=== PATIENT | female | born 1970 ===

== ENCOUNTER 2021-04-18 02:05 | Inpatient (IN) | payer OTHER ==
[2021-04-18] MEDS ORDERED: SODIUM CHLORIDE 0.9% 1000 ML 1,000 ML IV ONE ×2 (02:15→04:14)
[2021-04-18] MEDS ORDERED: cefTRIAXone/NS 2 GM/100 ML 2 GM/100 ML BAG IV ONE (02:17)
[2021-04-18] MEDS ORDERED: AZITHROMYCIN/NS 500 MG/250 ML 500 MG/250 ML BAG IV ONE (02:17)
[2021-04-18] MEDS ORDERED: ACETAMINOPHEN 650 MG RECT SUPP PR ONE (02:18)
--- NOTE | 2021-04-18 02:18 | Emergency Department Report ---
ED Altered Mental Status HPI - General Chief Complaint: Altered Mental Status Stated Complaint: RESPIRATORY DISTRESS PUI?: Yes Time Seen by Provider: 04/18/21 02:05 Source: EMS Limitations: Altered Mental Status, Physical Limitation - History of Present Illness Initial Comments: Patient is a 51-year-old female who presents emergency room with altered mental status, hypoxia and respiratory failure. Patient brought in by EMS. EMS report received. EMS states the patient was minimally responsive on arrival. Patient was placed on oxygen and IV placed and given saline and the patient began to wake up. Patient is on nonrebreather and is 78%. Patient received half a liter of fluids. Patient still tachycardic. Patient was normotensive. Patient recently diagnosed with Covid pneumonia. Patient has Zithromax at home but is not taking it. Patient's family called EMS. Patient is nonverbal. MD Complaint: altered mental status, decreased responsiveness -: Sudden Treatments Prior to Arrival: IV fluid, oxygen - Related Data Home Medications Medication Instructions Recorded Confirmed Last Taken Amlodipine Besylate [Norvasc] 10 mg PO DAILY 04/19/21 04/19/21 Unknown AtorvaSTATin [Lipitor] 10 mg PO QHS 04/19/21 04/19/21 Unknown Losartan [Cozaar] 50 mg PO QDAY 04/19/21 04/19/21 Unknown hydroCHLOROthiazide 12.5 mg PO QAM 04/19/21 04/19/21 Unknown [Hydrochlorothiazide] predniSONE 10 mg PO QDAY 04/19/21 04/19/21 Unknown Allergies Allergy/AdvReac Type Severity Reaction Status Date / Time No Known Allergies Allergy Verified 04/19/21 19:16 ED Review of Systems ROS: Stated complaint: RESPIRATORY DISTRESS Other details as noted in HPI Comment: Unobtainable due to pts medical conditions ED Past Medical Hx - Past Medical History Previous Medical History?: Yes Hx Hypertension: Yes - Surgical History Past Surgical History?: No - Family History Family history: no significant - Social History Smoking Status: Never Smoker Substance Use Type: None - Medications Home Medications: Home Medications Medication Instructions Recorded Confirmed Last Taken Type Amlodipine Besylate [Norvasc] 10 mg PO DAILY 04/19/21 04/19/21 Unknown History AtorvaSTATin [Lipitor] 10 mg PO QHS 04/19/21 04/19/21 Unknown History Losartan [Cozaar] 50 mg PO QDAY 04/19/21 04/19/21 Unknown History hydroCHLOROthiazide 12.5 mg PO QAM 04/19/21 04/19/21 Unknown History [Hydrochlorothiazide] predniSONE 10 mg PO QDAY 04/19/21 04/19/21 Unknown History ED Physical Exam - General Limitations: Altered Mental Status, Physical Limitation General appearance: alert, in distress - Head Head exam: Present: atraumatic, normocephalic - Eye Eye exam: Present: normal appearance, PERRL Pupils: Present: normal accommodation - ENT ENT exam: Present: mucous membranes dry - Neck Neck exam: Present: normal inspection - Respiratory Respiratory exam: Present: respiratory distress, wheezes, decreased breath sounds - Cardiovascular Cardiovascular Exam: Present: regular rate, normal rhythm, normal heart sounds. Absent: systolic murmur, diastolic murmur, rubs, gallop - GI/Abdominal GI/Abdominal exam: Present: soft, normal bowel sounds - Extremities Exam Extremities exam: Present: normal inspection - Back Exam Back exam: Present: normal inspection - Neurological Exam Neurological exam: Present: alert, altered - Skin Skin exam: Present: warm, dry, intact, normal color. Absent: rash - Assessment Assessment Interval: Baseline - Level of Consciousness 1a. Level of Consciousness: alert/keenly responsive - LOC Questions 1b. LOC Questions: aphasic - LOC Command 1c. LOC Commands: performs no tasks correctly - Best Gaze 2. Best Gaze: normal - Visual 3. Visual: no visual loss - Facial Palsy 4. Facial Palsy: normal symmetrical movement - Motor Arm 5a. Motor Arm Left: no movement 5b. Motor Arm Right: no movement - Motor Leg 6a. Motor Leg Left: no movement 6b. Motor Leg Right: no movement - Limb Ataxia 7. Limb Ataxia: absent - Sensory 8. Sensory: coma/unresponsive - Best Language 9. Best Language: coma/unresponsive - Dysarthria 10. Dysarthria: mute/anarrthric - Extinction and Inattention 11. Extinction/Inattention: no abnormality - Scoring Total Score: 27 Stroke Severity: Severe Stroke ED Course Vital Signs 04/18/21 04/18/21 04/18/21 02:35 03:54 04:53 Temperature Pulse Rate 111 H Respiratory 28 H Rate Blood Pressure 132/97 Blood Pressure [Left] O2 Sat by Pulse 92 100 Oximetry 04/18/21 04/18/21 04/18/21 05:01 05:15 05:31 Temperature Pulse Rate 102 H 105 H 105 H Respiratory 25 H 30 H 21 Rate Blood Pressure 127/86 127/87 128/81 Blood Pressure [Left] O2 Sat by Pulse 100 99 98 Oximetry 04/18/21 04/18/21 04/18/21 05:45 06:01 06:15 Temperature Pulse Rate 95 H 83 83 Respiratory 23 22 22 Rate Blood Pressure 128/88 112/77 105/75 Blood Pressure [Left] O2 Sat by Pulse 97 97 97 Oximetry 04/18/21 04/18/21 04/18/21 06:31 06:45 07:01 Temperature Pulse Rate 83 81 81 Respiratory 22 22 22 Rate Blood Pressure 108/73 128/88 105/74 Blood Pressure [Left] O2 Sat by Pulse 98 98 99 Oximetry 04/18/21 04/18/21 04/18/21 07:15 07:31 07:45 Temperature Pulse Rate 81 80 79 Respiratory 22 22 21 Rate Blood Pressure 110/71 118/76 107/74 Blood Pressure [Left] O2 Sat by Pulse 100 100 99 Oximetry 04/18/21 04/18/21 04/18/21 08:00 08:01 08:15 Temperature Pulse Rate 80 80 Respiratory 22 22 Rate Blood Pressure 107/72 103/73 Blood Pressure [Left] O2 Sat by Pulse 99 100 100 Oximetry 04/18/21 04/18/21 04/18/21 08:22 08:31 08:45 Temperature 98.3 F Pulse Rate 79 77 76 Respiratory 22 22 Rate Blood Pressure 104/72 104/72 112/77 Blood Pressure [Left] O2 Sat by Pulse 100 100 100 Oximetry 04/18/21 04/18/21 04/18/21 09:01 09:15 09:31 Temperature Pulse Rate 76 75 76 Respiratory 22 22 22 Rate Blood Pressure 106/70 106/72 112/76 Blood Pressure [Left] O2 Sat by Pulse 100 100 100 Oximetry 04/18/21 04/18/21 04/18/21 09:45 10:01 10:15 Temperature Pulse Rate 74 68 77 Respiratory 22 22 22 Rate Blood Pressure 109/70 110/70 109/70 Blood Pressure [Left] O2 Sat by Pulse 100 99 99 Oximetry 04/18/21 04/18/21 04/18/21 10:31 10:45 11:01 Temperature Pulse Rate 77 75 73 Respiratory 22 22 22 Rate Blood Pressure 111/70 110/74 110/75 Blood Pressure [Left] O2 Sat by Pulse 99 99 99 Oximetry 04/18/21 04/18/21 04/18/21 11:15 11:31 11:45 Temperature Pulse Rate 66 66 71 Respiratory 22 21 22 Rate Blood Pressure 110/74 108/73 102/71 Blood Pressure [Left] O2 Sat by Pulse 100 100 100 Oximetry 04/18/21 04/18/21 04/18/21 12:01 12:15 12:31 Temperature Pulse Rate 66 67 65 Respiratory 22 22 22 Rate Blood Pressure 106/72 107/72 109/73 Blood Pressure [Left] O2 Sat by Pulse 100 100 100 Oximetry 04/18/21 04/18/21 04/18/21 12:45 12:55 13:01 Temperature Pulse Rate 64 68 64 Respiratory 22 22 Rate Blood Pressure 102/70 109/73 109/73 Blood Pressure [Left] O2 Sat by Pulse 100 100 100 Oximetry 04/18/21 04/18/21 04/18/21 13:15 13:31 13:45 Temperature Pulse Rate 70 61 62 Respiratory 22 22 22 Rate Blood Pressure 105/71 103/69 100/68 Blood Pressure [Left] O2 Sat by Pulse 100 100 100 Oximetry 04/18/21 04/18/21 04/18/21 14:01 14:15 14:31 Temperature Pulse Rate 62 61 62 Respiratory 30 H 30 H 30 H Rate Blood Pressure 106/70 110/71 108/71 Blood Pressure [Left] O2 Sat by Pulse 100 100 100 Oximetry 04/18/21 04/18/21 04/18/21 14:45 15:01 15:15 Temperature Pulse Rate 62 61 62 Respiratory 30 H 30 H 30 H Rate Blood Pressure 113/72 107/70 113/72 Blood Pressure [Left] O2 Sat by Pulse 100 100 100 Oximetry 04/18/21 04/18/21 04/18/21 15:31 15:45 16:01 Temperature Pulse Rate 60 60 59 L Respiratory 30 H 30 H 30 H Rate Blood Pressure 108/73 109/72 116/73 Blood Pressure [Left] O2 Sat by Pulse 100 100 100 Oximetry 04/18/21 04/18/21 04/18/21 16:10 16:15 16:31 Temperature Pulse Rate 55 L 59 L 58 L Respiratory 30 H 30 H Rate Blood Pressure 114/74 108/71 114/73 Blood Pressure [Left] O2 Sat by Pulse 100 100 100 Oximetry 04/18/21 04/18/21 04/18/21 16:45 17:01 17:15 Temperature Pulse Rate 55 L 57 L 56 L Respiratory 30 H 30 H 30 H Rate Blood Pressure 114/72 117/74 115/71 Blood Pressure [Left] O2 Sat by Pulse 100 100 100 Oximetry 04/18/21 04/18/21 04/18/21 17:31 17:45 18:01 Temperature Pulse Rate 57 L 56 L 56 L Respiratory 30 H 30 H 30 H Rate Blood Pressure 117/74 124/80 114/74 Blood Pressure [Left] O2 Sat by Pulse 100 100 100 Oximetry 04/18/21 04/18/21 04/18/21 19:01 19:15 19:31 Temperature Pulse Rate 54 L 55 L 53 L Respiratory 30 H 30 H 30 H Rate Blood Pressure 127/80 118/74 121/73 Blood Pressure [Left] O2 Sat by Pulse 100 100 100 Oximetry 04/18/21 04/18/21 04/18/21 19:45 20:00 20:01 Temperature Pulse Rate 53 L 54 L 53 L Respiratory 30 H 30 H Rate Blood Pressure 116/73 124/80 121/79 Blood Pressure [Left] O2 Sat by Pulse 100 100 100 Oximetry 04/18/21 04/18/21 04/18/21 20:16 20:30 20:35 Temperature 97.8 F Pulse Rate 53 L 76 64 Respiratory 30 H 30 H 30 H Rate Blood Pressure 116/73 120/78 Blood Pressure 125/79 [Left] O2 Sat by Pulse 100 99 98 Oximetry 04/18/21 04/18/21 04/18/21 20:45 21:01 21:15 Temperature Pulse Rate 66 59 L 56 L Respiratory 30 H 30 H 30 H Rate Blood Pressure 125/79 121/79 111/73 Blood Pressure [Left] O2 Sat by Pulse 97 99 99 Oximetry 04/18/21 04/18/21 04/18/21 21:31 21:45 22:01 Temperature Pulse Rate 54 L 55 L 54 L Respiratory 30 H 30 H 30 H Rate Blood Pressure 111/74 116/75 114/73 Blood Pressure [Left] O2 Sat by Pulse 99 100 100 Oximetry 04/18/21 04/18/21 04/18/21 22:15 22:30 22:46 Temperature Pulse Rate 53 L 54 L 53 L Respiratory 30 H 30 H 30 H Rate Blood Pressure 123/79 114/73 125/80 Blood Pressure [Left] O2 Sat by Pulse 100 100 100 Oximetry 04/18/21 04/18/21 04/18/21 23:00 23:16 23:28 Temperature Pulse Rate 52 L 52 L 51 L Respiratory 30 H 30 H 30 H Rate Blood Pressure 119/78 127/80 123/77 Blood Pressure [Left] O2 Sat by Pulse 100 100 100 Oximetry 04/18/21 04/18/21 04/19/21 23:30 23:46 00:00 Temperature Pulse Rate 50 L 52 L 51 L Respiratory 30 H 30 H 30 H Rate Blood Pressure 123/77 121/80 125/78 Blood Pressure [Left] O2 Sat by Pulse 100 100 100 Oximetry 04/19/21 04/19/21 04/19/21 00:16 00:30 00:46 Temperature Pulse Rate 52 L 52 L 51 L Respiratory 30 H 30 H 30 H Rate Blood Pressure 122/80 125/78 124/80 Blood Pressure [Left] O2 Sat by Pulse 100 100 100 Oximetry 04/19/21 04/19/21 04/19/21 01:00 01:12 01:16 Temperature Pulse Rate 51 L 50 L 57 L Respiratory 30 H 25 H Rate Blood Pressure 123/80 122/76 122/76 Blood Pressure [Left] O2 Sat by Pulse 100 100 98 Oximetry 04/19/21 04/19/21 04/19/21 01:30 01:46 02:00 Temperature Pulse Rate 50 L 53 L 50 L Respiratory 30 H 30 H 30 H Rate Blood Pressure 124/80 133/83 122/80 Blood Pressure [Left] O2 Sat by Pulse 100 100 100 Oximetry 04/19/21 04/19/21 04/19/21 02:16 02:30 02:46 Temperature Pulse Rate 52 L 51 L 53 L Respiratory 30 H 30 H 30 H Rate Blood Pressure 123/78 119/76 123/78 Blood Pressure [Left] O2 Sat by Pulse 100 100 100 Oximetry 04/19/21 04/19/21 04/19/21 03:00 03:16 03:30 Temperature Pulse Rate 52 L 53 L 55 L Respiratory 30 H 30 H 30 H Rate Blood Pressure 127/79 125/78 122/79 Blood Pressure [Left] O2 Sat by Pulse 100 100 100 Oximetry 04/19/21 04/19/21 04/19/21 03:46 04:00 04:16 Temperature Pulse Rate 52 L 49 L 52 L Respiratory 30 H 30 H 30 H Rate Blood Pressure 127/79 124/80 126/75 Blood Pressure [Left] O2 Sat by Pulse 100 100 100 Oximetry 04/19/21 04/19/21 04/19/21 04:30 04:46 05:00 Temperature Pulse Rate 51 L 53 L 50 L Respiratory 30 H 30 H 30 H Rate Blood Pressure 124/77 126/75 123/76 Blood Pressure [Left] O2 Sat by Pulse 100 100 100 Oximetry 04/19/21 04/19/21 04/19/21 05:16 05:28 05:30 Temperature Pulse Rate 52 L 50 L 51 L Respiratory 30 H 30 H Rate Blood Pressure 124/77 119/78 119/78 Blood Pressure [Left] O2 Sat by Pulse 100 100 100 Oximetry 04/19/21 04/19/21 04/19/21 05:46 06:00 06:16 Temperature Pulse Rate 60 52 L 53 L Respiratory 30 H 30 H 30 H Rate Blood Pressure 127/87 131/78 122/78 Blood Pressure [Left] O2 Sat by Pulse 100 100 100 Oximetry 04/19/21 04/19/21 04/19/21 06:30 06:46 06:50 Temperature Pulse Rate 53 L 51 L 54 L Respiratory 30 H 30 H 30 H Rate Blood Pressure 121/76 117/75 121/74 Blood Pressure [Left] O2 Sat by Pulse 100 100 100 Oximetry 04/19/21 04/19/21 04/19/21 07:00 07:10 07:20 Temperature Pulse Rate 52 L 51 L 51 L Respiratory 30 H 30 H 30 H Rate Blood Pressure 121/74 124/75 126/79 Blood Pressure [Left] O2 Sat by Pulse 100 100 100 Oximetry 04/19/21 04/19/21 04/19/21 07:30 07:40 07:50 Temperature Pulse Rate 52 L 52 L 52 L Respiratory 30 H 30 H 30 H Rate Blood Pressure 126/79 121/76 119/77 Blood Pressure [Left] O2 Sat by Pulse 100 100 100 Oximetry 04/19/21 04/19/21 04/19/21 08:00 08:10 08:20 Temperature Pulse Rate 51 L 50 L 57 L Respiratory 30 H 30 H 30 H Rate Blood Pressure 119/77 122/75 123/80 Blood Pressure [Left] O2 Sat by Pulse 100 100 100 Oximetry 04/19/21 04/19/21 04/19/21 08:30 08:40 08:50 Temperature Pulse Rate 51 L 53 L 53 L Respiratory 30 H 30 H 30 H Rate Blood Pressure 123/80 123/80 128/80 Blood Pressure [Left] O2 Sat by Pulse 100 100 100 Oximetry 04/19/21 04/19/21 04/19/21 09:00 09:10 09:22 Temperature Pulse Rate 54 L 53 L Respiratory 30 H 30 H Rate Blood Pressure 128/80 128/80 Blood Pressure [Left] O2 Sat by Pulse 100 100 100 Oximetry 04/19/21 04/19/21 09:30 09:33 Temperature Pulse Rate 65 63 Respiratory 30 H Rate Blood Pressure Blood Pressure [Left] O2 Sat by Pulse 100 100 Oximetry - Reevaluation(s) Reevaluation #1: Patient oxygen saturation 98% on nonrebreather. Patient was switched over to high flow. 04/18/21 02:15 Reevaluation #2: Patient is currently 94%. Patient is on high flow O2. Patient will be given antibiotics steroids and, steroids and Zofran. 04/18/21 02:31 Reevaluation #3: Patient became more altered and more hypoxic. Patient intubated. See procedure note. Patient tolerated procedure well. 04/18/21 03:02 Reevaluation #4: Patient resting on the ventilator. Patient appropriately sedated. Patient's oxygen proving. 04/18/21 04:01 - Consultations Consultation #1: Hospitalist consulted for admission. Hospitalist to admit patient. 04/18/21 04:01 - Intubation Time Out Performed: Yes Sedative: Etomidate Paralytic: Succinylcholine Laryngoscope: Claudia Size: 4 Assist Device Used: fiberoptic device ET Tube Size: 7.5 Tube Secured Depth (cm): 20 Tube Secured Location: teeth Tube Placement Confirmation: visualized tube passing t, equal breath sounds bilat, no breath sounds over epi, confirmation by capnometr Patient Tolerated Procedure: well, no complications Intubation Complications: none - Lab Data Result diagrams: 04/23/21 04:17 04/23/21 04:17 Lab Results 10/15/21 10/15/21 10/15/21 Range/Units 02:34 02:34 02:34 WBC 6.5 (4.5-11.0) K/mm3 RBC 4.10 (3.65-5.03) M/mm3 Hgb 13.5 (10.1-14.3) gm/dl Hct 38.5 (30.3-42.9) % MCV 94 (79-97) fl MCH 33 H (28-32) pg MCHC 35 H (30-34) % RDW 12.4 L (13.2-15.2) % Plt Count 182 (140-440) K/mm3 Lymph % (Auto) 13.8 (13.4-35.0) % [place] % (Auto) 14.0 H (0.0-7.3) % Eos % (Auto) 0.0 (0.0-4.3) % Baso % (Auto) 0.2 (0.0-1.8) % Lymph # (Auto) 0.9 L (1.2-5.4) K/mm3 [place] # (Auto) 0.9 H (0.0-0.8) K/mm3 Eos # (Auto) 0.0 (0.0-0.4) K/mm3 Baso # (Auto) 0.0 (0.0-0.1) K/mm3 Seg Neutrophils % 72.0 H (40.0-70.0) % Seg Neutrophils # 4.7 (1.8-7.7) K/mm3 PT 14.2 (12.2-14.9) Sec. INR 0.99 (0.87-1.13) APTT 34.2 (24.2-36.6) Sec. D-Dimer 978.83 H (0-234) ng/mlDDU Sodium 145 (137-145) mmol/L Potassium 3.7 (3.6-5.0) mmol/L Chloride 104.6 (98-107) mmol/L Carbon Dioxide 20 L (22-30) mmol/L Anion Gap 24 mmol/L BUN 32 H (7-17) mg/dL Creatinine 1.0 (0.6-1.2) mg/dL Estimated GFR 58 ml/min BUN/Creatinine Ratio 32 % Glucose 227 H (65-100) mg/dL Lactic Acid (0.7-2.0) mmol/L Calcium 8.2 L (8.4-10.2) mg/dL Ferritin (10.0-200.0) ng/mL Total Bilirubin 0.70 (0.1-1.2) mg/dL AST 64 H (5-40) units/L ALT 33 (7-56) units/L Alkaline Phosphatase 91 (35-129) units/L Ammonia (25-60) umol/L Lactate Dehydrogenase (91-180) units/L Total Creatine Kinase (30-135) units/L C-Reactive Protein (0.00-1.30) mg/dL Total Protein 6.9 (6.3-8.2) g/dL Albumin 3.5 L (3.9-5) g/dL Albumin/Globulin Ratio 1.0 % Procalcitonin (<0.15) ng/mL Plasma/Serum Alcohol (0-0.07) % 04/18/21 04/18/21 04/18/21 Range/Units 02:34 02:34 02:34 WBC (4.5-11.0) K/mm3 RBC (3.65-5.03) M/mm3 Hgb (10.1-14.3) gm/dl Hct (30.3-42.9) % MCV (79-97) fl MCH (28-32) pg MCHC (30-34) % RDW (13.2-15.2) % Plt Count (140-440) K/mm3 Lymph % (Auto) (13.4-35.0) % [place] % (Auto) (0.0-7.3) % Eos % (Auto) (0.0-4.3) % Baso % (Auto) (0.0-1.8) % Lymph # (Auto) (1.2-5.4) K/mm3 [place] # (Auto) (0.0-0.8) K/mm3 Eos # (Auto) (0.0-0.4) K/mm3 Baso # (Auto) (0.0-0.1) K/mm3 Seg Neutrophils % (40.0-70.0) % Seg Neutrophils # (1.8-7.7) K/mm3 PT (12.2-14.9) Sec. INR (0.87-1.13) APTT (24.2-36.6) Sec. D-Dimer (0-234) ng/mlDDU Sodium (137-145) mmol/L Potassium (3.6-5.0) mmol/L Chloride (98-107) mmol/L Carbon Dioxide (22-30) mmol/L Anion Gap mmol/L BUN (7-17) mg/dL Creatinine (0.6-1.2) mg/dL Estimated GFR ml/min BUN/Creatinine Ratio % Glucose (65-100) mg/dL Lactic Acid (0.7-2.0) mmol/L Calcium (8.4-10.2) mg/dL Ferritin (10.0-200.0) ng/mL Total Bilirubin (0.1-1.2) mg/dL AST (5-40) units/L ALT (7-56) units/L Alkaline Phosphatase (35-129) units/L Ammonia 25.0 (25-60) umol/L Lactate Dehydrogenase (91-180) units/L Total Creatine Kinase 68 (30-135) units/L C-Reactive Protein (0.00-1.30) mg/dL Total Protein (6.3-8.2) g/dL Albumin (3.9-5) g/dL Albumin/Globulin Ratio % Procalcitonin (<0.15) ng/mL Plasma/Serum Alcohol < 0.01 (0-0.07) % 04/18/21 04/18/21 04/18/21 Range/Units 02:34 02:34 02:34 WBC (4.5-11.0) K/mm3 RBC (3.65-5.03) M/mm3 Hgb (10.1-14.3) gm/dl Hct (30.3-42.9) % MCV (79-97) fl MCH (28-32) pg MCHC (30-34) % RDW (13.2-15.2) % Plt Count (140-440) K/mm3 Lymph % (Auto) (13.4-35.0) % [place] % (Auto) (0.0-7.3) % Eos % (Auto) (0.0-4.3) % Baso % (Auto) (0.0-1.8) % Lymph # (Auto) (1.2-5.4) K/mm3 [place] # (Auto) (0.0-0.8) K/mm3 Eos # (Auto) (0.0-0.4) K/mm3 Baso # (Auto) (0.0-0.1) K/mm3 Seg Neutrophils % (40.0-70.0) % Seg Neutrophils # (1.8-7.7) K/mm3 PT (12.2-14.9) Sec. INR (0.87-1.13) APTT (24.2-36.6) Sec. D-Dimer (0-234) ng/mlDDU Sodium (137-145) mmol/L Potassium (3.6-5.0) mmol/L Chloride (98-107) mmol/L Carbon Dioxide (22-30) mmol/L Anion Gap mmol/L BUN (7-17) mg/dL Creatinine (0.6-1.2) mg/dL Estimated GFR ml/min BUN/Creatinine Ratio % Glucose 228 H (65-100) mg/dL Lactic Acid 2.00 (0.7-2.0) mmol/L Calcium (8.4-10.2) mg/dL Ferritin (10.0-200.0) ng/mL Total Bilirubin (0.1-1.2) mg/dL AST (5-40) units/L ALT (7-56) units/L Alkaline Phosphatase (35-129) units/L Ammonia (25-60) umol/L Lactate Dehydrogenase 711 H (91-180) units/L Total Creatine Kinase (30-135) units/L C-Reactive Protein 12.90 H (0.00-1.30) mg/dL Total Protein (6.3-8.2) g/dL Albumin (3.9-5) g/dL Albumin/Globulin Ratio % Procalcitonin 0.45 (<0.15) ng/mL Plasma/Serum Alcohol (0-0.07) % 04/18/21 Range/Units 02:34 WBC (4.5-11.0) K/mm3 RBC (3.65-5.03) M/mm3 Hgb (10.1-14.3) gm/dl Hct (30.3-42.9) % MCV (79-97) fl MCH (28-32) pg MCHC (30-34) % RDW (13.2-15.2) % Plt Count (140-440) K/mm3 Lymph % (Auto) (13.4-35.0) % [place] % (Auto) (0.0-7.3) % Eos % (Auto) (0.0-4.3) % Baso % (Auto) (0.0-1.8) % Lymph # (Auto) (1.2-5.4) K/mm3 [place] # (Auto) (0.0-0.8) K/mm3 Eos # (Auto) (0.0-0.4) K/mm3 Baso # (Auto) (0.0-0.1) K/mm3 Seg Neutrophils % (40.0-70.0) % Seg Neutrophils # (1.8-7.7) K/mm3 PT (12.2-14.9) Sec. INR (0.87-1.13) APTT (24.2-36.6) Sec. D-Dimer (0-234) ng/mlDDU Sodium (137-145) mmol/L Potassium (3.6-5.0) mmol/L Chloride (98-107) mmol/L Carbon Dioxide (22-30) mmol/L Anion Gap mmol/L BUN (7-17) mg/dL Creatinine (0.6-1.2) mg/dL Estimated GFR ml/min BUN/Creatinine Ratio % Glucose (65-100) mg/dL Lactic Acid (0.7-2.0) mmol/L Calcium (8.4-10.2) mg/dL Ferritin > 2000.0 H (10.0-200.0) ng/mL Total Bilirubin (0.1-1.2) mg/dL AST (5-40) units/L ALT (7-56) units/L Alkaline Phosphatase (35-129) units/L Ammonia (25-60) umol/L Lactate Dehydrogenase (91-180) units/L Total Creatine Kinase (30-135) units/L C-Reactive Protein (0.00-1.30) mg/dL Total Protein (6.3-8.2) g/dL Albumin (3.9-5) g/dL Albumin/Globulin Ratio % Procalcitonin (<0.15) ng/mL Plasma/Serum Alcohol (0-0.07) % - Radiology Data Radiology results: report reviewed, image reviewed interpreted by me: First chest x-ray: Bilateral pneumonia, no pneumothorax, no foreign body, no osseous findings. Second chest x-ray: Bilateral pneumonia, no pneumothorax, , no osseous findings, ET tube in satisfactory position. NG tube in satisfactory position. CHEST 1 VIEW 04/18/2021 1:45 AM INDICATION / CLINICAL INFORMATION: Altered Mental Status. COMPARISON: Chest x-ray 04/18/2021 FINDINGS: SUPPORT DEVICES: None. HEART / MEDIASTINUM: Cardiac silhouette remains markedly enlarged LUNGS / PLEURA: Bilateral parenchymal disease likely secondary to pneumonia No pneumothorax. ADDITIONAL FINDINGS: No significant additional findings. IMPRESSION: 1. Bilateral pneumonia CHEST 1 VIEW 04/18/2021 3:20 AM INDICATION / CLINICAL INFORMATION: ETT placement. COMPARISON: 04/18/2021 2:35 AM same day FINDINGS: SUPPORT DEVICES: ET tube 7 cm above keira. NG tube in body of stomach HEART / MEDIASTINUM: Remains moderately enlarged LUNGS / PLEURA: Moderate multifocal bilateral airspace disease, unchanged. No pneumothorax. ADDITIONAL FINDINGS: No significant additional findings. IMPRESSION: 1. Bilateral pneumonia - Medical Decision Making Patient is a 51-year-old female presents emergency room with altered mental status and hypoxia and respiratory failure. Patient was found to be 40% on room air by EMS. EMS also found the patient to the severely altered and unresponsive. Patient was given IV fluids and oxygen the patient's mentation slowly improved with EMS. Patient was nonverbal upon arrival. Patient's mentation continued the same and then deteriorated while in the ER. Patient oxygen saturation improved after initial arrival with EMS. Patient's oxygen saturation then decreased. Patient eventually required intubation due to altered mental status and airway protection and hypoxia. Patient responded well to intubation. See intubation note. Patient had labs done which were essentially unremarkable save for elevated inflammatory Covid markers. Patient is already been diagnosed with Covid as an outpatient. Patient had azithromycin as an outpatient but never took it. Patient had a chest x-ray done which showe d bilateral pneumonia. Patient had a second chest x-ray done after intubation and it showed satisfactory position of ET tube and NG tube. I personally reviewed the x-rays. After his evaluation, the patient was given early IV fluids and early antibiotics. Patient's IV fluids were given slowly due to her diagnosis of Covid. Patient blood pressure stable. Patient is septic however the fluids need to be given slowly. After intubation, patient was placed on Ativan drip. Patient admitted to the hospital service for further evaluation treatment. Critical care time documented due to the multiple reassessments, prolonged time at the bedside, interpretation of diagnostics and labs. - Differential Diagnosis Sepsis, AMS, hypoxia, respiratory failure, Covid, PNA. - Core Measures AMI Core Measures Followed: Yes Critical Care Time: Yes Critical care time in (mins) excluding proc time.: 45 Critical care attestation.: If time is entered above; I have spent that time in minutes in the direct care of this critically ill patient, excluding procedure time. Critical Care Time: 45 minutes ED Disposition Clinical Impression: COVID-19, Unresponsive, Encephalopathy acute Bilateral pneumonia Qualifiers: Pneumonia type: due to unspecified organism Lung location: unspecified part of lung Qualified Code(s): J18.9 - Pneumonia, unspecified organism Respiratory failure Qualifiers: Chronicity: acute Respiratory failure complication: hypoxia Qualified Code(s): J96.01 - Acute respiratory failure with hypoxia Altered mental state Qualifiers: Altered mental status type: unspecified Qualified Code(s): R41.82 - Altered mental status, unspecified Sepsis Qualifiers: Sepsis type: sepsis due to unspecified organism Sepsis acute organ dysfunction status: with acute organ dysfunction Severe sepsis acute organ dysfunction type: acute respiratory failure Acute respiratory failure type: with hypoxia Severe sepsis shock status: without septic shock Qualified Code(s): A41.9 - Sepsis, unspecified organism; R65.20 - Severe sepsis without septic shock; J96.01 - Acute respiratory failure with hypoxia Disposition: 09 ADMITTED INPATIENT Is pt being admited?: Yes Does the pt Need Aspirin: No Condition: Critical Time of Disposition: 03:36
[2021-04-18] MEDS ORDERED: ONDANSETRON 4 MG/2 ML INJ IV ONE (02:29)
[2021-04-18] MEDS ORDERED: dexAMETHasone 4 MG/ML VIAL IV ONE (02:29)
--- NOTE | 2021-04-18 02:52 | XRay Report ---
CHEST 1 VIEW 04/18/2021 1:45 AM INDICATION / CLINICAL INFORMATION: Altered Mental Status. COMPARISON: Chest x-ray 04/18/2021 FINDINGS: SUPPORT DEVICES: None. HEART / MEDIASTINUM: Cardiac silhouette remains markedly enlarged LUNGS / PLEURA: Bilateral parenchymal disease likely secondary to pneumonia No pneumothorax. ADDITIONAL FINDINGS: No significant additional findings. IMPRESSION: 1. Bilateral pneumonia Signer Name: Marshal Clinton MD Signed: 04/18/2021 2:48 AM Workstation Name: [id number]
[2021-04-18 02:56] LABS: Basophils % (Auto) 0.2 % (0.0-1.8); Hematocrit 38.5 % (30.3-42.9); Hemoglobin 13.5 gm/dl (10.1-14.3); Lymphocytes # (Auto) 0.9 K/mm3 (1.2-5.4); Lymphocytes % (Auto) 13.8 % (13.4-35.0); Mean Corpuscular HGB Conc 35 % (30-34); Mean Corpuscular Volume 94 fl (79-97); Monocytes # (Auto) 0.9 K/mm3 (0.0-0.8); Platelet Count 182 K/mm3 (140-440); Red Cell Distribution Width 12.4 % (13.2-15.2)
[2021-04-18] MEDS ORDERED: MINERAL OIL/PETROLATUM, WHITE OPHTH OINT 3.5 GM OU PRN (03:03)
[2021-04-18] MEDS ORDERED: LIP THERAPY VASELINE TP PRN (03:03)
[2021-04-18 03:06] LABS: INR 0.99 (0.87-1.13); Partial Thromboplastin Time 34.2 Sec. (24.2-36.6)
[2021-04-18 03:31] LABS: C-Reactive Protein 12.9 mg/dL (0.00-1.30)
--- NOTE | 2021-04-18 03:45 | XRay Report ---
CHEST 1 VIEW 04/18/2021 3:20 AM INDICATION / CLINICAL INFORMATION: ETT placement. COMPARISON: 04/18/2021 2:35 AM same day FINDINGS: SUPPORT DEVICES: ET tube 7 cm above keira. NG tube in body of stomach HEART / MEDIASTINUM: Remains moderately enlarged LUNGS / PLEURA: Moderate multifocal bilateral airspace disease, unchanged. No pneumothorax. ADDITIONAL FINDINGS: No significant additional findings. IMPRESSION: 1. Bilateral pneumonia Signer Name: Marshal Clinton MD Signed: 04/18/2021 3:41 AM Workstation Name: [id number]
[2021-04-18 03:57] LABS: Albumin 3.5 g/dL (3.9-5); Calcium 8.2 mg/dL (8.4-10.2)
[2021-04-18] MEDS ORDERED: LORazepam 100 MG in SODIUM CHLORIDE 0.9% 50 ML, EMPTY BAG 0 ML IV SCH (04:00)
[2021-04-18] MEDS ORDERED: ONDANSETRON 4 MG/2 ML INJ IV PRN (04:13)
[2021-04-18] MEDS ORDERED: MORPHINE 2 MG/1 ML INJ IV PRN (04:13)
[2021-04-18] MEDS ORDERED: MORPHINE 4 MG/1 ML INJ IV PRN (04:13)
[2021-04-18] MEDS ORDERED: ACETAMINOPHEN 650 MG RECT SUPP PR PRN (04:13)
[2021-04-18] MEDS ORDERED: SODIUM CHLORIDE 0.9% 1000 ML 1,000 ML IV SCH (04:15)
--- NOTE | 2021-04-18 04:26 | History and Physical Report ---
History of Present Illness Date of examination: 04/18/21 Date of admission: 04/18/2021 Chief complaint: Altered mental status History of present illness: 51-year-old old female brought into the emergency room by EMS for altered mental status. She was minimally responsive upon arrival. She was also found to be hypoxic with O2 saturation of about 40% and was initially placed on a nonrebreather with improvement of oxygen saturation to about 78%. She was subsequently intubated in the emergency room. Most of the history was gotten from the ER staff as family members were not available and patient was already intubated.. Patient was said to have been diagnosed with COVID-19 about 4 days ago. She was placed on Zithromax at home but he has not been compliant with the medication. Patient's family was said to have provided information to the EMS. Work-up in the emergency room, chest x-ray reveals bilateral pneumonia. Past History Past Medical History: other (Unobtainable) Past Surgical History: Other (Unobtainable) Family history: other (Unobtainable) Medications and Allergies Allergies Allergy/AdvReac Type Severity Reaction Status Date / Time Unable to Assess Allergy Verified 04/18/21 02:39 Active Meds: Active Medications Acetaminophen (Acetaminophen 650 Mg Rect Supp) 650 mg DC Q6H PRN PRN Reason: Pain MILD(1-3)/Fever >100.5/ASENCIO Hydrophilic Ointment (Lip Therapy Vaseline) 1 applic TP Q2HR PRN PRN Reason: Dry Lips Lorazepam 100 mg/ Sodium Chloride/ Miscellaneous Information 100 mls @ 1 mls/hr IV TITR REJI; Protocol Last Admin: 04/18/21 04:13 Dose: 1 mg/hr, 1 mls/hr Documented by: Sodium Chloride (Nacl 0.9% 1000 Ml) 1,000 mls @ 999 mls/hr IV BOLUS ONE Stop: 04/18/21 05:14 Sodium Chloride (Nacl 0.9% 1000 Ml) 1,000 mls @ 75 mls/hr IV DIRECT REJI Ceftriaxone Sodium (Rocephin/Ns 2 Gm/100 Ml) 2 gm in 100 mls @ 200 mls/hr IV Q24H REJI; Protocol Azithromycin (Zithromax/Ns) 500 mg in 250 mls @ 250 mls/hr IV Q24H REJI; Protocol Lorazepam (Lorazepam 2 Mg/Ml Vial) 2 mg IV Q10MIN PRN PRN Reason: Agitation Morphine Sulfate (Morphine 2 Mg/1 Ml Inj) 2 mg IV Q4H PRN PRN Reason: Pain, Moderate (4-6) Morphine Sulfate (Morphine 4 Mg/1 Ml Inj) 4 mg IV Q4H PRN PRN Reason: Pain , Severe (7-10) Multi-Ingred Cream/Lotion/Oil/Oint (Mineral Oil/Petrolatum, White Ophth Oint 3.5 Gm) 1 applic OU Q4HR PRN PRN Reason: Dry Eye(s) Ondansetron HCl (Ondansetron 4 Mg/2 Ml Inj) 4 mg IV Q8H PRN PRN Reason: Nausea And Vomiting Sodium Chloride (Sodium Chloride 0.9% 10 Ml Flush Syringe) 10 ml IV BID REJI Sodium Chloride (Sodium Chloride 0.9% 10 Ml Flush Syringe) 10 ml IV PRN PRN PRN Reason: LINE FLUSH Review of Systems ROS unobtainable: due to endotracheal tube Exam - Constitutional Vitals: Temp Pulse Resp BP Pulse Ox 111 H 132/97 100 04/18/21 03:54 04/18/21 03:54 04/18/21 03:54 General appearance: Present: other (Intubated and sedated) - EENT Eyes: Present: PERRL, EOM intact. Absent: scleral icterus ENT: hearing intact, clear oral mucosa, dentition normal - Neck Neck: Present: supple, normal ROM - Respiratory Respiratory effort: other (Currently intubated) Respiratory: bilateral: rales - Cardiovascular Rhythm: regular Heart Sounds: Present: S1 & S2. Absent: gallop, systolic murmur, diastolic murmur, rub, click - Extremities Extremities: no ischemia, pulses intact, pulses symmetrical, No edema, normal temperature, normal color, Full ROM Peripheral Pulses: within normal limits - Abdominal General gastrointestinal: Present: soft, non-tender, non-distended, normal bowel sounds. Absent: mass - Integumentary Integumentary: Present: clear, warm, dry. Absent: rash - Musculoskeletal Musculoskeletal: strength equal bilaterally - Psychiatric Psychiatric: cooperative, other - Neurologic Neurologic: no focal deficits, other (Intubated and sedated) Results - Labs CBC & Chem 7: 04/18/21 02:34 04/18/21 02:34 Labs: Abnormal lab results 04/18/21 04/18/21 04/18/21 Range/Units 02:34 02:34 02:34 MCH 33 H (28-32) pg MCHC 35 H (30-34) % RDW 12.4 L (13.2-15.2) % [place] % (Auto) 14.0 H (0.0-7.3) % Lymph # (Auto) 0.9 L (1.2-5.4) K/mm3 [place] # (Auto) 0.9 H (0.0-0.8) K/mm3 Seg Neutrophils % 72.0 H (40.0-70.0) % D-Dimer 978.83 H (0-234) ng/mlDDU Carbon Dioxide 20 L (22-30) mmol/L BUN 32 H (7-17) mg/dL Glucose 227 H (65-100) mg/dL Calcium 8.2 L (8.4-10.2) mg/dL Ferritin (10.0-200.0) ng/mL AST 64 H (5-40) units/L Lactate Dehydrogenase (91-180) units/L C-Reactive Protein (0.00-1.30) mg/dL Albumin 3.5 L (3.9-5) g/dL 04/18/21 04/18/21 Range/Units 02:34 02:34 MCH (28-32) pg MCHC (30-34) % RDW (13.2-15.2) % [place] % (Auto) (0.0-7.3) % Lymph # (Auto) (1.2-5.4) K/mm3 [place] # (Auto) (0.0-0.8) K/mm3 Seg Neutrophils % (40.0-70.0) % D-Dimer (0-234) ng/mlDDU Carbon Dioxide (22-30) mmol/L BUN (7-17) mg/dL Glucose 228 H (65-100) mg/dL Calcium (8.4-10.2) mg/dL Ferritin > 2000.0 H (10.0-200.0) ng/mL AST (5-40) units/L Lactate Dehydrogenase 711 H (91-180) units/L C-Reactive Protein 12.90 H (0.00-1.30) mg/dL Albumin (3.9-5) g/dL Assessment and Plan - Patient Problems (1) Respiratory failure Current Visit: No Status: Acute Qualifiers: Chronicity: acute Respiratory failure complication: hypoxia Qualified Code(s): J96.01 - Acute respiratory failure with hypoxia Plan to address problem: Possibly secondary to the underlying pneumonia. Patient currently intubated and sedated. Consult placed to unit receptionist for evaluation. (2) COVID-19 Current Visit: No Status: Acute Plan to address problem: Patient placed on isolation precautions. She has been started on IV steroid. Consult placed to infectious disease for evaluation and recommendations. (3) Bilateral pneumonia Current Visit: No Status: Acute Qualifiers: Pneumonia type: due to unspecified organism Lung location: unspecified part of lung Qualified Code(s): J18.9 - Pneumonia, unspecified organism Plan to address problem: Secondary to COVID-19. Await further evaluation by infectious disease and street light servicer.. (4) Sepsis Current Visit: No Status: Acute Qualifiers: Sepsis type: sepsis due to unspecified organism Sepsis acute organ dysfunction status: with acute organ dysfunction Severe sepsis acute organ dysfunction type: acute respiratory failure Acute respiratory failure type: with hypoxia Severe sepsis shock status: without septic shock Qualified Code(s): A41.9 - Sepsis, unspecified organism; R65.20 - Severe sepsis without septic shock; J96.01 - Acute respiratory failure with hypoxia Plan to address problem: Secondary to the pneumonia. (5) DVT prophylaxis Current Visit: No Status: Acute Plan to address problem: Patient placed on subcutaneous heparin. (6) Full code status Current Visit: No Status: Acute
[2021-04-18 04:38] LABS: Hyaline Casts,Urine 3 /LPF; Mucus,Urine FEW /HPF
[2021-04-18 04:39] LABS: Bilirubin,Urine NEG (Negative); Blood,Urine NEG (Negative); Color,Urine Yellow (Yellow)
[2021-04-18 04:44] LABS: ABG HCO3 20.8 mmol/L (20.0-26.0); ABG Methemoglobin 0.5 % (0.0-1.5); ABG PCO2 29.4 mm Hg; ABG PH 7.468 pH Units (7.350-7.450); ABG PO2 154.9 mm Hg (80.0-90.0)
[2021-04-18] MEDS: LORazepam 2 MG/ML VIAL IV PRN ×2 (05:42→10:28)
[2021-04-18] MEDS: HEPARIN 5,000 UNIT/1 ML VIAL SUB-Q SCH ×3 (08:12→21:50)
[2021-04-18] MEDS ORDERED: SIMPLE SYRUP 15 ML FEEDTUBE PRN ×2 (08:46)
[2021-04-18] MEDS ORDERED: SODIUM BICARBONATE 325 MG TAB FEEDTUBE PRN (08:46)
[2021-04-18] MEDS ORDERED: LIPASE 10,500/PROTEASE 25,000/AMYLASE 43,750 (UNITS) DR CAP FEEDTUBE PRN (10:00)
[2021-04-18] MEDS: FAMOTIDINE 20 MG/2 ML INJ IV SCH ×2 (10:56→21:50)
[2021-04-18] MEDS: cefTRIAXone/NS 2 GM/100 ML 2 GM/100 ML BAG IV SCH (10:56)
[2021-04-18] MEDS: dexAMETHasone 4 MG/ML VIAL IV SCH (10:56)
[2021-04-18] MEDS ORDERED: REMDESIVIR 200 MG in SODIUM CHLORIDE 0.9% 250ML 250 ML IV SCH (11:00)
[2021-04-18] MEDS: AZITHROMYCIN/NS 500 MG/250 ML 500 MG/250 ML BAG IV SCH (11:38)
--- NOTE | 2021-04-18 12:26 | Consultation ---
History of Present Illness Consult date: 04/18/21 Requesting physician: MICKI VERAS Reason for consult: other (Severe COVID infection with acute hypoxemic resp failure on MVS) History of present illness: HISTORY PER MEDICAL RECORDS, UNABLE TO OBTAIN PATIENT WAS ORALLY INTUBATED ON MVS 51-year-old female admitted to hospital with altered mental status. She was found to be significantly hypoxic on admission with O2 saturations of about 40%, and she was subsequently intubated in the emergency room. She was diagnosed with COVID-19 4 days prior to admission. A critical care consult was placed. Patient seen and examined. Vitals, labs, medications, chart and imaging reviewed. Discussed with respiratory and nursing staff. Discussed with ED physician. Past History Past Medical History: other (Unobtainable) Past Surgical History: Other (Unobtainable) Family history: other (Unobtainable) Medications and Allergies Allergies Allergy/AdvReac Type Severity Reaction Status Date / Time Unable to Assess Allergy Verified 04/18/21 02:39 Active Meds: Active Medications Acetaminophen (Acetaminophen 650 Mg Rect Supp) 650 mg CO Q6H PRN PRN Reason: Pain MILD(1-3)/Fever >100.5/ASENCIO Lipase/Protease/Amylase (Lipase 10,500/Protease 25,000/Amylase 43,750 (Units) Dr Cox) 1 each FEEDTUBE PRN PRN PRN Reason: For Clogged Feeding Tube Dexamethasone (Dexamethasone 4 Mg/Ml Vial) 6 mg IV Q24HR [facility] Stop: 04/27/21 10:01 Last Admin: 04/18/21 10:56 Dose: 6 mg Documented by: Famotidine (Famotidine 20 Mg/2 Ml Inj) 20 mg IV BID [facility] Last Admin: 04/18/21 10:56 Dose: 20 mg Documented by: Heparin Sodium (Porcine) (Heparin 5,000 Unit/1 Ml Vial) 5,000 unit SUB-Q Q8HR [facility] Last Admin: 04/18/21 08:12 Dose: 5,000 unit Documented by: Hydrophilic Ointment (Lip Therapy Vaseline) 1 applic TP Q2HR PRN PRN Reason: Dry Lips Lorazepam 100 mg/ Sodium Chloride/ Miscellaneous Information 100 mls @ 1 mls/hr IV TITR REJI; Protocol Last Admin: 04/18/21 04:13 Dose: 1 mg/hr, 1 mls/hr Documented by: Sodium Chloride (Nacl 0.9% 1000 Ml) 1,000 mls @ 75 mls/hr IV DIRECT REJI Ceftriaxone Sodium (Rocephin/Ns 2 Gm/100 Ml) 2 gm in 100 mls @ 200 mls/hr IV Q24HR REJI; Protocol Last Admin: 04/18/21 10:56 Dose: 200 mls/hr Documented by: Azithromycin (Zithromax/Ns) 500 mg in 250 mls @ 250 mls/hr IV Q24HR REJI; Protocol Last Admin: 04/18/21 11:38 Dose: 250 mls/hr Documented by: REMDESIVIR 200 mg/ Sodium (Chloride) 250 mls @ 500 mls/hr IV ONCE@1100 REJI Stop: 04/18/21 15:00 REMDESIVIR 100 mg/ Sodium (Chloride) 250 mls @ 500 mls/hr IV Q24HR@2100 REJI Stop: 04/22/21 21:29 Lorazepam (Lorazepam 2 Mg/Ml Vial) 2 mg IV Q10MIN PRN PRN Reason: Agitation Last Admin: 04/18/21 10:28 Dose: 2 mg Documented by: Morphine Sulfate (Morphine 2 Mg/1 Ml Inj) 2 mg IV Q4H PRN PRN Reason: Pain, Moderate (4-6) Morphine Sulfate (Morphine 4 Mg/1 Ml Inj) 4 mg IV Q4H PRN PRN Reason: Pain , Severe (7-10) Multi-Ingred Cream/Lotion/Oil/Oint (Mineral Oil/Petrolatum, White Ophth Oint 3.5 Gm) 1 applic OU Q4HR PRN PRN Reason: Dry Eye(s) Ondansetron HCl (Ondansetron 4 Mg/2 Ml Inj) 4 mg IV Q8H PRN PRN Reason: Nausea And Vomiting Simple Syrup (Simple Syrup 15 Ml) 15 ml FEEDTUBE PRN PRN PRN Reason: Hypoglycemia Simple Syrup (Simple Syrup 15 Ml) 30 ml FEEDTUBE PRN PRN PRN Reason: Hypoglycemia Sodium Bicarbonate (Sodium Bicarbonate 325 Mg Tab) 325 mg FEEDTUBE PRN PRN PRN Reason: For Clogged Feeding Tube Sodium Chloride (Sodium Chloride 0.9% 10 Ml Flush Syringe) 10 ml IV BID [facility] Last Admin: 04/18/21 10:56 Dose: 10 ml Documented by: Sodium Chloride (Sodium Chloride 0.9% 10 Ml Flush Syringe) 10 ml IV PRN PRN PRN Reason: LINE FLUSH Sodium Chloride (Sodium Chloride 0.9% 50 Ml Ivpb) 50 ml IV Q24HR@2100 REJI Stop: 04/22/21 21:01 Review of Systems ROS unobtainable: due to endotracheal tube, due to mental status Physical Examination Vital signs: Vital Signs Pulse Ox 92 04/18/21 02:35 General appearance: no acute distress, other (sedated) Eyes: non-icteric ENT: oropharynx moist, other (ETT 7.5 at 23cm at the lip) Neck: supple, no lymphadenopathy Effort: mildly labored Ascultation: Bilateral: clear, diminished breath sounds Cardiovascular: regular rate and rhythm, other (S1,S2) Gastrointestinal: normoactive bowel sounds, soft, non-tender, non-distended Integumentary: normal Extremities: no cyanosis, no edema, pink and warm, pulses normal Musculoskeletal: no deformities non-focal exam (moves extremities), pupils equal and round other (unable to assess) Results - Laboratory Findings CBC and BMP: 04/19/21 05:36 04/19/21 05:36 ABG ABG pH 7.468 pH Units (7.350-7.450) H 04/18/21 04:20 ABG pCO2 29.4 mm Hg 04/18/21 04:20 ABG pO2 154.9 mm Hg (80.0-90.0) H 04/18/21 04:20 ABG O2 Saturation 99.0 % (95.0-99.0) 04/18/21 04:20 PT/INR, D-dimer PT 14.2 Sec. (12.2-14.9) 04/18/21 02:34 INR 0.99 (0.87-1.13) 04/18/21 02:34 D-Dimer 978.83 ng/mlDDU (0-234) H 04/18/21 02:34 Abnormal lab findings: Abnormal Labs 04/18/21 04/18/21 04/18/21 02:34 02:34 02:34 MCH 33 H MCHC 35 H RDW 12.4 L [place] % (Auto) 14.0 H Lymph # (Auto) 0.9 L [place] # (Auto) 0.9 H Seg Neutrophils % 72.0 H D-Dimer 978.83 H ABG pH ABG pO2 Carbon Dioxide 20 L BUN 32 H Glucose 227 H Lactic Acid Calcium 8.2 L Ferritin AST 64 H Lactate Dehydrogenase C-Reactive Protein Albumin 3.5 L 04/18/21 04/18/21 04/18/21 02:34 02:34 04:20 MCH MCHC RDW [place] % (Auto) Lymph # (Auto) [place] # (Auto) Seg Neutrophils % D-Dimer ABG pH 7.468 H ABG pO2 154.9 H Carbon Dioxide BUN Glucose 228 H Lactic Acid Calcium Ferritin > 2000.0 H AST Lactate Dehydrogenase 711 H C-Reactive Protein 12.90 H Albumin 04/18/21 04:54 MCH MCHC RDW [place] % (Auto) Lymph # (Auto) [place] # (Auto) Seg Neutrophils % D-Dimer ABG pH ABG pO2 Carbon Dioxide BUN Glucose Lactic Acid 2.30 H* Calcium Ferritin AST Lactate Dehydrogenase C-Reactive Protein Albumin - Diagnostic Findings Chest x-ray: image reviewed (Low lung volumes, bialteal confluent alveolar infiltrates) Assessment and Plan Acute hypoxemic respiratory failure, ARDS secondary to COVID pneumonia P/F 154 Bilateral pneumonia Sepsis -continue to titrate supplemental oxygen to keep SpO2 88-90% -VAP bundle addressed, aspiration precautions HOB>30 -Lung protective strategies, continue to monitor airway pressures - bronchodilators with pulmonary hygiene per RT - sedation target RASS -3 to -4 . Stop Lorazepam and start Fentanyl and Propofol -complete ABs per ID recommendation-Ceftriaxone 2 gm IV qday and azithromycin 500 mg PO qday, if procalcitonin <0.25 ng/mL stop antibiotics - continue glycemic control with SSI for target BG 140-180 mg while critically ill; avoid hypoglycemia - avoid nephrotoxins, renally dose all medications - prn analgesia per pain score - Maintenance of sleep-wake cycle, avoid delirium - supportive transfusions for serum Hb < 7.0g/dL - Stress ulcer prophylaxis- Famotidine - continue mobility, off loading, frequent turning per facility for pressure ulcer prevention - Monitor hemodynamics closely -Conservative fluid management, keep negative fluid balance as tolerated by hemodynamics and renal function -Enteric nutritional support, nutrition consult for tube feeding -Get follow up lactic acid levels - continue other care per attending / other consultants COVID SPECIFIC INTERVENTIONS - Remdesivir as per ID/Pulmonary developed protocols - continue systemic steroids for severe COVID-19 infection -Repeat COVID PCR test - Monitor inflammatory markers per facility protocol - ferritin, D-dimer, CRP -Given elevated CRP and ventilator requirements, if Covid PCR positive as inpatient would give Actemra 8 mg/kg - Anticoagulation per system Protocol based on d-dimer and clinical considerations -on Enoxaparin 30mg BID - Continue contact and airborne isolation -Prone positioning per facility protocol CONDITION: CRITICAL PROGNOSIS: GUARDED CODE STATUS: FULL CODE The high probability of a clinically significant, sudden or life-threatening det erioration of the [respiratory, neurologic] system(s) required my full and direct attention, intervention and personal management. The aggregate critical care time was [75] minutes without overlap. Time includes spent on; [x] Data Review and interpretation [x] Patient assessment and monitoring of vital signs [x] Documentation [x] Medication orders and management
[2021-04-18] MEDS: D5W/0.45% NACL 1,000 ML IV SCH (14:02)
[2021-04-18] MEDS: SODIUM CHLORIDE 0.9% 50 ML IVPB IV SCH (15:51)
--- NOTE | 2021-04-18 16:22 | Consultation ---
History of Present Illness - Reason for Consult Consult date: 04/18/21 - History of Present Illness 51-year-old female admitted to hospital with altered mental status. She was found to be significantly hypoxic on admission with O2 saturations of about 40%, and she was subsequently intubated in the emergency room. As such the history is obtained from the chart. She was diagnosed with COVID-19 4 days prior to admission. No temperature is available for review. White count 6.5. Elevated inflammatory markers blood cultures and sputum cultures no growth so far. Currently ceftriaxone and azithromycin with dexamethasone. Imaging personally reviewed: Chest x-ray: Bilateral pneumonia Review of systems: Deferred to reduce to the risk of transmission of COVID-19 Past History Past Medical History: other (Unobtainable) Past Surgical History: Other (Unobtainable) Family history: other (Unobtainable) Medications and Allergies Allergies Allergy/AdvReac Type Severity Reaction Status Date / Time Unable to Assess Allergy Verified 04/18/21 02:39 Active Meds: Active Medications Acetaminophen (Acetaminophen 650 Mg Rect Supp) 650 mg CO Q6H PRN PRN Reason: Pain MILD(1-3)/Fever >100.5/ASENCIO Lipase/Protease/Amylase (Lipase 10,500/Protease 25,000/Amylase 43,750 (Units) Dr Cox) 1 each FEEDTUBE PRN PRN PRN Reason: For Clogged Feeding Tube Dexamethasone (Dexamethasone 4 Mg/Ml Vial) 6 mg IV Q24HR [facility] Stop: 04/27/21 10:01 Last Admin: 04/18/21 10:56 Dose: 6 mg Documented by: Famotidine (Famotidine 20 Mg/2 Ml Inj) 20 mg IV BID [facility] Last Admin: 04/18/21 10:56 Dose: 20 mg Documented by: Heparin Sodium (Porcine) (Heparin 5,000 Unit/1 Ml Vial) 5,000 unit SUB-Q Q8HR [facility] Last Admin: 04/18/21 16:01 Dose: 5,000 unit Documented by: Hydrophilic Ointment (Lip Therapy Vaseline) 1 applic TP Q2HR PRN PRN Reason: Dry Lips Lorazepam 100 mg/ Sodium Chloride/ Miscellaneous Information 100 mls @ 1 mls/hr IV TITR REJI; Protocol Last Admin: 04/18/21 04:13 Dose: 1 mg/hr, 1 mls/hr Documented by: Sodium Chloride (Nacl 0.9% 1000 Ml) 1,000 mls @ 75 mls/hr IV DIRECT REJI Ceftriaxone Sodium (Rocephin/Ns 2 Gm/100 Ml) 2 gm in 100 mls @ 200 mls/hr IV Q24HR REJI; Protocol Last Admin: 04/18/21 10:56 Dose: 200 mls/hr Documented by: Azithromycin (Zithromax/Ns) 500 mg in 250 mls @ 250 mls/hr IV Q24HR REJI; Protocol Last Admin: 04/18/21 11:38 Dose: 250 mls/hr Documented by: REMDESIVIR 100 mg/ Sodium (Chloride) 250 mls @ 500 mls/hr IV Q24HR@2100 REJI Stop: 04/22/21 21:29 Dextrose/Sodium Chloride (D5/0.45ns) 1,000 mls @ 50 mls/hr IV DIRECT REJI Last Admin: 04/18/21 14:02 Dose: 50 mls/hr Documented by: Lorazepam (Lorazepam 2 Mg/Ml Vial) 2 mg IV Q10MIN PRN PRN Reason: Agitation Last Admin: 04/18/21 10:28 Dose: 2 mg Documented by: Morphine Sulfate (Morphine 2 Mg/1 Ml Inj) 2 mg IV Q4H PRN PRN Reason: Pain, Moderate (4-6) Morphine Sulfate (Morphine 4 Mg/1 Ml Inj) 4 mg IV Q4H PRN PRN Reason: Pain , Severe (7-10) Multi-Ingred Cream/Lotion/Oil/Oint (Mineral Oil/Petrolatum, White Ophth Oint 3.5 Gm) 1 applic OU Q4HR PRN PRN Reason: Dry Eye(s) Ondansetron HCl (Ondansetron 4 Mg/2 Ml Inj) 4 mg IV Q8H PRN PRN Reason: Nausea And Vomiting Simple Syrup (Simple Syrup 15 Ml) 15 ml FEEDTUBE PRN PRN PRN Reason: Hypoglycemia Simple Syrup (Simple Syrup 15 Ml) 30 ml FEEDTUBE PRN PRN PRN Reason: Hypoglycemia Sodium Bicarbonate (Sodium Bicarbonate 325 Mg Tab) 325 mg FEEDTUBE PRN PRN PRN Reason: For Clogged Feeding Tube Sodium Chloride (Sodium Chloride 0.9% 10 Ml Flush Syringe) 10 ml IV BID REJI Last Admin: 04/18/21 10:56 Dose: 10 ml Documented by: Sodium Chloride (Sodium Chloride 0.9% 10 Ml Flush Syringe) 10 ml IV PRN PRN PRN Reason: LINE FLUSH Sodium Chloride (Sodium Chloride 0.9% 50 Ml Ivpb) 50 ml IV Q24HR@2100 REJI Stop: 04/22/21 21:01 Last Admin: 04/18/21 15:51 Dose: 50 ml Documented by: Physical Examination - Physical Exam Narrative exam: Physical exam deferred to reduce risk of transmission of COVID-19. Please refer to primary team's note. - Constitutional Vitals: Vital Signs Temp Pulse Resp BP Pulse Ox 62 30 H 113/72 100 04/18/21 14:45 04/18/21 14:45 04/18/21 14:45 04/18/21 14:45 Results - Labs CBC & Chem 7: 04/18/21 02:34 04/18/21 02:34 Labs: Abnormal lab results 04/18/21 04/18/21 04/18/21 Range/Units 02:34 02:34 02:34 MCH 33 H (28-32) pg MCHC 35 H (30-34) % RDW 12.4 L (13.2-15.2) % [place] % (Auto) 14.0 H (0.0-7.3) % Lymph # (Auto) 0.9 L (1.2-5.4) K/mm3 [place] # (Auto) 0.9 H (0.0-0.8) K/mm3 Seg Neutrophils % 72.0 H (40.0-70.0) % D-Dimer 978.83 H (0-234) ng/mlDDU ABG pH (7.350-7.450) pH Units ABG pO2 (80.0-90.0) mm Hg Carbon Dioxide 20 L (22-30) mmol/L BUN 32 H (7-17) mg/dL Glucose 227 H (65-100) mg/dL Lactic Acid (0.7-2.0) mmol/L Calcium 8.2 L (8.4-10.2) mg/dL Ferritin (10.0-200.0) ng/mL AST 64 H (5-40) units/L Lactate Dehydrogenase (91-180) units/L C-Reactive Protein (0.00-1.30) mg/dL Albumin 3.5 L (3.9-5) g/dL 04/18/21 04/18/21 04/18/21 Range/Units 02:34 02:34 04:20 MCH (28-32) pg MCHC (30-34) % RDW (13.2-15.2) % [place] % (Auto) (0.0-7.3) % Lymph # (Auto) (1.2-5.4) K/mm3 [place] # (Auto) (0.0-0.8) K/mm3 Seg Neutrophils % (40.0-70.0) % D-Dimer (0-234) ng/mlDDU ABG pH 7.468 H (7.350-7.450) pH Units ABG pO2 154.9 H (80.0-90.0) mm Hg Carbon Dioxide (22-30) mmol/L BUN (7-17) mg/dL Glucose 228 H (65-100) mg/dL Lactic Acid (0.7-2.0) mmol/L Calcium (8.4-10.2) mg/dL Ferritin > 2000.0 H (10.0-200.0) ng/mL AST (5-40) units/L Lactate Dehydrogenase 711 H (91-180) units/L C-Reactive Protein 12.90 H (0.00-1.30) mg/dL Albumin (3.9-5) g/dL 04/18/21 Range/Units 04:54 MCH (28-32) pg MCHC (30-34) % RDW (13.2-15.2) % [place] % (Auto) (0.0-7.3) % Lymph # (Auto) (1.2-5.4) K/mm3 [place] # (Auto) (0.0-0.8) K/mm3 Seg Neutrophils % (40.0-70.0) % D-Dimer (0-234) ng/mlDDU ABG pH (7.350-7.450) pH Units ABG pO2 (80.0-90.0) mm Hg Carbon Dioxide (22-30) mmol/L BUN (7-17) mg/dL Glucose (65-100) mg/dL Lactic Acid 2.30 H* (0.7-2.0) mmol/L Calcium (8.4-10.2) mg/dL Ferritin (10.0-200.0) ng/mL AST (5-40) units/L Lactate Dehydrogenase (91-180) units/L C-Reactive Protein (0.00-1.30) mg/dL Albumin (3.9-5) g/dL Assessment and Plan Cultures: Blood culture no growth so far Sputum culture no growth so far Covid PCR: A/P: 51-year-old female admitted with COVID-19 #Severe COVID-19 pneumonia: Patient presented with a week of symptoms, chest x- ray with diffuse bilateral infiltrates, admission O2 sats 40%on room air. Inflammatory markers elevated #Acute hypoxemic respiratory failure: Likely secondary to COVID-19 infection. Currently on the vent Recommendations: -Dexamethasone 6 mg IV/PO daily for 10 days -Remdesivir 200 mg IV q day x 1 followed by 100 mg IV q day x 4 days -Obtain q48-72h inflammatory markers - ferritin, Ddimer, CRP, LDH -Continue ceftriaxone 2 gm IV qday and azithromycin 500 mg PO qday, if procalcitonin <0.25 ng/mL stop antibiotics -Given elevated CRP and ventilator requirements, if Covid PCR positive as inpatient would give Actemra 8 mg/kg -Anticoagulation per hospital protocol -Proning as able Thank you for the consult, we will continue to follow. MD Gerard [facility] O: [phone] F: [phone]
[2021-04-18 16:47] LABS: Alanine Aminotransferase 40 units/L (7-56); Albumin 2.8 g/dL (3.9-5); BUN/Creatinine Ratio 36; Blood Urea Nitrogen 32 mg/dL (7-17); Calcium 8.1 mg/dL (8.4-10.2); Hemolysis Index 12
--- NOTE | 2021-04-18 20:45 | Cat Scan Report ---
CT head/brain wo con INDICATION / CLINICAL INFORMATION: 51 years Female; Altered Mental Status. TECHNIQUE: Routine CT head without contrast. All CT scans at this location are performed using CT dos e reduction for ALARA by means of automated exposure control. COMPARISON: None. FINDINGS: The brain appears to demonstrate appropriate attenuation for age. The ventricles system is within nor mal limits in size and configuration. There is no clear CT evidence of acute intracranial hemorrhage or significant mass effect. ORBITS: No significant abnormality of visualized orbits. SINUSES / MASTOIDS: No significant abnormality in the visualized paranasal sinuses or mastoid air chiquis ls. CRANIOCERVICAL JUNCTION: No significant abnormality. ADDITIONAL FINDINGS: There is incidental exostosis along the outer table of the right occipital bone. IMPRESSION: 1. There is no CT evidence of acute intracranial process. Signer Name: Dangelo Boles MD Signed: 04/18/2021 8:41 PM Workstation Name: [id number]
--- NOTE | 2021-04-19 02:15 | XRay Report ---
CHEST 1 VIEW 04/19/2021 12:33 AM INDICATION / CLINICAL INFORMATION: follow up respiratory failure. COMPARISON: 04/18/2021 FINDINGS: SUPPORT DEVICES: Stable, satisfactory device positioning. HEART / MEDIASTINUM: No significant abnormality. LUNGS / PLEURA: Redemonstrated multifocal airspace opacities. No pneumothorax. ADDITIONAL FINDINGS: No significant additional findings. IMPRESSION: 1. No significant change. Signer Name: Mu Umana DO Signed: 04/19/2021 2:11 AM Workstation Name: [id number]
[2021-04-19 06:09] LABS: Hematocrit 35.2 % (30.3-42.9); Hemoglobin 12.3 gm/dl (10.1-14.3); Mean Corpuscular HGB Conc 35 % (30-34); Mean Corpuscular Volume 95 fl (79-97); Platelet Count 172 K/mm3 (140-440); Red Cell Distribution Width 12.9 % (13.2-15.2)
[2021-04-19] MEDS: HEPARIN 5,000 UNIT/1 ML VIAL SUB-Q SCH (06:11)
[2021-04-19 06:29] LABS: Alanine Aminotransferase 43 units/L (7-56); Albumin 2.9 g/dL (3.9-5); BUN/Creatinine Ratio 44; Blood Urea Nitrogen 35 mg/dL (7-17); Calcium 8.2 mg/dL (8.4-10.2); Hemolysis Index 4
[2021-04-19 06:30] LABS: INR 1.02 (0.87-1.13)
[2021-04-19 09:01] LABS: Basophils % (Auto) 0.2 % (0.0-1.8); Lymphocytes % (Auto) 12.5 % (13.4-35.0); Monocytes # (Auto) 0.8 K/mm3 (0.0-0.8); Monocytes % (Auto) 9.4 % (0.0-7.3)
[2021-04-19] MEDS ORDERED: fentaNYL 100 MCG/2 ML INJ IV PRN (09:59)
[2021-04-19] MEDS ORDERED: MIDAZOLAM 2 MG/2 ML INJ IV PRN (10:00)
[2021-04-19] MEDS ORDERED: MIDAZOLAM 100 MG in SODIUM CHLORIDE 0.9% 80 ML IV SCH (11:00)
[2021-04-19] MEDS ORDERED: POTASSIUM CHLORIDE 20 MEQ PACKET FEEDTUBE NR (11:00)
[2021-04-19] MEDS: AZITHROMYCIN/NS 500 MG/250 ML 500 MG/250 ML BAG IV SCH (11:59)
[2021-04-19] MEDS: dexAMETHasone 4 MG/ML VIAL IV SCH (11:59)
[2021-04-19] MEDS: FAMOTIDINE 20 MG/2 ML INJ IV SCH ×2 (11:59→21:25)
[2021-04-19] MEDS: cefTRIAXone/NS 2 GM/100 ML 2 GM/100 ML BAG IV SCH (11:59)
[2021-04-19] MEDS: fentaNYL DRIP Premix 2,000 MCG/100 ML BAG IV SCH (12:00)
[2021-04-19] MEDS: D5W/0.45% NACL 1,000 ML IV SCH (12:01)
[2021-04-19] MEDS ORDERED: SODIUM BICARBONATE 325 MG TAB FEEDTUBE PRN (12:25)
[2021-04-19] MEDS ORDERED: SIMPLE SYRUP 15 ML FEEDTUBE PRN ×2 (12:25)
[2021-04-19] MEDS ORDERED: LIPASE 10,500/PROTEASE 25,000/AMYLASE 43,750 (UNITS) DR CAP FEEDTUBE PRN (12:25)
--- NOTE | 2021-04-19 13:14 | Progress Note ---
Assessment and Plan Acute hypoxemic respiratory failure, ARDS secondary to COVID pneumonia P/F 154 Respiratory alkalosis Bilateral pneumonia Sepsis Hyperglycemia Hypernatremia Advance ETT by 2 cm Decrease tidal volume, patient has resp alkalosis Start tube feedings Add 10 units Lantus insulin for better glycemic control -continue to titrate supplemental oxygen to keep SpO2 88-90% -VAP bundle addressed, aspiration precautions HOB>30 -Lung protective strategies, continue to monitor airway pressures - bronchodilators with pulmonary hygiene per RT - sedation target RASS -3 to -4 . Continue Fentanyl and Propofol -complete ABs per ID recommendation-Ceftriaxone 2 gm IV qday and azithromycin 500 mg PO qday,procal 0.45 - continue glycemic control with SSI for target BG 140-180 mg while critically ill; avoid hypoglycemia - avoid nephrotoxins, renally dose all medications - prn analgesia per pain score - Maintenance of sleep-wake cycle, avoid delirium - supportive transfusions for serum Hb < 7.0g/dL - Stress ulcer prophylaxis- Famotidine - continue mobility, off loading, frequent turning per facility for pressure ulcer prevention - Monitor hemodynamics closely -Conservative fluid management, keep negative fluid balance as tolerated by hemodynamics and renal function - continue other care per attending / other consultants COVID SPECIFIC INTERVENTIONS - Remdesivir as per ID/Pulmonary developed protocols - continue systemic steroids for severe COVID-19 infection -Repeat COVID PCR test- will follow results - Continue to monitor inflammatory markers per facility protocol - ferritin, D- dimer, CRP -Given elevated CRP and ventilator requirements, if Covid PCR positive as inpatient would give Actemra 8 mg/kg - Anticoagulation per system Protocol based on d-dimer and clinical considerations -on Enoxaparin 30mg BID - Continue contact and airborne isolation -Prone positioning per facility protocol CONDITION: CRITICAL PROGNOSIS: GUARDED CODE STATUS: FULL CODE The high probability of a clinically significant, sudden or life-threatening deterioration of the [respiratory, neurologic] system(s) required my full and direct attention, intervention and personal management. The aggregate critical care time was [35] minutes without overlap. Time includes spent on; [x] Data Review and interpretation [x] Patient assessment and monitoring of vital signs [x] Documentation [x] Medication orders and management Subjective Date of service: 04/19/21 Interval history: Follow up for:Acute hypoxemic respiratory failure, ARDS secondary to COVID pneumonia P/F 154;Bilateral pneumonia;Sepsis;Hyperglycemia Patient seen and examined. Vitals, labs, medications, chart and imaging reviewed. Discussed with respiratory and nursing staff. Discussed in MDR Remains orally intubated on MVS, on Fentanyl and Propofol Respiratory alkalosis on ABG OGT in place Objective Vital Signs - 12hr 04/19/21 04/19/21 04/19/21 01:16 01:30 01:46 Temperature Pulse Rate 57 L 50 L 53 L Respiratory 25 H 30 H 30 H Rate Blood Pressure 122/76 124/80 133/83 O2 Sat by Pulse 98 100 100 Oximetry 04/19/21 04/19/21 04/19/21 02:00 02:16 02:30 Temperature Pulse Rate 50 L 52 L 51 L Respiratory 30 H 30 H 30 H Rate Blood Pressure 122/80 123/78 119/76 O2 Sat by Pulse 100 100 100 Oximetry 04/19/21 04/19/21 04/19/21 02:46 03:00 03:16 Temperature Pulse Rate 53 L 52 L 53 L Respiratory 30 H 30 H 30 H Rate Blood Pressure 123/78 127/79 125/78 O2 Sat by Pulse 100 100 100 Oximetry 04/19/21 04/19/21 04/19/21 03:30 03:46 04:00 Temperature Pulse Rate 55 L 52 L 49 L Respiratory 30 H 30 H 30 H Rate Blood Pressure 122/79 127/79 124/80 O2 Sat by Pulse 100 100 100 Oximetry 04/19/21 04/19/21 04/19/21 04:16 04:30 04:46 Temperature Pulse Rate 52 L 51 L 53 L Respiratory 30 H 30 H 30 H Rate Blood Pressure 126/75 124/77 126/75 O2 Sat by Pulse 100 100 100 Oximetry 04/19/21 04/19/21 04/19/21 05:00 05:16 05:28 Temperature Pulse Rate 50 L 52 L 50 L Respiratory 30 H 30 H Rate Blood Pressure 123/76 124/77 119/78 O2 Sat by Pulse 100 100 100 Oximetry 04/19/21 04/19/21 04/19/21 05:30 05:46 06:00 Temperature Pulse Rate 51 L 60 52 L Respiratory 30 H 30 H 30 H Rate Blood Pressure 119/78 127/87 131/78 O2 Sat by Pulse 100 100 100 Oximetry 04/19/21 04/19/21 04/19/21 06:16 06:30 06:46 Temperature Pulse Rate 53 L 53 L 51 L Respiratory 30 H 30 H 30 H Rate Blood Pressure 122/78 121/76 117/75 O2 Sat by Pulse 100 100 100 Oximetry 04/19/21 04/19/21 04/19/21 06:50 07:00 07:10 Temperature Pulse Rate 54 L 52 L 51 L Respiratory 30 H 30 H 30 H Rate Blood Pressure 121/74 121/74 124/75 O2 Sat by Pulse 100 100 100 Oximetry 04/19/21 04/19/21 04/19/21 07:20 07:30 07:40 Temperature Pulse Rate 51 L 52 L 52 L Respiratory 30 H 30 H 30 H Rate Blood Pressure 126/79 126/79 121/76 O2 Sat by Pulse 100 100 100 Oximetry 04/19/21 04/19/21 04/19/21 07:50 08:00 08:10 Temperature Pulse Rate 52 L 51 L 50 L Respiratory 30 H 30 H 30 H Rate Blood Pressure 119/77 119/77 122/75 O2 Sat by Pulse 100 100 100 Oximetry 04/19/21 04/19/21 04/19/21 08:20 08:30 08:40 Temperature Pulse Rate 57 L 51 L 53 L Respiratory 30 H 30 H 30 H Rate Blood Pressure 123/80 123/80 123/80 O2 Sat by Pulse 100 100 100 Oximetry 04/19/21 04/19/21 04/19/21 08:50 09:00 09:10 Temperature Pulse Rate 53 L 54 L 53 L Respiratory 30 H 30 H 30 H Rate Blood Pressure 128/80 128/80 128/80 O2 Sat by Pulse 100 100 100 Oximetry 04/19/21 04/19/21 04/19/21 09:22 09:30 09:33 Temperature Pulse Rate 65 63 Respiratory 30 H Rate Blood Pressure O2 Sat by Pulse 100 100 100 Oximetry 04/19/21 04/19/21 04/19/21 09:40 09:50 10:00 Temperature Pulse Rate 55 L 57 L 56 L Respiratory 30 H 30 H 30 H Rate Blood Pressure 120/74 O2 Sat by Pulse 99 99 100 Oximetry 04/19/21 04/19/21 04/19/21 10:10 10:20 10:30 Temperature Pulse Rate 52 L 53 L 50 L Respiratory 30 H 30 H 30 H Rate Blood Pressure 120/74 120/74 120/74 O2 Sat by Pulse 100 100 100 Oximetry 04/19/21 04/19/21 04/19/21 10:40 10:50 11:00 Temperature Pulse Rate 49 L 49 L 49 L Respiratory 30 H 30 H 30 H Rate Blood Pressure 120/74 120/74 126/72 O2 Sat by Pulse 100 100 100 Oximetry 04/19/21 04/19/21 04/19/21 11:11 11:21 11:31 Temperature Pulse Rate 50 L 52 L 60 Respiratory 30 H 30 H 30 H Rate Blood Pressure 120/74 120/74 120/74 O2 Sat by Pulse 100 100 100 Oximetry 04/19/21 04/19/21 04/19/21 11:41 11:51 12:00 Temperature Pulse Rate 52 L 61 55 L Respiratory 30 H 30 H 30 H Rate Blood Pressure 120/74 120/74 140/84 O2 Sat by Pulse 100 100 100 Oximetry 04/19/21 04/19/21 12:03 12:59 Temperature 98.3 F Pulse Rate Respiratory Rate Blood Pressure O2 Sat by Pulse 96 Oximetry Constitutional: no acute distress, other (sedated) Eyes: non-icteric ENT: oropharynx moist, other (ETT 7.5 at 23cm at the lip) Neck: supple, no lymphadenopathy Effort: mildly labored Ascultation: Bilateral: clear, diminished breath sounds Cardiovascular: regular rate and rhythm, other (S1,S2) Gastrointestinal: normoactive bowel sounds, soft, non-tender, non-distended Integumentary: normal Extremities: no cyanosis, no edema, pink and warm, pulses normal Neurologic: non-focal exam (moves extremities), pupils equal and round Psychiatric: other (unable to assess) CBC and BMP: 04/28/21 07:19 04/28/21 07:19 ABG, PT/INR, D-dimer: ABG ABG pH 7.562 (7.320-7.450) H 04/19/21 06:16 POC ABG pCO2 22.0 mmHg (32.0-48.0) L 04/19/21 06:16 ABG pCO2 29.4 mm Hg 04/18/21 04:20 POC ABG pO2 168.2 mmHg (83-108) H 04/19/21 06:16 ABG pO2 154.9 mm Hg (80.0-90.0) H 04/18/21 04:20 POC ABG HCO3 19.3 04/19/21 06:16 ABG O2 Saturation 99.3 (0-100) 04/19/21 06:16 PT/INR, D-dimer PT 14.5 Sec. (12.2-14.9) 04/19/21 05:36 INR 1.02 (0.87-1.13) 04/19/21 05:36 D-Dimer 978.83 ng/mlDDU (0-234) H 04/18/21 02:34 Abnormal lab findings: Abnormal Labs 04/18/21 04/18/21 04/18/21 02:34 02:34 02:34 MCH 33 H MCHC 35 H RDW 12.4 L Lymph % (Auto) [place] % (Auto) 14.0 H Lymph # (Auto) 0.9 L [place] # (Auto) 0.9 H Seg Neutrophils % 72.0 H D-Dimer 978.83 H ABG pH POC ABG pCO2 POC ABG pO2 ABG pO2 ABG Oxyhemoglobin ABG Potassium ABG Chloride ABG Glucose Sodium Potassium Chloride Carbon Dioxide 20 L BUN 32 H Glucose 227 H POC Glucose Lactic Acid Calcium 8.2 L Ferritin AST 64 H Lactate Dehydrogenase C-Reactive Protein Albumin 3.5 L Arterial Blood Glucose 04/18/21 04/18/21 04/18/21 02:34 02:34 04:20 MCH MCHC RDW Lymph % (Auto) [place] % (Auto) Lymph # (Auto) [place] # (Auto) Seg Neutrophils % D-Dimer ABG pH 7.468 H POC ABG pCO2 POC ABG pO2 ABG pO2 154.9 H ABG Oxyhemoglobin ABG Potassium ABG Chloride ABG Glucose Sodium Potassium Chloride Carbon Dioxide BUN Glucose 228 H POC Glucose Lactic Acid Calcium Ferritin > 2000.0 H AST Lactate Dehydrogenase 711 H C-Reactive Protein 12.90 H Albumin Arterial Blood Glucose 04/18/21 04/18/21 04/19/21 04:54 15:39 05:36 MCH 33 H MCHC 35 H RDW 12.9 L Lymph % (Auto) 12.5 L [place] % (Auto) 9.4 H Lymph # (Auto) 1.0 L [place] # (Auto) Seg Neutrophils % 77.9 H D-Dimer ABG pH POC ABG pCO2 POC ABG pO2 ABG pO2 ABG Oxyhemoglobin ABG Potassium ABG Chloride ABG Glucose Sodium Potassium 3.5 L Chloride 107.8 H Carbon Dioxide 20 L BUN 32 H Glucose 276 H POC Glucose Lactic Acid 2.30 H* Calcium 8.1 L Ferritin AST 64 H Lactate Dehydrogenase C-Reactive Protein Albumin 2.8 L Arterial Blood Glucose 04/19/21 04/19/21 04/19/21 05:36 06:16 11:32 MCH MCHC RDW Lymph % (Auto) [place] % (Auto) Lymph # (Auto) [place] # (Auto) Seg Neutrophils % D-Dimer ABG pH 7.562 H POC ABG pCO2 22.0 L POC ABG pO2 168.2 H ABG pO2 ABG Oxyhemoglobin 98.4 H ABG Potassium 3.3 L ABG Chloride 110.0 H ABG Glucose 248 H Sodium 147 H Potassium 3.3 L Chloride 110.1 H Carbon Dioxide 21 L BUN 35 H Glucose 251 H POC Glucose 216 H Lactic Acid Calcium 8.2 L Ferritin AST 66 H Lactate Dehydrogenase C-Reactive Protein Albumin 2.9 L Arterial Blood Glucose 248 H Chest x-ray: image reviewed (ETT is high, bilateral alveoalr infiltrates) Allied health notes reviewed: RT
--- NOTE | 2021-04-19 16:18 | Progress Note ---
<ROE CLAYTON - Last Filed: 04/19/21 16:37> Assessment and Plan Assessment and plan: This is a 51 years-old female with unknown past medical history who came in the ED due to altered mental status. Upon her arrival in the ED her SPO2 was in the 40%, she was first placed on a NRB then was subsequently intubated due to acute hypoxic respiratory failure. As of note, patient was diagnosed with COVID 4days prior th admission. Patient was admitted in the ICU for further management. Hospital Course to Date: 04/19/21- Patient is intubated and sedated RASS -3 to -4. SB to low SR on the monitor, hemodynamics stable and not on any pressors, will continue to monitor. Hypokalemia was repleted. TF was initiated, plan to D/C IVF once TF is at goal. Hyperglycemia noted, high scale SSI and qHS lantus added, A1c ordered. Assessment and Plan #Neuro:AMS - 04/18 CT head w/o con showed no acute intracranial process - Patient is intubated and sedated, RASS -3 to -4 - On ativan gtt - Avoid benzodiazepine to reduce the possibility of delirium- Will D/C ativan gtt - Propofol and fentanyl gtt was added - Titrate sedation for RASS goal 0 to -2 - Daily SAT and SBT per CCM - Prn analgesia for CPOT greater than 3 - Maintenance of sleep-wake cycle, avoid delirium #CV: Bradycardia probably 2/2 sedation - SB to NSR on the monitor, HR as low as 48 - Patient's is now on pressors, BP stable - Maintain adequate perfusion - Continue rehydration with cont. IVF - Continue blood pressure monitor per protocol - Maintain MAP above 65 - Continue AC- Lovenox BID and SCDs for VTE proph #Acute hypoxemic respiratory failure #COVID pneumonia #ARDS secondary to COVID pneumonia #Respiratory alkalosis - 04/18 CXR showed bilateral pneumonia - 04/19 CXR redemonstrated multifocal process - COVID swab positive, Inflammatory markers are elevated - ETT on 04/18 - Vent Setting: CMV- 80,10,30,400 - This am ABG noted - Wean FiO2 as tolerated for SPO2> 90% - Daily SAT and SBT trial per CCM - Continue dialy ABG and CXR X7days - Continue steroids [id number] - VAP bundle addressed - Aspiration precautions HOB>30 - Lung protective strategies, continue to monitor airway pressures - CCM on consult #GI: NAP - Enteral nutrition initiated - Nutrition consult for TF management - Continue IVF-D5 1/2NS for now, D/C once TF is at goal - Continue BR- senokot - Continue PPI- Pepcid #Hypokalemia #Hypernatremia - Low K repleted this am - Continue IVF - FWF for hypernatremia - Purewick in place - Continue trict intake and output - Avoid nephrotoxic medications; Renally dose medications - Conservative fluid management, keep negative fluid balance as tolerated by hemodynamics and renal function - Monitor and replace electrolytes as needed #ID: Sepsis #COVID Pneumonia #Bilateral Pneumonia - 04/18 CXR showed bilateral pneumonia - 04/19 CXR redemonstrated multifocal process - COVID swab positive - Inflammatory markers are elevated - Mild lactic acidosid- up to 2.30 - Patient is afebrile TMAx 98.3 - 04/18 B.CultX2 pending, 04/18 Tracheal aspirate pending - Continue steroids [id number] - Continue remdesevir per protocol - Obtain q48-72h inflammatory markers - ferritin, Ddimer, CRP, LDH - Continue empiric ABx- Ceftriaxone and azithromycin per ID - F/U on B.cult - Daily CBC monitor, f/u lactic acid in the am - ID on consult, appreciated recommendation #Endo: Hyperglycemia - Continue high dose SSI - Lantus added qHS - HbgA1c pending - While critically ill target blood glucose of 140-180 - Avoid hypoglycemia The high probability of a clinically significant, sudden or life threatening deterioration of the [multiple] system(s) required my full and direct attention, intervention and personal management. The aggregate critical care time was [60] minutes. This time is in addition to time spent performing reported procedures but includes the following: [x] Data Review and interpretation [x] Patient assessment and monitoring of vital signs [x] Documentation [x] Medication orders and management Disposition Plan: ICU Total Time Spent with Patient (Minutes): 60 History Interval history: Patient seen and examined at the bedside. Patient is intubated and sedated, RASS -3 to -4. No significant events reported. Hospitalist Physical - Constitutional Vitals: Temp Pulse Resp BP Pulse Ox 97.6 F 50 L 30 H 120/70 99 04/19/21 15:51 04/19/21 14:11 04/19/21 14:11 04/19/21 14:11 04/19/21 14:11 General appearance: Present: no acute distress, other (Intubated and sedated) - EENT Eyes: Present: PERRL - Respiratory Respiratory effort: normal Respiratory: bilateral: diminished - Cardiovascular Rhythm: regular Heart Sounds: Present: S1 & S2 - Extremities Extremities: no ischemia, pulses intact, pulses symmetrical Peripheral Pulses: within normal limits - Abdominal General gastrointestinal: soft, non-tender, normal bowel sounds - Integumentary Integumentary: Present: warm - Psychiatric Psychiatric: other (Sedated) - Neurologic Neurologic: other (Sedated) - Allied Health Allied health notes reviewed: nursing Results - Labs CBC & Chem 7: 04/19/21 05:36 04/19/21 05:36 Labs: Laboratory Last Values WBC 8.4 K/mm3 (4.5-11.0) 04/19/21 05:36 RBC 3.70 M/mm3 (3.65-5.03) 04/19/21 05:36 Hgb 12.3 gm/dl (10.1-14.3) 04/19/21 05:36 Hct 35.2 % (30.3-42.9) 04/19/21 05:36 MCV 95 fl (79-97) 04/19/21 05:36 MCH 33 pg (28-32) H 04/19/21 05:36 MCHC 35 % (30-34) H 04/19/21 05:36 RDW 12.9 % (13.2-15.2) L 04/19/21 05:36 Plt Count 172 K/mm3 (140-440) 04/19/21 05:36 Lymph % (Auto) 12.5 % (13.4-35.0) L 04/19/21 05:36 Leslie % (Auto) 9.4 % (0.0-7.3) H 04/19/21 05:36 Eos % (Auto) 0.0 % (0.0-4.3) 04/19/21 05:36 Baso % (Auto) 0.2 % (0.0-1.8) 04/19/21 05:36 Lymph # (Auto) 1.0 K/mm3 (1.2-5.4) L 04/19/21 05:36 Leslie # (Auto) 0.8 K/mm3 (0.0-0.8) 04/19/21 05:36 Eos # (Auto) 0.0 K/mm3 (0.0-0.4) 04/19/21 05:36 Baso # (Auto) 0.0 K/mm3 (0.0-0.1) 04/19/21 05:36 Add Manual Diff Complete 04/19/21 05:36 Seg Neutrophils % 77.9 % (40.0-70.0) H 04/19/21 05:36 Nucleated RBC % Not Reportable 04/19/21 05:36 Seg Neutrophils # 6.4 K/mm3 (1.8-7.7) 04/19/21 05:36 WBC Morphology Not Reportable 04/19/21 05:36 Hypersegmented Neuts Not Reportable 04/19/21 05:36 Hyposegmented Neuts Not Reportable 04/19/21 05:36 Hypogranular Neuts Not Reportable 04/19/21 05:36 Smudge Cells Not Reportable 04/19/21 05:36 Toxic Granulation Not Reportable 04/19/21 05:36 Toxic Vacuolation Not Reportable 04/19/21 05:36 Dohle Bodies Not Reportable 04/19/21 05:36 Pelger-Huet Anomaly Not Reportable 04/19/21 05:36 Santana Rods Not Reportable 04/19/21 05:36 Platelet Estimate Not Reportable 04/19/21 05:36 Clumped Platelets Not Reportable 04/19/21 05:36 Plt Clumps, EDTA Not Reportable 04/19/21 05:36 Large Platelets Not Reportable 04/19/21 05:36 Giant Platelets Not Reportable 04/19/21 05:36 Platelet Satelliting Not Reportable 04/19/21 05:36 Plt Morphology Comment Not Reportable 04/19/21 05:36 RBC Morphology Not Reportable 04/19/21 05:36 Dimorphic RBCs Not Reportable 04/19/21 05:36 Polychromasia Not Reportable 04/19/21 05:36 Hypochromasia Not Reportable 04/19/21 05:36 Poikilocytosis Not Reportable 04/19/21 05:36 Anisocytosis Not Reportable 04/19/21 05:36 Microcytosis Not Reportable 04/19/21 05:36 Macrocytosis Not Reportable 04/19/21 05:36 Spherocytes Not Reportable 04/19/21 05:36 Pappenheimer Bodies Not Reportable 04/19/21 05:36 Sickle Cells Not Reportable 04/19/21 05:36 Target Cells Not Reportable 04/19/21 05:36 Tear Drop Cells Not Reportable 04/19/21 05:36 Ovalocytes Not Reportable 04/19/21 05:36 Helmet Cells Not Reportable 04/19/21 05:36 [place] Bodies Not Reportable 04/19/21 05:36 [place] Rings Not Reportable 04/19/21 05:36 [place] Cells Not Reportable 04/19/21 05:36 Bite Cells Not Reportable 04/19/21 05:36 Crenated Cell Not Reportable 04/19/21 05:36 Elliptocytes Not Reportable 04/19/21 05:36 Acanthocytes (Spur) Not Reportable 04/19/21 05:36 Rouleaux Not Reportable 04/19/21 05:36 Hemoglobin C Crystals Not Reportable 04/19/21 05:36 Schistocytes Not Reportable 04/19/21 05:36 Malaria parasites Not Reportable 04/19/21 05:36 [place] Bodies Not Reportable 04/19/21 05:36 Hem Pathologist Commnt Not Reportable 04/19/21 05:36 PT 14.5 Sec. (12.2-14.9) 04/19/21 05:36 INR 1.02 (0.87-1.13) 04/19/21 05:36 APTT 34.2 Sec. (24.2-36.6) 04/18/21 02:34 D-Dimer 978.83 ng/mlDDU (0-234) H 04/18/21 02:34 ABG pH 7.562 (7.320-7.450) H 04/19/21 06:16 POC ABG pCO2 22.0 mmHg (32.0-48.0) L 04/19/21 06:16 ABG pCO2 29.4 mm Hg 04/18/21 04:20 POC ABG pO2 168.2 mmHg (83-108) H 04/19/21 06:16 ABG pO2 154.9 mm Hg (80.0-90.0) H 04/18/21 04:20 POC ABG HCO3 19.3 04/19/21 06:16 ABG HCO3 20.8 mmol/L (20.0-26.0) 04/18/21 04:20 ABG O2 Saturation 99.3 (0-100) 04/19/21 06:16 ABG O2 Content 16.7 (0.0-44) 04/18/21 04:20 POC ABG Base Excess -0.5 04/19/21 06:16 ABG Base Excess -2.0 mmol/L (-2.0-3.0) 04/18/21 04:20 ABG Hemoglobin 15.3 (12.0-17.5) 04/19/21 06:16 ABG Oxyhemoglobin 98.4 (94-98) H 04/19/21 06:16 ABG Carboxyhemoglobin 1.2 % (0.0-5.0) 04/18/21 04:20 ABG Methemoglobin 0.3 (0.0-1.5) 04/19/21 06:16 ABG Sodium 142.2 mmol/L (136.0-145.0) 04/19/21 06:16 ABG Potassium 3.3 mmol/L (3.40-4.50) L 04/19/21 06:16 ABG Chloride 110.0 mmol/L (98-107) H 04/19/21 06:16 ABG Glucose 248 mg/dL (65-95) H 04/19/21 06:16 Oxyhemoglobin 97.3 % (95.0-99.0) 04/18/21 04:20 Carboxyhemoglobin 0.6 (0.5-1.5) 04/19/21 06:16 FiO2 100 % 04/18/21 04:20 FiO2 % 80.0 04/19/21 06:16 Sodium 147 mmol/L (137-145) H 04/19/21 05:36 Potassium 3.3 mmol/L (3.6-5.0) L 04/19/21 05:36 Chloride 110.1 mmol/L (98-107) H 04/19/21 05:36 Carbon Dioxide 21 mmol/L (22-30) L 04/19/21 05:36 Anion Gap 19 mmol/L 04/19/21 05:36 BUN 35 mg/dL (7-17) H 04/19/21 05:36 Creatinine 0.8 mg/dL (0.6-1.2) 04/19/21 05:36 Estimated GFR > 60 ml/min 04/19/21 05:36 BUN/Creatinine Ratio 44 % 04/19/21 05:36 Glucose 251 mg/dL (65-100) H 04/19/21 05:36 POC Glucose 216 mg/dL (70-105) H 04/19/21 11:32 Lactic Acid 2.30 mmol/L (0.7-2.0) H* 04/18/21 04:54 Calcium 8.2 mg/dL (8.4-10.2) L 04/19/21 05:36 Ferritin > 2000.0 ng/mL (10.0-200.0) H 04/18/21 02:34 Total Bilirubin 0.50 mg/dL (0.1-1.2) 04/19/21 05:36 AST 66 units/L (5-40) H 04/19/21 05:36 ALT 43 units/L (7-56) 04/19/21 05:36 Alkaline Phosphatase 76 units/L (35-129) 04/19/21 05:36 Ammonia 25.0 umol/L (25-60) 04/18/21 02:34 Lactate Dehydrogenase 711 units/L (91-180) H 04/18/21 02:34 Total Creatine Kinase 68 units/L (30-135) 04/18/21 02:34 C-Reactive Protein 12.90 mg/dL (0.00-1.30) H 04/18/21 02:34 Total Protein 6.3 g/dL (6.3-8.2) 04/19/21 05:36 Albumin 2.9 g/dL (3.9-5) L 04/19/21 05:36 Albumin/Globulin Ratio 0.9 % 04/19/21 05:36 Procalcitonin 0.45 ng/mL (<0.15) 04/18/21 02:34 Arterial Blood Glucose 248 mg/dL (65-95) H 04/19/21 06:16 Urine Color Yellow (Yellow) 04/18/21 04:25 Urine Turbidity Clear (Clear) 04/18/21 04:25 Urine pH 5.0 (5.0-7.0) 04/18/21 04:25 Ur Specific [place] 1.018 (1.003-1.030) 04/18/21 04:25 Urine Protein 100 mg/dl mg/dL (Negative) 04/18/21 04:25 Urine Glucose (UA) Neg mg/dL (Negative) 04/18/21 04:25 Urine Ketones Tr mg/dL (Negative) 04/18/21 04:25 Urine Blood Neg (Negative) 04/18/21 04:25 Urine Nitrite Neg (Negative) 04/18/21 04:25 Ur Reducing Substances Not Reportable 04/18/21 04:25 Urine Bilirubin Neg (Negative) 04/18/21 04:25 Urine Ictotest Not Reportable 04/18/21 04:25 Urine Urobilinogen 2.0 mg/dL (<2.0) 04/18/21 04:25 Ur Leukocyte Esterase Neg (Negative) 04/18/21 04:25 Urine WBC (Auto) 2.0 /HPF (0.0-6.0) 04/18/21 04:25 Urine RBC (Auto) 3.0 /HPF (0.0-6.0) 04/18/21 04:25 Hyaline Casts 3 /LPF 04/18/21 04:25 Urine Mucus Few /HPF 04/18/21 04:25 Plasma/Serum Alcohol < 0.01 % (0-0.07) 04/18/21 02:34 Coronavirus (PCR) Positive (Negative) A 04/19/21 09:00 Microbiology: Microbiology 04/18/21 03:03 Tracheal Aspirate Sputum Culture - Preliminary 04/18/21 02:38 Peripheral/Venous Blood Culture - Preliminary NO GROWTH AFTER 24 HOURS 04/18/21 02:34 Peripheral/Venous Blood Culture - Preliminary NO GROWTH AFTER 24 HOURS Active Medications - Current Medications Current Medications: Generic Name Dose Route Start Last Admin Trade Name Freq PRN Reason Stop Dose Admin Acetaminophen 650 mg 04/18/21 04:13 Acetaminophen 650 Mg Rect Supp VT Q6H PRN Pain MILD(1-3)/Fever >100.5/ASENCIO Lipase/Protease/Amylase 1 each 04/19/21 12:25 Lipase 10,500/Protease 25,000/Amylase 43,750 (Units) Dr Cap FEEDTUBE PRN PRN For Clogged Feeding Tube Dexamethasone 6 mg 04/18/21 10:00 04/19/21 11:59 Dexamethasone 4 Mg/Ml Vial IV 04/27/21 10:01 6 mg Q24HR REJI Administration Enoxaparin Sodium 30 mg 04/19/21 22:00 Enoxaparin 30 Mg/0.3 Ml Inj SUB-Q BID REJI Protocol Famotidine 20 mg 04/18/21 10:00 04/19/21 11:59 Famotidine 20 Mg/2 Ml Inj IV 20 mg BID REJI Administration Fentanyl 50 mcg 04/19/21 09:59 Fentanyl 100 Mcg/2 Ml Inj IV Q10MIN PRN ANALGESIA Hydrophilic Ointment 1 applic 04/18/21 03:03 Lip Therapy Vaseline TP Q2HR PRN Dry Lips Sodium Chloride 1,000 mls @ 75 mls/hr 04/18/21 04:15 Nacl 0.9% 1000 Ml IV DIRECT REJI Ceftriaxone Sodium 2 gm in 100 mls @ 200 mls/hr 04/18/21 10:00 04/19/21 11:59 Rocephin/Ns 2 Gm/100 Ml IV 200 mls/hr Q24HR REJI Administration Protocol Azithromycin 500 mg in 250 mls @ 250 mls/hr 04/18/21 10:00 04/19/21 11:59 Zithromax/Ns IV 250 mls/hr Q24HR REJI Administration Protocol REMDESIVIR 100 mg/ Sodium 250 mls @ 500 mls/hr 04/19/21 21:00 Chloride IV 04/22/21 21:29 Q24HR@2100 REJI Dextrose/Sodium Chloride 1,000 mls @ 50 mls/hr 04/18/21 13:00 04/19/21 12:01 D5/0.45ns IV 50 mls/hr DIRECT REJI Administration Fentanyl Citrate 2,000 mcg in 100 mls @ 3.175 mls/hr 04/19/21 10:00 04/19/21 12:00 Fentanyl Drip Premix IV 2 mcg/kg/hr TITR REJI 6.35 mls/hr Administration Protocol 1 MCG/KG/HR Propofol 1,000 mg in 100 mls @ 1.905 mls/hr 04/19/21 13:00 Diprivan 10 Mg/Ml IV TITR REJI Protocol 5 MCG/KG/MIN Insulin Glargine 10 units 04/19/21 22:00 Insulin Glargine 100 Units/Ml SUB-Q QHS [facility] Morphine Sulfate 2 mg 04/18/21 04:13 Morphine 2 Mg/1 Ml Inj IV Q4H PRN Pain, Moderate (4-6) Morphine Sulfate 4 mg 04/18/21 04:13 Morphine 4 Mg/1 Ml Inj IV Q4H PRN Pain , Severe (7-10) Multi-Ingred Cream/Lotion/Oil/Oint 1 applic 04/18/21 03:03 Mineral Oil/Petrolatum, White Ophth Oint 3.5 Gm OU Q4HR PRN Dry Eye(s) Ondansetron HCl 4 mg 04/18/21 04:13 Ondansetron 4 Mg/2 Ml Inj IV Q8H PRN Nausea And Vomiting Simple Syrup 15 ml 04/19/21 12:25 Simple Syrup 15 Ml FEEDTUBE PRN PRN Hypoglycemia Simple Syrup 30 ml 04/19/21 12:25 Simple Syrup 15 Ml FEEDTUBE PRN PRN Hypoglycemia Sodium Bicarbonate 325 mg 04/19/21 12:25 Sodium Bicarbonate 325 Mg Tab FEEDTUBE PRN PRN For Clogged Feeding Tube Sodium Chloride 10 ml 04/18/21 10:00 04/19/21 11:58 Sodium Chloride 0.9% 10 Ml Flush Syringe IV 10 ml BID REJI Administration Sodium Chloride 10 ml 04/18/21 04:13 Sodium Chloride 0.9% 10 Ml Flush Syringe IV PRN PRN LINE FLUSH Sodium Chloride 50 ml 04/18/21 11:00 04/18/21 15:51 Sodium Chloride 0.9% 50 Ml Ivpb IV 04/22/21 21:01 50 ml Q24HR@2100 [facility] Administration Nutrition/Malnutrition Assess - Dietary Evaluation Nutrition/Malnutrition Findings: Nutrition Notes Start: 04/18/21 08:28 Freq: Status: Active Protocol: Document 04/19/21 12:16 SUSAN (Rec: 04/19/21 12:24 SUSAN [id number]) Nutrition Notes Need for Assessment generated from: MD Order Initial or Follow up Reassessment Current Diagnosis Sepsis,Respiratory Failure Other Pertinent Diagnosis COVID-19 (+), bilat pneu, AMS Current Diet NPO Labs/Tests Na 147 K 3.3 BUN 35 BG 251 Pertinent Medications Decadron, Lantus, D5 1/2NS at 50ml/hr, 40mEq KCl x 1 dose, Propofol at 1.905ml/hr ( provides 50 kcal) Height 5 ft 2 in Weight [address] Body Weight (kg) 50.00 BMI 25.6 Weight Status Appropriate Subjective/Other Information RD consulted for TF. Pt remains on vent support. Burn Absent Trauma Absent #1 Nutrition Diagnosis Swallowing difficulty Diagnosis Progress(for reassessment Continues documentation) Is patient on ventilator? Yes Is Patient Ambulatory and/or Out of Bed No REE-([facility]-confined to bed) 1442.160 Calculation Used for Recommendations [facility] Additional Notes Pro needs 1.2-2g/k-127g/ day Fluid needs 1ml/kcal Nutrition Intervention Nutrition Support: Vital AF 1.2 at 50ml/hr with 100ml water flush q4h or per MD order. Kcal 1,440 Protein (gm) 90 Carbohydrates (gm) 133 Fat (gm) 65 Fluid (mL) 973 Fiber (gm) 6 Goal #1 TF tolerance Goal #2 TF to meet at least 75% energy and pro needs Anticipated Discharge Needs: Unable to identify at this time Follow-Up By: 04/21/21 Additional Comments F/U: new TF, Na lab/water flushes, vent status, propofol <MICKI VERAS R - Last Filed: 04/20/21 15:53> Assessment and Plan Assessment and plan: I saw and evaluated the patient. I agree with the findings and the plan of care as documented in the Nurse Practitioner's~note, Hospitalist Physical - Constitutional Vitals: Temp Pulse Resp BP Pulse Ox 96.4 F L 65 30 H 152/85 99 04/20/21 08:46 04/20/21 15:41 04/20/21 15:41 04/20/21 15:41 04/20/21 15:41 Results - Labs CBC & Chem 7: 04/20/21 10:21 04/20/21 10:21 Labs: Laboratory Last Values WBC 8.5 K/mm3 (4.5-11.0) 04/20/21 10:21 RBC 3.75 M/mm3 (3.65-5.03) 04/20/21 10:21 Hgb 12.6 gm/dl (10.1-14.3) 04/20/21 10: Hct 36.3 % (30.3-42.9) 04/20/21 10:21 MCV 97 fl (79-97) 04/20/21 10:21 MCH 34 pg (28-32) H 04/20/21 10:21 MCHC 35 % (30-34) H 04/20/21 10:21 RDW 12.9 % (13.2-15.2) L 04/20/21 10:21 Plt Count 190 K/mm3 (140-440) 04/20/21 10:21 Lymph % (Auto) 12.5 % (13.4-35.0) L 04/19/21 05:36 Leslie % (Auto) 9.4 % (0.0-7.3) H 04/19/21 05:36 Eos % (Auto) 0.0 % (0.0-4.3) 04/19/21 05:36 Baso % (Auto) 0.2 % (0.0-1.8) 04/19/21 05:36 Lymph # (Auto) 1.0 K/mm3 (1.2-5.4) L 04/19/21 05:36 Leslie # (Auto) 0.8 K/mm3 (0.0-0.8) 04/19/21 05:36 Eos # (Auto) 0.0 K/mm3 (0.0-0.4) 04/19/21 05:36 Baso # (Auto) 0.0 K/mm3 (0.0-0.1) 04/19/21 05:36 Add Manual Diff Complete 04/19/21 05:36 Seg Neutrophils % 77.9 % (40.0-70.0) H 04/19/21 05:36 Nucleated RBC % Not Reportable 04/19/21 05:36 Seg Neutrophils # 6.4 K/mm3 (1.8-7.7) 04/19/21 05:36 WBC Morphology Not Reportable 04/19/21 05:36 Hypersegmented Neuts Not Reportable 04/19/21 05:36 Hyposegmented Neuts Not Reportable 04/19/21 05:36 Hypogranular Neuts Not Reportable 04/19/21 05:36 Smudge Cells Not Reportable 04/19/21 05:36 Toxic Granulation Not Reportable 04/19/21 05:36 Toxic Vacuolation Not Reportable 04/19/21 05:36 Dohle Bodies Not Reportable 04/19/21 05:36 Pelger-[place]uet Anomaly Not Reportable 04/19/21 05:36 Santana Rods Not Reportable 04/19/21 05:36 Platelet Estimate Not Reportable 04/19/21 05:36 Clumped Platelets Not Reportable 04/19/21 05:36 Plt Clumps, EDTA Not Reportable 04/19/21 05:36 Large Platelets Not Reportable 04/19/21 05:36 Giant Platelets Not Reportable 04/19/21 05:36 Platelet Satelliting Not Reportable 04/19/21 05:36 Plt Morphology Comment Not Reportable 04/19/21 05:36 RBC Morphology Not Reportable 04/19/21 05:36 Dimorphic RBCs Not Reportable 04/19/21 05:36 Polychromasia Not Reportable 04/19/21 05:36 Hypochromasia Not Reportable 04/19/21 05:36 Poikilocytosis Not Reportable 04/19/21 05:36 Anisocytosis Not Reportable 04/19/21 05:36 Microcytosis Not Reportable 04/19/21 05:36 Macrocytosis Not Reportable 04/19/21 05:36 Spherocytes Not Reportable 04/19/21 05:36 Pappenheimer Bodies Not Reportable 04/19/21 05:36 Sickle Cells Not Reportable 04/19/21 05:36 Target Cells Not Reportable 04/19/21 05:36 Tear Drop Cells Not Reportable 04/19/21 05:36 Ovalocytes Not Reportable 04/19/21 05:36 Helmet Cells Not Reportable 04/19/21 05:36 [place] Bodies Not Reportable 04/19/21 05:36 [place] Rings Not Reportable 04/19/21 05:36 [place] Cells Not Reportable 04/19/21 05:36 Bite Cells Not Reportable 04/19/21 05:36 Crenated Cell Not Reportable 04/19/21 05:36 Elliptocytes Not Reportable 04/19/21 05:36 Acanthocytes (Spur) Not Reportable 04/19/21 05:36 Rouleaux Not Reportable 04/19/21 05:36 Hemoglobin C Crystals Not Reportable 04/19/21 05:36 Schistocytes Not Reportable 04/19/21 05:36 Malaria parasites Not Reportable 04/19/21 05:36 [place] Bodies Not Reportable 04/19/21 05:36 Hem Pathologist Commnt Not Reportable 04/19/21 05:36 PT 14.5 Sec. (12.2-14.9) 04/19/21 05:36 INR 1.02 (0.87-1.13) 04/19/21 05:36 APTT 34.2 Sec. (24.2-36.6) 04/18/21 02:34 D-Dimer 978.83 ng/mlDDU (0-234) H 04/18/21 02:34 ABG pH 7.483 (7.320-7.450) H 04/20/21 03:44 POC ABG pCO2 26.2 mmHg (32.0-48.0) L 04/20/21 03:44 ABG pCO2 29.4 mm Hg 04/18/21 04:20 POC ABG pO2 91.0 mmHg (83-108) 04/20/21 03:44 ABG pO2 154.9 mm Hg (80.0-90.0) H 04/18/21 04:20 POC ABG HCO3 19.2 04/20/21 03:44 ABG HCO3 20.8 mmol/L (20.0-26.0) 04/18/21 04:20 ABG O2 Saturation 96.9 (0-100) 04/20/21 03:44 ABG O2 Content 16.7 (0.0-44) 04/18/21 04:20 POC ABG Base Excess -2.9 04/20/21 03:44 ABG Base Excess -2.0 mmol/L (-2.0-3.0) 04/18/21 04:20 ABG Hemoglobin 12.3 (12.0-17.5) 04/20/21 03:44 ABG Oxyhemoglobin 96.5 (94-98) 04/20/21 03:44 ABG Carboxyhemoglobin 1.2 % (0.0-5.0) 04/18/21 04:20 ABG Methemoglobin 0.3 (0.0-1.5) 04/20/21 03:44 ABG Sodium 142.8 mmol/L (136.0-145.0) 04/20/21 03:44 ABG Potassium 4.0 mmol/L (3.40-4.50) 04/20/21 03:44 ABG Chloride 114.0 mmol/L (98-107) H 04/20/21 03:44 ABG Glucose 296 mg/dL (65-95) H 04/20/21 03:44 Oxyhemoglobin 97.3 % (95.0-99.0) 04/18/21 04:20 Carboxyhemoglobin 0.1 (0.5-1.5) L 04/20/21 03:44 FiO2 100 % 04/18/21 04:20 FiO2 % 45.0 04/20/21 03:44 Sodium 145 mmol/L (137-145) 04/20/21 10:21 Potassium 4.2 mmol/L (3.6-5.0) D 04/20/21 10:21 Chloride 113.7 mmol/L (98-107) H 04/20/21 10:21 Carbon Dioxide 19 mmol/L (22-30) L 04/20/21 10:21 Anion Gap 17 mmol/L 04/20/21 10:21 BUN 38 mg/dL (7-17) H 04/20/21 10:21 Creatinine 0.8 mg/dL (0.6-1.2) 04/20/21 10:21 Estimated GFR > 60 ml/min 04/20/21 10:21 BUN/Creatinine Ratio 48 % 04/20/21 10:21 Glucose 266 mg/dL (65-100) H 04/20/21 10:21 POC Glucose 233 mg/dL (70-105) H 04/20/21 11:05 Hemoglobin A1c 8.0 % (4-6) H 04/20/21 10:21 Lactic Acid 3.10 mmol/L (0.7-2.0) H* 04/20/21 10:21 Calcium 8.4 mg/dL (8.4-10.2) 04/20/21 10:21 Ferritin > 2000.0 ng/mL (10.0-200.0) H 04/18/21 02:34 Total Bilirubin 0.40 mg/dL (0.1-1.2) 04/20/21 10: AST 79 units/L (5-40) H 04/20/21 10:21 ALT 58 units/L (7-56) H 04/20/21 10:21 Alkaline Phosphatase 72 units/L (35-129) 04/20/21 10:21 Ammonia 25.0 umol/L (25-60) 04/18/21 02:34 Lactate Dehydrogenase 711 units/L (91-180) H 04/18/21 02:34 Total Creatine Kinase 68 units/L (30-135) 04/18/21 02:34 C-Reactive Protein 12.90 mg/dL (0.00-1.30) H 04/18/21 02:34 Total Protein 6.6 g/dL (6.3-8.2) 04/20/21 10: Albumin 2.6 g/dL (3.9-5) L 04/20/21 10: Albumin/Globulin Ratio 0.7 % 04/20/21 10: Procalcitonin 0.45 ng/mL (<0.15) 04/18/21 02:34 Arterial Blood Glucose 296 mg/dL (65-95) H 04/20/21 03:44 Urine Color Yellow (Yellow) 04/18/21 04:25 Urine Turbidity Clear (Clear) 04/18/21 04:25 Urine pH 5.0 (5.0-7.0) 04/18/21 04:25 Ur Specific [place] 1.018 (1.003-1.030) 04/18/21 04:25 Urine Protein 100 mg/dl mg/dL (Negative) 04/18/21 04:25 Urine Glucose (UA) Neg mg/dL (Negative) 04/18/21 04:25 Urine Ketones Tr mg/dL (Negative) 04/18/21 04:25 Urine Blood Neg (Negative) 04/18/21 04:25 Urine Nitrite Neg (Negative) 04/18/21 04:25 Ur Reducing Substances Not Reportable 04/18/21 04:25 Urine Bilirubin Neg (Negative) 04/18/21 04:25 Urine Ictotest Not Reportable 04/18/21 04:25 Urine Urobilinogen 2.0 mg/dL (<2.0) 04/18/21 04:25 Ur Leukocyte Esterase Neg (Negative) 04/18/21 04:25 Urine WBC (Auto) 2.0 /HPF (0.0-6.0) 04/18/21 04:25 Urine RBC (Auto) 3.0 /HPF (0.0-6.0) 04/18/21 04:25 Hyaline Casts 3 /LPF 04/18/21 04:25 Urine Mucus Few /HPF 04/18/21 04:25 Plasma/Serum Alcohol < 0.01 % (0-0.07) 04/18/21 02:34 Coronavirus (PCR) Positive (Negative) A 04/19/21 09:00 Microbiology: Microbiology 04/18/21 04:25 Urine,[place] Urine Culture - Preliminary NO GROWTH AFTER 24 HOURS 04/18/21 03:03 Tracheal Aspirate Sputum Culture - Final 04/18/21 02:38 Peripheral/Venous Blood Culture - Preliminary NO GROWTH AFTER 48 HOURS 04/18/21 02:34 Peripheral/Venous Blood Culture - Preliminary NO GROWTH AFTER 48 HOURS Franco/IV: Voiding Method Indwelling Catheter Active Medications - Current Medications Current Medications: Generic Name Dose Route Start Last Admin Trade Name Freq PRN Reason Stop Dose Admin Acetaminophen 650 mg 04/18/21 04:13 Acetaminophen 650 Mg Rect Supp VT Q6H PRN Pain MILD(1-3)/Fever >100.5/ASENCIO Lipase/Protease/Amylase 1 each 04/19/21 12:25 Lipase 10,500/Protease 25,000/Amylase 43,750 (Units) Cap FEEDTUBE PRN PRN For Clogged Feeding Tube Dexamethasone 6 mg 04/18/21 10:00 04/20/21 10:00 Dexamethasone 4 Mg/Ml Vial IV 04/27/21 10:01 6 mg Q24HR REJI Administration Dextrose 50 ml 04/20/21 10:34 Dextrose 50% In Water (25gm) 50 Ml Syringe IV Q30MIN PRN Hypoglycemia Protocol Enoxaparin Sodium 30 mg 04/19/21 22:00 04/20/21 09:30 Enoxaparin 30 Mg/0.3 Ml Inj SUB-Q 30 mg BID REJI Administration Protocol Famotidine 20 mg 04/18/21 10:00 04/20/21 10:00 Famotidine 20 Mg/2 Ml Inj IV 20 mg BID REJI Administration Fentanyl 50 mcg 04/19/21 09:59 Fentanyl 100 Mcg/2 Ml Inj IV Q10MIN PRN ANALGESIA Hydrophilic Ointment 1 applic 04/18/21 03:03 Lip Therapy Vaseline TP Q2HR PRN Dry Lips Ceftriaxone Sodium 2 gm in 100 mls @ 200 mls/hr 04/18/21 10:00 04/20/21 10:00 Rocephin/Ns 2 Gm/100 Ml IV 200 mls/hr Q24HR [facility] Administration Protocol Azithromycin 500 mg in 250 mls @ 250 mls/hr 04/18/21 10:00 04/20/21 09:30 Zithromax/Ns IV 250 mls/hr Q24HR [facility] Administration Protocol REMDESIVIR 100 mg/ Sodium 250 mls @ 500 mls/hr 04/19/21 21:00 04/19/21 21:24 Chloride IV 04/22/21 21:29 500 mls/hr Q24HR@2100 REJI Administration Fentanyl Citrate 2,000 mcg in 100 mls @ 3.175 mls/hr 04/19/21 10:00 04/20/21 11:39 Fentanyl Drip Premix IV 1 mcg/kg/hr TITR REJI 3.175 mls/hr Administration Protocol 1 MCG/KG/HR Propofol 1,000 mg in 100 mls @ 1.905 mls/hr 04/19/21 13:00 Diprivan 10 Mg/Ml IV TITR REJI Protocol 5 MCG/KG/MIN Insulin Glargine 10 units 04/19/21 22:00 04/19/21 21:35 Insulin Glargine 100 Units/Ml SUB-Q 10 units QHS [facility] Administration Insulin Human Lispro 0 unit 04/20/21 12:00 04/20/21 11:39 Insulin Lispro 100 Unit/Ml SUB-Q 4 unit Q6HR REJI Administration Protocol Morphine Sulfate 2 mg 04/18/21 04:13 Morphine 2 Mg/1 Ml Inj IV Q4H PRN Pain, Moderate (4-6) Morphine Sulfate 4 mg 04/18/21 04:13 Morphine 4 Mg/1 Ml Inj IV Q4H PRN Pain , Severe (7-10) Multi-Ingred Cream/Lotion/Oil/Oint 1 applic 04/18/21 03:03 Mineral Oil/Petrolatum, White Ophth Oint 3.5 Gm OU Q4HR PRN Dry Eye(s) Ondansetron HCl 4 mg 04/18/21 04:13 Ondansetron 4 Mg/2 Ml Inj IV Q8H PRN Nausea And Vomiting Senna 8.8 mg 04/19/21 22:00 04/19/21 21:25 Sennosides Oral Liqd 8.8 Mg/5 Ml Oral Liqd PO 8.8 mg QHS REJI Administration Simple Syrup 15 ml 04/19/21 12:25 Simple Syrup 15 Ml FEEDTUBE PRN PRN Hypoglycemia Simple Syrup 30 ml 04/19/21 12:25 Simple Syrup 15 Ml FEEDTUBE PRN PRN Hypoglycemia Sodium Bicarbonate 325 mg 04/19/21 12:25 Sodium Bicarbonate 325 Mg Tab FEEDTUBE PRN PRN For Clogged Feeding Tube Sodium Chloride 10 ml 04/18/21 10:00 04/20/21 11:43 Sodium Chloride 0.9% 10 Ml Flush Syringe IV 10 ml BID REJI Administration Sodium Chloride 10 ml 04/18/21 04:13 Sodium Chloride 0.9% 10 Ml Flush Syringe IV PRN PRN LINE FLUSH Sodium Chloride 50 ml 04/18/21 11:00 04/19/21 21:41 Sodium Chloride 0.9% 50 Ml Ivpb IV 04/22/21 21:01 50 ml Q24HR@2100 REJI Administration Nutrition/Malnutrition Assess - Dietary Evaluation Nutrition/Malnutrition Findings: Nutrition Notes Start: 04/18/21 08:28 Freq: Status: Active Protocol: Document 04/19/21 12:16 SUSAN (Rec: 04/19/21 12:24 [facility] [id number]) Nutrition Notes Need for Assessment generated from: MD Order Initial or Follow up Reassessment Current Diagnosis Sepsis,Respiratory Failure Other Pertinent Diagnosis COVID-19 (+), bilat pneu, AMS Current Diet NPO Labs/Tests Na 147 K 3.3 BUN 35 BG 251 Pertinent Medications Decadron, Lantus, D5 1/2NS at 50ml/hr, 40mEq KCl x 1 dose, Propofol at 1.905ml/hr ( provides 50 kcal) Height 5 ft 2 in Weight [address] Body Weight (kg) 50.00 BMI 25.6 Weight Status Appropriate Subjective/Other Information RD consulted for TF. Pt remains on vent support. Burn Absent Trauma Absent #1 Nutrition Diagnosis Swallowing difficulty Diagnosis Progress(for reassessment Continues documentation) Is patient on ventilator? Yes Is Patient Ambulatory and/or Out of Bed No REE-([facility] Jeky-confined to bed) 1442.160 Calculation Used for Recommendations [facility] Additional Notes Pro needs 1.2-2g/k-127g/ day Fluid needs 1ml/kcal Nutrition Intervention Nutrition Support: Vital AF 1.2 at 50ml/hr with 100ml water flush q4h or per MD order. Kcal 1,440 Protein (gm) 90 Carbohydrates (gm) 133 Fat (gm) 65 Fluid (mL) 973 Fiber (gm) 6 Goal #1 TF tolerance Goal #2 TF to meet at least 75% energy and pro needs Anticipated Discharge Needs: Unable to identify at this time Follow-Up By: 04/21/21 Additional Comments F/U: new TF, Na lab/water flushes, vent status, propofol
[2021-04-19] MEDS ORDERED: POTASSIUM CHLORIDE ER 20 MEQ TAB PO ONE (18:12)
[2021-04-19] MEDS ORDERED: POTASSIUM CHLORIDE 20 MEQ PACKET ONE (18:14)
[2021-04-19] MEDS: ENOXAPARIN 30 MG/0.3 ML INJ SUB-Q SCH (21:24)
[2021-04-19] MEDS: REMDESIVIR 100 MG in SODIUM CHLORIDE 0.9% 250ML 250 ML IV SCH (21:24)
[2021-04-19] MEDS: SENNOSIDES ORAL LIQD 8.8 MG/5 ML ORAL LIQD PO SCH (21:25)
[2021-04-19] MEDS: INSULIN GLARGINE 100 UNITS/ML SUB-Q SCH (21:35)
[2021-04-19] MEDS: SODIUM CHLORIDE 0.9% 50 ML IVPB IV SCH (21:41)
--- NOTE | 2021-04-20 04:18 | XRay Report ---
CHEST 1 VIEW 04/20/2021 3:08 AM INDICATION / CLINICAL INFORMATION: follow up respiratory failure. COMPARISON: 04/19/2021 FINDINGS: SUPPORT DEVICES: Stable, satisfactory device positioning. HEART / MEDIASTINUM: No significant abnormality. LUNGS / PLEURA: No significant change in multifocal airspace opacities. No pneumothorax. ADDITIONAL FINDINGS: No significant additional findings. IMPRESSION: 1. No significant change. Signer Name: Mu Umana DO Signed: 04/20/2021 4:14 AM Workstation Name: [id number]
[2021-04-20] MEDS: AZITHROMYCIN/NS 500 MG/250 ML 500 MG/250 ML BAG IV SCH (09:30)
[2021-04-20] MEDS: ENOXAPARIN 30 MG/0.3 ML INJ SUB-Q SCH ×2 (09:30→21:27)
[2021-04-20] MEDS: dexAMETHasone 4 MG/ML VIAL IV SCH (10:00)
[2021-04-20] MEDS: FAMOTIDINE 20 MG/2 ML INJ IV SCH ×2 (10:00→21:27)
[2021-04-20] MEDS: cefTRIAXone/NS 2 GM/100 ML 2 GM/100 ML BAG IV SCH (10:00)
[2021-04-20] MEDS ORDERED: DEXTROSE 50% IN WATER (25GM) 50 ML SYRINGE IV PRN (10:34)
[2021-04-20 10:40] LABS: Hematocrit 36.3 % (30.3-42.9); Hemoglobin 12.6 gm/dl (10.1-14.3); Mean Corpuscular HGB Conc 35 % (30-34); Mean Corpuscular Volume 97 fl (79-97); Platelet Count 190 K/mm3 (140-440); Red Blood Count 3.75 M/mm3 (3.65-5.03); Red Cell Distribution Width 12.9 % (13.2-15.2)
[2021-04-20 10:56] LABS: Alanine Aminotransferase 58 units/L (7-56); Albumin 2.6 g/dL (3.9-5); BUN/Creatinine Ratio 48; Blood Urea Nitrogen 38 mg/dL (7-17); Calcium 8.4 mg/dL (8.4-10.2); Hemolysis Index 16
[2021-04-20] MEDS: INSULIN LISPRO 100 UNIT/ML SUB-Q SCH ×3 (11:39→23:44)
[2021-04-20] MEDS: fentaNYL DRIP Premix 2,000 MCG/100 ML BAG IV SCH (11:39)
--- NOTE | 2021-04-20 14:52 | Progress Note ---
Assessment and Plan Acute hypoxemic respiratory failure, ARDS secondary to COVID pneumonia P/F 154 Respiratory alkalosis Bilateral pneumonia Sepsis Hyperglycemia Hypernatremia Will start SATs and SBTs in the next 48 hours -continue to titrate supplemental oxygen to keep SpO2 88-90% -VAP bundle addressed, aspiration precautions HOB>30 -Lung protective strategies, continue to monitor airway pressures - bronchodilators with pulmonary hygiene per RT - sedation target RASS -1 to -2 . Continue Fentanyl , stop Propofol -complete ABs per ID recommendation-Ceftriaxone 2 gm IV qday and azithromycin 500 mg PO qday,to complete 5 day course - continue glycemic control with SSI for target BG 140-180 mg while critically ill; avoid hypoglycemia - avoid nephrotoxins, renally dose all medications - prn analgesia per pain score - Maintenance of sleep-wake cycle, avoid delirium - supportive transfusions for serum Hb < 7.0g/dL - Stress ulcer prophylaxis- Famotidine - continue mobility, off loading, frequent turning per facility for pressure ulcer prevention - Monitor hemodynamics closely -Conservative fluid management, keep negative fluid balance as tolerated by hemodynamics and renal function -Enteric nutritional support at goal rate - continue other care per attending / other consultants COVID SPECIFIC INTERVENTIONS - Remdesivir as per ID/Pulmonary developed protocols - continue systemic steroids for severe COVID-19 infection -Repeat COVID PCR test positive - Monitor inflammatory markers per facility protocol - ferritin, D-dimer, CRP - Actemra 8 mg/kg - Anticoagulation per system Protocol based on d-dimer and clinical considerations -on Enoxaparin 30mg BID - Continue contact and airborne isolation -Prone positioning per facility protocol CONDITION: CRITICAL PROGNOSIS: GUARDED CODE STATUS: FULL CODE The high probability of a clinically significant, sudden or life-threatening deterioration of the [respiratory, neurologic] system(s) required my full and direct attention, intervention and personal management. The aggregate critical care time was [35] minutes without overlap. Time includes spent on; [x] Data Review and interpretation [x] Patient assessment and monitoring of vital signs [x] Documentation [x] Medication orders and management Subjective Date of service: 04/20/21 Interval history: Follow up for:Acute hypoxemic respiratory failure, ARDS secondary to COVID pneumonia P/F 154;Bilateral pneumonia;Sepsis;Hyperglycemia Patient seen and examined. Vitals, labs, medications, chart and imaging reviewed. Discussed with respiratory and nursing staff. Remains orally intubated on MVS, no fevers, tolerating tube feedings Glycemic control remains sub-optimal Objective Vital Signs - 12hr 04/20/21 04/20/21 04/20/21 03:00 03:10 03:20 Temperature Pulse Rate 45 L 46 L 46 L Pulse Rate [ From Monitor] Respiratory 30 H 30 H 30 H Rate Blood Pressure 130/76 125/76 118/71 O2 Sat by Pulse 97 96 96 Oximetry 04/20/21 04/20/21 04/20/21 03:30 03:40 03:50 Temperature Pulse Rate 47 L 43 L 45 L Pulse Rate [ From Monitor] Respiratory 30 H 30 H 30 H Rate Blood Pressure 109/67 119/74 119/75 O2 Sat by Pulse 97 98 97 Oximetry 04/20/21 04/20/21 04/20/21 04:00 04:10 04:20 Temperature 96.8 F L Pulse Rate 45 L 46 L 48 L Pulse Rate [ 46 L From Monitor] Respiratory 30 H 30 H 30 H Rate Blood Pressure 108/68 115/71 118/72 O2 Sat by Pulse 98 98 98 Oximetry 04/20/21 04/20/21 04/20/21 04:30 04:40 04:50 Temperature Pulse Rate 44 L 46 L 46 L Pulse Rate [ From Monitor] Respiratory 30 H 30 H 30 H Rate Blood Pressure 124/75 115/70 111/66 O2 Sat by Pulse 98 97 98 Oximetry 04/20/21 04/20/21 04/20/21 05:00 05:07 05:10 Temperature Pulse Rate 43 L 45 L 44 L Pulse Rate [ From Monitor] Respiratory 30 H 30 H Rate Blood Pressure 121/70 111/66 124/72 O2 Sat by Pulse 98 98 99 Oximetry 04/20/21 04/20/21 04/20/21 05:20 05:30 05:40 Temperature Pulse Rate 43 L 45 L 44 L Pulse Rate [ From Monitor] Respiratory 30 H 30 H 30 H Rate Blood Pressure 120/70 113/67 122/75 O2 Sat by Pulse 98 99 98 Oximetry 04/20/21 04/20/21 04/20/21 05:50 06:00 06:10 Temperature Pulse Rate 43 L 43 L 43 L Pulse Rate [ From Monitor] Respiratory 30 H 30 H 30 H Rate Blood Pressure 126/74 122/75 121/75 O2 Sat by Pulse 99 99 98 Oximetry 04/20/21 04/20/2121 06:20 06:31 06:40 Temperature Pulse Rate 59 L 52 L 48 L Pulse Rate [ From Monitor] Respiratory 30 H 13 30 H Rate Blood Pressure 138/90 135/100 134/76 O2 Sat by Pulse 100 97 100 Oximetry 04/20/21 04/20/21 04/20/21 06:50 07:00 07:10 Temperature Pulse Rate 49 L 47 L 47 L Pulse Rate [ From Monitor] Respiratory 30 H 30 H 30 H Rate Blood Pressure 141/81 136/82 124/78 O2 Sat by Pulse 97 95 97 Oximetry 04/20/21 04/20/21 04/20/21 07:20 07:30 07:40 Temperature Pulse Rate 46 L 45 L 45 L Pulse Rate [ From Monitor] Respiratory 30 H 30 H 30 H Rate Blood Pressure 129/78 127/78 126/79 O2 Sat by Pulse 97 98 98 Oximetry 04/20/21 04/20/21 04/20/21 07:50 08:00 08:04 Temperature Pulse Rate 43 L 43 L 45 L Pulse Rate [ From Monitor] Respiratory 30 H 30 H Rate Blood Pressure 127/77 133/80 O2 Sat by Pulse 99 99 Oximetry 04/20/21 04/20/21 04/20/21 08:10 08:20 08:30 Temperature Pulse Rate 44 L 46 L 55 L Pulse Rate [ From Monitor] Respiratory 30 H 30 H 30 H Rate Blood Pressure 130/76 118/71 133/74 O2 Sat by Pulse 99 99 98 Oximetry 04/20/21 04/20/21 04/20/21 08:40 08:46 08:47 Temperature 96.4 F L Pulse Rate 44 L Pulse Rate [ 44 L From Monitor] Respiratory 30 H 30 H Rate Blood Pressure 131/76 O2 Sat by Pulse 100 100 Oximetry 04/20/21 04/20/21 04/20/21 08:50 09:00 09:10 Temperature Pulse Rate 45 L 46 L 46 L Pulse Rate [ From Monitor] Respiratory 30 H 30 H 30 H Rate Blood Pressure 134/83 145/84 143/82 O2 Sat by Pulse 100 100 99 Oximetry 04/20/21 04/20/21 04/20/21 09:20 09:30 09:41 Temperature Pulse Rate 46 L 45 L 48 L Pulse Rate [ From Monitor] Respiratory 30 H 30 H 30 H Rate Blood Pressure 135/81 122/74 111/63 O2 Sat by Pulse 100 99 99 Oximetry 04/20/21 04/20/21 04/20/21 09:50 10:00 10:10 Temperature Pulse Rate 50 L 61 56 L Pulse Rate [ From Monitor] Respiratory 30 H 30 H 30 H Rate Blood Pressure 108/68 121/77 134/79 O2 Sat by Pulse 99 99 99 Oximetry 04/20/21 04/20/21 04/20/21 10:20 10:30 10:40 Temperature Pulse Rate 59 L 55 L 50 L Pulse Rate [ From Monitor] Respiratory 30 H 30 H 30 H Rate Blood Pressure 136/82 134/75 126/72 O2 Sat by Pulse 98 98 97 Oximetry 04/20/21 04/20/21 04/20/21 10:50 11:00 11:10 Temperature Pulse Rate 55 L 53 L 53 L Pulse Rate [ From Monitor] Respiratory 30 H 30 H 30 H Rate Blood Pressure 129/77 128/75 133/75 O2 Sat by Pulse 98 98 98 Oximetry 04/20/21 11:20 Temperature Pulse Rate 58 L Pulse Rate [ From Monitor] Respiratory 30 H Rate Blood Pressure 128/78 O2 Sat by Pulse 97 Oximetry Constitutional: no acute distress, other (sedated) Eyes: non-icteric ENT: oropharynx moist, other (ETT 7.5 at 23cm at the lip) Neck: supple, no lymphadenopathy Effort: mildly labored Ascultation: Bilateral: clear, diminished breath sounds Cardiovascular: regular rate and rhythm, other (S1,S2) Gastrointestinal: normoactive bowel sounds, soft, non-tender, non-distended Integumentary: normal Extremities: no cyanosis, no edema, pink and warm, pulses normal Neurologic: non-focal exam (moves extremities), pupils equal and round Psychiatric: other (unable to assess) CBC and BMP: 04/28/21 07:19 04/28/21 07:19 ABG, PT/INR, D-dimer: ABG ABG pH 7.483 (7.320-7.450) H 04/20/21 03:44 POC ABG pCO2 26.2 mmHg (32.0-48.0) L 04/20/21 03:44 ABG pCO2 29.4 mm Hg 04/18/21 04:20 POC ABG pO2 91.0 mmHg (83-108) 04/20/21 03:44 ABG pO2 154.9 mm Hg (80.0-90.0) H 04/18/21 04:20 POC ABG HCO3 19.2 04/20/21 03:44 ABG O2 Saturation 96.9 (0-100) 04/20/21 03:44 PT/INR, D-dimer PT 14.5 Sec. (12.2-14.9) 04/19/21 05:36 INR 1.02 (0.87-1.13) 04/19/21 05:36 D-Dimer 978.83 ng/mlDDU (0-234) H 04/18/21 02:34 Abnormal lab findings: Abnormal Labs 04/18/21 04/18/21 04/18/21 02:34 02:34 02:34 MCH 33 H MCHC 35 H RDW 12.4 L Lymph % (Auto) [place] % (Auto) 14.0 H Lymph # (Auto) 0.9 L [place] # (Auto) 0.9 H Seg Neutrophils % 72.0 H D-Dimer 978.83 H ABG pH POC ABG pCO2 POC ABG pO2 ABG pO2 ABG Oxyhemoglobin ABG Potassium ABG Chloride ABG Glucose Carboxyhemoglobin Sodium Potassium Chloride Carbon Dioxide 20 L BUN 32 H Glucose 227 H POC Glucose Hemoglobin A1c Lactic Acid Calcium 8.2 L Ferritin AST 64 H ALT Lactate Dehydrogenase C-Reactive Protein Albumin 3.5 L Arterial Blood Glucose Coronavirus (PCR) 04/18/21 04/18/21 04/18/21 02:34 02:34 04:20 MCH MCHC RDW Lymph % (Auto) [place] % (Auto) Lymph # (Auto) [place] # (Auto) Seg Neutrophils % D-Dimer ABG pH 7.468 H POC ABG pCO2 POC ABG pO2 ABG pO2 154.9 H ABG Oxyhemoglobin ABG Potassium ABG Chloride ABG Glucose Carboxyhemoglobin Sodium Potassium Chloride Carbon Dioxide BUN Glucose 228 H POC Glucose Hemoglobin A1c Lactic Acid Calcium Ferritin > 2000.0 H AST ALT Lactate Dehydrogenase 711 H C-Reactive Protein 12.90 H Albumin Arterial Blood Glucose Coronavirus (PCR) 04/18/21 04/18/21 04/19/21 04:54 15:39 05:36 MCH 33 H MCHC 35 H RDW 12.9 L Lymph % (Auto) 12.5 L [place] % (Auto) 9.4 H Lymph # (Auto) 1.0 L [place] # (Auto) Seg Neutrophils % 77.9 H D-Dimer ABG pH POC ABG pCO2 POC ABG pO2 ABG pO2 ABG Oxyhemoglobin ABG Potassium ABG Chloride ABG Glucose Carboxyhemoglobin Sodium Potassium 3.5 L Chloride 107.8 H Carbon Dioxide 20 L BUN 32 H Glucose 276 H POC Glucose Hemoglobin A1c Lactic Acid 2.30 H* Calcium 8.1 L Ferritin AST 64 H ALT Lactate Dehydrogenase C-Reactive Protein Albumin 2.8 L Arterial Blood Glucose Coronavirus (PCR) 04/19/21 04/19/21 04/19/21 05:36 06:16 09:00 MCH MCHC RDW Lymph % (Auto) [place] % (Auto) Lymph # (Auto) [place] # (Auto) Seg Neutrophils % D-Dimer ABG pH 7.562 H POC ABG pCO2 22.0 L POC ABG pO2 168.2 H ABG pO2 ABG Oxyhemoglobin 98.4 H ABG Potassium 3.3 L ABG Chloride 110.0 H ABG Glucose 248 H Carboxyhemoglobin Sodium 147 H Potassium 3.3 L Chloride 110.1 H Carbon Dioxide 21 L BUN 35 H Glucose 251 H POC Glucose Hemoglobin A1c Lactic Acid Calcium 8.2 L Ferritin AST 66 H ALT Lactate Dehydrogenase C-Reactive Protein Albumin 2.9 L Arterial Blood Glucose 248 H Coronavirus (PCR) Positive A 04/19/21 04/19/21 04/19/21 11:32 17:15 21:34 MCH MCHC RDW Lymph % (Auto) [place] % (Auto) Lymph # (Auto) [place] # (Auto) Seg Neutrophils % D-Dimer ABG pH POC ABG pCO2 POC ABG pO2 ABG pO2 ABG Oxyhemoglobin ABG Potassium ABG Chloride ABG Glucose Carboxyhemoglobin Sodium Potassium Chloride Carbon Dioxide BUN Glucose POC Glucose 216 H 256 H 258 H Hemoglobin A1c Lactic Acid Calcium Ferritin AST ALT Lactate Dehydrogenase C-Reactive Protein Albumin Arterial Blood Glucose Coronavirus (PCR) 04/20/21 04/20/21 04/20/21 00:13 03:44 06:16 MCH MCHC RDW Lymph % (Auto) [place] % (Auto) Lymph # (Auto) [place] # (Auto) Seg Neutrophils % D-Dimer ABG pH 7.483 H POC ABG pCO2 26.2 L POC ABG pO2 ABG pO2 ABG Oxyhemoglobin ABG Potassium ABG Chloride 114.0 H ABG Glucose 296 H Carboxyhemoglobin 0.1 L Sodium Potassium Chloride Carbon Dioxide BUN Glucose POC Glucose 290 H 271 H Hemoglobin A1c Lactic Acid Calcium Ferritin AST ALT Lactate Dehydrogenase C-Reactive Protein Albumin Arterial Blood Glucose 296 H Coronavirus (PCR) 04/20/21 04/20/21 04/20/21 10:21 10:21 10:21 MCH MCHC RDW Lymph % (Auto) [place] % (Auto) Lymph # (Auto) [place] # (Auto) Seg Neutrophils % D-Dimer ABG pH POC ABG pCO2 POC ABG pO2 ABG pO2 ABG Oxyhemoglobin ABG Potassium ABG Chloride ABG Glucose Carboxyhemoglobin Sodium Potassium Chloride 113.7 H Carbon Dioxide 19 L BUN 38 H Glucose 266 H POC Glucose Hemoglobin A1c 8.0 H Lactic Acid 3.10 H* Calcium Ferritin AST 79 H ALT 58 H Lactate Dehydrogenase C-Reactive Protein Albumin 2.6 L Arterial Blood Glucose Coronavirus (PCR) 04/20/21 04/20/21 10:21 11:05 MCH 34 H MCHC 35 H RDW 12.9 L Lymph % (Auto) [place] % (Auto) Lymph # (Auto) [place] # (Auto) Seg Neutrophils % D-Dimer ABG pH POC ABG pCO2 POC ABG pO2 ABG pO2 ABG Oxyhemoglobin ABG Potassium ABG Chloride ABG Glucose Carboxyhemoglobin Sodium Potassium Chloride Carbon Dioxide BUN Glucose POC Glucose 233 H Hemoglobin A1c Lactic Acid Calcium Ferritin AST ALT Lactate Dehydrogenase C-Reactive Protein Albumin Arterial Blood Glucose Coronavirus (PCR) Chest x-ray: image reviewed Allied health notes reviewed: RT
--- NOTE | 2021-04-20 15:11 | Progress Note ---
<ROE CLAYTON - Last Filed: 04/20/21 15:32> Assessment and Plan Assessment and plan: This is a 51 years-old female with unknown past medical history who came in the ED due to altered mental status. Upon her arrival in the ED her SPO2 was in the 40%, she was first placed on a NRB then was subsequently intubated due to acute hypoxic respiratory failure. As of note, patient was diagnosed with COVID 4days prior [facility] hospital admission. Patient was admitted in the ICU for further management. Hospital Course to Date: 04/19/21- Patient is intubated and sedated RASS -3 to -4. SB to low SR on the monitor, hemodynamics stable and not on any pressors, will continue to monitor. Hypokalemia was repleted. TF was initiated, plan to D/C IVF once TF is at goal. Hyperglycemia noted, high scale SSI and qHS lantus added, A1c ordered. 04/20/21- Patient remains intubated amd off sedation, RASS 0 to -1. Remains SB on the monitor, hemodynamic stable. Increased in lactic acid this am, slight increased in LFTs, WBCs stable, kidney function is stable. Will repeat lactic in 4hours and continue to monitor. Patient is net +1537 cc in last 24hrs, will hold IVF for now to keep patient net negative fluid balance.Will continue to monitor renal function and electrolytes. Assessment and Plan #Neuro:AMS - 04/18 CT head w/o con showed no acute intracranial process - Patient is intubated off sedation, RASS 0 to -1 - Avoid benzodiazepine to reduce the possibility of delirium- Will D/C ativan gtt - Propofol and fentanyl gtt as needed for sedation - Titrate sedation for RASS goal 0 to -1 - Daily SAT and SBT per [facility] - Prn analgesia for CPOT greater than 3 - Maintenance of sleep-wake cycle, avoid delirium #CV: Bradycardia probably 2/2 sedation - SB to NSR on the monitor, HR as low as 48 - Patient's is now on pressors, BP stable - Maintain adequate perfusion - IVF D/C - Continue blood pressure monitor per protocol - Maintain MAP above 65 - Continue AC- Lovenox BID and SCDs for VTE proph #Acute hypoxemic respiratory failure #COVID pneumonia #ARDS secondary to COVID pneumonia #Respiratory alkalosis - 04/18 CXR showed bilateral pneumonia - 04/19 CXR redemonstrated multifocal process - COVID swab positive, Inflammatory markers are elevated - ETT on 04/18 - Vent Setting: CMV- 450,10,30,350 - This am ABG noted - Wean FiO2 as tolerated for SPO2> 90% - Daily SAT and SBT trial per [facility] - Continue dialy ABG and CXR X7days - Continue steroids [id number] - VAP bundle addressed - Aspiration precautions HOB>30 - Lung protective strategies, continue to monitor airway pressures - [facility] on consult #GI: NAP - Enteral nutrition initiated - Nutrition consult for TF management - Continue IVF-D5 1/2NS for now, D/C once TF is at goal - Continue BR- senokot - Continue PPI- Pepcid #Hypokalemia-improved #Hypernatremia- improved - FWF for hypernatremia - Purewick in place - Continue trict intake and output - Avoid nephrotoxic medications; Renally dose medications - Conservative fluid management, keep negative fluid balance as tolerated by hemodynamics and renal function - Monitor and replace electrolytes as needed #ID: Sepsis #COVID Pneumonia #Bilateral Pneumonia #Lactic Acid - 04/18 CXR showed bilateral pneumonia - 04/19 CXR redemonstrated multifocal process - COVID swab positive - Inflammatory markers are elevated - Lactic acidosid- up to 3.10 today - Patient is afebrile TMAx 98.3, WBcs normal - 04/18 B.CultX2 pending, 04/18 Tracheal aspirate pending - Continue steroids [id number] - Continue remdesevir per protocol - Obtain q48-72h inflammatory markers - ferritin, Ddimer, CRP, LDH - Continue empiric ABx- Ceftriaxone and azithromycin per ID - F/U on B.cult - Daily CBC monitor, f/u lactic acid in 4 to 6hrs - ID on consult, appreciated recommendation #Endo: Hyperglycemia - Continue high dose SSI - Lantus added qHS - HbgA1c pending - While critically ill target blood glucose of 140-180 - Avoid hypoglycemia The high probability of a clinically significant, sudden or life threatening deterioration of the [multiple] system(s) required my full and direct attention, intervention and personal management. The aggregate critical care time was [60] minutes. This time is in addition to time spent performing reported procedures but includes the following: [x] Data Review and interpretation [x] Patient assessment and monitoring of vital signs [x] Documentation [x] Medication orders and management Disposition Plan: ICU Total Time Spent with Patient (Minutes): 60 History Interval history: Patient seen and examined at the bedside. Patient is intubated and sedated, no longer on sedation RASS 0 to -1, following simple commands. No significant events reported from overnight. Hospitalist Physical - Constitutional Vitals: Temp Pulse Resp BP Pulse Ox 96.4 F L 58 L 30 H 128/78 97 04/20/21 08:46 04/20/21 11:20 04/20/21 11:20 04/20/21 11:20 04/20/21 11:20 General appearance: Present: no acute distress, other (Downsy) - EENT Eyes: Present: PERRL ENT: hearing intact - Respiratory Respiratory effort: normal Respiratory: bilateral: diminished - Cardiovascular Rhythm: regular Heart Sounds: Present: S1 & S2 - Extremities Extremities: no ischemia, pulses intact, pulses symmetrical, No edema Peripheral Pulses: within normal limits - Abdominal General gastrointestinal: soft, non-tender, normal bowel sounds - Integumentary Integumentary: Present: clear, warm, dry - Psychiatric Psychiatric: cooperative - Neurologic Neurologic: moves all extremities - Allied Health Allied health notes reviewed: nursing Results - Labs CBC & Chem 7: 04/20/21 10:21 04/20/21 10:21 Labs: Laboratory Last Values WBC 8.5 K/mm3 (4.5-11.0) 04/20/21 10:21 RBC 3.75 M/mm3 (3.65-5.03) 04/20/21 10:21 Hgb 12.6 gm/dl (10.1-14.3) 04/20/21 10:21 Hct 36.3 % (30.3-42.9) 04/20/21 10:21 MCV 97 fl (79-97) 04/20/21 10:21 MCH 34 pg (28-32) H 04/20/21 10:21 MCHC 35 % (30-34) H 04/20/21 10:21 RDW 12.9 % (13.2-15.2) L 04/20/21 10:21 Plt Count 190 K/mm3 (140-440) 04/20/21 10:21 Lymph % (Auto) 12.5 % (13.4-35.0) L 04/19/21 05:36 [place] % (Auto) 9.4 % (0.0-7.3) H 04/19/21 05:36 Eos % (Auto) 0.0 % (0.0-4.3) 04/19/21 05:36 Baso % (Auto) 0.2 % (0.0-1.8) 04/19/21 05:36 Lymph # (Auto) 1.0 K/mm3 (1.2-5.4) L 04/19/21 05:36 [place] # (Auto) 0.8 K/mm3 (0.0-0.8) 04/19/21 05:36 Eos # (Auto) 0.0 K/mm3 (0.0-0.4) 04/19/21 05:36 Baso # (Auto) 0.0 K/mm3 (0.0-0.1) 04/19/21 05:36 Add Manual Diff Complete 04/19/21 05:36 Seg Neutrophils % 77.9 % (40.0-70.0) H 04/19/21 05:36 Nucleated RBC % Not Reportable 04/19/21 05:36 Seg Neutrophils # 6.4 K/mm3 (1.8-7.7) 04/19/21 05:36 WBC Morphology Not Reportable 04/19/21 05:36 Hypersegmented Neuts Not Reportable 04/19/21 05:36 Hyposegmented Neuts Not Reportable 04/19/21 05:36 Hypogranular Neuts Not Reportable 04/19/21 05:36 Smudge Cells Not Reportable 04/19/21 05:36 Toxic Granulation Not Reportable 04/19/21 05:36 Toxic Vacuolation Not Reportable 04/19/21 05:36 Dohle Bodies Not Reportable 04/19/21 05:36 Pelger-Huet Anomaly Not Reportable 04/19/21 05:36 Santana Rods Not Reportable 04/19/21 05:36 Platelet Estimate Not Reportable 04/19/21 05:36 Clumped Platelets Not Reportable 04/19/21 05:36 Plt Clumps, EDTA Not Reportable 04/19/21 05:36 Large Platelets Not Reportable 04/19/21 05:36 Giant Platelets Not Reportable 04/19/21 05:36 Platelet Satelliting Not Reportable 04/19/21 05:36 Plt Morphology Comment Not Reportable 04/19/21 05:36 RBC Morphology Not Reportable 04/19/21 05:36 Dimorphic RBCs Not Reportable 04/19/21 05:36 Polychromasia Not Reportable 04/19/21 05:36 Hypochromasia Not Reportable 04/19/21 05:36 Poikilocytosis Not Reportable 04/19/21 05:36 Anisocytosis Not Reportable 04/19/21 05:36 Microcytosis Not Reportable 04/19/21 05:36 Macrocytosis Not Reportable 04/19/21 05:36 Spherocytes Not Reportable 04/19/21 05:36 Pappenheimer Bodies Not Reportable 04/19/21 05:36 Sickle Cells Not Reportable 04/19/21 05:36 Target Cells Not Reportable 04/19/21 05:36 Tear Drop Cells Not Reportable 04/19/21 05:36 Ovalocytes Not Reportable 04/19/21 05:36 Helmet Cells Not Reportable 04/19/21 05:36 [place] Bodies Not Reportable 04/19/21 05:36 [place] Rings Not Reportable 04/19/21 05:36 Nupur Cells Not Reportable 04/19/21 05:36 Bite Cells Not Reportable 04/19/21 05:36 Crenated Cell Not Reportable 04/19/21 05:36 Elliptocytes Not Reportable 04/19/21 05:36 Acanthocytes (Spur) Not Reportable 04/19/21 05:36 Rouleaux Not Reportable 04/19/21 05:36 Hemoglobin C Crystals Not Reportable 04/19/21 05:36 Schistocytes Not Reportable 04/19/21 05:36 Malaria parasites Not Reportable 04/19/21 05:36 Hubert Bodies Not Reportable 04/19/21 05:36 Hem Pathologist Commnt Not Reportable 04/19/21 05:36 PT 14.5 Sec. (12.2-14.9) 04/19/21 05:36 INR 1.02 (0.87-1.13) 04/19/21 05:36 APTT 34.2 Sec. (24.2-36.6) 04/18/21 02:34 D-Dimer 978.83 ng/mlDDU (0-234) H 04/18/21 02:34 ABG pH 7.483 (7.320-7.450) H 04/20/21 03:44 POC ABG pCO2 26.2 mmHg (32.0-48.0) L 04/20/21 03:44 ABG pCO2 29.4 mm Hg 04/18/21 04:20 POC ABG pO2 91.0 mmHg (83-108) 04/20/21 03:44 ABG pO2 154.9 mm Hg (80.0-90.0) H 04/18/21 04:20 POC ABG HCO3 19.2 04/20/21 03:44 ABG HCO3 20.8 mmol/L (20.0-26.0) 04/18/21 04:20 ABG O2 Saturation 96.9 (0-100) 04/20/21 03:44 ABG O2 Content 16.7 (0.0-44) 04/18/21 04:20 POC ABG Base Excess -2.9 04/20/21 03:44 ABG Base Excess -2.0 mmol/L (-2.0-3.0) 04/18/21 04:20 ABG Hemoglobin 12.3 (12.0-17.5) 04/20/21 03:44 ABG Oxyhemoglobin 96.5 (94-98) 04/20/21 03:44 ABG Carboxyhemoglobin 1.2 % (0.0-5.0) 04/18/21 04:20 ABG Methemoglobin 0.3 (0.0-1.5) 04/20/21 03:44 ABG Sodium 142.8 mmol/L (136.0-145.0) 04/20/21 03:44 ABG Potassium 4.0 mmol/L (3.40-4.50) 04/20/21 03:44 ABG Chloride 114.0 mmol/L (98-107) H 04/20/21 03:44 ABG Glucose 296 mg/dL (65-95) H 04/20/21 03:44 Oxyhemoglobin 97.3 % (95.0-99.0) 04/18/21 04:20 Carboxyhemoglobin 0.1 (0.5-1.5) L 04/20/21 03:44 FiO2 100 % 04/18/21 04:20 FiO2 % 45.0 04/20/21 03:44 Sodium 145 mmol/L (137-145) 04/20/21 10:21 Potassium 4.2 mmol/L (3.6-5.0) D 04/20/21 10:21 Chloride 113.7 mmol/L (98-107) H 04/20/21 10:21 Carbon Dioxide 19 mmol/L (22-30) L 04/20/21 10:21 Anion Gap 17 mmol/L 04/20/21 10:21 BUN 38 mg/dL (7-17) H 04/20/21 10:21 Creatinine 0.8 mg/dL (0.6-1.2) 04/20/21 10:21 Estimated GFR > 60 ml/min 04/20/21 10: BUN/Creatinine Ratio 48 % 04/20/21 10:21 Glucose 266 mg/dL (65-100) H 04/20/21 10:21 POC Glucose 233 mg/dL (70-105) H 04/20/21 11:05 Hemoglobin A1c 8.0 % (4-6) H 04/20/21 10:21 Lactic Acid 3.10 mmol/L (0.7-2.0) H* 04/20/21 10:21 Calcium 8.4 mg/dL (8.4-10.2) 04/20/21 10:21 Ferritin > 2000.0 ng/mL (10.0-200.0) H 04/18/21 02:34 Total Bilirubin 0.40 mg/dL (0.1-1.2) 04/20/21 10:21 AST 79 units/L (5-40) H 04/20/21 10:21 ALT 58 units/L (7-56) H 04/20/21 10:21 Alkaline Phosphatase 72 units/L (35-129) 04/20/21 10: Ammonia 25.0 umol/L (25-60) 04/18/21 02:34 Lactate Dehydrogenase 711 units/L (91-180) H 04/18/21 02:34 Total Creatine Kinase 68 units/L (30-135) 04/18/21 02:34 C-Reactive Protein 12.90 mg/dL (0.00-1.30) H 04/18/21 02:34 Total Protein 6.6 g/dL (6.3-8.2) 04/20/21 10: Albumin 2.6 g/dL (3.9-5) L 04/20/21 10: Albumin/Globulin Ratio 0.7 % 04/20/21 10: Procalcitonin 0.45 ng/mL (<0.15) 04/18/21 02:34 Arterial Blood Glucose 296 mg/dL (65-95) H 04/20/21 03:44 Urine Color Yellow (Yellow) 04/18/21 04:25 Urine Turbidity Clear (Clear) 04/18/21 04:25 Urine pH 5.0 (5.0-7.0) 04/18/21 04:25 Ur Specific [place] 1.018 (1.003-1.030) 04/18/21 04:25 Urine Protein 100 mg/dl mg/dL (Negative) 04/18/21 04:25 Urine Glucose (UA) Neg mg/dL (Negative) 04/18/21 04:25 Urine Ketones Tr mg/dL (Negative) 04/18/21 04:25 Urine Blood Neg (Negative) 04/18/21 04:25 Urine Nitrite Neg (Negative) 04/18/21 04:25 Ur Reducing Substances Not Reportable 04/18/21 04:25 Urine Bilirubin Neg (Negative) 04/18/21 04:25 Urine Ictotest Not Reportable 04/18/21 04:25 Urine Urobilinogen 2.0 mg/dL (<2.0) 04/18/21 04:25 Ur Leukocyte Esterase Neg (Negative) 04/18/21 04:25 Urine WBC (Auto) 2.0 /HPF (0.0-6.0) 04/18/21 04:25 Urine RBC (Auto) 3.0 /HPF (0.0-6.0) 04/18/21 04:25 Hyaline Casts 3 /LPF 04/18/21 04:25 Urine Mucus Few /HPF 04/18/21 04:25 Plasma/Serum Alcohol < 0.01 % (0-0.07) 04/18/21 02:34 Coronavirus (PCR) Positive (Negative) A 04/19/21 09:00 Microbiology: Microbiology 04/18/21 04:25 Urine,[place] Urine Culture - Preliminary NO GROWTH AFTER 24 HOURS 04/18/21 03:03 Tracheal Aspirate Sputum Culture - Final 04/18/21 02:38 Peripheral/Venous Blood Culture - Preliminary NO GROWTH AFTER 48 HOURS 04/18/21 02:34 Peripheral/Venous Blood Culture - Preliminary NO GROWTH AFTER 48 HOURS Franco/IV: Voiding Method Indwelling Catheter Active Medications - Current Medications Current Medications: Generic Name Dose Route Start Last Admin Trade Name Freq PRN Reason Stop Dose Admin Acetaminophen 650 mg 04/18/21 04:13 Acetaminophen 650 Mg Rect Supp W[place] Q6H PRN Pain MILD(1-3)/Fever >100.5/ASENCIO Lipase/Protease/Amylase 1 each 04/19/21 12:25 Lipase 10,500/Protease 25,000/Amylase 43,750 (Units) Dr Cox FEEDTUBE PRN PRN For Clogged Feeding Tube Dexamethasone 6 mg 04/18/21 10:00 04/20/21 10:00 Dexamethasone 4 Mg/Ml Vial IV 04/27/21 10:01 6 mg Q24HR REJI Administration Dextrose 50 ml 04/20/21 10:34 Dextrose 50% In Water (25gm) 50 Ml Syringe IV Q30MIN PRN Hypoglycemia Protocol Enoxaparin Sodium 30 mg 04/19/21 22:00 04/20/21 09:30 Enoxaparin 30 Mg/0.3 Ml Inj SUB-Q 30 mg BID REJI Administration Protocol Famotidine 20 mg 04/18/21 10:00 04/20/21 10:00 Famotidine 20 Mg/2 Ml Inj IV 20 mg BID REJI Administration Fentanyl 50 mcg 04/19/21 09:59 Fentanyl 100 Mcg/2 Ml Inj IV Q10MIN PRN ANALGESIA Hydrophilic Ointment 1 applic 04/18/21 03:03 Lip Therapy Vaseline TP Q2HR PRN Dry Lips Ceftriaxone Sodium 2 gm in 100 mls @ 200 mls/hr 04/18/21 10:00 04/20/21 10:00 Rocephin/Ns 2 Gm/100 Ml IV 200 mls/hr Q24HR REJI Administration Protocol Azithromycin 500 mg in 250 mls @ 250 mls/hr 04/18/21 10:00 04/20/21 09:30 Zithromax/Ns IV 250 mls/hr Q24HR REJI Administration Protocol REMDESIVIR 100 mg/ Sodium 250 mls @ 500 mls/hr 04/19/21 21:00 04/19/21 21:24 Chloride IV 04/22/21 21:29 500 mls/hr Q24HR@2100 REJI Administration Fentanyl Citrate 2,000 mcg in 100 mls @ 3.175 mls/hr 04/19/21 10:00 04/20/21 11:39 Fentanyl Drip Premix IV 1 mcg/kg/hr TITR REJI 3.175 mls/hr Administration Protocol 1 MCG/KG/HR Propofol 1,000 mg in 100 mls @ 1.905 mls/hr 04/19/21 13:00 Diprivan 10 Mg/Ml IV TITR REJI Protocol 5 MCG/KG/MIN Insulin Glargine 10 units 04/19/21 22:00 04/19/21 21:35 Insulin Glargine 100 Units/Ml SUB-Q 10 units QHS [facility] Administration Insulin Human Lispro 0 unit 04/20/21 12:00 04/20/21 11:39 Insulin Lispro 100 Unit/Ml SUB-Q 4 unit Q6HR [facility] Administration Protocol Morphine Sulfate 2 mg 04/18/21 04:13 Morphine 2 Mg/1 Ml Inj IV Q4H PRN Pain, Moderate (4-6) Morphine Sulfate 4 mg 04/18/21 04:13 Morphine 4 Mg/1 Ml Inj IV Q4H PRN Pain , Severe (7-10) Multi-Ingred Cream/Lotion/Oil/Oint 1 applic 04/18/21 03:03 Mineral Oil/Petrolatum, White Ophth Oint 3.5 Gm OU Q4HR PRN Dry Eye(s) Ondansetron HCl 4 mg 04/18/21 04:13 Ondansetron 4 Mg/2 Ml Inj IV Q8H PRN Nausea And Vomiting Senna 8.8 mg 04/19/21 22:00 04/19/21 21:25 Sennosides Oral Liqd 8.8 Mg/5 Ml Oral Liqd PO 8.8 mg QHS [facility] Administration Simple Syrup 15 ml 04/19/21 12:25 Simple Syrup 15 Ml FEEDTUBE PRN PRN Hypoglycemia Simple Syrup 30 ml 04/19/21 12:25 Simple Syrup 15 Ml FEEDTUBE PRN PRN Hypoglycemia Sodium Bicarbonate 325 mg 04/19/21 12:25 Sodium Bicarbonate 325 Mg Tab FEEDTUBE PRN PRN For Clogged Feeding Tube Sodium Chloride 10 ml 04/18/21 10:00 04/20/21 11:43 Sodium Chloride 0.9% 10 Ml Flush Syringe IV 10 ml BID REJI Administration Sodium Chloride 10 ml 04/18/21 04:13 Sodium Chloride 0.9% 10 Ml Flush Syringe IV PRN PRN LINE FLUSH Sodium Chloride 50 ml 04/18/21 11:00 04/19/21 21:41 Sodium Chloride 0.9% 50 Ml Ivpb IV 04/22/21 21:01 50 ml Q24HR@2100 REJI Administration Nutrition/Malnutrition Assess - Dietary Evaluation Nutrition/Malnutrition Findings: Nutrition Notes Start: 04/18/21 08:28 Freq: Status: Active Protocol: Document 04/19/21 12:16 SUSAN (Rec: 04/19/21 12:24 SDALL [id number]) Nutrition Notes Need for Assessment generated from: MD Order Initial or Follow up Reassessment Current Diagnosis Sepsis,Respiratory Failure Other Pertinent Diagnosis COVID-19 (+), bilat pneu, AMS Current Diet NPO Labs/Tests Na 147 K 3.3 BUN 35 BG 251 Pertinent Medications Decadron, Lantus, D5 1/2NS at 50ml/hr, 40mEq KCl x 1 dose, Propofol at 1.905ml/hr ( provides 50 kcal) Height 5 ft 2 in Weight 63.503 kg [place] Body Weight (kg) 50.00 BMI 25.6 Weight Status Appropriate Subjective/Other Information RD consulted for TF. Pt remains on vent support. Burn Absent Trauma Absent #1 Nutrition Diagnosis Swallowing difficulty Diagnosis Progress(for reassessment Continues documentation) Is patient on ventilator? Yes Is Patient Ambulatory and/or Out of Bed No REE-([facility]-confined to bed) 1442.160 Calculation Used for Recommendations [facility] Additional Notes Pro needs 1.2-2g/k-127g/ day Fluid needs 1ml/kcal Nutrition Intervention Nutrition Support: Vital AF 1.2 at 50ml/hr with 100ml water flush q4h or per MD order. Kcal 1,440 Protein (gm) 90 Carbohydrates (gm) 133 Fat (gm) 65 Fluid (mL) 973 Fiber (gm) 6 Goal #1 TF tolerance Goal #2 TF to meet at least 75% energy and pro needs Anticipated Discharge Needs: Unable to identify at this time Follow-Up By: 04/21/21 Additional Comments F/U: new TF, Na lab/water flushes, vent status, propofol <MICKI VERAS R - Last Filed: 04/20/21 15:54> Assessment and Plan Assessment and plan: I saw and evaluated the patient. I agree with the findings and the plan of care as documented in the Nurse Practitioner's~note, Hospitalist Physical - Constitutional Vitals: Temp Pulse Resp BP Pulse Ox 96.4 F L 65 30 H 152/85 99 04/20/21 08:46 04/20/21 15:41 04/20/21 15:41 04/20/21 15:41 04/20/21 15:41 Results - Labs CBC & Chem 7: 04/20/21 10:21 04/20/21 10:21 Labs: Laboratory Last Values WBC 8.5 K/mm3 (4.5-11.0) 04/20/21 10:21 RBC 3.75 M/mm3 (3.65-5.03) 04/20/21 10:21 Hgb 12.6 gm/dl (10.1-14.3) 04/20/21 10:21 Hct 36.3 % (30.3-42.9) 04/20/21 10:21 MCV 97 fl (79-97) 04/20/21 10:21 MCH 34 pg (28-32) H 04/20/21 10:21 MCHC 35 % (30-34) H 04/20/21 10:21 RDW 12.9 % (13.2-15.2) L 04/20/21 10:21 Plt Count 190 K/mm3 (140-440) 04/20/21 10:21 Lymph % (Auto) 12.5 % (13.4-35.0) L 04/19/21 05:36 [place] % (Auto) 9.4 % (0.0-7.3) H 04/19/21 05:36 Eos % (Auto) 0.0 % (0.0-4.3) 04/19/21 05:36 Baso % (Auto) 0.2 % (0.0-1.8) 04/19/21 05:36 Lymph # (Auto) 1.0 K/mm3 (1.2-5.4) L 04/19/21 05:36 [place] # (Auto) 0.8 K/mm3 (0.0-0.8) 04/19/21 05:36 Eos # (Auto) 0.0 K/mm3 (0.0-0.4) 04/19/21 05:36 Baso # (Auto) 0.0 K/mm3 (0.0-0.1) 04/19/21 05:36 Add Manual Diff Complete 04/19/21 05:36 Seg Neutrophils % 77.9 % (40.0-70.0) H 04/19/21 05:36 Nucleated RBC % Not Reportable 04/19/21 05:36 Seg Neutrophils # 6.4 K/mm3 (1.8-7.7) 04/19/21 05:36 WBC Morphology Not Reportable 04/19/21 05:36 Hypersegmented Neuts Not Reportable 04/19/21 05:36 Hyposegmented Neuts Not Reportable 04/19/21 05:36 Hypogranular Neuts Not Reportable 04/19/21 05:36 Smudge Cells Not Reportable 04/19/21 05:36 Toxic Granulation Not Reportable 04/19/21 05:36 Toxic Vacuolation Not Reportable 04/19/21 05:36 Dohle Bodies Not Reportable 04/19/21 05:36 Pelger-Huet Anomaly Not Reportable 04/19/21 05:36 Santana Rods Not Reportable 04/19/21 05:36 Platelet Estimate Not Reportable 04/19/21 05:36 Clumped Platelets Not Reportable 04/19/21 05:36 Plt Clumps, EDTA Not Reportable 04/19/21 05:36 Large Platelets Not Reportable 04/19/21 05:36 Giant Platelets Not Reportable 04/19/21 05:36 Platelet Satelliting Not Reportable 04/19/21 05:36 Plt Morphology Comment Not Reportable 04/19/21 05:36 RBC Morphology Not Reportable 04/19/21 05:36 Dimorphic RBCs Not Reportable 04/19/21 05:36 Polychromasia Not Reportable 04/19/21 05:36 Hypochromasia Not Reportable 04/19/21 05:36 Poikilocytosis Not Reportable 04/19/21 05:36 Anisocytosis Not Reportable 04/19/21 05:36 Microcytosis Not Reportable 04/19/21 05:36 Macrocytosis Not Reportable 04/19/21 05:36 Spherocytes Not Reportable 04/19/21 05:36 Pappenheimer Bodies Not Reportable 04/19/21 05:36 Sickle Cells Not Reportable 04/19/21 05:36 Target Cells Not Reportable 04/19/21 05:36 Tear Drop Cells Not Reportable 04/19/21 05:36 Ovalocytes Not Reportable 04/19/21 05:36 Helmet Cells Not Reportable 04/19/21 05:36 [place] Bodies Not Reportable 04/19/21 05:36 [place] Rings Not Reportable 04/19/21 05:36 Nupur Cells Not Reportable 04/19/21 05:36 Bite Cells Not Reportable 04/19/21 05:36 Crenated Cell Not Reportable 04/19/21 05:36 Elliptocytes Not Reportable 04/19/21 05:36 Acanthocytes (Spur) Not Reportable 04/19/21 05:36 Rouleaux Not Reportable 04/19/21 05:36 Hemoglobin C Crystals Not Reportable 04/19/21 05:36 Schistocytes Not Reportable 04/19/21 05:36 Malaria parasites Not Reportable 04/19/21 05:36 Hubert Bodies Not Reportable 04/19/21 05:36 Hem Pathologist Commnt Not Reportable 04/19/21 05:36 PT 14.5 Sec. (12.2-14.9) 04/19/21 05:36 INR 1.02 (0.87-1.13) 04/19/21 05:36 APTT 34.2 Sec. (24.2-36.6) 04/18/21 02:34 D-Dimer 978.83 ng/mlDDU (0-234) H 04/18/21 02:34 ABG pH 7.483 (7.320-7.450) H 04/20/21 03:44 POC ABG pCO2 26.2 mmHg (32.0-48.0) L 04/20/21 03:44 ABG pCO2 29.4 mm Hg 04/18/21 04:20 POC ABG pO2 91.0 mmHg (83-108) 04/20/21 03:44 ABG pO2 154.9 mm Hg (80.0-90.0) H 04/18/21 04:20 POC ABG HCO3 19.2 04/20/21 03:44 ABG HCO3 20.8 mmol/L (20.0-26.0) 04/18/21 04:20 ABG O2 Saturation 96.9 (0-100) 04/20/21 03:44 ABG O2 Content 16.7 (0.0-44) 04/18/21 04:20 POC ABG Base Excess -2.9 04/20/21 03:44 ABG Base Excess -2.0 mmol/L (-2.0-3.0) 04/18/21 04:20 ABG Hemoglobin 12.3 (12.0-17.5) 04/20/21 03:44 ABG Oxyhemoglobin 96.5 (94-98) 04/20/21 03:44 ABG Carboxyhemoglobin 1.2 % (0.0-5.0) 04/18/21 04:20 ABG Methemoglobin 0.3 (0.0-1.5) 04/20/21 03:44 ABG Sodium 142.8 mmol/L (136.0-145.0) 04/20/21 03:44 ABG Potassium 4.0 mmol/L (3.40-4.50) 04/20/21 03:44 ABG Chloride 114.0 mmol/L (98-107) H 04/20/21 03:44 ABG Glucose 296 mg/dL (65-95) H 04/20/21 03:44 Oxyhemoglobin 97.3 % (95.0-99.0) 04/18/21 04:20 Carboxyhemoglobin 0.1 (0.5-1.5) L 04/20/21 03:44 FiO2 100 % 04/18/21 04:20 FiO2 % 45.0 04/20/21 03:44 Sodium 145 mmol/L (137-145) 04/20/21 10:21 Potassium 4.2 mmol/L (3.6-5.0) D 04/20/21 10: Chloride 113.7 mmol/L (98-107) H 04/20/21 10:21 Carbon Dioxide 19 mmol/L (22-30) L 04/20/21 10:21 Anion Gap 17 mmol/L 04/20/21 10:21 BUN 38 mg/dL (7-17) H 04/20/21 10:21 Creatinine 0.8 mg/dL (0.6-1.2) 04/20/21 10:21 Estimated GFR > 60 ml/min 04/20/21 10: BUN/Creatinine Ratio 48 % 04/20/21 10:21 Glucose 266 mg/dL (65-100) H 04/20/21 10:21 POC Glucose 233 mg/dL (70-105) H 04/20/21 11:05 Hemoglobin A1c 8.0 % (4-6) H 04/20/21 10:21 Lactic Acid 3.10 mmol/L (0.7-2.0) H* 04/20/21 10:21 Calcium 8.4 mg/dL (8.4-10.2) 04/20/21 10: Ferritin > 2000.0 ng/mL (10.0-200.0) H 04/18/21 02:34 Total Bilirubin 0.40 mg/dL (0.1-1.2) 04/20/21 10: AST 79 units/L (5-40) H 04/20/21 10:21 ALT 58 units/L (7-56) H 04/20/21 10:21 Alkaline Phosphatase 72 units/L (35-129) 04/20/21 10:21 Ammonia 25.0 umol/L (25-60) 04/18/21 02:34 Lactate Dehydrogenase 711 units/L (91-180) H 04/18/21 02:34 Total Creatine Kinase 68 units/L (30-135) 04/18/21 02:34 C-Reactive Protein 12.90 mg/dL (0.00-1.30) H 04/18/21 02:34 Total Protein 6.6 g/dL (6.3-8.2) 04/20/21 10:21 Albumin 2.6 g/dL (3.9-5) L 04/20/21 10: Albumin/Globulin Ratio 0.7 % 04/20/21 10: Procalcitonin 0.45 ng/mL (<0.15) 04/18/21 02:34 Arterial Blood Glucose 296 mg/dL (65-95) H 04/20/21 03:44 Urine Color Yellow (Yellow) 04/18/21 04:25 Urine Turbidity Clear (Clear) 04/18/21 04:25 Urine pH 5.0 (5.0-7.0) 04/18/21 04:25 Ur Specific [place] 1.018 (1.003-1.030) 04/18/21 04:25 Urine Protein 100 mg/dl mg/dL (Negative) 04/18/21 04:25 Urine Glucose (UA) Neg mg/dL (Negative) 04/18/21 04:25 Urine Ketones Tr mg/dL (Negative) 04/18/21 04:25 Urine Blood Neg (Negative) 04/18/21 04:25 Urine Nitrite Neg (Negative) 04/18/21 04:25 Ur Reducing Substances Not Reportable 04/18/21 04:25 Urine Bilirubin Neg (Negative) 04/18/21 04:25 Urine Ictotest Not Reportable 04/18/21 04:25 Urine Urobilinogen 2.0 mg/dL (<2.0) 04/18/21 04:25 Ur Leukocyte Esterase Neg (Negative) 04/18/21 04:25 Urine WBC (Auto) 2.0 /HPF (0.0-6.0) 04/18/21 04:25 Urine RBC (Auto) 3.0 /HPF (0.0-6.0) 04/18/21 04:25 Hyaline Casts 3 /LPF 04/18/21 04:25 Urine Mucus Few /HPF 04/18/21 04:25 Plasma/Serum Alcohol < 0.01 % (0-0.07) 04/18/21 02:34 Coronavirus (PCR) Positive (Negative) A 04/19/21 09:00 Microbiology: Microbiology 04/18/21 04:25 Urine,Franco [place] Urine Culture - Preliminary NO GROWTH AFTER 24 HOURS 04/18/21 03:03 Tracheal Aspirate Sputum Culture - Final 04/18/21 02:38 Peripheral/Venous Blood Culture - Preliminary NO GROWTH AFTER 48 HOURS 04/18/21 02:34 Peripheral/Venous Blood Culture - Preliminary NO GROWTH AFTER 48 HOURS Franco/IV: Voiding Method Indwelling Catheter Active Medications - Current Medications Current Medications: Generic Name Dose Route Start Last Admin Trade Name Freq PRN Reason Stop Dose Admin Acetaminophen 650 mg 04/18/21 04:13 Acetaminophen 650 Mg Rect Supp WV Q6H PRN Pain MILD(1-3)/Fever >100.5/ASENCIO Lipase/Protease/Amylase 1 each 04/19/21 12:25 Lipase 10,500/Protease 25,000/Amylase 43,750 (Units) Dr Cap FEEDTUBE PRN PRN For Clogged Feeding Tube Dexamethasone 6 mg 04/18/21 10:00 04/20/21 10:00 Dexamethasone 4 Mg/Ml Vial IV 04/27/21 10:01 6 mg Q24HR REJI Administration Dextrose 50 ml 04/20/21 10:34 Dextrose 50% In Water (25gm) 50 Ml Syringe IV Q30MIN PRN Hypoglycemia Protocol Enoxaparin Sodium 30 mg 04/19/21 22:00 04/20/21 09:30 Enoxaparin 30 Mg/0.3 Ml Inj SUB-Q 30 mg BID REJI Administration Protocol Famotidine 20 mg 04/18/21 10:00 04/20/21 10:00 Famotidine 20 Mg/2 Ml Inj IV 20 mg BID REJI Administration Fentanyl 50 mcg 04/19/21 09:59 Fentanyl 100 Mcg/2 Ml Inj IV Q10MIN PRN ANALGESIA Hydrophilic Ointment 1 applic 04/18/21 03:03 Lip Therapy Vaseline TP Q2HR PRN Dry Lips Ceftriaxone Sodium 2 gm in 100 mls @ 200 mls/hr 04/18/21 10:00 04/20/21 10:00 Rocephin/Ns 2 Gm/100 Ml IV 200 mls/hr Q24HR REJI Administration Protocol Azithromycin 500 mg in 250 mls @ 250 mls/hr 04/18/21 10:00 04/20/21 09:30 Zithromax/Ns IV 250 mls/hr Q24HR REJI Administration Protocol REMDESIVIR 100 mg/ Sodium 250 mls @ 500 mls/hr 04/19/21 21:00 04/19/21 21:24 Chloride IV 04/22/21 21:29 500 mls/hr Q24HR@2100 REJI Administration Fentanyl Citrate 2,000 mcg in 100 mls @ 3.175 mls/hr 04/19/21 10:00 04/20/21 11:39 Fentanyl Drip Premix IV 1 mcg/kg/hr TITR REJI 3.175 mls/hr Administration Protocol 1 MCG/KG/HR Propofol 1,000 mg in 100 mls @ 1.905 mls/hr 04/19/21 13:00 Diprivan 10 Mg/Ml IV TITR [facility] Protocol 5 MCG/KG/MIN Insulin Glargine 10 units 04/19/21 22:00 04/19/21 21:35 Insulin Glargine 100 Units/Ml SUB-Q 10 units QHS REJI Administration Insulin Human Lispro 0 unit 04/20/21 12:00 04/20/21 11:39 Insulin Lispro 100 Unit/Ml SUB-Q 4 unit Q6HR REJI Administration Protocol Morphine Sulfate 2 mg 04/18/21 04:13 Morphine 2 Mg/1 Ml Inj IV Q4H PRN Pain, Moderate (4-6) Morphine Sulfate 4 mg 04/18/21 04:13 Morphine 4 Mg/1 Ml Inj IV Q4H PRN Pain , Severe (7-10) Multi-Ingred Cream/Lotion/Oil/Oint 1 applic 04/18/21 03:03 Mineral Oil/Petrolatum, White Ophth Oint 3.5 Gm OU Q4HR PRN Dry Eye(s) Ondansetron HCl 4 mg 04/18/21 04:13 Ondansetron 4 Mg/2 Ml Inj IV Q8H PRN Nausea And Vomiting Senna 8.8 mg 04/19/21 22:00 04/19/21 21:25 Sennosides Oral Liqd 8.8 Mg/5 Ml Oral Liqd PO 8.8 mg QHS [facility] Administration Simple Syrup 15 ml 04/19/21 12:25 Simple Syrup 15 Ml FEEDTUBE PRN PRN Hypoglycemia Simple Syrup 30 ml 04/19/21 12:25 Simple Syrup 15 Ml FEEDTUBE PRN PRN Hypoglycemia Sodium Bicarbonate 325 mg 04/19/21 12:25 Sodium Bicarbonate 325 Mg Tab FEEDTUBE PRN PRN For Clogged Feeding Tube Sodium Chloride 10 ml 04/18/21 10:00 04/20/21 11:43 Sodium Chloride 0.9% 10 Ml Flush Syringe IV 10 ml BID REJI Administration Sodium Chloride 10 ml 04/18/21 04:13 Sodium Chloride 0.9% 10 Ml Flush Syringe IV PRN PRN LINE FLUSH Sodium Chloride 50 ml 04/18/21 11:00 04/19/21 21:41 Sodium Chloride 0.9% 50 Ml Ivpb IV 04/22/21 21:01 50 ml Q24HR@2100 [facility] Administration Nutrition/Malnutrition Assess - Dietary Evaluation Nutrition/Malnutrition Findings: Nutrition Notes Start: 04/18/21 08: 28 Freq: Status: Active Protocol: Document 04/19/21 12:16 SUSAN (Rec: 04/19/21 12:24 SUSAN [id number]) Nutrition Notes Need for Assessment generated from: MD Order Initial or Follow up Reassessment Current Diagnosis Sepsis,Respiratory Failure Other Pertinent Diagnosis COVID-19 (+), bilat pneu, AMS Current Diet NPO Labs/Tests Na 147 K 3.3 BUN 35 BG 251 Pertinent Medications Decadron, Lantus, D5 1/2NS at 50ml/hr, 40mEq KCl x 1 dose, Propofol at 1.905ml/hr ( provides 50 kcal) Height 5 ft 2 in Weight 63.503 kg [place] Body Weight (kg) 50.00 BMI 25.6 Weight Status Appropriate Subjective/Other Information RD consulted for TF. Pt remains on vent support. Burn Absent Trauma Absent #1 Nutrition Diagnosis Swallowing difficulty Diagnosis Progress(for reassessment Continues documentation) Is patient on ventilator? Yes Is Patient Ambulatory and/or Out of Bed No REE-([place] Jeor-confined to bed) [phone] Calculation Used for Recommendations [facility] Additional Notes Pro needs 1.2-2g/k-127g/ day Fluid needs 1ml/kcal Nutrition Intervention Nutrition Support: Vital AF 1.2 at 50ml/hr with 100ml water flush q4h or per MD order. Kcal 1,440 Protein (gm) 90 Carbohydrates (gm) 133 Fat (gm) 65 Fluid (mL) 973 Fiber (gm) 6 Goal #1 TF tolerance Goal #2 TF to meet at least 75% energy and pro needs Anticipated Discharge Needs: Unable to identify at this time Follow-Up By: 04/21/21 Additional Comments F/U: new TF, Na lab/water flushes, vent status, propofol
[2021-04-20] MEDS: INSULIN GLARGINE 100 UNITS/ML SUB-Q SCH (21:27)
[2021-04-20] MEDS: SENNOSIDES ORAL LIQD 8.8 MG/5 ML ORAL LIQD PO SCH (21:27)
[2021-04-20] MEDS: SODIUM CHLORIDE 0.9% 50 ML IVPB IV SCH (21:28)
[2021-04-20] MEDS: REMDESIVIR 100 MG in SODIUM CHLORIDE 0.9% 250ML 250 ML IV SCH (21:28)
--- NOTE | 2021-04-21 03:28 | XRay Report ---
CHEST 1 VIEW 04/21/2021 1:19 AM INDICATION / CLINICAL INFORMATION: follow up respiratory failure. COMPARISON: 04/20/2021 FINDINGS: SUPPORT DEVICES: Stable, satisfactory device positioning. HEART / MEDIASTINUM: No significant abnormality. LUNGS / PLEURA: Redemonstrated multifocal airspace opacities. No pneumothorax. ADDITIONAL FINDINGS: No significant additional findings. IMPRESSION: 1. No significant change. Signer Name: Mu Umana DO Signed: 04/21/2021 3:24 AM Workstation Name: [id number]
[2021-04-21 04:56] LABS: Hematocrit 34.3 % (30.3-42.9); Hemoglobin 11.7 gm/dl (10.1-14.3); Mean Corpuscular HGB Conc 34 % (30-34); Mean Corpuscular Volume 97 fl (79-97); Platelet Count 202 K/mm3 (140-440); Red Blood Count 3.55 M/mm3 (3.65-5.03); Red Cell Distribution Width 12.8 % (13.2-15.2)
[2021-04-21 05:16] LABS: Alanine Aminotransferase 55 units/L (7-56); Albumin 2.7 g/dL (3.9-5); Blood Urea Nitrogen 36 mg/dL (7-17); Calcium 8.1 mg/dL (8.4-10.2); Hemolysis Index 4
[2021-04-21 05:27] LABS: BUN/Creatinine Ratio 51
[2021-04-21] MEDS: INSULIN LISPRO 100 UNIT/ML SUB-Q SCH ×4 (05:54→23:52)
[2021-04-21] MEDS: cefTRIAXone/NS 2 GM/100 ML 2 GM/100 ML BAG IV SCH (09:52)
[2021-04-21] MEDS: ENOXAPARIN 30 MG/0.3 ML INJ SUB-Q SCH ×2 (09:53→21:10)
[2021-04-21] MEDS: dexAMETHasone 4 MG/ML VIAL IV SCH (09:53)
[2021-04-21] MEDS: FAMOTIDINE 20 MG TAB FEEDTUBE SCH ×2 (09:54→21:11)
[2021-04-21] MEDS: AZITHROMYCIN/NS 500 MG/250 ML 500 MG/250 ML BAG IV SCH (09:54)
[2021-04-21] MEDS ORDERED: TOCILIZUMAB 600 MG in SODIUM CHLORIDE 0.9% 100 ML IV ONE (10:46)
--- NOTE | 2021-04-21 10:48 | Progress Note ---
Assessment and Plan Cultures: Blood culture no growth Sputum culture no growth COVID-19 PCR: Positive Urine culture: No growth A/P: 51-year-old female admitted with COVID-19 #Severe COVID-19 pneumonia: Patient presented with a week of symptoms, chest x- ray with diffuse bilateral infiltrates, admission O2 sats 40%on room air. Inflammatory markers elevated. #Acute hypoxemic respiratory failure: secondary to COVID-19 infection. Currently on the vent Recommendations: -Complete 10 days of steroids -complete 5 days of remdesivir -Discussed with pharmacy, patient met criteria for Actemra given elevated CRP and mechanical ventilation requirements, will be administered today -Monitor CRP, D-dimer every 2 to 3 days -Complete antibiotic course given slightly elevated procalcitonin -Anticoagulation per hospital protocol Tung Germain MD, FACP [facility] O: [phone] F: [phone] Subjective Date of service: 04/21/21 Interval history: Afebrile. Remains on the vent. Objective - Exam Narrative Exam: Physical Exam (reviewed in chart to minimize risk of transmission) Constitutional: deferred Head, Ears, Nose: deferred Eyes: deferred Neck: deferred Oral: deferred Cardiovascular: deferred Respiratory: deferred GI: deferred Musculoskeletal: deferred Skin: deferred Hem/Lymphatic: deferred Psych: deferred Neurological: deferred - Constitutional Vitals: Vital Signs Temp Pulse Resp BP Pulse Ox 97.9 F 58 L 30 H 151/94 96 04/21/21 08:00 04/21/21 08:00 04/21/21 06:30 04/21/21 08:00 04/21/21 08:00 Temperature -Last 24 Hours Temperature 97.9 F Temperature 97.8 F Temperature 98.1 F Temperature 98.8 F Temperature 97.5 F Temperature 97.7 F - Labs CBC & Chem 7: 04/21/21 04:24 04/21/21 04:24 Labs: Abnormal lab results 04/20/21 04/20/21 04/20/21 Range/Units 10: 10: 10:21 RBC (3.65-5.03) M/mm3 MCH (28-32) pg RDW (13.2-15.2) % ABG pH (7.320-7.450) POC ABG pCO2 (32.0-48.0) mmHg POC ABG pO2 (83-108) mmHg ABG Chloride (98-107) mmol/L ABG Glucose (65-95) mg/dL Carboxyhemoglobin (0.5-1.5) Chloride 113.7 H (98-107) mmol/L Carbon Dioxide 19 L (22-30) mmol/L BUN 38 H (7-17) mg/dL Glucose 266 H (65-100) mg/dL POC Glucose (70-105) mg/dL Hemoglobin A1c 8.0 H (4-6) % Lactic Acid 3.10 H* (0.7-2.0) mmol/L Calcium (8.4-10.2) mg/dL AST 79 H (5-40) units/L ALT 58 H (7-56) units/L Total Protein (6.3-8.2) g/dL Albumin 2.6 L (3.9-5) g/dL Arterial Blood Glucose (65-95) mg/dL 04/20/21 04/20/21 04/20/21 Range/Units 11:05 15:24 17:25 RBC (3.65-5.03) M/mm3 MCH (28-32) pg RDW (13.2-15.2) % ABG pH (7.320-7.450) POC ABG pCO2 (32.0-48.0) mmHg POC ABG pO2 (83-108) mmHg ABG Chloride (98-107) mmol/L ABG Glucose (65-95) mg/dL Carboxyhemoglobin (0.5-1.5) Chloride (98-107) mmol/L Carbon Dioxide (22-30) mmol/L BUN (7-17) mg/dL Glucose (65-100) mg/dL POC Glucose 233 H 262 H (70-105) mg/dL Hemoglobin A1c (4-6) % Lactic Acid 2.50 H* (0.7-2.0) mmol/L Calcium (8.4-10.2) mg/dL AST (5-40) units/L ALT (7-56) units/L Total Protein (6.3-8.2) g/dL Albumin (3.9-5) g/dL Arterial Blood Glucose (65-95) mg/dL 1004/20/21 04/21/21 Range/Units 20:56 23:11 04:11 RBC (3.65-5.03) M/mm3 MCH (28-32) pg RDW (13.2-15.2) % ABG pH 7.479 H (7.320-7.450) POC ABG pCO2 28.9 L (32.0-48.0) mmHg POC ABG pO2 75.6 L (83-108) mmHg ABG Chloride 113.0 H (98-107) mmol/L ABG Glucose 331 H (65-95) mg/dL Carboxyhemoglobin 0.1 L (0.5-1.5) Chloride (98-107) mmol/L Carbon Dioxide (22-30) mmol/L BUN (7-17) mg/dL Glucose (65-100) mg/dL POC Glucose 321 H (70-105) mg/dL Hemoglobin A1c (4-6) % Lactic Acid 2.80 H* (0.7-2.0) mmol/L Calcium (8.4-10.2) mg/dL AST (5-40) units/L ALT (7-56) units/L Total Protein (6.3-8.2) g/dL Albumin (3.9-5) g/dL Arterial Blood Glucose 331 H (65-95) mg/dL 04/21/21 04/21/21 04/21/21 Range/Units 04:24 04:24 05:22 RBC 3.55 L (3.65-5.03) M/mm3 MCH 33 H (28-32) pg RDW 12.8 L (13.2-15.2) % ABG pH (7.320-7.450) POC ABG pCO2 (32.0-48.0) mmHg POC ABG pO2 (83-108) mmHg ABG Chloride (98-107) mmol/L ABG Glucose (65-95) mg/dL Carboxyhemoglobin (0.5-1.5) Chloride 113.1 H (98-107) mmol/L Carbon Dioxide 18 L (22-30) mmol/L BUN 36 H (7-17) mg/dL Glucose 342 H (65-100) mg/dL POC Glucose 269 H (70-105) mg/dL Hemoglobin A1c (4-6) % Lactic Acid (0.7-2.0) mmol/L Calcium 8.1 L (8.4-10.2) mg/dL AST 52 H (5-40) units/L ALT (7-56) units/L Total Protein 6.1 L (6.3-8.2) g/dL Albumin 2.7 L (3.9-5) g/dL Arterial Blood Glucose (65-95) mg/dL
--- NOTE | 2021-04-21 11:13 | XRay Report ---
CHEST 1 VIEW 1032 hours INDICATION: f/u oett advancement. COMPARISON: Earlier today at 0200 hours FINDINGS: Support devices: The endotracheal tube terminates 4.2 cm superior to the keira. Nasogastric tube is last visualized in the mid stomach. Heart: Within normal limits. Lungs/Pleura: Subtle bilateral lung opacities appear stable. No pleural effusion or pneumothorax. Additional findings: None. IMPRESSION: Adequate positioning of the endotracheal tube. Stable subtle bilateral lung opacities. Signer Name: Quang Weir Jr, MD Signed: 04/21/2021 11:08 AM Workstation Name: [id number]
[2021-04-21] MEDS ORDERED: TOCILIZUMAB 648 MG in SODIUM CHLORIDE 0.9% 100 ML IV SCH (11:30)
--- NOTE | 2021-04-21 12:18 | Progress Note ---
<HARVINDERMANGO H. - Last Filed: 04/21/21 13:52> Assessment and Plan Assessment and plan: This is a 51 years-old female with unknown past medical history admitted with acute hypoxic respiratory failure, COVID-19 PNA, ARDs, Lactic acidosis Neuro: Acute metabolic encephalopathy - 04/18 CT head w/o con showed no acute intracranial process - Fentanyl gtt - Titrate sedation for RASS goal 0 to -1 - Daily SAT and SBT per CCM - Prn analgesia for CPOT greater than 3 - Maintenance of sleep-wake cycle, avoid delirium - Avoid benzodiazepine to reduce the possibility of delirium CV: Bradycardia - SB to NSR on the monitor - Blood pressure monitoring per protocol Resp: Acute hypoxemic respiratory failure, ARDS secondary to COVID pneumonia, Respiratory alkalosis - Cxr shows B infiltrates - Intubated on 04/18 with 7.5 OETT @ 20 (advanced to 24) - AM vent settings: AC R 30, TV 350, PEEP 8, FiO2 40% - Wean FiO2 as tolerated for SPO2> 90% - Daily SAT and SBT trial per [facility] - Daily ABG and CXR - VAP bundle addressed - Aspiration precautions HOB>30 - Lung protective strategies, continue to monitor airway pressures - [facility] on consult GI: NAP - Enteral nutrition initiated - Nutrition consult for TF management - BR- senokot - Pepcid - 24 hours +1425 ml : NAD - FWF 100ml q4 - s/p D5 1/2 NS - Purewick in place - Strict intake and output - Avoid nephrotoxic medications; Renally dose medications - Conservative fluid management, keep negative fluid balance as tolerated by hemodynamics and renal function - Monitor and replace electrolytes as needed ID: Sepsis, COVID Pneumonia, Bilateral Pneumonia, Lactic Acidosis - CXR showed bilateral pneumonia - COVID PCR positive - ID consulted, appreciate recommendations - follow culture data - Decadron 6 mg (04/18-04/27) - Remdesivir (04/19-04/23) - 04/21 Actemra - Trend COVId 19 inflammatory markers ferritin, Ddimer, CRP, LDH - Empiric ABx- Ceftriaxone and azithromycin per ID (04/18-04/23) - Monitor fever curve Endo: Hyperglycemia - SSI - Lantus, titrate as needed - HbgA1c 8 - While critically ill target blood glucose of 140-180 - Avoid hypoglycemia The high probability of a clinically significant, sudden or life threatening deterioration of the [multiple] system(s) required my full and direct attention, intervention and personal management. The aggregate critical care time was [60] minutes. This time is in addition to time spent performing reported procedures but includes the following: [x] Data Review and interpretation [x] Patient assessment and monitoring of vital signs [x] Documentation [x] Medication orders and management Disposition Plan: ICU Total Time Spent with Patient (Minutes): 60 Disposition Plan: icu Total Time Spent with Patient (Minutes): 60 History Interval history: This is a 51 years-old female with unknown past medical history presented to [facility] on 04/18 with altered mental status. Upon her arrival in the ED her SPO2 was in the 40%, she was first placed on a NRB then was subsequently intubated due to acute hypoxic respiratory failure. As of note, patient was diagnosed with COVID 4days prior this admission. Patient was admitted in the ICU for further management. Hospital Course to Date: 04/19/21- Patient is intubated and sedated RASS -3 to -4. SB to low SR on the monitor, hemodynamics stable and not on any pressors, will continue to monitor. Hypokalemia was repleted. TF was initiated, plan to D/C IVF once TF is at goal. Hyperglycemia noted, high scale SSI and qHS lantus added, A1c ordered. 04/20/21- Patient remains intubated amd off sedation, RASS 0 to -1. Remains SB on the monitor, hemodynamic stable. Increased in lactic acid this am, slight increased in LFTs, WBCs stable, kidney function is stable. Will repeat lactic in 4hours and continue to monitor. Patient is net +1537 cc in last 24hrs, will hold IVF for now to keep patient net negative fluid balance.Will continue to monitor renal function and electrolytes. 04/21: SB on monitor, remains on fentanyl gtt, OETT advanced. ID prescribed actlulúra Hospitalist Physical - Constitutional Vitals: Temp Pulse Resp BP Pulse Ox 97.9 F 66 30 H 133/88 96 04/21/21 08:00 04/21/21 11:49 04/21/21 11:01 04/21/21 11:49 04/21/21 11:49 General appearance: Present: no acute distress, other (Downsy) - EENT Eyes: Present: PERRL, EOM intact ENT: dentition normal - Neck Neck: Present: normal ROM - Respiratory Respiratory effort: normal Respiratory: bilateral: diminished - Cardiovascular Rhythm: regular Heart Sounds: Present: S1 & S2. Absent: systolic murmur, diastolic murmur - Extremities Extremities: no ischemia, pulses intact, pulses symmetrical, No edema, normal temperature, normal color Peripheral Pulses: within normal limits - Abdominal General gastrointestinal: soft, non-tender, non-distended, normal bowel sounds - Integumentary Integumentary: Present: warm, dry - Psychiatric Psychiatric: other (sedated) - Neurologic Neurologic: other (intact cough/gag, PERRL) - Allied Health Allied health notes reviewed: nursing, RT, social work Results - Labs CBC & Chem 7: 04/21/21 04:24 04/21/21 04:24 Labs: Laboratory Last Values WBC 8.1 K/mm3 (4.5-11.0) 04/21/21 04:24 RBC 3.55 M/mm3 (3.65-5.03) L 04/21/21 04:24 Hgb 11.7 gm/dl (10.1-14.3) 04/21/21 04:24 Hct 34.3 % (30.3-42.9) 04/21/21 04:24 MCV 97 fl (79-97) 04/21/21 04:24 MCH 33 pg (28-32) H 04/21/21 04:24 MCHC 34 % (30-34) 04/21/21 04:24 RDW 12.8 % (13.2-15.2) L 04/21/21 04:24 Plt Count 202 K/mm3 (140-440) 04/21/21 04:24 Lymph % (Auto) 12.5 % (13.4-35.0) L 04/19/21 05:36 Lea % (Auto) 9.4 % (0.0-7.3) H 04/19/21 05:36 Eos % (Auto) 0.0 % (0.0-4.3) 04/19/21 05:36 Baso % (Auto) 0.2 % (0.0-1.8) 04/19/21 05:36 Lymph # (Auto) 1.0 K/mm3 (1.2-5.4) L 04/19/21 05:36 Lea # (Auto) 0.8 K/mm3 (0.0-0.8) 04/19/21 05:36 Eos # (Auto) 0.0 K/mm3 (0.0-0.4) 04/19/21 05:36 Baso # (Auto) 0.0 K/mm3 (0.0-0.1) 04/19/21 05:36 Add Manual Diff Complete 04/19/21 05:36 Seg Neutrophils % 77.9 % (40.0-70.0) H 04/19/21 05:36 Nucleated RBC % Not Reportable 04/19/21 05:36 Seg Neutrophils # 6.4 K/mm3 (1.8-7.7) 04/19/21 05:36 WBC Morphology Not Reportable 04/19/21 05:36 Hypersegmented Neuts Not Reportable 04/19/21 05:36 Hyposegmented Neuts Not Reportable 04/19/21 05:36 Hypogranular Neuts Not Reportable 04/19/21 05:36 Smudge Cells Not Reportable 04/19/21 05:36 Toxic Granulation Not Reportable 04/19/21 05:36 Toxic Vacuolation Not Reportable 04/19/21 05:36 Dohle Bodies Not Reportable 04/19/21 05:36 Pelger-Huet Anomaly Not Reportable 04/19/21 05:36 Santana Rods Not Reportable 04/19/21 05:36 Platelet Estimate Not Reportable 04/19/21 05:36 Clumped Platelets Not Reportable 04/19/21 05:36 Plt Clumps, EDTA Not Reportable 04/19/21 05:36 Large Platelets Not Reportable 04/19/21 05:36 Giant Platelets Not Reportable 04/19/21 05:36 Platelet Satelliting Not Reportable 04/19/21 05:36 Plt Morphology Comment Not Reportable 04/19/21 05:36 RBC Morphology Not Reportable 04/19/21 05:36 Dimorphic RBCs Not Reportable 04/19/21 05:36 Polychromasia Not Reportable 04/19/21 05:36 Hypochromasia Not Reportable 04/19/21 05:36 Poikilocytosis Not Reportable 04/19/21 05:36 Anisocytosis Not Reportable 04/19/21 05:36 Microcytosis Not Reportable 04/19/21 05:36 Macrocytosis Not Reportable 04/19/21 05:36 Spherocytes Not Reportable 04/19/21 05:36 Pappenheimer Bodies Not Reportable 04/19/21 05:36 Sickle Cells Not Reportable 04/19/21 05:36 Target Cells Not Reportable 04/19/21 05:36 Tear Drop Cells Not Reportable 04/19/21 05:36 Ovalocytes Not Reportable 04/19/21 05:36 Helmet Cells Not Reportable 04/19/21 05:36 [place] Bodies Not Reportable 04/19/21 05:36 [place] Rings Not Reportable 04/19/21 05:36 Coy Cells Not Reportable 04/19/21 05:36 Bite Cells Not Reportable 04/19/21 05:36 Crenated Cell Not Reportable 04/19/21 05:36 Elliptocytes Not Reportable 04/19/21 05:36 Acanthocytes (Spur) Not Reportable 04/19/21 05:36 Rouleaux Not Reportable 04/19/21 05:36 Hemoglobin C Crystals Not Reportable 04/19/21 05:36 Schistocytes Not Reportable 04/19/21 05:36 Malaria parasites Not Reportable 04/19/21 05:36 Hubert Bodies Not Reportable 04/19/21 05:36 Hem Pathologist Commnt Not Reportable 04/19/21 05:36 PT 14.5 Sec. (12.2-14.9) 04/19/21 05:36 INR 1.02 (0.87-1.13) 04/19/21 05:36 APTT 34.2 Sec. (24.2-36.6) 04/18/21 02:34 D-Dimer 978.83 ng/mlDDU (0-234) H 04/18/21 02:34 ABG pH 7.479 (7.320-7.450) H 04/21/21 04:11 POC ABG pCO2 28.9 mmHg (32.0-48.0) L 04/21/21 04:11 ABG pCO2 29.4 mm Hg 04/18/21 04:20 POC ABG pO2 75.6 mmHg (83-108) L 04/21/21 04:11 ABG pO2 154.9 mm Hg (80.0-90.0) H 04/18/21 04:20 POC ABG HCO3 21.0 04/21/21 04:11 ABG HCO3 20.8 mmol/L (20.0-26.0) 04/18/21 04:20 ABG O2 Saturation 95.0 (0-100) 04/21/21 04:11 ABG O2 Content 16.7 (0.0-44) 04/18/21 04:20 POC ABG Base Excess -1.5 04/21/21 04:11 ABG Base Excess -2.0 mmol/L (-2.0-3.0) 04/18/21 04:20 ABG Hemoglobin 12.0 (12.0-17.5) 04/21/21 04:11 ABG Oxyhemoglobin 94.6 (94-98) 04/21/21 04:11 ABG Carboxyhemoglobin 1.2 % (0.0-5.0) 04/18/21 04:20 ABG Methemoglobin 0.3 (0.0-1.5) 04/21/21 04:11 ABG Sodium 142.5 mmol/L (136.0-145.0) 04/21/21 04:11 ABG Potassium 4.2 mmol/L (3.40-4.50) 04/21/21 04:11 ABG Chloride 113.0 mmol/L (98-107) H 04/21/21 04:11 ABG Glucose 331 mg/dL (65-95) H 04/21/21 04:11 Oxyhemoglobin 97.3 % (95.0-99.0) 04/18/21 04:20 Carboxyhemoglobin 0.1 (0.5-1.5) L 04/21/21 04:11 FiO2 100 % 04/18/21 04:20 FiO2 % 40.0 04/21/21 04:11 Sodium 144 mmol/L (137-145) 04/21/21 04:24 Potassium 4.2 mmol/L (3.6-5.0) 04/21/21 04:24 Chloride 113.1 mmol/L (98-107) H 04/21/21 04:24 Carbon Dioxide 18 mmol/L (22-30) L 04/21/21 04:24 Anion Gap 17 mmol/L 04/21/21 04:24 BUN 36 mg/dL (7-17) H 04/21/21 04:24 Creatinine 0.7 mg/dL (0.6-1.2) 04/21/21 04:24 Estimated GFR > 60 ml/min 04/21/21 04:24 BUN/Creatinine Ratio 51 % 04/21/21 04:24 Glucose 342 mg/dL (65-100) H 04/21/21 04:24 POC Glucose 258 mg/dL (70-105) H 04/21/21 11:57 Hemoglobin A1c 8.0 % (4-6) H 04/20/21 10:21 Lactic Acid 2.80 mmol/L (0.7-2.0) H* 04/20/21 20:56 Calcium 8.1 mg/dL (8.4-10.2) L 04/21/21 04:24 Ferritin > 2000.0 ng/mL (10.0-200.0) H 04/18/21 02:34 Total Bilirubin 0.30 mg/dL (0.1-1.2) 04/21/21 04:24 AST 52 units/L (5-40) H 04/21/21 04:24 ALT 55 units/L (7-56) 04/21/21 04:24 Alkaline Phosphatase 67 units/L (35-129) 04/21/21 04:24 Ammonia 25.0 umol/L (25-60) 04/18/21 02:34 Lactate Dehydrogenase 711 units/L (91-180) H 04/18/21 02:34 Total Creatine Kinase 68 units/L (30-135) 04/18/21 02:34 C-Reactive Protein 12.90 mg/dL (0.00-1.30) H 04/18/21 02:34 Total Protein 6.1 g/dL (6.3-8.2) L 04/21/21 04:24 Albumin 2.7 g/dL (3.9-5) L 04/21/21 04:24 Albumin/Globulin Ratio 0.8 % 04/21/21 04:24 Procalcitonin 0.45 ng/mL (<0.15) 04/18/21 02:34 Arterial Blood Glucose 331 mg/dL (65-95) H 04/21/21 04:11 Urine Color Yellow (Yellow) 04/18/21 04:25 Urine Turbidity Clear (Clear) 04/18/21 04:25 Urine pH 5.0 (5.0-7.0) 04/18/21 04:25 Ur Specific [place] 1.018 (1.003-1.030) 04/18/21 04:25 Urine Protein 100 mg/dl mg/dL (Negative) 04/18/21 04:25 Urine Glucose (UA) Neg mg/dL (Negative) 04/18/21 04:25 Urine Ketones Tr mg/dL (Negative) 04/18/21 04:25 Urine Blood Neg (Negative) 04/18/21 04:25 Urine Nitrite Neg (Negative) 04/18/21 04:25 Ur Reducing Substances Not Reportable 04/18/21 04:25 Urine Bilirubin Neg (Negative) 04/18/21 04:25 Urine Ictotest Not Reportable 04/18/21 04:25 Urine Urobilinogen 2.0 mg/dL (<2.0) 04/18/21 04:25 Ur Leukocyte Esterase Neg (Negative) 04/18/21 04:25 Urine WBC (Auto) 2.0 /HPF (0.0-6.0) 04/18/21 04:25 Urine RBC (Auto) 3.0 /HPF (0.0-6.0) 04/18/21 04:25 Hyaline Casts 3 /LPF 04/18/21 04:25 Urine Mucus Few /HPF 04/18/21 04:25 Plasma/Serum Alcohol < 0.01 % (0-0.07) 04/18/21 02:34 Coronavirus (PCR) Positive (Negative) A 04/19/21 09:00 Microbiology: Microbiology 04/18/21 04:25 Urine,[place] Urine Culture - Final NO GROWTH AFTER 48 HOURS 04/18/21 02:38 Peripheral/Venous Blood Culture - Preliminary NO GROWTH AFTER 72 HOURS 04/18/21 02:34 Peripheral/Venous Blood Culture - Preliminary NO GROWTH AFTER 72 HOURS 04/18/21 03:03 Tracheal Aspirate Sputum Culture - Final Franco/IV: Voiding Method Indwelling Catheter Active Medications - Current Medications Current Medications: Generic Name Dose Route Start Last Admin Trade Name Freq PRN Reason Stop Dose Admin Acetaminophen 650 mg 04/18/21 04:13 Acetaminophen 650 Mg Rect Supp ID Q6H PRN Pain MILD(1-3)/Fever >100.5/ASENCIO Lipase/Protease/Amylase 1 each 04/19/21 12:25 Lipase 10,500/Protease 25,000/Amylase 43,750 (Units) Dr Cap FEEDTUBE PRN PRN For Clogged Feeding Tube Dexamethasone 6 mg 04/18/21 10:00 04/21/21 09:53 Dexamethasone 4 Mg/Ml Vial IV 04/27/21 10:01 6 mg Q24HR REJI Administration Dextrose 50 ml 04/20/21 10:34 Dextrose 50% In Water (25gm) 50 Ml Syringe IV Q30MIN PRN Hypoglycemia Protocol Enoxaparin Sodium 30 mg 04/19/21 22:00 04/21/21 09:53 Enoxaparin 30 Mg/0.3 Ml Inj SUB-Q 30 mg BID REJI Administration Protocol Famotidine 20 mg 04/21/21 10:00 04/21/21 09:54 Famotidine 20 Mg Tab FEEDTUBE 20 mg BID REJI Administration Fentanyl 50 mcg 04/19/21 09:59 Fentanyl 100 Mcg/2 Ml Inj IV Q10MIN PRN ANALGESIA Hydrophilic Ointment 1 applic 04/18/21 03:03 Lip Therapy Vaseline TP Q2HR PRN Dry Lips Ceftriaxone Sodium 2 gm in 100 mls @ 200 mls/hr 04/18/21 10:00 04/21/21 09:52 Rocephin/Ns 2 Gm/100 Ml IV 04/22/21 10:29 200 mls/hr Q24HR REJI Administration Protocol Azithromycin 500 mg in 250 mls @ 250 mls/hr 04/18/21 10:00 04/21/21 09:54 Zithromax/Ns IV 04/22/21 10:59 250 mls/hr Q24HR REJI Administration Protocol REMDESIVIR 100 mg/ Sodium 250 mls @ 500 mls/hr 04/19/21 21:00 04/20/21 21:28 Chloride IV 04/22/21 21:29 500 mls/hr Q24HR@2100 REJI Administration Fentanyl Citrate 2,000 mcg in 100 mls @ 3.175 mls/hr 04/19/21 10:00 04/20/21 11:39 Fentanyl Drip Premix IV 1 mcg/kg/hr TITR REJI 3.175 mls/hr Administration Protocol 1 MCG/KG/HR Propofol 1,000 mg in 100 mls @ 1.905 mls/hr 04/19/21 13:00 Diprivan 10 Mg/Ml IV TITR REJI Protocol 5 MCG/KG/MIN TOCILIZUMAB 648 mg/ Sodium 103.6 mls @ 120 mls/hr 04/21/21 11:30 04/21/21 11:43 Chloride IV 04/21/21 12:30 120 mls/hr ONCE@1130 REJI Administration Insulin Glargine 15 units 04/21/21 22:00 Insulin Glargine 100 Units/Ml SUB-Q QHS REJI Insulin Human Lispro 0 unit 04/20/21 12:00 04/21/21 12:07 Insulin Lispro 100 Unit/Ml SUB-Q 6 unit Q6HR REJI Administration Protocol Morphine Sulfate 2 mg 04/18/21 04:13 Morphine 2 Mg/1 Ml Inj IV Q4H PRN Pain, Moderate (4-6) Morphine Sulfate 4 mg 04/18/21 04:13 Morphine 4 Mg/1 Ml Inj IV Q4H PRN Pain , Severe (7-10) Multi-Ingred Cream/Lotion/Oil/Oint 1 applic 04/18/21 03:03 Mineral Oil/Petrolatum, White Ophth Oint 3.5 Gm OU Q4HR PRN Dry Eye(s) Ondansetron HCl 4 mg 04/18/21 04:13 Ondansetron 4 Mg/2 Ml Inj IV Q8H PRN Nausea And Vomiting Senna 8.8 mg 04/19/21 22:00 04/20/21 21:27 Sennosides Oral Liqd 8.8 Mg/5 Ml Oral Liqd PO 8.8 mg QHS REJI Administration Simple Syrup 15 ml 04/19/21 12:25 Simple Syrup 15 Ml FEEDTUBE PRN PRN Hypoglycemia Simple Syrup 30 ml 04/19/21 12:25 Simple Syrup 15 Ml FEEDTUBE PRN PRN Hypoglycemia Sodium Bicarbonate 325 mg 04/19/21 12:25 Sodium Bicarbonate 325 Mg Tab FEEDTUBE PRN PRN For Clogged Feeding Tube Sodium Chloride 10 ml 04/18/21 10:00 04/21/21 09:54 Sodium Chloride 0.9% 10 Ml Flush Syringe IV 10 ml BID REJI Administration Sodium Chloride 10 ml 10/15/21 04:13 Sodium Chloride 0.9% 10 Ml Flush Syringe IV PRN PRN LINE FLUSH Sodium Chloride 50 ml 04/18/21 11:00 04/20/21 21:28 Sodium Chloride 0.9% 50 Ml Ivpb IV 04/22/21 21:01 50 ml Q24HR@2100 REJI Administration Nutrition/Malnutrition Assess - Dietary Evaluation Nutrition/Malnutrition Findings: Nutrition Notes Start: 04/18/21 08:28 Freq: Status: Active Protocol: Document 04/19/21 12:16 [facility] (Rec: 04/19/21 12:24 [facility] [id number]) Nutrition Notes Need for Assessment generated from: MD Order Initial or Follow up Reassessment Current Diagnosis Sepsis,Respiratory Failure Other Pertinent Diagnosis COVID-19 (+), bilat pneu, AMS Current Diet NPO Labs/Tests Na 147 K 3.3 BUN 35 BG 251 Pertinent Medications Decadron, Lantus, D5 1/2NS at 50ml/hr, 40mEq KCl x 1 dose, Propofol at 1.905ml/hr ( provides 50 kcal) Height 5 ft 2 in Weight 63.503 kg [place] Body Weight (kg) 50.00 BMI 25.6 Weight Status Appropriate Subjective/Other Information RD consulted for TF. Pt remains on vent support. Burn Absent Trauma Absent #1 Nutrition Diagnosis Swallowing difficulty Diagnosis Progress(for reassessment Continues documentation) Is patient on ventilator? Yes Is Patient Ambulatory and/or Out of Bed No REE-([facility]-confined to bed) 1442.160 Calculation Used for Recommendations [facility] Additional Notes Pro needs 1.2-2g/k-127g/ day Fluid needs 1ml/kcal Nutrition Intervention Nutrition Support: Vital AF 1.2 at 50ml/hr with 100ml water flush q4h or per MD order. Kcal 1,440 Protein (gm) 90 Carbohydrates (gm) 133 Fat (gm) 65 Fluid (mL) 973 Fiber (gm) 6 Goal #1 TF tolerance Goal #2 TF to meet at least 75% energy and pro needs Anticipated Discharge Needs: Unable to identify at this time Follow-Up By: 04/21/21 Additional Comments F/U: new TF, Na lab/water flushes, vent status, propofol <MICKI VERAS R - Last Filed: 07/09/21 17:21> Assessment and Plan Assessment and plan: I saw and evaluated the patient 04/21/21. I agree with the findings and the plan of care as documented in the Nurse Practitioner's~note, Hospitalist Physical - Constitutional Vitals: Temp Pulse Resp BP Pulse Ox 98.2 F 74 16 110/71 85 04/28/21 05:05 04/28/21 10:47 04/28/21 10:00 04/28/21 10:47 04/28/21 10:30 Results - Labs CBC & Chem 7: 04/28/21 07:19 04/28/21 07:19 Labs: Laboratory Last Values WBC 8.5 K/mm3 (4.5-11.0) 04/28/21 07:19 RBC 4.08 M/mm3 (3.65-5.03) 04/28/21 07:19 Hgb 13.0 gm/dl (10.1-14.3) 04/28/21 07:19 Hct 39.0 % (30.3-42.9) 04/28/21 07:19 MCV 96 fl (79-97) 04/28/21 07:19 MCH 32 pg (28-32) 04/28/21 07:19 MCHC 34 % (30-34) 04/28/21 07:19 RDW 13.2 % (13.2-15.2) 04/28/21 07:19 Plt Count 222 K/mm3 (140-440) 04/28/21 07:19 Lymph % (Auto) 16.2 % (13.4-35.0) 04/28/21 07:19 Lea % (Auto) 11.5 % (0.0-7.3) H 04/28/21 07:19 Eos % (Auto) 0.1 % (0.0-4.3) 04/28/21 07:19 Baso % (Auto) 0.2 % (0.0-1.8) 04/28/21 07:19 Lymph # (Auto) 1.4 K/mm3 (1.2-5.4) 04/28/21 07:19 Lea # (Auto) 1.0 K/mm3 (0.0-0.8) H 04/28/21 07:19 Eos # (Auto) 0.0 K/mm3 (0.0-0.4) 04/28/21 07:19 Baso # (Auto) 0.0 K/mm3 (0.0-0.1) 04/28/21 07:19 Add Manual Diff Complete 04/19/21 05:36 Seg Neutrophils % 72.0 % (40.0-70.0) H 04/28/21 07:19 Nucleated RBC % Not Reportable 04/19/21 05:36 Seg Neutrophils # 6.2 K/mm3 (1.8-7.7) 04/28/21 07:19 WBC Morphology Not Reportable 04/19/21 05:36 Hypersegmented Neuts Not Reportable 04/19/21 05:36 Hyposegmented Neuts Not Reportable 04/19/21 05:36 Hypogranular Neuts Not Reportable 04/19/21 05:36 Smudge Cells Not Reportable 04/19/21 05:36 Toxic Granulation Not Reportable 04/19/21 05:36 Toxic Vacuolation Not Reportable 04/19/21 05:36 Dohle Bodies Not Reportable 04/19/21 05:36 Pelger-Huet Anomaly Not Reportable 04/19/21 05:36 Santana Rods Not Reportable 04/19/21 05:36 Platelet Estimate Not Reportable 04/19/21 05:36 Clumped Platelets Not Reportable 04/19/21 05:36 Plt Clumps, EDTA Not Reportable 04/19/21 05:36 Large Platelets Not Reportable 04/19/21 05:36 Giant Platelets Not Reportable 04/19/21 05:36 Platelet Satelliting Not Reportable 04/19/21 05:36 Plt Morphology Comment Not Reportable 04/19/21 05:36 RBC Morphology Not Reportable 04/19/21 05:36 Dimorphic RBCs Not Reportable 04/19/21 05:36 Polychromasia Not Reportable 04/19/21 05:36 Hypochromasia Not Reportable 04/19/21 05:36 Poikilocytosis Not Reportable 04/19/21 05:36 Anisocytosis Not Reportable 04/19/21 05:36 Microcytosis Not Reportable 04/19/21 05:36 Macrocytosis Not Reportable 04/19/21 05:36 Spherocytes Not Reportable 04/19/21 05:36 Pappenheimer Bodies Not Reportable 04/19/21 05:36 Sickle Cells Not Reportable 04/19/21 05:36 Target Cells Not Reportable 04/19/21 05:36 Tear Drop Cells Not Reportable 04/19/21 05:36 Ovalocytes Not Reportable 04/19/21 05:36 Helmet Cells Not Reportable 04/19/21 05:36 [place] Bodies Not Reportable 04/19/21 05:36 [place] Rings Not Reportable 04/19/21 05:36 [place]upur Cells Not Reportable 04/19/21 05:36 Bite Cells Not Reportable 04/19/21 05:36 Crenated Cell Not Reportable 04/19/21 05:36 Elliptocytes Not Reportable 04/19/21 05:36 Acanthocytes (Spur) Not Reportable 04/19/21 05:36 Rouleaux Not Reportable 04/19/21 05:36 Hemoglobin C Crystals Not Reportable 04/19/21 05:36 Schistocytes Not Reportable 04/19/21 05:36 Malaria parasites Not Reportable 04/19/21 05:36 Hubert Bodies Not Reportable 04/19/21 05:36 Hem Pathologist Commnt Not Reportable 04/19/21 05:36 PT 14.5 Sec. (12.2-14.9) 04/19/21 05:36 INR 1.02 (0.87-1.13) 04/19/21 05:36 APTT 34.2 Sec. (24.2-36.6) 04/18/21 02:34 D-Dimer 805.50 ng/mlDDU (0-234) H 04/28/21 07:19 ABG pH 7.458 pH Units (7.350-7.450) H 04/23/21 18:20 POC ABG pCO2 30.5 mmHg (32.0-48.0) L 04/22/21 04:00 ABG pCO2 37.2 mm Hg 04/23/21 18:20 POC ABG pO2 67.9 mmHg (83-108) L 04/22/21 04:00 ABG pO2 168.1 mm Hg (80.0-90.0) H 04/23/21 18:20 POC ABG HCO3 22.2 04/22/21 04:00 ABG HCO3 25.8 mmol/L (20.0-26.0) 04/23/21 18:20 ABG O2 Saturation 99.1 % (95.0-99.0) H 04/23/21 18:20 ABG O2 Content 19.0 (0.0-44) 04/23/21 18:20 POC ABG Base Excess -0.3 04/22/21 04:00 ABG Base Excess 2.1 mmol/L (-2.0-3.0) 04/23/21 18:20 ABG Hemoglobin 13.7 gm/dl (12.0-16.0) 04/23/21 18:20 ABG Oxyhemoglobin 14.4 (94-98) L 04/22/21 04:00 ABG Carboxyhemoglobin 1.2 % (0.0-5.0) 04/23/21 18:20 ABG Methemoglobin 0.5 % (0.0-1.5) 04/23/21 18:20 ABG Sodium 138.2 mmol/L (136.0-145.0) 04/22/21 04:00 ABG Potassium 4.1 mmol/L (3.40-4.50) 04/22/21 04:00 ABG Chloride 108.0 mmol/L (98-107) H 04/22/21 04:00 ABG Glucose 212 mg/dL (65-95) H 04/22/21 04:00 Oxyhemoglobin 97.4 % (95.0-99.0) 04/23/21 18:20 Carboxyhemoglobin 1.1 (0.5-1.5) 04/22/21 04:00 FiO2 100 % 04/23/21 18:20 FiO2 % 35 04/22/21 04:00 Sodium 141 mmol/L (137-145) 04/28/21 07:19 Potassium 3.8 mmol/L (3.6-5.0) 04/28/21 07:19 Chloride 102.4 mmol/L (98-107) 04/28/21 07:19 Carbon Dioxide 30 mmol/L (22-30) 04/28/21 07:19 Anion Gap 12 mmol/L 04/28/21 07:19 BUN 32 mg/dL (7-17) H 04/28/21 07:19 Creatinine 0.7 mg/dL (0.6-1.2) 04/28/21 07:19 Estimated GFR > 60 ml/min 04/28/21 07:19 BUN/Creatinine Ratio 46 % 04/28/21 07:19 Glucose 88 mg/dL (65-100) 04/28/21 07:19 POC Glucose 127 mg/dL (70-105) H 04/28/21 11:27 Hemoglobin A1c 8.0 % (4-6) H 04/20/21 10: Lactic Acid 1.70 mmol/L (0.7-2.0) 04/22/21 10:58 Calcium 9.3 mg/dL (8.4-10.2) 04/28/21 07:19 Phosphorus 3.00 mg/dL (2.5-4.5) 04/22/21 04:19 Magnesium 2.30 mg/dL (1.7-2.3) 04/22/21 04:19 Ferritin 1538.0 ng/mL (10.0-200.0) H 04/28/21 07:19 Total Bilirubin 0.30 mg/dL (0.1-1.2) 04/21/21 04:24 AST 52 units/L (5-40) H 04/21/21 04:24 ALT 55 units/L (7-56) 04/21/21 04:24 Alkaline Phosphatase 67 units/L (35-129) 04/21/21 04:24 Ammonia 25.0 umol/L (25-60) 04/18/21 02:34 Lactate Dehydrogenase 307 units/L (91-180) H 04/28/21 07:19 Total Creatine Kinase 68 units/L (30-135) 04/18/21 02:34 C-Reactive Protein 0.10 mg/dL (0.00-1.30) 04/28/21 07:19 Total Protein 6.1 g/dL (6.3-8.2) L 04/21/21 04:24 Albumin 2.7 g/dL (3.9-5) L 04/21/21 04:24 Albumin/Globulin Ratio 0.8 % 04/21/21 04:24 Procalcitonin 0.08 ng/mL (<0.15) 04/24/21 04:33 Arterial Blood Glucose 212 mg/dL (65-95) H 04/22/21 04:00 Urine Color Yellow (Yellow) 04/18/21 04:25 Urine Turbidity Clear (Clear) 04/18/21 04:25 Urine pH 5.0 (5.0-7.0) 04/18/21 04:25 Ur Specific [place] 1.018 (1.003-1.030) 04/18/21 04:25 Urine Protein 100 mg/dl mg/dL (Negative) 04/18/21 04:25 Urine Glucose (UA) Neg mg/dL (Negative) 04/18/21 04:25 Urine Ketones Tr mg/dL (Negative) 04/18/21 04:25 Urine Blood Neg (Negative) 04/18/21 04:25 Urine Nitrite Neg (Negative) 04/18/21 04:25 Ur Reducing Substances Not Reportable 04/18/21 04:25 Urine Bilirubin Neg (Negative) 04/18/21 04:25 Urine Ictotest Not Reportable 04/18/21 04:25 Urine Urobilinogen 2.0 mg/dL (<2.0) 04/18/21 04:25 Ur Leukocyte Esterase Neg (Negative) 04/18/21 04:25 Urine WBC (Auto) 2.0 /HPF (0.0-6.0) 04/18/21 04:25 Urine RBC (Auto) 3.0 /HPF (0.0-6.0) 04/18/21 04:25 Hyaline Casts 3 /LPF 04/18/21 04:25 Urine Mucus Few /HPF 04/18/21 04:25 Plasma/Serum Alcohol < 0.01 % (0-0.07) 04/18/21 02:34 Coronavirus (PCR) Positive (Negative) A 04/19/21 09:00 Franco/IV: Voiding Method External Female Catheter Nutrition/Malnutrition Assess - Dietary Evaluation Nutrition/Malnutrition Findings: Nutrition Notes Start: 04/18/21 08:28 Freq: Status: Discharge Protocol: Document 04/24/21 15:16 GB (Rec: 04/24/21 15:26 GB [id number]) Nutrition Notes Initial or Follow up Reassessment Current Diagnosis Sepsis,Respiratory Failure Other Pertinent Diagnosis COVID-19 (+), bilat pneu, AMS Current Diet cardiac mechanical soft Labs/Tests 04/24: BUN 27, Glucose 130, ferritin 1392 Pertinent Medications D5 (PRN) Height 5 ft 2 in Weight 68.6 kg [place] Body Weight (kg) 50.00 BMI 27.6 Weight change and time frame 04/18: 63.503kg 04/24: 68.6kg change of +5.097kg for +8% gain. Weight Status Overweight Subjective/Other Information MD notes 04/24: Pt self extubated. Placed on BiPap, now on HFNC, passed bedside swallow Diet advanced at lunch today Percent of energy/protein needs met: Unable to assess at this time. Diet just advanced Burn Absent Trauma Absent GI Symptoms None Food Allergy No Skin Integrity/Comment no complications reported Current % PO Other Minimum of two criteria No #1 Nutrition Diagnosis Swallowing difficulty Comments: 04/21: TF Vital AF 1.2 @50ml/ hr, vented, off pressors 04/24: self extubated 04/23, now on HFNC, passed bedside swallow, diet started Etiology COVID+, respiratory Failure As Evidenced by Signs and Symptoms Intubated, NPO Diagnosis Progress(for reassessment Resolved documentation) Is patient on ventilator? No Is Patient Ambulatory and/or Out of Bed No REE-([facility]-confined to bed) 1503.264 Kcal/Kg value to use for calculation 23 Approximate Energy Requirements Using 1578 kcal/Kg Calculation Used for Recommendations [facility] Additional Notes Pro needs 1.2-2g/kg (63.5kg): 76-127g/day (initial weight, expect weight changes) Fluid needs 1ml/kcal Nutrition Intervention Change Diet Order: cardiac - continue Nutrition Support: n/a Add Supplement/Snack (indicate name/kcal ensure enlive daily /protein ) Provides kCal: 350 Provides Protein (gm) 20 Goal #1 TF tolerance 04/21: met, continues 04/24: resolved - extubated, diet advanced Goal #2 TF to meet at least 75% energy and pro needs 04/21: TF at goal, met, continues 04/24: resolved, extubated, diet advanced Goal #3 PO intake of meals to improve to 50% or greater daily for LOS Follow-Up By: 04/29/21 Additional Comments f/u: diet tolerance, %PO meal/ supplement
[2021-04-21] MEDS: FREE WATER PO SCH ×3 (14:00→21:10)
--- NOTE | 2021-04-21 16:42 | Progress Note ---
Assessment and Plan Acute hypoxemic respiratory failure, ARDS secondary to COVID pneumonia P/F 154 Respiratory alkalosis Bilateral pneumonia Sepsis Hyperglycemia Hypernatremia Will start SATs and SBTs in the morning -continue to titrate supplemental oxygen to keep SpO2 88-90% -VAP bundle addressed, aspiration precautions HOB>30 -Lung protective strategies, continue to monitor airway pressures - bronchodilators with pulmonary hygiene per RT - sedation target RASS -1 to -2 . Continue Fentanyl , -complete ABs per ID recommendation-Ceftriaxone 2 gm IV qday and azithromycin 500 mg PO qday,to complete 5 day course - continue glycemic control with SSI for target BG 140-180 mg while critically ill; avoid hypoglycemia - avoid nephrotoxins, renally dose all medications - prn analgesia per pain score - Maintenance of sleep-wake cycle, avoid delirium - supportive transfusions for serum Hb < 7.0g/dL - Stress ulcer prophylaxis- Famotidine - continue mobility, off loading, frequent turning per facility for pressure ulcer prevention - Monitor hemodynamics closely -Conservative fluid management, keep negative fluid balance as tolerated by hemodynamics and renal function -Enteric nutritional support at goal rate - continue other care per attending / other consultants COVID SPECIFIC INTERVENTIONS - Remdesivir as per ID/Pulmonary developed protocols - continue systemic steroids for severe COVID-19 infection -Repeat COVID PCR test positive - Monitor inflammatory markers per facility protocol - ferritin, D-dimer, CRP - Actemra 8 mg/kg today - Anticoagulation per system Protocol based on d-dimer and clinical considerations -on Enoxaparin 30mg BID - Continue contact and airborne isolation -Prone positioning per facility protocol CONDITION: CRITICAL PROGNOSIS: GUARDED CODE STATUS: FULL CODE The high probability of a clinically significant, sudden or life-threatening deterioration of the [respiratory, neurologic] system(s) required my full and direct attention, intervention and personal management. The aggregate critical care time was [35] minutes without overlap. Time includes spent on; [x] Data Review and interpretation [x] Patient assessment and monitoring of vital signs [x] Documentation [x] Medication orders and management Subjective Date of service: 04/21/21 Interval history: Follow up for:Acute hypoxemic respiratory failure, ARDS secondary to COVID pneumonia P/F 154;Bilateral pneumonia;Sepsis;Hyperglycemia Patient seen and examined. Vitals, labs, medications, chart and imaging reviewed. Discussed with respiratory and nursing staff. Remains orally intubated on MVS, no fevers, tolerating tube feedings Glycemic control remains sub-optimal Actrema today Objective Vital Signs - 12hr 04/21/21 04/21/21 04/21/21 04:45 05:00 05:15 Temperature Pulse Rate 70 77 57 L Pulse Rate [ From Monitor] Respiratory 16 30 H 30 H Rate Blood Pressure 135/76 128/89 135/80 O2 Sat by Pulse 94 97 96 Oximetry 04/21/21 04/21/21 04/21/21 05:30 05:45 06:00 Temperature Pulse Rate 66 51 L 52 L Pulse Rate [ From Monitor] Respiratory 30 H 30 H 30 H Rate Blood Pressure 139/85 131/71 139/79 O2 Sat by Pulse 97 97 97 Oximetry 04/21/21 04/21/21 04/21/21 06:15 06:30 06:45 Temperature Pulse Rate 50 L 52 L 48 L Pulse Rate [ From Monitor] Respiratory 30 H 30 H 30 H Rate Blood Pressure 132/72 137/79 150/81 O2 Sat by Pulse 97 97 98 Oximetry 04/21/21 04/21/21 04/21/21 07:00 07:15 07:30 Temperature Pulse Rate 49 L 45 L 44 L Pulse Rate [ From Monitor] Respiratory 30 H 30 H 30 H Rate Blood Pressure 142/78 149/74 148/74 O2 Sat by Pulse 98 99 99 Oximetry 04/21/21 04/21/21 04/21/21 07:45 08:00 08:15 Temperature 97.9 F Pulse Rate 71 71 62 Pulse Rate [ 55 L From Monitor] Respiratory 30 H 30 H 30 H Rate Blood Pressure 166/100 161/95 142/83 O2 Sat by Pulse 98 95 93 Oximetry 04/21/21 04/21/21 04/21/21 08:30 08:45 09:00 Temperature Pulse Rate 51 L 53 L 70 Pulse Rate [ From Monitor] Respiratory 30 H 30 H 30 H Rate Blood Pressure 141/82 128/73 150/90 O2 Sat by Pulse 95 94 96 Oximetry 04/21/21 04/21/21 04/21/21 09:15 09:30 09:45 Temperature Pulse Rate 67 76 76 Pulse Rate [ From Monitor] Respiratory 30 H 30 H 30 H Rate Blood Pressure 152/94 151/94 153/88 O2 Sat by Pulse 97 92 95 Oximetry 04/21/21 04/21/21 04/21/21 10:00 10:15 10:31 Temperature Pulse Rate 84 68 68 Pulse Rate [ From Monitor] Respiratory 30 H 30 H 30 H Rate Blood Pressure 149/89 137/83 137/83 O2 Sat by Pulse 97 94 96 Oximetry 04/21/21 04/21/21 04/21/21 10:45 11:01 11:49 Temperature Pulse Rate 71 70 66 Pulse Rate [ From Monitor] Respiratory 30 H 30 H Rate Blood Pressure 133/88 133/88 133/88 O2 Sat by Pulse 95 94 96 Oximetry 04/21/21 16:00 Temperature 99.3 F Pulse Rate Pulse Rate [ From Monitor] Respiratory Rate Blood Pressure O2 Sat by Pulse Oximetry Constitutional: no acute distress, other (sedated) Eyes: non-icteric ENT: oropharynx moist, other (ETT 7.5 at 23cm at the lip) Neck: supple, no lymphadenopathy Effort: mildly labored Ascultation: Bilateral: clear, diminished breath sounds Cardiovascular: regular rate and rhythm, other (S1,S2) Gastrointestinal: normoactive bowel sounds, soft, non-tender, non-distended Integumentary: normal Extremities: no cyanosis, no edema, pink and warm, pulses normal Neurologic: non-focal exam (moves extremities), pupils equal and round Psychiatric: other (unable to assess) CBC and BMP: 04/28/21 07:19 04/28/21 07:19 ABG, PT/INR, D-dimer: ABG ABG pH 7.479 (7.320-7.450) H 04/21/21 04:11 POC ABG pCO2 28.9 mmHg (32.0-48.0) L 04/21/21 04:11 ABG pCO2 29.4 mm Hg 04/18/21 04:20 POC ABG pO2 75.6 mmHg (83-108) L 04/21/21 04:11 ABG pO2 154.9 mm Hg (80.0-90.0) H 04/18/21 04:20 POC ABG HCO3 21.0 04/21/21 04:11 ABG O2 Saturation 95.0 (0-100) 04/21/21 04:11 PT/INR, D-dimer PT 14.5 Sec. (12.2-14.9) 04/19/21 05:36 INR 1.02 (0.87-1.13) 04/19/21 05:36 D-Dimer 978.83 ng/mlDDU (0-234) H 04/18/21 02:34 Abnormal lab findings: Abnormal Labs 04/18/21 04/18/21 04/18/21 02:34 02:34 02:34 RBC MCH 33 H MCHC 35 H RDW 12.4 L Lymph % (Auto) [place] % (Auto) 14.0 H Lymph # (Auto) 0.9 L [place] # (Auto) 0.9 H Seg Neutrophils % 72.0 H D-Dimer 978.83 H ABG pH POC ABG pCO2 POC ABG pO2 ABG pO2 ABG Oxyhemoglobin ABG Potassium ABG Chloride ABG Glucose Carboxyhemoglobin Sodium Potassium Chloride Carbon Dioxide 20 L BUN 32 H Glucose 227 H POC Glucose Hemoglobin A1c Lactic Acid Calcium 8.2 L Ferritin AST 64 H ALT Lactate Dehydrogenase C-Reactive Protein Total Protein Albumin 3.5 L Arterial Blood Glucose Coronavirus (PCR) 04/18/21 04/18/21 04/18/21 02:34 02:34 04:20 RBC MCH MCHC RDW Lymph % (Auto) [place] % (Auto) Lymph # (Auto) [place] # (Auto) Seg Neutrophils % D-Dimer ABG pH 7.468 H POC ABG pCO2 POC ABG pO2 ABG pO2 154.9 H ABG Oxyhemoglobin ABG Potassium ABG Chloride ABG Glucose Carboxyhemoglobin Sodium Potassium Chloride Carbon Dioxide BUN Glucose 228 H POC Glucose Hemoglobin A1c Lactic Acid Calcium Ferritin > 2000.0 H AST ALT Lactate Dehydrogenase 711 H C-Reactive Protein 12.90 H Total Protein Albumin Arterial Blood Glucose Coronavirus (PCR) 04/18/21 04/18/21 04/19/21 04:54 15:39 05:36 RBC MCH 33 H MCHC 35 H RDW 12.9 L Lymph % (Auto) 12.5 L [place] % (Auto) 9.4 H Lymph # (Auto) 1.0 L [place] # (Auto) Seg Neutrophils % 77.9 H D-Dimer ABG pH POC ABG pCO2 POC ABG pO2 ABG pO2 ABG Oxyhemoglobin ABG Potassium ABG Chloride ABG Glucose Carboxyhemoglobin Sodium Potassium 3.5 L Chloride 107.8 H Carbon Dioxide 20 L BUN 32 H Glucose 276 H POC Glucose Hemoglobin A1c Lactic Acid 2.30 H* Calcium 8.1 L Ferritin AST 64 H ALT Lactate Dehydrogenase C-Reactive Protein Total Protein Albumin 2.8 L Arterial Blood Glucose Coronavirus (PCR) 04/19/21 04/19/21 04/19/21 05:36 06:16 09:00 RBC MCH MCHC RDW Lymph % (Auto) [place] % (Auto) Lymph # (Auto) [place] # (Auto) Seg Neutrophils % D-Dimer ABG pH 7.562 H POC ABG pCO2 22.0 L POC ABG pO2 168.2 H ABG pO2 ABG Oxyhemoglobin 98.4 H ABG Potassium 3.3 L ABG Chloride 110.0 H ABG Glucose 248 H Carboxyhemoglobin Sodium 147 H Potassium 3.3 L Chloride 110.1 H Carbon Dioxide 21 L BUN 35 H Glucose 251 H POC Glucose Hemoglobin A1c Lactic Acid Calcium 8.2 L Ferritin AST 66 H ALT Lactate Dehydrogenase C-Reactive Protein Total Protein Albumin 2.9 L Arterial Blood Glucose 248 H Coronavirus (PCR) Positive A 04/19/21 04/19/21 04/19/21 11:32 17:15 21:34 RBC MCH MCHC RDW Lymph % (Auto) [place] % (Auto) Lymph # (Auto) [place] # (Auto) Seg Neutrophils % D-Dimer ABG pH POC ABG pCO2 POC ABG pO2 ABG pO2 ABG Oxyhemoglobin ABG Potassium ABG Chloride ABG Glucose Carboxyhemoglobin Sodium Potassium Chloride Carbon Dioxide BUN Glucose POC Glucose 216 H 256 H 258 H Hemoglobin A1c Lactic Acid Calcium Ferritin AST ALT Lactate Dehydrogenase C-Reactive Protein Total Protein Albumin Arterial Blood Glucose Coronavirus (PCR) 04/20/21 04/20/21 04/20/21 00:13 03:44 06:16 RBC MCH MCHC RDW Lymph % (Auto) [place] % (Auto) Lymph # (Auto) [place] # (Auto) Seg Neutrophils % D-Dimer ABG pH 7.483 H POC ABG pCO2 26.2 L POC ABG pO2 ABG pO2 ABG Oxyhemoglobin ABG Potassium ABG Chloride 114.0 H ABG Glucose 296 H Carboxyhemoglobin 0.1 L Sodium Potassium Chloride Carbon Dioxide BUN Glucose POC Glucose 290 H 271 H Hemoglobin A1c Lactic Acid Calcium Ferritin AST ALT Lactate Dehydrogenase C-Reactive Protein Total Protein Albumin Arterial Blood Glucose 296 H Coronavirus (PCR) 04/20/21 04/20/21 04/20/21 10:21 10:21 10:21 RBC MCH MCHC RDW Lymph % (Auto) [place] % (Auto) Lymph # (Auto) [place] # (Auto) Seg Neutrophils % D-Dimer ABG pH POC ABG pCO2 POC ABG pO2 ABG pO2 ABG Oxyhemoglobin ABG Potassium ABG Chloride ABG Glucose Carboxyhemoglobin Sodium Potassium Chloride 113.7 H Carbon Dioxide 19 L BUN 38 H Glucose 266 H POC Glucose Hemoglobin A1c 8.0 H Lactic Acid 3.10 H* Calcium Ferritin AST 79 H ALT 58 H Lactate Dehydrogenase C-Reactive Protein Total Protein Albumin 2.6 L Arterial Blood Glucose Coronavirus (PCR) 04/20/21 04/20/21 04/20/21 10:21 11:05 15:24 RBC MCH 34 H MCHC 35 H RDW 12.9 L Lymph % (Auto) [place] % (Auto) Lymph # (Auto) [place] # (Auto) Seg Neutrophils % D-Dimer ABG pH POC ABG pCO2 POC ABG pO2 ABG pO2 ABG Oxyhemoglobin ABG Potassium ABG Chloride ABG Glucose Carboxyhemoglobin Sodium Potassium Chloride Carbon Dioxide BUN Glucose POC Glucose 233 H Hemoglobin A1c Lactic Acid 2.50 H* Calcium Ferritin AST ALT Lactate Dehydrogenase C-Reactive Protein Total Protein Albumin Arterial Blood Glucose Coronavirus (PCR) 04/20/21 04/20/21 04/20/21 17:25 20:56 23:11 RBC MCH MCHC RDW Lymph % (Auto) [place] % (Auto) Lymph # (Auto) [place] # (Auto) Seg Neutrophils % D-Dimer ABG pH POC ABG pCO2 POC ABG pO2 ABG pO2 ABG Oxyhemoglobin ABG Potassium ABG Chloride ABG Glucose Carboxyhemoglobin Sodium Potassium Chloride Carbon Dioxide BUN Glucose POC Glucose 262 H 321 H Hemoglobin A1c Lactic Acid 2.80 H* Calcium Ferritin AST ALT Lactate Dehydrogenase C-Reactive Protein Total Protein Albumin Arterial Blood Glucose Coronavirus (PCR) 04/21/21 04/21/21 04/21/21 04:11 04:24 04:24 RBC 3.55 L MCH 33 H MCHC RDW 12.8 L Lymph % (Auto) [place] % (Auto) Lymph # (Auto) [place] # (Auto) Seg Neutrophils % D-Dimer ABG pH 7.479 H POC ABG pCO2 28.9 L POC ABG pO2 75.6 L ABG pO2 ABG Oxyhemoglobin ABG Potassium ABG Chloride 113.0 H ABG Glucose 331 H Carboxyhemoglobin 0.1 L Sodium Potassium Chloride 113.1 H Carbon Dioxide 18 L BUN 36 H Glucose 342 H POC Glucose Hemoglobin A1c Lactic Acid Calcium 8.1 L Ferritin AST 52 H ALT Lactate Dehydrogenase C-Reactive Protein Total Protein 6.1 L Albumin 2.7 L Arterial Blood Glucose 331 H Coronavirus (PCR) 04/21/21 04/21/21 05:22 11:57 RBC MCH MCHC RDW Lymph % (Auto) [place] % (Auto) Lymph # (Auto) [place] # (Auto) Seg Neutrophils % D-Dimer ABG pH POC ABG pCO2 POC ABG pO2 ABG pO2 ABG Oxyhemoglobin ABG Potassium ABG Chloride ABG Glucose Carboxyhemoglobin Sodium Potassium Chloride Carbon Dioxide BUN Glucose POC Glucose 269 H 258 H Hemoglobin A1c Lactic Acid Calcium Ferritin AST ALT Lactate Dehydrogenase C-Reactive Protein Total Protein Albumin Arterial Blood Glucose Coronavirus (PCR) Chest x-ray: image reviewed Allied health notes reviewed: RT
[2021-04-21] MEDS: fentaNYL DRIP Premix 2,000 MCG/100 ML BAG IV SCH (20:54)
[2021-04-21] MEDS: SENNOSIDES ORAL LIQD 8.8 MG/5 ML ORAL LIQD PO SCH (21:10)
[2021-04-21] MEDS: REMDESIVIR 100 MG in SODIUM CHLORIDE 0.9% 250ML 250 ML IV SCH (21:11)
[2021-04-21] MEDS: SODIUM CHLORIDE 0.9% 50 ML IVPB IV SCH (21:11)
[2021-04-21] MEDS ORDERED: INSULIN GLARGINE 100 UNITS/ML SUB-Q SCH (22:00)
[2021-04-22] MEDS: FREE WATER PO SCH ×6 (02:50→22:01)
--- NOTE | 2021-04-22 04:42 | XRay Report ---
CHEST 1 VIEW 04/22/2021 3:15 AM INDICATION / CLINICAL INFORMATION: follow up respiratory failure. COMPARISON: 04/21/2021 FINDINGS: SUPPORT DEVICES: Stable, satisfactory device positioning. HEART / MEDIASTINUM: No significant abnormality. LUNGS / PLEURA: No significant change in subtle airspace opacities. No pneumothorax. ADDITIONAL FINDINGS: No significant additional findings. IMPRESSION: 1. No significant change. Signer Name: Mu Umana DO Signed: 04/22/2021 4:38 AM Workstation Name: [id number]
[2021-04-22 05:05] LABS: Hematocrit 35.6 % (30.3-42.9); Hemoglobin 12.2 gm/dl (10.1-14.3); Mean Corpuscular HGB Conc 34 % (30-34); Mean Corpuscular Volume 97 fl (79-97); Platelet Count 215 K/mm3 (140-440); Red Blood Count 3.67 M/mm3 (3.65-5.03); Red Cell Distribution Width 12.9 % (13.2-15.2)
[2021-04-22] MEDS: INSULIN LISPRO 100 UNIT/ML SUB-Q SCH ×5 (05:19→22:11)
[2021-04-22 05:25] LABS: Blood Urea Nitrogen 31 mg/dL (7-17); Calcium 8.4 mg/dL (8.4-10.2); Hemolysis Index 1
[2021-04-22 05:26] LABS: BUN/Creatinine Ratio 44
[2021-04-22] MEDS: dexAMETHasone 4 MG/ML VIAL IV SCH (09:31)
[2021-04-22] MEDS: ENOXAPARIN 30 MG/0.3 ML INJ SUB-Q SCH ×2 (09:31→22:10)
[2021-04-22] MEDS: FAMOTIDINE 20 MG TAB FEEDTUBE SCH ×2 (09:31→22:12)
[2021-04-22] MEDS: AZITHROMYCIN/NS 500 MG/250 ML 500 MG/250 ML BAG IV SCH (09:32)
[2021-04-22] MEDS: cefTRIAXone/NS 2 GM/100 ML 2 GM/100 ML BAG IV SCH (09:33)
[2021-04-22] MEDS ORDERED: INSULIN GLARGINE 100 UNITS/ML SUB-Q SCH (10:00)
[2021-04-22] MEDS ORDERED: hydrALAZINE 20 MG/1 ML INJ IV PRN (10:08)
[2021-04-22] MEDS: fentaNYL DRIP Premix 2,000 MCG/100 ML BAG IV SCH ×2 (10:27→22:13)
[2021-04-22] MEDS: amLODIPine 10 MG TAB FEEDTUBE SCH (10:32)
[2021-04-22] MEDS: LOSARTAN 50 MG TAB FEEDTUBE SCH (10:32)
[2021-04-22] MEDS: hydroCHLOROthiazide 12.5 MG CAP FEEDTUBE SCH (10:33)
--- NOTE | 2021-04-22 12:05 | Progress Note ---
Assessment and Plan Cultures: Blood culture no growth Sputum culture no growth COVID-19 PCR: Positive Urine culture: No growth A/P: 51-year-old female admitted with COVID-19 #Severe COVID-19 pneumonia: Patient presented with a week of symptoms, chest x- ray with diffuse bilateral infiltrates, admission O2 sats 40%on room air. Inflammatory markers elevated. #Acute hypoxemic respiratory failure: secondary to COVID-19 infection. Currently on the vent Recommendations: -Complete 10 days of steroids -complete 5 days of remdesivir -Status post Actemra 04/21/2021 -Monitor CRP, D-dimer every 2 to 3 days -procalcitonin improved, abx discontinued -Anticoagulation per hospital protocol Tung Germain MD, FACP [facility] O: [phone] F: [phone] Subjective Date of service: 04/22/21 Interval history: No fever. Remains on the vent. WBC 9.4, D-dimer 1848, procalcitonin 0.12. Objective - Exam Narrative Exam: Physical Exam (reviewed in chart to minimize risk of transmission) Constitutional: deferred Head, Ears, Nose: deferred Eyes: deferred Neck: deferred Oral: deferred Cardiovascular: deferred Respiratory: deferred GI: deferred Musculoskeletal: deferred Skin: deferred Hem/Lymphatic: deferred Psych: deferred Neurological: deferred - Constitutional Vitals: Vital Signs Temp Pulse Resp BP Pulse Ox 98.6 F 105 H 30 H 133/81 95 04/22/21 08:00 04/22/21 11:30 04/22/21 11:30 04/22/21 11:30 04/22/21 11:30 Temperature -Last 24 Hours Temperature 98.6 F Temperature 98.6 F Temperature 97.2 F Temperature 98.2 F Temperature 99.3 F - Labs CBC & Chem 7: 04/22/21 04:19 04/22/21 04:19 Labs: Abnormal lab results 04/21/21 04/21/21 04/22/21 Range/Units 18:16 23:38 04:19 MCH 33 H (28-32) pg RDW 12.9 L (13.2-15.2) % D-Dimer (0-234) ng/mlDDU Chloride (98-107) mmol/L Carbon Dioxide (22-30) mmol/L BUN (7-17) mg/dL Glucose (65-100) mg/dL POC Glucose 313 H 298 H (70-105) mg/dL 04/22/21 04/22/21 04/22/21 Range/Units 04:19 05:15 10:42 MCH (28-32) pg RDW (13.2-15.2) % D-Dimer (0-234) ng/mlDDU Chloride 108.0 H (98-107) mmol/L Carbon Dioxide 21 L (22-30) mmol/L BUN 31 H (7-17) mg/dL Glucose 261 H (65-100) mg/dL POC Glucose 214 H 171 H (70-105) mg/dL 04/22/21 Range/Units 10:58 MCH (28-32) pg RDW (13.2-15.2) % D-Dimer 1848.39 H (0-234) ng/mlDDU Chloride (98-107) mmol/L Carbon Dioxide (22-30) mmol/L BUN (7-17) mg/dL Glucose (65-100) mg/dL POC Glucose (70-105) mg/dL
--- NOTE | 2021-04-22 12:06 | Progress Note ---
Assessment and Plan Bilateral pneumonia Sepsis Hyperglycemia Acute hypoxemic respiratory failure, ARDS COVID pneumonia Bilateral pneumonia Sepsis - reduced set rate to 20/min - ABG at 9pm - continue Daily SAT and SBT assessment as tolerated - continue to wean supplemental oxygen for target O2 sat's > 90% acutely - VAP bundle addressed - continue lung protective strategies - continue bronchodilators with pulmonary hygiene per RT - wean per pulmonary driven protocols otherwise - continue accuchecks with glycemic control per SSI (While critically ill target blood glucose of 140-180 mg/dL; avoid hypoglycemia) - sedation prn for target RASS 0 to -1 - avoid nephrotoxins, renally dose all medications - continue to avoid benzodiazepine's, reduce the possibility of delirium - AB's per ID rec's - prn analgesia per CPOT score - Maintenance of sleep-wake cycle, avoid delirium - continue enteral nutritional support at goal rate as tolerated - G.I. & VTE prophylaxis - PT/OT/ROM exercises - continue mobility protocols for pressure ulcer prophylaxis - Monitor hemodynamics closely - continue other care per attending / other consultants - discharge planning ongoing concurrently COVID SPECIFIC INTERVENTIONS - S/P Actemra (04/21) - Remdesivir as per ID/Pulmonary developed protocols - continue systemic steroids for severe COVID-19 infection empirically (10 days then re-evaluate) - follow repeat COVID tests results - zinc and vitamin C supplementation - Monitor inflammatory markers per facility protocol - ferritin, Ddimer, CRP - therapeutic anticoagulation per system Protocol based on d-dimer and clinical considerations - Continue contact and airborne isolation .... Re-evaluate in am & prn CONDITION: CRITICAL PROGNOSIS: GUARDED CODE STATUS: FULL CODE The high probability of a clinically significant, sudden or life-threatening deterioration of the [respiratory, cardiovascular & neurologic] system(s) required my full and direct attention, intervention and personal management. The aggregate critical care time was [35] minutes without overlap. Time includes spent on; [x] Data Review and interpretation [x] Patient assessment and monitoring of vital signs [x] Documentation [x] Medication orders and management Subjective Date of service: 04/22/21 Principal diagnosis: Pneumonia; Sepsis; Acute hypoxemic resp failure; ARDS; COVID; Sepsis Interval history: Patient is seen today for: Bilateral pneumonia; Sepsis; Acute hypoxemic respiratory failure; ARDS; COVID infxn; Sepsis Seen and examined at bedside; 24hour events reviewed; nursing and respiratory care staff consulted; no adverse overnight events reported to me; resting in bed; no significant ventilator dyssynchrony; remains on MVS; blood glucose running high and Lantus up-titrated Objective Vital Signs - 12hr 04/22/21 04/22/21 04/22/21 00:30 01:00 01:30 Temperature Pulse Rate 52 L 48 L 47 L Pulse Rate [ From Monitor] Respiratory 30 H 30 H 30 H Rate Respiratory Rate [ generalized] Blood Pressure 161/93 144/80 147/76 O2 Sat by Pulse 91 90 91 Oximetry 04/22/21 04/22/21 04/22/21 02:00 02:30 02:44 Temperature Pulse Rate 50 L 47 L 52 L Pulse Rate [ From Monitor] Respiratory 30 H 30 H Rate Respiratory Rate [ generalized] Blood Pressure 133/68 144/76 O2 Sat by Pulse 92 90 97 Oximetry 04/22/21 04/22/21 04/22/21 02:45 02:57 03:00 Temperature Pulse Rate 46 L 48 L Pulse Rate [ From Monitor] Respiratory 24 30 H Rate Respiratory 30 H Rate [ generalized] Blood Pressure 157/86 O2 Sat by Pulse 98 97 91 Oximetry 04/22/21 04/22/21 04/22/21 03:31 04:00 04:30 Temperature 98.6 F Pulse Rate 60 60 62 Pulse Rate [ From Monitor] Respiratory 30 H 30 H 30 H Rate Respiratory Rate [ generalized] Blood Pressure 181/96 172/103 168/102 O2 Sat by Pulse 93 92 93 Oximetry 04/22/21 04/22/21 04/22/21 05:00 05:08 05:30 Temperature Pulse Rate 51 L 51 L 50 L Pulse Rate [ From Monitor] Respiratory 30 H 30 H Rate Respiratory 30 H Rate [ generalized] Blood Pressure 151/86 157/84 O2 Sat by Pulse 93 98 92 Oximetry 04/22/21 04/22/21 04/22/21 06:00 06:30 07:00 Temperature Pulse Rate 48 L 47 L 52 L Pulse Rate [ From Monitor] Respiratory 30 H 30 H 30 H Rate Respiratory Rate [ generalized] Blood Pressure 138/72 146/72 165/93 O2 Sat by Pulse 93 93 95 Oximetry 04/22/21 04/22/21 04/22/21 07:31 08:00 08:30 Temperature 98.6 F Pulse Rate 47 L 63 63 Pulse Rate [ 62 From Monitor] Respiratory 30 H 30 H 30 H Rate Respiratory 30 H Rate [ generalized] Blood Pressure 150/74 170/90 170/95 O2 Sat by Pulse 93 98 92 Oximetry 04/22/21 04/22/21 04/22/21 09:00 09:30 10:00 Temperature Pulse Rate 64 76 65 Pulse Rate [ From Monitor] Respiratory 30 H 30 H 30 H Rate Respiratory Rate [ generalized] Blood Pressure 163/94 177/104 179/100 O2 Sat by Pulse 93 94 98 Oximetry 04/22/21 04/22/21 04/22/21 10:15 10:30 10:32 Temperature Pulse Rate 69 84 83 Pulse Rate [ From Monitor] Respiratory 30 H Rate Respiratory Rate [ generalized] Blood Pressure 179/100 156/91 156/91 O2 Sat by Pulse 96 95 Oximetry 04/22/21 04/22/21 11:00 11:30 Temperature Pulse Rate 111 H 105 H Pulse Rate [ From Monitor] Respiratory 30 H 30 H Rate Respiratory Rate [ generalized] Blood Pressure 147/95 133/81 O2 Sat by Pulse 97 95 Oximetry Constitutional: no acute distress, other (middle aged [place] with mildly increased respiratory effort at rest on MVS) Eyes: non-icteric ENT: oropharynx moist, other (ETT 7.5 at 23cm at the lip) Neck: supple, no lymphadenopathy Effort: mildly labored Ascultation: Bilateral: diminished breath sounds, rhonchi Percussion: Bilateral: not dull Cardiovascular: regular rate and rhythm, other (S1,S2) Gastrointestinal: normoactive bowel sounds, soft, non-tender, non-distended (protuberant) Integumentary: normal Extremities: no cyanosis, no edema, pulses normal, no ischemia or petechiae Neurologic: non-focal exam (grossly), pupils equal and round, unable to assess (sedated) Psychiatric: other (unable to assess) CBC and BMP: 04/23/21 04:17 04/23/21 04:17 ABG, PT/INR, D-dimer: ABG ABG pH 7.479 (7.320-7.450) H 04/21/21 04:11 POC ABG pCO2 28.9 mmHg (32.0-48.0) L 04/21/21 04:11 ABG pCO2 29.4 mm Hg 04/18/21 04:20 POC ABG pO2 75.6 mmHg (83-108) L 04/21/21 04:11 ABG pO2 154.9 mm Hg (80.0-90.0) H 04/18/21 04:20 POC ABG HCO3 21.0 04/21/21 04:11 ABG O2 Saturation 95.0 (0-100) 04/21/21 04:11 PT/INR, D-dimer PT 14.5 Sec. (12.2-14.9) 04/19/21 05:36 INR 1.02 (0.87-1.13) 04/19/21 05:36 D-Dimer 1848.39 ng/mlDDU (0-234) H 04/22/21 10:58 Abnormal lab findings: Abnormal Labs 04/18/21 04/18/21 04/18/21 02:34 02:34 02:34 RBC MCH 33 H MCHC 35 H RDW 12.4 L Lymph % (Auto) Humphreys % (Auto) 14.0 H Lymph # (Auto) 0.9 L Humphreys # (Auto) 0.9 H Seg Neutrophils % 72.0 H D-Dimer 978.83 H ABG pH POC ABG pCO2 POC ABG pO2 ABG pO2 ABG Oxyhemoglobin ABG Potassium ABG Chloride ABG Glucose Carboxyhemoglobin Sodium Potassium Chloride Carbon Dioxide 20 L BUN 32 H Glucose 227 H POC Glucose Hemoglobin A1c Lactic Acid Calcium 8.2 L Ferritin AST 64 H ALT Lactate Dehydrogenase C-Reactive Protein Total Protein Albumin 3.5 L Arterial Blood Glucose Coronavirus (PCR) 04/18/21 04/18/21 04/18/21 02:34 02:34 04:20 RBC MCH MCHC RDW Lymph % (Auto) Humphreys % (Auto) Lymph # (Auto) Humphreys # (Auto) Seg Neutrophils % D-Dimer ABG pH 7.468 H POC ABG pCO2 POC ABG pO2 ABG pO2 154.9 H ABG Oxyhemoglobin ABG Potassium ABG Chloride ABG Glucose Carboxyhemoglobin Sodium Potassium Chloride Carbon Dioxide BUN Glucose 228 H POC Glucose Hemoglobin A1c Lactic Acid Calcium Ferritin > 2000.0 H AST ALT Lactate Dehydrogenase 711 H C-Reactive Protein 12.90 H Total Protein Albumin Arterial Blood Glucose Coronavirus (PCR) 04/18/21 04/18/21 04/19/21 04:54 15:39 05:36 RBC MCH 33 H MCHC 35 H RDW 12.9 L Lymph % (Auto) 12.5 L Humphreys % (Auto) 9.4 H Lymph # (Auto) 1.0 L Humphreys # (Auto) Seg Neutrophils % 77.9 H D-Dimer ABG pH POC ABG pCO2 POC ABG pO2 ABG pO2 ABG Oxyhemoglobin ABG Potassium ABG Chloride ABG Glucose Carboxyhemoglobin Sodium Potassium 3.5 L Chloride 107.8 H Carbon Dioxide 20 L BUN 32 H Glucose 276 H POC Glucose Hemoglobin A1c Lactic Acid 2.30 H* Calcium 8.1 L Ferritin AST 64 H ALT Lactate Dehydrogenase C-Reactive Protein Total Protein Albumin 2.8 L Arterial Blood Glucose Coronavirus (PCR) 04/19/21 04/19/21 04/19/21 05:36 06:16 09:00 RBC MCH MCHC RDW Lymph % (Auto) Humphreys % (Auto) Lymph # (Auto) Humphreys # (Auto) Seg Neutrophils % D-Dimer ABG pH 7.562 H POC ABG pCO2 22.0 L POC ABG pO2 168.2 H ABG pO2 ABG Oxyhemoglobin 98.4 H ABG Potassium 3.3 L ABG Chloride 110.0 H ABG Glucose 248 H Carboxyhemoglobin Sodium 147 H Potassium 3.3 L Chloride 110.1 H Carbon Dioxide 21 L BUN 35 H Glucose 251 H POC Glucose Hemoglobin A1c Lactic Acid Calcium 8.2 L Ferritin AST 66 H ALT Lactate Dehydrogenase C-Reactive Protein Total Protein Albumin 2.9 L Arterial Blood Glucose 248 H Coronavirus (PCR) Positive A 04/19/21 04/19/21 04/19/21 11:32 17:15 21:34 RBC MCH MCHC RDW Lymph % (Auto) Humphreys % (Auto) Lymph # (Auto) Humphreys # (Auto) Seg Neutrophils % D-Dimer ABG pH POC ABG pCO2 POC ABG pO2 ABG pO2 ABG Oxyhemoglobin ABG Potassium ABG Chloride ABG Glucose Carboxyhemoglobin Sodium Potassium Chloride Carbon Dioxide BUN Glucose POC Glucose 216 H 256 H 258 H Hemoglobin A1c Lactic Acid Calcium Ferritin AST ALT Lactate Dehydrogenase C-Reactive Protein Total Protein Albumin Arterial Blood Glucose Coronavirus (PCR) 04/20/21 04/20/21 04/20/21 00:13 03:44 06:16 RBC MCH MCHC RDW Lymph % (Auto) Humphreys % (Auto) Lymph # (Auto) Humphreys # (Auto) Seg Neutrophils % D-Dimer ABG pH 7.483 H POC ABG pCO2 26.2 L POC ABG pO2 ABG pO2 ABG Oxyhemoglobin ABG Potassium ABG Chloride 114.0 H ABG Glucose 296 H Carboxyhemoglobin 0.1 L Sodium Potassium Chloride Carbon Dioxide BUN Glucose POC Glucose 290 H 271 H Hemoglobin A1c Lactic Acid Calcium Ferritin AST ALT Lactate Dehydrogenase C-Reactive Protein Total Protein Albumin Arterial Blood Glucose 296 H Coronavirus (PCR) 04/20/21 04/20/21 04/20/21 10:21 10:21 10:21 RBC MCH MCHC RDW Lymph % (Auto) Humphreys % (Auto) Lymph # (Auto) Humphreys # (Auto) Seg Neutrophils % D-Dimer ABG pH POC ABG pCO2 POC ABG pO2 ABG pO2 ABG Oxyhemoglobin ABG Potassium ABG Chloride ABG Glucose Carboxyhemoglobin Sodium Potassium Chloride 113.7 H Carbon Dioxide 19 L BUN 38 H Glucose 266 H POC Glucose Hemoglobin A1c 8.0 H Lactic Acid 3.10 H* Calcium Ferritin AST 79 H ALT 58 H Lactate Dehydrogenase C-Reactive Protein Total Protein Albumin 2.6 L Arterial Blood Glucose Coronavirus (PCR) 04/20/21 04/20/21 04/20/21 10:21 11:05 15:24 RBC MCH 34 H MCHC 35 H RDW 12.9 L Lymph % (Auto) Humphreys % (Auto) Lymph # (Auto) Humphreys # (Auto) Seg Neutrophils % D-Dimer ABG pH POC ABG pCO2 POC ABG pO2 ABG pO2 ABG Oxyhemoglobin ABG Potassium ABG Chloride ABG Glucose Carboxyhemoglobin Sodium Potassium Chloride Carbon Dioxide BUN Glucose POC Glucose 233 H Hemoglobin A1c Lactic Acid 2.50 H* Calcium Ferritin AST ALT Lactate Dehydrogenase C-Reactive Protein Total Protein Albumin Arterial Blood Glucose Coronavirus (PCR) 04/20/21 04/20/21 04/20/21 17:25 20:56 23:11 RBC MCH MCHC RDW Lymph % (Auto) Humphreys % (Auto) Lymph # (Auto) Humphreys # (Auto) Seg Neutrophils % D-Dimer ABG pH POC ABG pCO2 POC ABG pO2 ABG pO2 ABG Oxyhemoglobin ABG Potassium ABG Chloride ABG Glucose Carboxyhemoglobin Sodium Potassium Chloride Carbon Dioxide BUN Glucose POC Glucose 262 H 321 H Hemoglobin A1c Lactic Acid 2.80 H* Calcium Ferritin AST ALT Lactate Dehydrogenase C-Reactive Protein Total Protein Albumin Arterial Blood Glucose Coronavirus (PCR) 04/21/21 04/21/21 04/21/21 04:11 04:24 04:24 RBC 3.55 L MCH 33 H MCHC RDW 12.8 L Lymph % (Auto) Humphreys % (Auto) Lymph # (Auto) Humphreys # (Auto) Seg Neutrophils % D-Dimer ABG pH 7.479 H POC ABG pCO2 28.9 L POC ABG pO2 75.6 L ABG pO2 ABG Oxyhemoglobin ABG Potassium ABG Chloride 113.0 H ABG Glucose 331 H Carboxyhemoglobin 0.1 L Sodium Potassium Chloride 113.1 H Carbon Dioxide 18 L BUN 36 H Glucose 342 H POC Glucose Hemoglobin A1c Lactic Acid Calcium 8.1 L Ferritin AST 52 H ALT Lactate Dehydrogenase C-Reactive Protein Total Protein 6.1 L Albumin 2.7 L Arterial Blood Glucose 331 H Coronavirus (PCR) 04/21/21 04/21/21 04/21/21 05:22 11:57 18:16 RBC MCH MCHC RDW Lymph % (Auto) Humphreys % (Auto) Lymph # (Auto) Humphreys # (Auto) Seg Neutrophils % D-Dimer ABG pH POC ABG pCO2 POC ABG pO2 ABG pO2 ABG Oxyhemoglobin ABG Potassium ABG Chloride ABG Glucose Carboxyhemoglobin Sodium Potassium Chloride Carbon Dioxide BUN Glucose POC Glucose 269 H 258 H 313 H Hemoglobin A1c Lactic Acid Calcium Ferritin AST ALT Lactate Dehydrogenase C-Reactive Protein Total Protein Albumin Arterial Blood Glucose Coronavirus (PCR) 04/21/21 04/22/21 04/22/21 23:38 04:19 04:19 RBC MCH 33 H MCHC RDW 12.9 L Lymph % (Auto) Humphreys % (Auto) Lymph # (Auto) Humphreys # (Auto) Seg Neutrophils % D-Dimer ABG pH POC ABG pCO2 POC ABG pO2 ABG pO2 ABG Oxyhemoglobin ABG Potassium ABG Chloride ABG Glucose Carboxyhemoglobin Sodium Potassium Chloride 108.0 H Carbon Dioxide 21 L BUN 31 H Glucose 261 H POC Glucose 298 H Hemoglobin A1c Lactic Acid Calcium Ferritin AST ALT Lactate Dehydrogenase C-Reactive Protein Total Protein Albumin Arterial Blood Glucose Coronavirus (PCR) 04/22/21 04/22/21 04/22/21 05:15 10:42 10:58 RBC MCH MCHC RDW Lymph % (Auto) Humphreys % (Auto) Lymph # (Auto) Humphreys # (Auto) Seg Neutrophils % D-Dimer 1848.39 H ABG pH POC ABG pCO2 POC ABG pO2 ABG pO2 ABG Oxyhemoglobin ABG Potassium ABG Chloride ABG Glucose Carboxyhemoglobin Sodium Potassium Chloride Carbon Dioxide BUN Glucose POC Glucose 214 H 171 H Hemoglobin A1c Lactic Acid Calcium Ferritin AST ALT Lactate Dehydrogenase C-Reactive Protein Total Protein Albumin Arterial Blood Glucose Coronavirus (PCR) Chest x-ray: image reviewed (no acute infiltrate; ETT in good position) Allied health notes reviewed: nursing
[2021-04-22 13:19] LABS: C-Reactive Protein 1.2 mg/dL (0.00-1.30)
--- NOTE | 2021-04-22 14:58 | Vascular Lab Report ---
DUPLEX DOPPLER LOWER EXTREMITY VEINS, BILATERAL INDICATION: Swelling, shortness of breath.. TECHNIQUE: Duplex doppler imaging was performed through the veins of both lower extremities using venous sherry rosie and Doppler assessment. COMPARISON: No relevant prior imaging study available. FINDINGS: Right Common femoral vein: Negative. Right Superficial femoral vein: Negative. Right Popliteal vein: Negative. Right Calf veins: Negative. Left Common femoral vein: Negative. Left Superficial femoral vein: Negative. Left Popliteal vein: Negative. Left Calf veins: Negative. Additional findings: None.. IMPRESSION: No sonographic evidence of acute or chronic DVT within the bilateral lower extremities. Signer Name: Dangelo Rg MD Signed: 04/22/2021 2:53 PM Workstation Name: [id number]
--- NOTE | 2021-04-22 17:35 | Progress Note ---
<MANGO BLANTON - Last Filed: 04/22/21 17:30> Assessment and Plan Assessment and plan: This is a 51 years-old female with unknown past medical history admitted with acute hypoxic respiratory failure, COVID-19 PNA, ARDs, Lactic acidosis Neuro: Acute metabolic encephalopathy - 04/18 CT head w/o con showed no acute intracranial process - Fentanyl gtt - Titrate sedation for RASS goal 0 to -1 - Daily SAT and SBT per CCM - Prn analgesia for CPOT greater than 3 - Maintenance of sleep-wake cycle, avoid delirium - Avoid benzodiazepine to reduce the possibility of delirium CV: Bradycardia - SB to NSR on the monitor -Amlodipine restarted for hypertension - As needed hydralazine - Blood pressure monitoring per protocol Resp: Acute hypoxemic respiratory failure, ARDS secondary to COVID pneumonia, Respiratory alkalosis - Cxr shows B infiltrates - Intubated on 04/18 with 7.5 OETT @ 20 (advanced to 24) - AM vent settings: AC R 30, TV 350, PEEP 8, FiO2 40% - Wean FiO2 as tolerated for SPO2> 90% -See RT notes for titration -Decrease in rate, increase in PEEP per CCM - Daily SAT and SBT trial per CCM - Daily ABG and CXR - VAP bundle - Aspiration precautions HOB>30 - Lung protective strategies, continue to monitor airway pressures - CCM consulted, appreciate recommendations GI: NAP - Enteral nutrition initiated - Nutrition consult for TF management - BR- senokot - Pepcid - 24 hours -530 : NAD - FWF 100ml q4 - s/p D5 1/2 NS - Purewick in place - Strict intake and output - Avoid nephrotoxic medications; Renally dose medications - Conservative fluid management, keep negative fluid balance as tolerated by hemodynamics and renal function - Monitor and replace electrolytes as needed ID: Sepsis, COVID Pneumonia, Bilateral Pneumonia, Lactic Acidosis - CXR showed bilateral pneumonia - COVID PCR positive - ID consulted, appreciate recommendations - follow culture data - Decadron 6 mg (04/18-04/27) - Remdesivir (04/19-04/23) - 04/21 Actemra - Trend COVId 19 inflammatory markers ferritin, Ddimer, CRP, LDH - Empiric ABx- Ceftriaxone and azithromycin per ID (04/18-04/22) - Monitor fever curve Endo: Hyperglycemia - SSI - Lantus, titrate as needed - HbgA1c 8 - While critically ill target blood glucose of 140-180 - Avoid hypoglycemia Heme: Elevated D-dimer -D-dimer 1848 on 04/22 -Bilateral lower extremity Doppler ultrasound shows no acute or chronic DVT/SVT -Enoxaparin 30 mg twice daily -Bilateral lower extremities with SCDs The high probability of a clinically significant, sudden or life threatening deterioration of the [multiple] system(s) required my full and direct attention, intervention and personal management. The aggregate critical care time was [60] minutes. This time is in addition to time spent performing reported procedures but includes the following: [x] Data Review and interpretation [x] Patient assessment and monitoring of vital signs [x] Documentation [x] Medication orders and management Disposition Plan: ICU Total Time Spent with Patient (Minutes): 60 Disposition Plan: ICU Total Time Spent with Patient (Minutes): 60 History Interval history: This is a 51 years-old female with unknown past medical history presented to [facility] on 04/18 with altered mental status. Upon her arrival in the ED her SPO2 was in the 40%, she was first placed on a NRB then was subsequently intubated due to acute hypoxic respiratory failure. As of note, patient was diagnosed with COVID 4days prior this admission. Patient was admitted in the ICU for further management. 04/19/21- Patient is intubated and sedated RASS -3 to -4. SB to low SR on the monitor, hemodynamics stable and not on any pressors, will continue to monitor. Hypokalemia was repleted. TF was initiated, plan to D/C IVF once TF is at goal. Hyperglycemia noted, high scale SSI and qHS lantus added, A1c ordered. 04/20/21- Patient remains intubated amd off sedation, RASS 0 to -1. Remains SB on the monitor, hemodynamic stable. Increased in lactic acid this am, slight increased in LFTs, WBCs stable, kidney function is stable. Will repeat lactic in 4hours and continue to monitor. Patient is net +1537 cc in last 24hrs, will hold IVF for now to keep patient net negative fluid balance.Will continue to monitor renal function and electrolytes. 04/21: SB on monitor, remains on fentanyl gtt, OETT advanced. ID prescribed actemra 04/22: Repeat D-dimer elevated and bilateral lower extremity Doppler ultrasound ordered which showed no DVT. Antibiotics stopped by ID given normal CRP. Patient's rate was decreased and PEEP increased on ventilator per [facility] Hospitalist Physical - Constitutional Vitals: Temp Pulse Resp BP Pulse Ox 98.6 F 64 11 L 135/80 92 04/22/21 16:00 04/22/21 17:00 04/22/21 17:00 04/22/21 17:00 04/22/21 17:00 General appearance: Present: no acute distress, other (Downsy) - EENT Eyes: Present: PERRL, EOM intact ENT: dentition normal - Neck Neck: Present: normal ROM - Respiratory Respiratory effort: normal Respiratory: bilateral: diminished - Cardiovascular Rhythm: regular Heart Sounds: Present: S1 & S2. Absent: systolic murmur, diastolic murmur - Extremities Extremities: no ischemia, pulses intact, pulses symmetrical, No edema, normal temperature, normal color Peripheral Pulses: within normal limits - Abdominal General gastrointestinal: soft, non-tender, non-distended, normal bowel sounds - Integumentary Integumentary: Present: warm, dry - Psychiatric Psychiatric: other (Sedated) - Neurologic Neurologic: moves all extremities - Allied Health Allied health notes reviewed: nursing, RT, social work Results - Labs CBC & Chem 7: 04/22/21 04:19 04/22/21 10:58 Labs: Laboratory Last Values WBC 9.4 K/mm3 (4.5-11.0) 04/22/21 04:19 RBC 3.67 M/mm3 (3.65-5.03) 04/22/21 04:19 Hgb 12.2 gm/dl (10.1-14.3) 04/22/21 04:19 Hct 35.6 % (30.3-42.9) 04/22/21 04:19 MCV 97 fl (79-97) 04/22/21 04:19 MCH 33 pg (28-32) H 04/22/21 04:19 MCHC 34 % (30-34) 04/22/21 04:19 RDW 12.9 % (13.2-15.2) L 04/22/21 04:19 Plt Count 215 K/mm3 (140-440) 04/22/21 04:19 Lymph % (Auto) 12.5 % (13.4-35.0) L 04/19/21 05:36 [place] % (Auto) 9.4 % (0.0-7.3) H 04/19/21 05:36 Eos % (Auto) 0.0 % (0.0-4.3) 04/19/21 05:36 Baso % (Auto) 0.2 % (0.0-1.8) 04/19/21 05:36 Lymph # (Auto) 1.0 K/mm3 (1.2-5.4) L 04/19/21 05:36 [place] # (Auto) 0.8 K/mm3 (0.0-0.8) 04/19/21 05:36 Eos # (Auto) 0.0 K/mm3 (0.0-0.4) 04/19/21 05:36 Baso # (Auto) 0.0 K/mm3 (0.0-0.1) 04/19/21 05:36 Add Manual Diff Complete 04/19/21 05:36 Seg Neutrophils % 77.9 % (40.0-70.0) H 04/19/21 05:36 Nucleated RBC % Not Reportable 04/19/21 05:36 Seg Neutrophils # 6.4 K/mm3 (1.8-7.7) 04/19/21 05:36 WBC Morphology Not Reportable 04/19/21 05:36 Hypersegmented Neuts Not Reportable 04/19/21 05:36 Hyposegmented Neuts Not Reportable 04/19/21 05:36 Hypogranular Neuts Not Reportable 04/19/21 05:36 Smudge Cells Not Reportable 04/19/21 05:36 Toxic Granulation Not Reportable 04/19/21 05:36 Toxic Vacuolation Not Reportable 04/19/21 05:36 Dohle Bodies Not Reportable 04/19/21 05:36 Pelger-Huet Anomaly Not Reportable 04/19/21 05:36 Santana Rods Not Reportable 04/19/21 05:36 Platelet Estimate Not Reportable 04/19/21 05:36 Clumped Platelets Not Reportable 04/19/21 05:36 Plt Clumps, EDTA Not Reportable 04/19/21 05:36 Large Platelets Not Reportable 04/19/21 05:36 Giant Platelets Not Reportable 04/19/21 05:36 Platelet Satelliting Not Reportable 04/19/21 05:36 Plt Morphology Comment Not Reportable 04/19/21 05:36 RBC Morphology Not Reportable 04/19/21 05:36 Dimorphic RBCs Not Reportable 04/19/21 05:36 Polychromasia Not Reportable 04/19/21 05:36 Hypochromasia Not Reportable 04/19/21 05:36 Poikilocytosis Not Reportable 04/19/21 05:36 Anisocytosis Not Reportable 04/19/21 05:36 Microcytosis Not Reportable 04/19/21 05:36 Macrocytosis Not Reportable 04/19/21 05:36 Spherocytes Not Reportable 04/19/21 05:36 Pappenheimer Bodies Not Reportable 04/19/21 05:36 Sickle Cells Not Reportable 04/19/21 05:36 Target Cells Not Reportable 04/19/21 05:36 Tear Drop Cells Not Reportable 04/19/21 05:36 Ovalocytes Not Reportable 04/19/21 05:36 Helmet Cells Not Reportable 04/19/21 05:36 Calvo-Gisela Bodies Not Reportable 04/19/21 05:36 Clifford Rings Not Reportable 04/19/21 05:36 Clyde Cells Not Reportable 04/19/21 05:36 Bite Cells Not Reportable 04/19/21 05:36 Crenated Cell Not Reportable 04/19/21 05:36 Elliptocytes Not Reportable 04/19/21 05:36 Acanthocytes (Spur) Not Reportable 04/19/21 05:36 Rouleaux Not Reportable 04/19/21 05:36 Hemoglobin C Crystals Not Reportable 04/19/21 05:36 Schistocytes Not Reportable 04/19/21 05:36 Malaria parasites Not Reportable 04/19/21 05:36 Hubert Bodies Not Reportable 04/19/21 05:36 Hem Pathologist Commnt Not Reportable 04/19/21 05:36 PT 14.5 Sec. (12.2-14.9) 04/19/21 05:36 INR 1.02 (0.87-1.13) 04/19/21 05:36 APTT 34.2 Sec. (24.2-36.6) 04/18/21 02:34 D-Dimer 1848.39 ng/mlDDU (0-234) H 04/22/21 10:58 ABG pH 7.479 (7.320-7.450) H 04/22/21 04:00 POC ABG pCO2 30.5 mmHg (32.0-48.0) L 04/22/21 04:00 ABG pCO2 29.4 mm Hg 04/18/21 04:20 POC ABG pO2 67.9 mmHg (83-108) L 04/22/21 04:00 ABG pO2 154.9 mm Hg (80.0-90.0) H 04/18/21 04:20 POC ABG HCO3 22.2 04/22/21 04:00 ABG HCO3 20.8 mmol/L (20.0-26.0) 04/18/21 04:20 ABG O2 Saturation 94 (0-100) 04/22/21 04:00 ABG O2 Content 16.7 (0.0-44) 04/18/21 04:20 POC ABG Base Excess -0.3 04/22/21 04:00 ABG Base Excess -2.0 mmol/L (-2.0-3.0) 04/18/21 04:20 ABG Hemoglobin 14.4 (12.0-17.5) 04/22/21 04:00 ABG Oxyhemoglobin 14.4 (94-98) L 04/22/21 04:00 ABG Carboxyhemoglobin 1.2 % (0.0-5.0) 04/18/21 04:20 ABG Methemoglobin 0.3 (0.0-1.5) 04/22/21 04:00 ABG Sodium 138.2 mmol/L (136.0-145.0) 04/22/21 04:00 ABG Potassium 4.1 mmol/L (3.40-4.50) 04/22/21 04:00 ABG Chloride 108.0 mmol/L (98-107) H 04/22/21 04:00 ABG Glucose 212 mg/dL (65-95) H 04/22/21 04:00 Oxyhemoglobin 97.3 % (95.0-99.0) 04/18/21 04:20 Carboxyhemoglobin 1.1 (0.5-1.5) 04/22/21 04:00 FiO2 100 % 04/18/21 04:20 FiO2 % 35 04/22/21 04:00 Sodium 140 mmol/L (137-145) 04/22/21 04:19 Potassium 4.3 mmol/L (3.6-5.0) 04/22/21 04:19 Chloride 108.0 mmol/L (98-107) H 04/22/21 04:19 Carbon Dioxide 21 mmol/L (22-30) L 04/22/21 04:19 Anion Gap 15 mmol/L 04/22/21 04:19 BUN 31 mg/dL (7-17) H 04/22/21 04:19 Creatinine 0.7 mg/dL (0.6-1.2) 04/22/21 04:19 Estimated GFR > 60 ml/min 04/22/21 04:19 BUN/Creatinine Ratio 44 % 04/22/21 04:19 Glucose 201 mg/dL (65-100) H 04/22/21 10:58 POC Glucose 171 mg/dL (70-105) H 04/22/21 10:42 Hemoglobin A1c 8.0 % (4-6) H 04/20/21 10:21 Lactic Acid 1.70 mmol/L (0.7-2.0) 04/22/21 10:58 Calcium 8.4 mg/dL (8.4-10.2) 04/22/21 04:19 Phosphorus 3.00 mg/dL (2.5-4.5) 04/22/21 04:19 Magnesium 2.30 mg/dL (1.7-2.3) 04/22/21 04:19 Ferritin 1402.0 ng/mL (10.0-200.0) H 04/22/21 10:58 Total Bilirubin 0.30 mg/dL (0.1-1.2) 04/21/21 04:24 AST 52 units/L (5-40) H 04/21/21 04:24 ALT 55 units/L (7-56) 04/21/21 04:24 Alkaline Phosphatase 67 units/L (35-129) 04/21/21 04:24 Ammonia 25.0 umol/L (25-60) 04/18/21 02:34 Lactate Dehydrogenase 524 units/L (91-180) H 04/22/21 10:58 Total Creatine Kinase 68 units/L (30-135) 04/18/21 02:34 C-Reactive Protein 1.20 mg/dL (0.00-1.30) 04/22/21 10:58 Total Protein 6.1 g/dL (6.3-8.2) L 04/21/21 04:24 Albumin 2.7 g/dL (3.9-5) L 04/21/21 04:24 Albumin/Globulin Ratio 0.8 % 04/21/21 04:24 Procalcitonin 0.12 ng/mL (<0.15) 04/22/21 10:58 Arterial Blood Glucose 212 mg/dL (65-95) H 04/22/21 04:00 Urine Color Yellow (Yellow) 04/18/21 04:25 Urine Turbidity Clear (Clear) 04/18/21 04:25 Urine pH 5.0 (5.0-7.0) 04/18/21 04:25 Ur Specific [place] 1.018 (1.003-1.030) 04/18/21 04:25 Urine Protein 100 mg/dl mg/dL (Negative) 04/18/21 04:25 Urine Glucose (UA) Neg mg/dL (Negative) 04/18/21 04:25 Urine Ketones Tr mg/dL (Negative) 04/18/21 04:25 Urine Blood Neg (Negative) 04/18/21 04:25 Urine Nitrite Neg (Negative) 04/18/21 04:25 Ur Reducing Substances Not Reportable 04/18/21 04:25 Urine Bilirubin Neg (Negative) 04/18/21 04:25 Urine Ictotest Not Reportable 04/18/21 04:25 Urine Urobilinogen 2.0 mg/dL (<2.0) 04/18/21 04:25 Ur Leukocyte Esterase Neg (Negative) 04/18/21 04:25 Urine WBC (Auto) 2.0 /HPF (0.0-6.0) 04/18/21 04:25 Urine RBC (Auto) 3.0 /HPF (0.0-6.0) 04/18/21 04:25 Hyaline Casts 3 /LPF 04/18/21 04:25 Urine Mucus Few /HPF 04/18/21 04:25 Plasma/Serum Alcohol < 0.01 % (0-0.07) 04/18/21 02:34 Coronavirus (PCR) Positive (Negative) A 04/19/21 09:00 Microbiology: Microbiology 04/18/21 02:38 Peripheral/Venous Blood Culture - Preliminary NO GROWTH AFTER 4 DAYS 04/18/21 02:34 Peripheral/Venous Blood Culture - Preliminary NO GROWTH AFTER 4 DAYS Franco/IV: Voiding Method Indwelling Catheter Active Medications - Current Medications Current Medications: Generic Name Dose Route Start Last Admin Trade Name Freq PRN Reason Stop Dose Admin Acetaminophen 650 mg 04/18/21 04:13 Acetaminophen 650 Mg Rect Supp AL Q6H PRN Pain MILD(1-3)/Fever >100.5/ASENCIO Amlodipine Besylate 10 mg 04/22/21 11:00 04/22/21 10:32 Amlodipine 10 Mg Tab FEEDTUBE 10 mg DAILY REJI Administration Lipase/Protease/Amylase 1 each 04/19/21 12:25 Lipase 10,500/Protease 25,000/Amylase 43,750 (Units) Dr Cap FEEDTUBE PRN PRN For Clogged Feeding Tube Dexamethasone 6 mg 04/18/21 10:00 04/22/21 09:31 Dexamethasone 4 Mg/Ml Vial IV 04/27/21 10:01 6 mg Q24HR REJI Administration Dextrose 50 ml 04/20/21 10:34 Dextrose 50% In Water (25gm) 50 Ml Syringe IV Q30MIN PRN Hypoglycemia Protocol Enoxaparin Sodium 30 mg 04/19/21 22:00 04/22/21 09:31 Enoxaparin 30 Mg/0.3 Ml Inj SUB-Q 30 mg BID REJI Administration Protocol Famotidine 20 mg 04/21/21 10:00 04/22/21 09:31 Famotidine 20 Mg Tab FEEDTUBE 20 mg BID REJI Administration Fentanyl 50 mcg 04/19/21 09:59 Fentanyl 100 Mcg/2 Ml Inj IV Q10MIN PRN ANALGESIA Hydralazine HCl 10 mg 04/22/21 10:08 04/22/21 10:26 Hydralazine 20 Mg/1 Ml Inj IV 10 mg Q4HR PRN Administration sbp> 160 Hydrochlorothiazide 12.5 mg 04/22/21 11:00 04/22/21 10:33 Hydrochlorothiazide 12.5 Mg Cap FEEDTUBE 12.5 mg QAM REJI Administration Hydrophilic Ointment 1 applic 04/18/21 03:03 Lip Therapy Vaseline TP Q2HR PRN Dry Lips REMDESIVIR 100 mg/ Sodium 250 mls @ 500 mls/hr 04/19/21 21:00 04/21/21 21:11 Chloride IV 04/22/21 21:29 500 mls/hr Q24HR@2100 [facility] Administration Fentanyl Citrate 2,000 mcg in 100 mls @ 3.175 mls/hr 04/19/21 10:00 04/22/21 10:27 Fentanyl Drip Premix IV 2 mcg/kg/hr TITR REJI 6.35 mls/hr Administration Protocol 1 MCG/KG/HR Propofol 1,000 mg in 100 mls @ 1.905 mls/hr 04/19/21 13:00 Diprivan 10 Mg/Ml IV TITR [facility] Protocol 5 MCG/KG/MIN Insulin Glargine 20 units 04/22/21 22:00 Insulin Glargine 100 Units/Ml SUB-Q QHS [facility] Insulin Human Lispro 0 unit 04/22/21 10:00 04/22/21 15:54 Insulin Lispro 100 Unit/Ml SUB-Q Not Given Q4HR [facility] Protocol Losartan Potassium 50 mg 04/22/21 11:00 04/22/21 10:32 Losartan 50 Mg Tab FEEDTUBE 50 mg QDAY [facility] Administration Morphine Sulfate 2 mg 04/18/21 04:13 Morphine 2 Mg/1 Ml Inj IV Q4H PRN Pain, Moderate (4-6) Morphine Sulfate 4 mg 04/18/21 04:13 Morphine 4 Mg/1 Ml Inj IV Q4H PRN Pain , Severe (7-10) Multi-Ingred Cream/Lotion/Oil/Oint 1 applic 04/18/21 03:03 Mineral Oil/Petrolatum, White Ophth Oint 3.5 Gm OU Q4HR PRN Dry Eye(s) Ondansetron HCl 4 mg 04/18/21 04:13 Ondansetron 4 Mg/2 Ml Inj IV Q8H PRN Nausea And Vomiting Senna 8.8 mg 04/19/21 22:00 04/21/21 21:10 Sennosides Oral Liqd 8.8 Mg/5 Ml Oral Liqd PO 8.8 mg QHS [facility] Administration Simple Syrup 15 ml 04/19/21 12:25 Simple Syrup 15 Ml FEEDTUBE PRN PRN Hypoglycemia Simple Syrup 30 ml 04/19/21 12:25 Simple Syrup 15 Ml FEEDTUBE PRN PRN Hypoglycemia Sodium Bicarbonate 325 mg 04/19/21 12:25 Sodium Bicarbonate 325 Mg Tab FEEDTUBE PRN PRN For Clogged Feeding Tube Sodium Chloride 10 ml 04/18/21 10:00 04/22/21 09:30 Sodium Chloride 0.9% 10 Ml Flush Syringe IV 10 ml BID REJI Administration Sodium Chloride 10 ml 04/18/21 04:13 Sodium Chloride 0.9% 10 Ml Flush Syringe IV PRN PRN LINE FLUSH Sodium Chloride 50 ml 04/18/21 11:00 04/21/21 21:11 Sodium Chloride 0.9% 50 Ml Ivpb IV 04/22/21 21:01 50 ml Q24HR@2100 REJI Administration Nutrition/Malnutrition Assess - Dietary Evaluation Nutrition/Malnutrition Findings: Nutrition Notes Start: 04/18/21 08:28 Freq: Status: Active Protocol: Document 04/21/21 15:58 GB (Rec: 04/21/21 16:06 GB [id number]) Nutrition Notes Initial or Follow up Reassessment Current Diagnosis Sepsis,Respiratory Failure Other Pertinent Diagnosis COVID-19 (+), bilat pneu, AMS Current Diet NPO, TF Vital AF 1.2 @ 50 Labs/Tests 04/21: BUN 36, Glucose 342, Ca 8.1, AST 52 Pertinent Medications Azithromycin, fentanyl Citrate , remdemsivir/NaCl Height 5 ft 2 in Weight 68.6 kg [place] Body Weight (kg) 50.00 BMI 27.6 Weight change and time frame 04/18: 63.503kg 04/20: 68.6kg change of +5.097kg for +8% gain. Weight Status Overweight Subjective/Other Information MD notes 04/21: vented, off pressors, kidney function stable Percent of energy/protein needs met: TF at goal rate meets 75% or greater of EEN Burn Absent Trauma Absent GI Symptoms None Difficulty In Swallowing Food Allergy No Skin Integrity/Comment no complications reported Current % PO Other Minimum of two criteria No #1 Nutrition Diagnosis Swallowing difficulty Comments: 04/21: TF Vital AF 1.2 @50ml/ hr, vented, off pressors Etiology COVID+, respiratory Failure As Evidenced by Signs and Symptoms Intubated, NPO Diagnosis Progress(for reassessment Continues documentation) Is patient on ventilator? Yes Is Patient Ambulatory and/or Out of Bed No REE-([place]-confined to bed) 1503.264 Kcal/Kg value to use for calculation 25 Approximate Energy Requirements Using 1715 kcal/Kg Calculation Used for Recommendations [facility] Additional Notes Pro needs 1.2-2g/kg (63.5kg): 76-127g/day Fluid needs 1ml/kcal Nutrition Intervention Change Diet Order: NPO - continue Post extubation - advance clear to Regular Nutrition Support: Vital AF 1.2 at 50ml/hr with 100ml water flush q4h or per MD order. Kcal 1,440 Protein (gm) 90 Carbohydrates (gm) 133 Fat (gm) 65 Fluid (mL) 973 Fiber (gm) 6 Goal #1 TF tolerance 04/21: met, continues Goal #2 TF to meet at least 75% energy and pro needs 04/21: TF at goal, met, continues Anticipated Discharge Needs: Unable to identify at this time Follow-Up By: 04/24/21 Additional Comments F/U: TF, vent status <DINORAH EMERSON - Last Filed: 04/23/21 14:09> Assessment and Plan Assessment and plan: I saw and evaluated the patient. Discussed with the nurse practitioner and agree with their findings and plan as documented in this note. Hospitalist Physical - Constitutional Vitals: Temp Pulse Resp BP Pulse Ox 99.1 F 89 14 151/100 95 04/23/21 12:12 04/23/21 12:15 04/23/21 11:00 04/23/21 12:15 04/23/21 12:15 Results - Labs CBC & Chem 7: 04/23/21 04:17 04/23/21 04:17 Labs: Laboratory Last Values WBC 16.6 K/mm3 (4.5-11.0) H 04/23/21 04:17 RBC 4.08 M/mm3 (3.65-5.03) 04/23/21 04:17 Hgb 12.8 gm/dl (10.1-14.3) 04/23/21 04:17 Hct 38.7 % (30.3-42.9) 04/23/21 04:17 MCV 95 fl (79-97) 04/23/21 04:17 MCH 32 pg (28-32) 04/23/21 04:17 MCHC 33 % (30-34) 04/23/21 04:17 RDW 13.0 % (13.2-15.2) L 04/23/21 04:17 Plt Count 293 K/mm3 (140-440) 04/23/21 04:17 Lymph % (Auto) 12.5 % (13.4-35.0) L 04/19/21 05:36 [place] % (Auto) 9.4 % (0.0-7.3) H 04/19/21 05:36 Eos % (Auto) 0.0 % (0.0-4.3) 04/19/21 05:36 Baso % (Auto) 0.2 % (0.0-1.8) 04/19/21 05:36 Lymph # (Auto) 1.0 K/mm3 (1.2-5.4) L 04/19/21 05:36 [place] # (Auto) 0.8 K/mm3 (0.0-0.8) 04/19/21 05:36 Eos # (Auto) 0.0 K/mm3 (0.0-0.4) 04/19/21 05:36 Baso # (Auto) 0.0 K/mm3 (0.0-0.1) 04/19/21 05:36 Add Manual Diff Complete 04/19/21 05:36 Seg Neutrophils % 77.9 % (40.0-70.0) H 04/19/21 05:36 Nucleated RBC % Not Reportable 04/19/21 05:36 Seg Neutrophils # 6.4 K/mm3 (1.8-7.7) 04/19/21 05:36 WBC Morphology Not Reportable 04/19/21 05:36 Hypersegmented Neuts Not Reportable 04/19/21 05:36 Hyposegmented Neuts Not Reportable 04/19/21 05:36 Hypogranular Neuts Not Reportable 04/19/21 05:36 Smudge Cells Not Reportable 04/19/21 05:36 Toxic Granulation Not Reportable 04/19/21 05:36 Toxic Vacuolation Not Reportable 04/19/21 05:36 Dohle Bodies Not Reportable 04/19/21 05:36 Pelger-Huet Anomaly Not Reportable 04/19/21 05:36 Santana Rods Not Reportable 04/19/21 05:36 Platelet Estimate Not Reportable 04/19/21 05:36 Clumped Platelets Not Reportable 04/19/21 05:36 Plt Clumps, EDTA Not Reportable 04/19/21 05:36 Large Platelets Not Reportable 04/19/21 05:36 Giant Platelets Not Reportable 04/19/21 05:36 Platelet Satelliting Not Reportable 04/19/21 05:36 Plt Morphology Comment Not Reportable 04/19/21 05:36 RBC Morphology Not Reportable 04/19/21 05:36 Dimorphic RBCs Not Reportable 04/19/21 05:36 Polychromasia Not Reportable 04/19/21 05:36 Hypochromasia Not Reportable 04/19/21 05:36 Poikilocytosis Not Reportable 04/19/21 05:36 Anisocytosis Not Reportable 04/19/21 05:36 Microcytosis Not Reportable 04/19/21 05:36 Macrocytosis Not Reportable 04/19/21 05:36 Spherocytes Not Reportable 04/19/21 05:36 Pappenheimer Bodies Not Reportable 04/19/21 05:36 Sickle Cells Not Reportable 04/19/21 05:36 Target Cells Not Reportable 04/19/21 05:36 Tear Drop Cells Not Reportable 04/19/21 05:36 Ovalocytes Not Reportable 04/19/21 05:36 Helmet Cells Not Reportable 04/19/21 05:36 Calvo-Gisela Bodies Not Reportable 04/19/21 05:36 Clifford Rings Not Reportable 04/19/21 05:36 Clyde Cells Not Reportable 04/19/21 05:36 Bite Cells Not Reportable 04/19/21 05:36 Crenated Cell Not Reportable 04/19/21 05:36 Elliptocytes Not Reportable 04/19/21 05:36 Acanthocytes (Spur) Not Reportable 04/19/21 05:36 Rouleaux Not Reportable 04/19/21 05:36 Hemoglobin C Crystals Not Reportable 04/19/21 05:36 Schistocytes Not Reportable 04/19/21 05:36 Malaria parasites Not Reportable 04/19/21 05:36 Hubert Bodies Not Reportable 04/19/21 05:36 Hem Pathologist Commnt Not Reportable 04/19/21 05:36 PT 14.5 Sec. (12.2-14.9) 04/19/21 05:36 INR 1.02 (0.87-1.13) 04/19/21 05:36 APTT 34.2 Sec. (24.2-36.6) 04/18/21 02:34 D-Dimer 1848.39 ng/mlDDU (0-234) H 04/22/21 10:58 ABG pH 7.434 pH Units (7.350-7.450) 04/22/21 21:40 POC ABG pCO2 30.5 mmHg (32.0-48.0) L 04/22/21 04:00 ABG pCO2 41.3 mm Hg 04/22/21 21:40 POC ABG pO2 67.9 mmHg (83-108) L 04/22/21 04:00 ABG pO2 74.6 mm Hg (80.0-90.0) L 04/22/21 21:40 POC ABG HCO3 22.2 04/22/21 04:00 ABG HCO3 27.0 mmol/L (20.0-26.0) H 04/22/21 21:40 ABG O2 Saturation 95.7 % (95.0-99.0) 04/22/21 21:40 ABG O2 Content 18.2 (0.0-44) 04/22/21 21:40 POC ABG Base Excess -0.3 04/22/21 04:00 ABG Base Excess 2.5 mmol/L (-2.0-3.0) 04/22/21 21:40 ABG Hemoglobin 13.8 gm/dl (12.0-16.0) 04/22/21 21:40 ABG Oxyhemoglobin 14.4 (94-98) L 04/22/21 04:00 ABG Carboxyhemoglobin 1.4 % (0.0-5.0) 04/22/21 21:40 ABG Methemoglobin 0.4 % (0.0-1.5) 04/22/21 21:40 ABG Sodium 138.2 mmol/L (136.0-145.0) 04/22/21 04:00 ABG Potassium 4.1 mmol/L (3.40-4.50) 04/22/21 04:00 ABG Chloride 108.0 mmol/L (98-107) H 04/22/21 04:00 ABG Glucose 212 mg/dL (65-95) H 04/22/21 04:00 Oxyhemoglobin 93.9 % (95.0-99.0) L 04/22/21 21:40 Carboxyhemoglobin 1.1 (0.5-1.5) 04/22/21 04:00 FiO2 35 % 04/22/21 21:40 FiO2 % 35 04/22/21 04:00 Sodium 136 mmol/L (137-145) L 04/23/21 04:17 Potassium 4.4 mmol/L (3.6-5.0) 04/23/21 04:17 Chloride 100.5 mmol/L (98-107) 04/23/21 04:17 Carbon Dioxide 24 mmol/L (22-30) 04/23/21 04:17 Anion Gap 16 mmol/L 04/23/21 04:17 BUN 26 mg/dL (7-17) H 04/23/21 04:17 Creatinine 0.7 mg/dL (0.6-1.2) 04/23/21 04:17 Estimated GFR > 60 ml/min 04/23/21 04:17 BUN/Creatinine Ratio 37 % 04/23/21 04:17 Glucose 105 mg/dL (65-100) H 04/23/21 04:17 POC Glucose 220 mg/dL (70-105) H 04/23/21 12:01 Hemoglobin A1c 8.0 % (4-6) H 04/20/21 10:21 Lactic Acid 1.70 mmol/L (0.7-2.0) 04/22/21 10:58 Calcium 8.8 mg/dL (8.4-10.2) 04/23/21 04:17 Phosphorus 3.00 mg/dL (2.5-4.5) 04/22/21 04:19 Magnesium 2.30 mg/dL (1.7-2.3) 04/22/21 04:19 Ferritin 1402.0 ng/mL (10.0-200.0) H 04/22/21 10:58 Total Bilirubin 0.30 mg/dL (0.1-1.2) 04/21/21 04:24 AST 52 units/L (5-40) H 04/21/21 04:24 ALT 55 units/L (7-56) 04/21/21 04:24 Alkaline Phosphatase 67 units/L (35-129) 04/21/21 04:24 Ammonia 25.0 umol/L (25-60) 04/18/21 02:34 Lactate Dehydrogenase 524 units/L (91-180) H 04/22/21 10:58 Total Creatine Kinase 68 units/L (30-135) 04/18/21 02:34 C-Reactive Protein 1.20 mg/dL (0.00-1.30) 04/22/21 10:58 Total Protein 6.1 g/dL (6.3-8.2) L 04/21/21 04:24 Albumin 2.7 g/dL (3.9-5) L 04/21/21 04:24 Albumin/Globulin Ratio 0.8 % 04/21/21 04:24 Procalcitonin 0.12 ng/mL (<0.15) 04/22/21 10:58 Arterial Blood Glucose 212 mg/dL (65-95) H 04/22/21 04:00 Urine Color Yellow (Yellow) 04/18/21 04:25 Urine Turbidity Clear (Clear) 04/18/21 04:25 Urine pH 5.0 (5.0-7.0) 04/18/21 04:25 Ur Specific [place] 1.018 (1.003-1.030) 04/18/21 04:25 Urine Protein 100 mg/dl mg/dL (Negative) 04/18/21 04:25 Urine Glucose (UA) Neg mg/dL (Negative) 04/18/21 04:25 Urine Ketones Tr mg/dL (Negative) 04/18/21 04:25 Urine Blood Neg (Negative) 04/18/21 04:25 Urine Nitrite Neg (Negative) 04/18/21 04:25 Ur Reducing Substances Not Reportable 04/18/21 04:25 Urine Bilirubin Neg (Negative) 04/18/21 04:25 Urine Ictotest Not Reportable 04/18/21 04:25 Urine Urobilinogen 2.0 mg/dL (<2.0) 04/18/21 04:25 Ur Leukocyte Esterase Neg (Negative) 04/18/21 04:25 Urine WBC (Auto) 2.0 /HPF (0.0-6.0) 04/18/21 04:25 Urine RBC (Auto) 3.0 /HPF (0.0-6.0) 04/18/21 04:25 Hyaline Casts 3 /LPF 04/18/21 04:25 Urine Mucus Few /HPF 04/18/21 04:25 Plasma/Serum Alcohol < 0.01 % (0-0.07) 04/18/21 02:34 Coronavirus (PCR) Positive (Negative) A 04/19/21 09:00 Microbiology: Microbiology 04/18/21 02:38 Peripheral/Venous Blood Culture - Final NO GROWTH AFTER 5 DAYS 04/18/21 02:34 Peripheral/Venous Blood Culture - Final NO GROWTH AFTER 5 DAYS Franco/IV: Voiding Method Self-Catheterization Active Medications - Current Medications Current Medications: Generic Name Dose Route Start Last Admin Trade Name Freq PRN Reason Stop Dose Admin Acetaminophen 650 mg 04/18/21 04:13 Acetaminophen 650 Mg Rect Supp AL Q6H PRN Pain MILD(1-3)/Fever >100.5/ASENCIO Amlodipine Besylate 10 mg 04/22/21 11:00 04/23/21 09:42 Amlodipine 10 Mg Tab FEEDTUBE 10 mg DAILY REJI Administration Lipase/Protease/Amylase 1 each 04/19/21 12:25 Lipase 10,500/Protease 25,000/Amylase 43,750 (Units) Dr Cox FEEDTUBE PRN PRN For Clogged Feeding Tube Dexamethasone 6 mg 04/18/21 10:00 04/23/21 09:42 Dexamethasone 4 Mg/Ml Vial IV 04/27/21 10:01 6 mg Q24HR REJI Administration Dextrose 50 ml 04/20/21 10:34 Dextrose 50% In Water (25gm) 50 Ml Syringe IV Q30MIN PRN Hypoglycemia Protocol Enoxaparin Sodium 30 mg 04/19/21 22:00 04/23/21 09:43 Enoxaparin 30 Mg/0.3 Ml Inj SUB-Q 30 mg BID REJI Administration Protocol Famotidine 20 mg 04/21/21 10:00 04/23/21 09:42 Famotidine 20 Mg Tab FEEDTUBE 20 mg BID REJI Administration Fentanyl 50 mcg 04/19/21 09:59 Fentanyl 100 Mcg/2 Ml Inj IV Q10MIN PRN ANALGESIA Hydralazine HCl 10 mg 04/22/21 10:08 04/22/21 10:26 Hydralazine 20 Mg/1 Ml Inj IV 10 mg Q4HR PRN Administration sbp> 160 Hydrochlorothiazide 12.5 mg 04/22/21 11:00 04/23/21 09:42 Hydrochlorothiazide 12.5 Mg Cap FEEDTUBE 12.5 mg QAM REJI Administration Hydrophilic Ointment 1 applic 04/18/21 03:03 Lip Therapy Vaseline TP Q2HR PRN Dry Lips Fentanyl Citrate 2,000 mcg in 100 mls @ 3.175 mls/hr 04/19/21 10:00 04/22/21 22:13 Fentanyl Drip Premix IV 2 mcg/kg/hr TITR REJI 6.35 mls/hr Administration Protocol 1 MCG/KG/HR Propofol 1,000 mg in 100 mls @ 1.905 mls/hr 04/19/21 13:00 Diprivan 10 Mg/Ml IV TITR REJI Protocol 5 MCG/KG/MIN Insulin Glargine 20 units 04/22/21 22:00 04/22/21 22:12 Insulin Glargine 100 Units/Ml SUB-Q 20 units QHS REJI Administration Insulin Human Lispro 0 unit 04/22/21 10:00 04/23/21 12:09 Insulin Lispro 100 Unit/Ml SUB-Q 4 unit Q4HR REJI Administration Protocol Losartan Potassium 50 mg 04/22/21 11:00 04/23/21 09:42 Losartan 50 Mg Tab FEEDTUBE 50 mg QDAY REJI Administration Morphine Sulfate 2 mg 04/18/21 04:13 Morphine 2 Mg/1 Ml Inj IV Q4H PRN Pain, Moderate (4-6) Morphine Sulfate 4 mg 04/18/21 04:13 Morphine 4 Mg/1 Ml Inj IV Q4H PRN Pain , Severe (7-10) Multi-Ingred Cream/Lotion/Oil/Oint 1 applic 04/18/21 03:03 Mineral Oil/Petrolatum, White Ophth Oint 3.5 Gm OU Q4HR PRN Dry Eye(s) Ondansetron HCl 4 mg 04/18/21 04:13 Ondansetron 4 Mg/2 Ml Inj IV Q8H PRN Nausea And Vomiting Senna 8.8 mg 04/19/21 22:00 04/22/21 22:11 Sennosides Oral Liqd 8.8 Mg/5 Ml Oral Liqd PO 8.8 mg QHS REJI Administration Simple Syrup 15 ml 04/19/21 12:25 Simple Syrup 15 Ml FEEDTUBE PRN PRN Hypoglycemia Simple Syrup 30 ml 04/19/21 12:25 Simple Syrup 15 Ml FEEDTUBE PRN PRN Hypoglycemia Sodium Bicarbonate 325 mg 04/19/21 12:25 Sodium Bicarbonate 325 Mg Tab FEEDTUBE PRN PRN For Clogged Feeding Tube Sodium Chloride 10 ml 04/18/21 10:00 04/23/21 09:43 Sodium Chloride 0.9% 10 Ml Flush Syringe IV 10 ml BID REJI Administration Sodium Chloride 10 ml 04/18/21 04:13 Sodium Chloride 0.9% 10 Ml Flush Syringe IV PRN PRN LINE FLUSH Nutrition/Malnutrition Assess - Dietary Evaluation Nutrition/Malnutrition Findings: Nutrition Notes Start: 04/18/21 08:28 Freq: Status: Active Protocol: Document 04/21/21 15:58 GB (Rec: 04/21/21 16:06 GB [email or web address]) Nutrition Notes Initial or Follow up Reassessment Current Diagnosis Sepsis,Respiratory Failure Other Pertinent Diagnosis COVID-19 (+), bilat pneu, AMS Current Diet NPO, TF Vital AF 1.2 @ 50 Labs/Tests 04/21: BUN 36, Glucose 342, Ca 8.1, AST 52 Pertinent Medications Azithromycin, fentanyl Citrate , remdemsivir/NaCl Height 5 ft 2 in Weight 68.6 kg [place] Body Weight (kg) 50.00 BMI 27.6 Weight change and time frame 04/18: 63.503kg 04/20: 68.6kg change of +5.097kg for +8% gain. Weight Status Overweight Subjective/Other Information MD notes 04/21: vented, off pressors, kidney function stable Percent of energy/protein needs met: TF at goal rate meets 75% or greater of EEN Burn Absent Trauma Absent GI Symptoms None Difficulty In Swallowing Food Allergy No Skin Integrity/Comment no complications reported Current % PO Other Minimum of two criteria No #1 Nutrition Diagnosis Swallowing difficulty Comments: 04/21: TF Vital AF 1.2 @50ml/ hr, vented, off pressors Etiology COVID+, respiratory Failure As Evidenced by Signs and Symptoms Intubated, NPO Diagnosis Progress(for reassessment Continues documentation) Is patient on ventilator? Yes Is Patient Ambulatory and/or Out of Bed No REE-([place]-St. Jeor-confined to bed) 1503.264 Kcal/Kg value to use for calculation 25 Approximate Energy Requirements Using 1715 kcal/Kg Calculation Used for Recommendations [facility] Additional Notes Pro needs 1.2-2g/kg (63.5kg): 76-127g/day Fluid needs 1ml/kcal Nutrition Intervention Change Diet Order: NPO - continue Post extubation - advance clear to Regular Nutrition Support: Vital AF 1.2 at 50ml/hr with 100ml water flush q4h or per MD order. Kcal 1,440 Protein (gm) 90 Carbohydrates (gm) 133 Fat (gm) 65 Fluid (mL) 973 Fiber (gm) 6 Goal #1 TF tolerance 04/21: met, continues Goal #2 TF to meet at least 75% energy and pro needs 04/21: TF at goal, met, continues Anticipated Discharge Needs: Unable to identify at this time Follow-Up By: 04/24/21 Additional Comments F/U: TF, vent status
[2021-04-22] MEDS: SODIUM CHLORIDE 0.9% 50 ML IVPB IV SCH (21:57)
[2021-04-22] MEDS: REMDESIVIR 100 MG in SODIUM CHLORIDE 0.9% 250ML 250 ML IV SCH (21:57)
[2021-04-22 22:09] LABS: ABG Base Excess 2.5 mmol/L (-2.0-3.0); ABG Methemoglobin 0.4 % (0.0-1.5); ABG Oxygen Saturation 95.7 % (95.0-99.0); ABG PCO2 41.3 mm Hg; ABG PH 7.434 pH Units (7.350-7.450); ABG PO2 74.6 mm Hg (80.0-90.0)
[2021-04-22] MEDS: SENNOSIDES ORAL LIQD 8.8 MG/5 ML ORAL LIQD PO SCH (22:11)
[2021-04-22] MEDS: INSULIN GLARGINE 100 UNITS/ML SUB-Q SCH (22:12)
[2021-04-23] MEDS: INSULIN LISPRO 100 UNIT/ML SUB-Q SCH ×4 (02:00→22:27)
[2021-04-23] MEDS: FREE WATER PO SCH ×2 (03:00→05:27)
[2021-04-23 05:38] LABS: Hematocrit 38.7 % (30.3-42.9); Hemoglobin 12.8 gm/dl (10.1-14.3); Mean Corpuscular HGB Conc 33 % (30-34); Mean Corpuscular Volume 95 fl (79-97); Platelet Count 293 K/mm3 (140-440); Red Blood Count 4.08 M/mm3 (3.65-5.03)
[2021-04-23 05:58] LABS: Blood Urea Nitrogen 26 mg/dL (7-17); Calcium 8.8 mg/dL (8.4-10.2); Hemolysis Index 35
[2021-04-23 06:05] LABS: BUN/Creatinine Ratio 37
--- NOTE | 2021-04-23 06:36 | XRay Report ---
CHEST 1 VIEW 04/23/2021 4:31 AM INDICATION / CLINICAL INFORMATION: follow up respiratory failure. COMPARISON: 04/22/2021 FINDINGS: SUPPORT DEVICES: Stable, satisfactory device positioning. HEART / MEDIASTINUM: No significant abnormality. LUNGS / PLEURA: No significant pulmonary or pleural abnormality. No pneumothorax. ADDITIONAL FINDINGS: No significant additional findings. IMPRESSION: 1. Unchanged positioning of support devices. No significant airspace opacities. Signer Name: Mu Umana DO Signed: 04/23/2021 6:31 AM Workstation Name: [id number]
[2021-04-23] MEDS: dexAMETHasone 4 MG/ML VIAL IV SCH (09:42)
[2021-04-23] MEDS: amLODIPine 10 MG TAB FEEDTUBE SCH (09:42)
[2021-04-23] MEDS: LOSARTAN 50 MG TAB FEEDTUBE SCH (09:42)
[2021-04-23] MEDS: hydroCHLOROthiazide 12.5 MG CAP FEEDTUBE SCH (09:42)
[2021-04-23] MEDS: FAMOTIDINE 20 MG TAB FEEDTUBE SCH ×2 (09:42→21:04)
[2021-04-23] MEDS: ENOXAPARIN 30 MG/0.3 ML INJ SUB-Q SCH ×2 (09:43→21:04)
--- NOTE | 2021-04-23 11:46 | Progress Note ---
Assessment and Plan Cultures: Blood culture no growth Sputum culture no growth COVID-19 PCR: Positive Urine culture: No growth A/P: 51-year-old female admitted with COVID-19 #Severe COVID-19 pneumonia: Patient presented with a week of symptoms, chest x- ray with diffuse bilateral infiltrates, admission O2 sats 40%on room air. Inflammatory markers elevated. #Acute hypoxemic respiratory failure: secondary to COVID-19 infection. Currently on the vent. Recommendations: -Complete 10 days of steroids -Completed Remdesivir -WBC elevated, will check CRP and procalcitonin in a.m. -Status post Actemra 04/21/2021 -Anticoagulation per hospital protocol Tung Germain MD, FACP [facility] O: [phone] F: [phone] Subjective Date of service: 04/23/21 Interval history: Afebrile. Remains on the vent. WBC up to 16.6. DVT scan negative. Objective - Exam Narrative Exam: Physical Exam (reviewed in chart to minimize risk of transmission) Constitutional: deferred Head, Ears, Nose: deferred Eyes: deferred Neck: deferred Oral: deferred Cardiovascular: deferred Respiratory: deferred GI: deferred Musculoskeletal: deferred Skin: deferred Hem/Lymphatic: deferred Psych: deferred Neurological: deferred - Constitutional Vitals: Vital Signs Temp Pulse Resp BP Pulse Ox 99.5 F 89 14 151/100 95 04/23/21 07:00 04/23/21 11:00 04/23/21 11:00 04/23/21 11:00 04/23/21 11:00 Temperature -Last 24 Hours Temperature 99.5 F Temperature 99.7 F Temperature 99.0 F Temperature 98.8 F Temperature 98.6 F Temperature 97.6 F - Labs CBC & Chem 7: 04/23/21 04:17 04/23/21 04:17 Labs: Abnormal lab results 04/22/21 04/22/21 04/22/21 Range/Units 04:00 10:58 10:58 WBC (4.5-11.0) K/mm3 RDW (13.2-15.2) % ABG pH 7.479 H (7.320-7.450) POC ABG pCO2 30.5 L (32.0-48.0) mmHg POC ABG pO2 67.9 L (83-108) mmHg ABG pO2 (80.0-90.0) mm Hg ABG HCO3 (20.0-26.0) mmol/L ABG Oxyhemoglobin 14.4 L (94-98) ABG Chloride 108.0 H (98-107) mmol/L ABG Glucose 212 H (65-95) mg/dL Oxyhemoglobin (95.0-99.0) % Sodium (137-145) mmol/L BUN (7-17) mg/dL Glucose 201 H (65-100) mg/dL POC Glucose (70-105) mg/dL Ferritin 1402.0 H (10.0-200.0) ng/mL Lactate Dehydrogenase 524 H (91-180) units/L Arterial Blood Glucose 212 H (65-95) mg/dL 04/22/21 04/22/21 04/22/21 Range/Units 17:37 21:29 21:40 WBC (4.5-11.0) K/mm3 RDW (13.2-15.2) % ABG pH (7.320-7.450) POC ABG pCO2 (32.0-48.0) mmHg POC ABG pO2 (83-108) mmHg ABG pO2 74.6 L (80.0-90.0) mm Hg ABG HCO3 27.0 H (20.0-26.0) mmol/L ABG Oxyhemoglobin (94-98) ABG Chloride (98-107) mmol/L ABG Glucose (65-95) mg/dL Oxyhemoglobin 93.9 L (95.0-99.0) % Sodium (137-145) mmol/L BUN (7-17) mg/dL Glucose (65-100) mg/dL POC Glucose 273 H 180 H (70-105) mg/dL Ferritin (10.0-200.0) ng/mL Lactate Dehydrogenase (91-180) units/L Arterial Blood Glucose (65-95) mg/dL 04/23/21 04/23/21 04/23/21 Range/Units 02:42 04:17 04:17 WBC 16.6 H (4.5-11.0) K/mm3 RDW 13.0 L (13.2-15.2) % ABG pH (7.320-7.450) POC ABG pCO2 (32.0-48.0) mmHg POC ABG pO2 (83-108) mmHg ABG pO2 (80.0-90.0) mm Hg ABG HCO3 (20.0-26.0) mmol/L ABG Oxyhemoglobin (94-98) ABG Chloride (98-107) mmol/L ABG Glucose (65-95) mg/dL Oxyhemoglobin (95.0-99.0) % Sodium 136 L (137-145) mmol/L BUN 26 H (7-17) mg/dL Glucose 105 H (65-100) mg/dL POC Glucose 111 H (70-105) mg/dL Ferritin (10.0-200.0) ng/mL Lactate Dehydrogenase (91-180) units/L Arterial Blood Glucose (65-95) mg/dL 04/23/21 04/23/21 Range/Units 05:20 10:02 WBC (4.5-11.0) K/mm3 RDW (13.2-15.2) % ABG pH (7.320-7.450) POC ABG pCO2 (32.0-48.0) mmHg POC ABG pO2 (83-108) mmHg ABG pO2 (80.0-90.0) mm Hg ABG HCO3 (20.0-26.0) mmol/L ABG Oxyhemoglobin (94-98) ABG Chloride (98-107) mmol/L ABG Glucose (65-95) mg/dL Oxyhemoglobin (95.0-99.0) % Sodium (137-145) mmol/L BUN (7-17) mg/dL Glucose (65-100) mg/dL POC Glucose 121 H 144 H (70-105) mg/dL Ferritin (10.0-200.0) ng/mL Lactate Dehydrogenase (91-180) units/L Arterial Blood Glucose (65-95) mg/dL
--- NOTE | 2021-04-23 14:02 | Progress Note ---
Assessment and Plan Bilateral pneumonia Sepsis Hyperglycemia Acute hypoxemic respiratory failure, ARDS COVID pneumonia Bilateral pneumonia Sepsis - get ABG after 2 hours on SBT - tentative extubation thereafter - continue care as below otherwise; - continue daily SAT and SBT assessment as tolerated - continue to wean supplemental oxygen for target O2 sat's > 90% acutely - VAP bundle addressed - continue lung protective strategies - continue bronchodilators with pulmonary hygiene per RT - wean per pulmonary driven protocols otherwise - continue accuchecks with glycemic control per SSI (While critically ill target blood glucose of 140-180 mg/dL; avoid hypoglycemia) - sedation prn for target RASS 0 to -1 - avoid nephrotoxins, renally dose all medications - continue to avoid benzodiazepine's, reduce the possibility of delirium - AB's per ID rec's - prn analgesia per CPOT score - Maintenance of sleep-wake cycle, avoid delirium - continue enteral nutritional support at goal rate as tolerated - G.I. & VTE prophylaxis - PT/OT/ROM exercises - continue mobility protocols for pressure ulcer prophylaxis - Monitor hemodynamics closely - continue other care per attending / other consultants - discharge planning ongoing concurrently COVID SPECIFIC INTERVENTIONS - S/P Actemra (04/21) - Remdesivir as per ID/Pulmonary developed protocols - continue systemic steroids for severe COVID-19 infection empirically (10 days then re-evaluate) - follow repeat COVID tests results - zinc and vitamin C supplementation - Monitor inflammatory markers per facility protocol - ferritin, Ddimer, CRP - therapeutic anticoagulation per system Protocol based on d-dimer and clinical considerations - Continue contact and airborne isolation .... Re-evaluate in am & prn CONDITION: CRITICAL PROGNOSIS: GUARDED CODE STATUS: FULL CODE The high probability of a clinically significant, sudden or life-threatening deterioration of the [respiratory, cardiovascular & neurologic] system(s) required my full and direct attention, intervention and personal management. The aggregate critical care time was [32] minutes without overlap. Time includes spent on; [x] Data Review and interpretation [x] Patient assessment and monitoring of vital signs [x] Documentation [x] Medication orders and management Subjective Date of service: 04/23/21 Principal diagnosis: Pneumonia; Sepsis; Acute hypoxemic resp failure; ARDS; COVID; Sepsis Interval history: Patient is seen today for: Bilateral pneumonia; Sepsis; Acute hypoxemic respiratory failure; ARDS; COVID infxn; Sepsis Seen and examined at bedside; 24hour events reviewed; nursing and respiratory care staff consulted; no adverse overnight events reported to me; resting in bed; remains on MVS; set rate reduced to 12/min; on SBT with p-supp at 10 cm H2O and tolerating well; denies chest pains or acute SOB; no high grade fevers Objective Vital Signs - 12hr 04/23/21 04/23/21 04/23/21 02:30 03:00 03:30 Temperature Pulse Rate 87 95 H 94 H Pulse Rate [ From Monitor] Respiratory 20 15 19 Rate Respiratory Rate [ generalized] Blood Pressure 152/92 157/93 150/91 O2 Sat by Pulse 92 Oximetry 04/23/21 04/23/21 04/23/21 03:38 04:00 04:09 Temperature 99.7 F H Pulse Rate 90 94 H Pulse Rate [ 94 H From Monitor] Respiratory 18 Rate Respiratory Rate [ generalized] Blood Pressure 157/93 157/93 O2 Sat by Pulse 95 94 Oximetry 04/23/21 04/23/21 04/23/21 04:30 05:01 05:30 Temperature Pulse Rate 116 H 96 H 88 Pulse Rate [ From Monitor] Respiratory 19 16 17 Rate Respiratory Rate [ generalized] Blood Pressure 156/100 120/73 119/72 O2 Sat by Pulse 91 90 Oximetry 04/23/21 04/23/21 04/23/21 06:00 06:30 07:00 Temperature 99.5 F Pulse Rate 89 90 83 Pulse Rate [ From Monitor] Respiratory 20 21 18 Rate Respiratory Rate [ generalized] Blood Pressure 104/68 114/75 120/74 O2 Sat by Pulse 93 95 96 Oximetry 04/23/21 04/23/21 04/23/21 07:30 08:00 08:30 Temperature 99.5 F Pulse Rate 90 96 H 110 H Pulse Rate [ 94 H From Monitor] Respiratory 20 16 15 Rate Respiratory 12 Rate [ generalized] Blood Pressure 120/79 133/82 124/84 O2 Sat by Pulse 95 95 Oximetry 04/23/21 04/23/21 04/23/21 09:00 09:30 09:42 Temperature Pulse Rate 96 H 98 H 95 H Pulse Rate [ From Monitor] Respiratory 20 12 Rate Respiratory Rate [ generalized] Blood Pressure 122/86 122/89 122/89 O2 Sat by Pulse 94 94 Oximetry 04/23/21 04/23/21 04/23/21 10:00 10:30 11:00 Temperature Pulse Rate 91 H 91 H 89 Pulse Rate [ From Monitor] Respiratory 18 16 14 Rate Respiratory Rate [ generalized] Blood Pressure 135/85 135/85 151/100 O2 Sat by Pulse 94 96 95 Oximetry 04/23/21 04/23/21 12:12 12:15 Temperature 99.1 F Pulse Rate 89 Pulse Rate [ From Monitor] Respiratory Rate Respiratory Rate [ generalized] Blood Pressure 151/100 O2 Sat by Pulse 95 Oximetry Constitutional: no acute distress, other (middle aged [place] with mildly increased respiratory effort at rest on MVS) Eyes: non-icteric ENT: oropharynx moist, other (ETT 7.5 at 23cm at the lip) Neck: supple, no lymphadenopathy Effort: mildly labored Ascultation: Bilateral: diminished breath sounds, rhonchi (scant) Percussion: Bilateral: not dull Cardiovascular: regular rate and rhythm, other (S1,S2) Gastrointestinal: normoactive bowel sounds, soft, non-tender, non-distended (protuberant) Integumentary: normal Extremities: no cyanosis, no edema, pulses normal, no ischemia or petechiae Neurologic: non-focal exam (grossly), pupils equal and round, unable to assess (sedated) Psychiatric: other (unable to assess) CBC and BMP: 04/24/21 04:33 04/24/21 04:33 ABG, PT/INR, D-dimer: ABG ABG pH 7.434 pH Units (7.350-7.450) 04/22/21 21:40 POC ABG pCO2 30.5 mmHg (32.0-48.0) L 04/22/21 04:00 ABG pCO2 41.3 mm Hg 04/22/21 21:40 POC ABG pO2 67.9 mmHg (83-108) L 04/22/21 04:00 ABG pO2 74.6 mm Hg (80.0-90.0) L 04/22/21 21:40 POC ABG HCO3 22.2 04/22/21 04:00 ABG O2 Saturation 95.7 % (95.0-99.0) 04/22/21 21:40 PT/INR, D-dimer PT 14.5 Sec. (12.2-14.9) 04/19/21 05:36 INR 1.02 (0.87-1.13) 04/19/21 05:36 D-Dimer 1848.39 ng/mlDDU (0-234) H 04/22/21 10:58 Abnormal lab findings: Abnormal Labs 04/18/21 04/18/21 04/18/21 02:34 02:34 02:34 WBC RBC MCH 33 H MCHC 35 H RDW 12.4 L Lymph % (Auto) [place] % (Auto) 14.0 H Lymph # (Auto) 0.9 L [place] # (Auto) 0.9 H Seg Neutrophils % 72.0 H D-Dimer 978.83 H ABG pH POC ABG pCO2 POC ABG pO2 ABG pO2 ABG HCO3 ABG Oxyhemoglobin ABG Potassium ABG Chloride ABG Glucose Oxyhemoglobin Carboxyhemoglobin Sodium Potassium Chloride Carbon Dioxide 20 L BUN 32 H Glucose 227 H POC Glucose Hemoglobin A1c Lactic Acid Calcium 8.2 L Ferritin AST 64 H ALT Lactate Dehydrogenase C-Reactive Protein Total Protein Albumin 3.5 L Arterial Blood Glucose Coronavirus (PCR) 04/18/21 04/18/21 04/18/21 02:34 02:34 04:20 WBC RBC MCH MCHC RDW Lymph % (Auto) [place] % (Auto) Lymph # (Auto) [place] # (Auto) Seg Neutrophils % D-Dimer ABG pH 7.468 H POC ABG pCO2 POC ABG pO2 ABG pO2 154.9 H ABG HCO3 ABG Oxyhemoglobin ABG Potassium ABG Chloride ABG Glucose Oxyhemoglobin Carboxyhemoglobin Sodium Potassium Chloride Carbon Dioxide BUN Glucose 228 H POC Glucose Hemoglobin A1c Lactic Acid Calcium Ferritin > 2000.0 H AST ALT Lactate Dehydrogenase 711 H C-Reactive Protein 12.90 H Total Protein Albumin Arterial Blood Glucose Coronavirus (PCR) 04/18/21 04/18/21 04/19/21 04:54 15:39 05:36 WBC RBC MCH 33 H MCHC 35 H RDW 12.9 L Lymph % (Auto) 12.5 L [place] % (Auto) 9.4 H Lymph # (Auto) 1.0 L [place] # (Auto) Seg Neutrophils % 77.9 H D-Dimer ABG pH POC ABG pCO2 POC ABG pO2 ABG pO2 ABG HCO3 ABG Oxyhemoglobin ABG Potassium ABG Chloride ABG Glucose Oxyhemoglobin Carboxyhemoglobin Sodium Potassium 3.5 L Chloride 107.8 H Carbon Dioxide 20 L BUN 32 H Glucose 276 H POC Glucose Hemoglobin A1c Lactic Acid 2.30 H* Calcium 8.1 L Ferritin AST 64 H ALT Lactate Dehydrogenase C-Reactive Protein Total Protein Albumin 2.8 L Arterial Blood Glucose Coronavirus (PCR) 04/19/21 04/19/21 04/19/21 05:36 06:16 09:00 WBC RBC MCH MCHC RDW Lymph % (Auto) [place] % (Auto) Lymph # (Auto) [place] # (Auto) Seg Neutrophils % D-Dimer ABG pH 7.562 H POC ABG pCO2 22.0 L POC ABG pO2 168.2 H ABG pO2 ABG HCO3 ABG Oxyhemoglobin 98.4 H ABG Potassium 3.3 L ABG Chloride 110.0 H ABG Glucose 248 H Oxyhemoglobin Carboxyhemoglobin Sodium 147 H Potassium 3.3 L Chloride 110.1 H Carbon Dioxide 21 L BUN 35 H Glucose 251 H POC Glucose Hemoglobin A1c Lactic Acid Calcium 8.2 L Ferritin AST 66 H ALT Lactate Dehydrogenase C-Reactive Protein Total Protein Albumin 2.9 L Arterial Blood Glucose 248 H Coronavirus (PCR) Positive A 04/19/21 04/19/21 04/19/21 11:32 17:15 21:34 WBC RBC MCH MCHC RDW Lymph % (Auto) [place] % (Auto) Lymph # (Auto) [place] # (Auto) Seg Neutrophils % D-Dimer ABG pH POC ABG pCO2 POC ABG pO2 ABG pO2 ABG HCO3 ABG Oxyhemoglobin ABG Potassium ABG Chloride ABG Glucose Oxyhemoglobin Carboxyhemoglobin Sodium Potassium Chloride Carbon Dioxide BUN Glucose POC Glucose 216 H 256 H 258 H Hemoglobin A1c Lactic Acid Calcium Ferritin AST ALT Lactate Dehydrogenase C-Reactive Protein Total Protein Albumin Arterial Blood Glucose Coronavirus (PCR) 04/20/21 04/20/21 04/20/21 00:13 03:44 06:16 WBC RBC MCH MCHC RDW Lymph % (Auto) [place] % (Auto) Lymph # (Auto) [place] # (Auto) Seg Neutrophils % D-Dimer ABG pH 7.483 H POC ABG pCO2 26.2 L POC ABG pO2 ABG pO2 ABG HCO3 ABG Oxyhemoglobin ABG Potassium ABG Chloride 114.0 H ABG Glucose 296 H Oxyhemoglobin Carboxyhemoglobin 0.1 L Sodium Potassium Chloride Carbon Dioxide BUN Glucose POC Glucose 290 H 271 H Hemoglobin A1c Lactic Acid Calcium Ferritin AST ALT Lactate Dehydrogenase C-Reactive Protein Total Protein Albumin Arterial Blood Glucose 296 H Coronavirus (PCR) 04/20/21 04/20/21 04/20/21 10:21 10:21 10:21 WBC RBC MCH MCHC RDW Lymph % (Auto) [place] % (Auto) Lymph # (Auto) [place] # (Auto) Seg Neutrophils % D-Dimer ABG pH POC ABG pCO2 POC ABG pO2 ABG pO2 ABG HCO3 ABG Oxyhemoglobin ABG Potassium ABG Chloride ABG Glucose Oxyhemoglobin Carboxyhemoglobin Sodium Potassium Chloride 113.7 H Carbon Dioxide 19 L BUN 38 H Glucose 266 H POC Glucose Hemoglobin A1c 8.0 H Lactic Acid 3.10 H* Calcium Ferritin AST 79 H ALT 58 H Lactate Dehydrogenase C-Reactive Protein Total Protein Albumin 2.6 L Arterial Blood Glucose Coronavirus (PCR) 04/20/21 04/20/21 04/20/21 10:21 11:05 15:24 WBC RBC MCH 34 H MCHC 35 H RDW 12.9 L Lymph % (Auto) [place] % (Auto) Lymph # (Auto) [place] # (Auto) Seg Neutrophils % D-Dimer ABG pH POC ABG pCO2 POC ABG pO2 ABG pO2 ABG HCO3 ABG Oxyhemoglobin ABG Potassium ABG Chloride ABG Glucose Oxyhemoglobin Carboxyhemoglobin Sodium Potassium Chloride Carbon Dioxide BUN Glucose POC Glucose 233 H Hemoglobin A1c Lactic Acid 2.50 H* Calcium Ferritin AST ALT Lactate Dehydrogenase C-Reactive Protein Total Protein Albumin Arterial Blood Glucose Coronavirus (PCR) 04/20/21 04/20/21 04/20/21 17:25 20:56 23:11 WBC RBC MCH MCHC RDW Lymph % (Auto) [place] % (Auto) Lymph # (Auto) [place] # (Auto) Seg Neutrophils % D-Dimer ABG pH POC ABG pCO2 POC ABG pO2 ABG pO2 ABG HCO3 ABG Oxyhemoglobin ABG Potassium ABG Chloride ABG Glucose Oxyhemoglobin Carboxyhemoglobin Sodium Potassium Chloride Carbon Dioxide BUN Glucose POC Glucose 262 H 321 H Hemoglobin A1c Lactic Acid 2.80 H* Calcium Ferritin AST ALT Lactate Dehydrogenase C-Reactive Protein Total Protein Albumin Arterial Blood Glucose Coronavirus (PCR) 04/21/21 04/21/21 04/21/21 04:11 04:24 04:24 WBC RBC 3.55 L MCH 33 H MCHC RDW 12.8 L Lymph % (Auto) [place] % (Auto) Lymph # (Auto) [place] # (Auto) Seg Neutrophils % D-Dimer ABG pH 7.479 H POC ABG pCO2 28.9 L POC ABG pO2 75.6 L ABG pO2 ABG HCO3 ABG Oxyhemoglobin ABG Potassium ABG Chloride 113.0 H ABG Glucose 331 H Oxyhemoglobin Carboxyhemoglobin 0.1 L Sodium Potassium Chloride 113.1 H Carbon Dioxide 18 L BUN 36 H Glucose 342 H POC Glucose Hemoglobin A1c Lactic Acid Calcium 8.1 L Ferritin AST 52 H ALT Lactate Dehydrogenase C-Reactive Protein Total Protein 6.1 L Albumin 2.7 L Arterial Blood Glucose 331 H Coronavirus (PCR) 04/21/21 04/21/21 04/21/21 05:22 11:57 18:16 WBC RBC MCH MCHC RDW Lymph % (Auto) [place] % (Auto) Lymph # (Auto) [place] # (Auto) Seg Neutrophils % D-Dimer ABG pH POC ABG pCO2 POC ABG pO2 ABG pO2 ABG HCO3 ABG Oxyhemoglobin ABG Potassium ABG Chloride ABG Glucose Oxyhemoglobin Carboxyhemoglobin Sodium Potassium Chloride Carbon Dioxide BUN Glucose POC Glucose 269 H 258 H 313 H Hemoglobin A1c Lactic Acid Calcium Ferritin AST ALT Lactate Dehydrogenase C-Reactive Protein Total Protein Albumin Arterial Blood Glucose Coronavirus (PCR) 04/21/21 04/22/21 04/22/21 23:38 04:00 04:19 WBC RBC MCH 33 H MCHC RDW 12.9 L Lymph % (Auto) [place] % (Auto) Lymph # (Auto) [place] # (Auto) Seg Neutrophils % D-Dimer ABG pH 7.479 H POC ABG pCO2 30.5 L POC ABG pO2 67.9 L ABG pO2 ABG HCO3 ABG Oxyhemoglobin 14.4 L ABG Potassium ABG Chloride 108.0 H ABG Glucose 212 H Oxyhemoglobin Carboxyhemoglobin Sodium Potassium Chloride Carbon Dioxide BUN Glucose POC Glucose 298 H Hemoglobin A1c Lactic Acid Calcium Ferritin AST ALT Lactate Dehydrogenase C-Reactive Protein Total Protein Albumin Arterial Blood Glucose 212 H Coronavirus (PCR) 04/22/21 04/22/21 04/22/21 04:19 05:15 10:42 WBC RBC MCH MCHC RDW Lymph % (Auto) [place] % (Auto) Lymph # (Auto) [place] # (Auto) Seg Neutrophils % D-Dimer ABG pH POC ABG pCO2 POC ABG pO2 ABG pO2 ABG HCO3 ABG Oxyhemoglobin ABG Potassium ABG Chloride ABG Glucose Oxyhemoglobin Carboxyhemoglobin Sodium Potassium Chloride 108.0 H Carbon Dioxide 21 L BUN 31 H Glucose 261 H POC Glucose 214 H 171 H Hemoglobin A1c Lactic Acid Calcium Ferritin AST ALT Lactate Dehydrogenase C-Reactive Protein Total Protein Albumin Arterial Blood Glucose Coronavirus (PCR) 04/22/21 04/22/21 04/22/21 10:58 10:58 10:58 WBC RBC MCH MCHC RDW Lymph % (Auto) [place] % (Auto) Lymph # (Auto) [place] # (Auto) Seg Neutrophils % D-Dimer 1848.39 H ABG pH POC ABG pCO2 POC ABG pO2 ABG pO2 ABG HCO3 ABG Oxyhemoglobin ABG Potassium ABG Chloride ABG Glucose Oxyhemoglobin Carboxyhemoglobin Sodium Potassium Chloride Carbon Dioxide BUN Glucose 201 H POC Glucose Hemoglobin A1c Lactic Acid Calcium Ferritin 1402.0 H AST ALT Lactate Dehydrogenase 524 H C-Reactive Protein Total Protein Albumin Arterial Blood Glucose Coronavirus (PCR) 04/22/21 04/22/21 04/22/21 17:37 21:29 21:40 WBC RBC MCH MCHC RDW Lymph % (Auto) [place] % (Auto) Lymph # (Auto) [place] # (Auto) Seg Neutrophils % D-Dimer ABG pH POC ABG pCO2 POC ABG pO2 ABG pO2 74.6 L ABG HCO3 27.0 H ABG Oxyhemoglobin ABG Potassium ABG Chloride ABG Glucose Oxyhemoglobin 93.9 L Carboxyhemoglobin Sodium Potassium Chloride Carbon Dioxide BUN Glucose POC Glucose 273 H 180 H Hemoglobin A1c Lactic Acid Calcium Ferritin AST ALT Lactate Dehydrogenase C-Reactive Protein Total Protein Albumin Arterial Blood Glucose Coronavirus (PCR) 04/23/21 04/23/21 04/23/21 02:42 04:17 04:17 WBC 16.6 H RBC MCH MCHC RDW 13.0 L Lymph % (Auto) [place] % (Auto) Lymph # (Auto) [place] # (Auto) Seg Neutrophils % D-Dimer ABG pH POC ABG pCO2 POC ABG pO2 ABG pO2 ABG HCO3 ABG Oxyhemoglobin ABG Potassium ABG Chloride ABG Glucose Oxyhemoglobin Carboxyhemoglobin Sodium 136 L Potassium Chloride Carbon Dioxide BUN 26 H Glucose 105 H POC Glucose 111 H Hemoglobin A1c Lactic Acid Calcium Ferritin AST ALT Lactate Dehydrogenase C-Reactive Protein Total Protein Albumin Arterial Blood Glucose Coronavirus (PCR) 04/23/21 04/23/21 04/23/21 05:20 10:02 12:01 WBC RBC MCH MCHC RDW Lymph % (Auto) [place] % (Auto) Lymph # (Auto) [place] # (Auto) Seg Neutrophils % D-Dimer ABG pH POC ABG pCO2 POC ABG pO2 ABG pO2 ABG HCO3 ABG Oxyhemoglobin ABG Potassium ABG Chloride ABG Glucose Oxyhemoglobin Carboxyhemoglobin Sodium Potassium Chloride Carbon Dioxide BUN Glucose POC Glucose 121 H 144 H 220 H Hemoglobin A1c Lactic Acid Calcium Ferritin AST ALT Lactate Dehydrogenase C-Reactive Protein Total Protein Albumin Arterial Blood Glucose Coronavirus (PCR) Prior PFT's, U/S of legs: report reviewed (no DVT's on vascular US of lower extremities) Allied health notes reviewed: nursing
[2021-04-23] MEDS ORDERED: FREE WATER PO SCH (18:00)
[2021-04-23 18:36] LABS: ABG Base Excess 2.1 mmol/L (-2.0-3.0); ABG HCO3 25.8 mmol/L (20.0-26.0); ABG Methemoglobin 0.5 % (0.0-1.5); ABG Oxygen Saturation 99.1 % (95.0-99.0); ABG PCO2 37.2 mm Hg; ABG PH 7.458 pH Units (7.350-7.450); ABG PO2 168.1 mm Hg (80.0-90.0)
--- NOTE | 2021-04-23 18:41 | Progress Note ---
<HARVINDERMANGO TorLa - Last Filed: 04/23/21 18:36> Assessment and Plan Assessment and plan: This is a 51 years-old female with unknown past medical history admitted with acute hypoxic respiratory failure, COVID-19 PNA, ARDs, Lactic acidosis Neuro: Acute metabolic encephalopathy - 04/18 CT head w/o con showed no acute intracranial process - Fentanyl gtt - Titrate sedation for RASS goal 0 to -1 - Daily SAT and SBT per CCM - Prn analgesia for CPOT greater than 3 - Maintenance of sleep-wake cycle, avoid delirium - Avoid benzodiazepine to reduce the possibility of delirium CV: Bradycardia - SB to NSR on the monitor - Home amlodipine, hydrochlorothiazide resumed - As needed hydralazine - Blood pressure monitoring per protocol Resp: Acute hypoxemic respiratory failure, ARDS secondary to COVID pneumonia, Respiratory alkalosis - Cxr shows B infiltrates - Intubated on 04/18 with 7.5 OETT @ 20 (advanced to 24) - AM vent settings: AC rate 20, tidal volume 350, PEEP 6, FiO2 35% -See RT notes for titration -This afternoon patient self extubated and was placed on BiPAP -[facility] ordered BiPAP nightly - Wean FiO2 as tolerated for SPO2> 90% - Daily SAT and SBT trial per CCM -Trend ABG - VAP bundle - Aspiration precautions HOB>30 - Lung protective strategies, continue to monitor airway pressures - CCM consulted, appreciate recommendations GI: NAP - Enteral nutrition initiated - Nutrition consult for TF management - BR- senokot - Pepcid - 24 hours - 2081 -Ordered bedside swallow evaluation and if needed will order speech evaluation -Hope to order diet in the a.m. : Hyponatremia - FWF reduced to 50 mL every 4 - s/p D5 1/2 NS - Purewick in place - Strict intake and output - Avoid nephrotoxic medications; Renally dose medications - Conservative fluid management, keep negative fluid balance as tolerated by hemodynamics and renal function - Monitor and replace electrolytes as needed ID: Sepsis, COVID Pneumonia, Bilateral Pneumonia, Lactic Acidosis - CXR showed bilateral pneumonia - COVID PCR positive - ID consulted, appreciate recommendations - follow culture data - Decadron 6 mg (04/18-04/27) - Remdesivir (04/19-04/23) - 04/21 Actemra - Trend COVId 19 inflammatory markers ferritin, Ddimer, CRP, LDH - Empiric ABx- Ceftriaxone and azithromycin per ID (04/18-04/22) - Monitor fever curve Endo: Hyperglycemia - SSI - Lantus, titrate as needed - HbgA1c 8 - While critically ill target blood glucose of 140-180 - Avoid hypoglycemia Heme: Elevated D-dimer -D-dimer 1848 on 04/22 -Bilateral lower extremity Doppler ultrasound shows no acute or chronic DVT/SVT -Enoxaparin 30 mg twice daily -Bilateral lower extremities with SCDs The high probability of a clinically significant, sudden or life threatening deterioration of the [multiple] system(s) required my full and direct attention, intervention and personal management. The aggregate critical care time was [60] minutes. This time is in addition to time spent performing reported procedures but includes the following: [x] Data Review and interpretation [x] Patient assessment and monitoring of vital signs [x] Documentation [x] Medication orders and management Disposition Plan: icu Total Time Spent with Patient (Minutes): 60 History Interval history: This is a 51 years-old female with unknown past medical history presented to [facility] on 04/18 with altered mental status. Upon her arrival in the ED her SPO2 was in the 40%, she was first placed on a NRB then was subsequently intubated due to acute hypoxic respiratory failure. As of note, patient was diagnosed with COVID 4days prior this admission. Patient was admitted in the ICU for further management. 04/19/21- Patient is intubated and sedated RASS -3 to -4. SB to low SR on the monitor, hemodynamics stable and not on any pressors, will continue to monitor. Hypokalemia was repleted. TF was initiated, plan to D/C IVF once TF is at goal. Hyperglycemia noted, high scale SSI and qHS lantus added, A1c ordered. 04/20/21- Patient remains intubated amd off sedation, RASS 0 to -1. Remains SB on the monitor, hemodynamic stable. Increased in lactic acid this am, slight increased in LFTs, WBCs stable, kidney function is stable. Will repeat lactic in 4hours and continue to monitor. Patient is net +1537 cc in last 24hrs, will hold IVF for now to keep patient net negative fluid balance.Will continue to monitor renal function and electrolytes. 04/21: SB on monitor, remains on fentanyl gtt, OETT advanced. ID prescribed actemra 04/22: Repeat D-dimer elevated and bilateral lower extremity Doppler ultrasound ordered which showed no DVT. Antibiotics stopped by ID given normal CRP. Patient's rate was decreased and PEEP increased on ventilator per [facility] 04/23: CRP and procalcitonin ordered by infectious disease given leukocytosis. This afternoon patient self extubated and was placed on BiPAP. BiPAP ordered for nightly. We will obtain a bedside swallow evaluation and possible speech eval. This morning free water flush was adjusted for hyponatremia. Hospitalist Physical - Constitutional Vitals: Temp Pulse Resp BP Pulse Ox 98.8 F 101 H 23 146/102 98 04/23/21 15:51 04/23/21 18:30 04/23/21 18:30 04/23/21 18:30 04/23/21 18:30 General appearance: Present: no acute distress, other (sedated) - EENT Eyes: Present: PERRL, EOM intact ENT: hearing intact, clear oral mucosa, dentition normal - Neck Neck: Present: normal ROM - Respiratory Respiratory effort: normal Respiratory: bilateral: diminished - Cardiovascular Rhythm: regular Heart Sounds: Present: S1 & S2. Absent: systolic murmur, diastolic murmur - Extremities Extremities: no ischemia, pulses intact, pulses symmetrical, No edema, normal temperature, normal color Peripheral Pulses: within normal limits - Abdominal General gastrointestinal: soft, non-tender, non-distended, normal bowel sounds - Integumentary Integumentary: Present: warm, dry - Psychiatric Psychiatric: other (sedated) - Neurologic Neurologic: moves all extremities - Allied Health Allied health notes reviewed: nursing, RT, social work Results - Labs CBC & Chem 7: 04/23/21 04:17 04/23/21 04:17 Labs: Laboratory Last Values WBC 16.6 K/mm3 (4.5-11.0) H 04/23/21 04:17 RBC 4.08 M/mm3 (3.65-5.03) 04/23/21 04:17 Hgb 12.8 gm/dl (10.1-14.3) 04/23/21 04:17 Hct 38.7 % (30.3-42.9) 04/23/21 04:17 MCV 95 fl (79-97) 04/23/21 04:17 MCH 32 pg (28-32) 04/23/21 04:17 MCHC 33 % (30-34) 04/23/21 04:17 RDW 13.0 % (13.2-15.2) L 04/23/21 04:17 Plt Count 293 K/mm3 (140-440) 04/23/21 04:17 Lymph % (Auto) 12.5 % (13.4-35.0) L 04/19/21 05:36 [place] % (Auto) 9.4 % (0.0-7.3) H 04/19/21 05:36 Eos % (Auto) 0.0 % (0.0-4.3) 04/19/21 05:36 Baso % (Auto) 0.2 % (0.0-1.8) 04/19/21 05:36 Lymph # (Auto) 1.0 K/mm3 (1.2-5.4) L 04/19/21 05:36 [place] # (Auto) 0.8 K/mm3 (0.0-0.8) 04/19/21 05:36 Eos # (Auto) 0.0 K/mm3 (0.0-0.4) 04/19/21 05:36 Baso # (Auto) 0.0 K/mm3 (0.0-0.1) 04/19/21 05:36 Add Manual Diff Complete 04/19/21 05:36 Seg Neutrophils % 77.9 % (40.0-70.0) H 04/19/21 05:36 Nucleated RBC % Not Reportable 04/19/21 05:36 Seg Neutrophils # 6.4 K/mm3 (1.8-7.7) 04/19/21 05:36 WBC Morphology Not Reportable 04/19/21 05:36 Hypersegmented Neuts Not Reportable 04/19/21 05:36 Hyposegmented Neuts Not Reportable 04/19/21 05:36 Hypogranular Neuts Not Reportable 04/19/21 05:36 Smudge Cells Not Reportable 04/19/21 05:36 Toxic Granulation Not Reportable 04/19/21 05:36 Toxic Vacuolation Not Reportable 04/19/21 05:36 Dohle Bodies Not Reportable 04/19/21 05:36 Pelger-Huet Anomaly Not Reportable 04/19/21 05:36 [place] Rods Not Reportable 04/19/21 05:36 Platelet Estimate Not Reportable 04/19/21 05:36 Clumped Platelets Not Reportable 04/19/21 05:36 Plt Clumps, EDTA Not Reportable 04/19/21 05:36 Large Platelets Not Reportable 04/19/21 05:36 Giant Platelets Not Reportable 04/19/21 05:36 Platelet Satelliting Not Reportable 04/19/21 05:36 Plt Morphology Comment Not Reportable 04/19/21 05:36 RBC Morphology Not Reportable 04/19/21 05:36 Dimorphic RBCs Not Reportable 04/19/21 05:36 Polychromasia Not Reportable 04/19/21 05:36 Hypochromasia Not Reportable 04/19/21 05:36 Poikilocytosis Not Reportable 04/19/21 05:36 Anisocytosis Not Reportable 04/19/21 05:36 Microcytosis Not Reportable 04/19/21 05:36 Macrocytosis Not Reportable 04/19/21 05:36 Spherocytes Not Reportable 04/19/21 05:36 Pappenheimer Bodies Not Reportable 04/19/21 05:36 Sickle Cells Not Reportable 04/19/21 05:36 Target Cells Not Reportable 04/19/21 05:36 Tear Drop Cells Not Reportable 04/19/21 05:36 Ovalocytes Not Reportable 04/19/21 05:36 Helmet Cells Not Reportable 04/19/21 05:36 [place] Bodies Not Reportable 04/19/21 05:36 [place] Rings Not Reportable 04/19/21 05:36 Nupur Cells Not Reportable 04/19/21 05:36 Bite Cells Not Reportable 04/19/21 05:36 Crenated Cell Not Reportable 04/19/21 05:36 Elliptocytes Not Reportable 04/19/21 05:36 Acanthocytes (Spur) Not Reportable 04/19/21 05:36 Rouleaux Not Reportable 04/19/21 05:36 Hemoglobin C Crystals Not Reportable 04/19/21 05:36 Schistocytes Not Reportable 04/19/21 05:36 Malaria parasites Not Reportable 04/19/21 05:36 Hub[place] Bodies Not Reportable 04/19/21 05:36 Hem Pathologist Commnt Not Reportable 04/19/21 05:36 PT 14.5 Sec. (12.2-14.9) 04/19/21 05:36 INR 1.02 (0.87-1.13) 04/19/21 05:36 APTT 34.2 Sec. (24.2-36.6) 04/18/21 02:34 D-Dimer 1848.39 ng/mlDDU (0-234) H 04/22/21 10:58 ABG pH 7.458 pH Units (7.350-7.450) H 04/23/21 18:20 POC ABG pCO2 30.5 mmHg (32.0-48.0) L 04/22/21 04:00 ABG pCO2 37.2 mm Hg 04/23/21 18:20 POC ABG pO2 67.9 mmHg (83-108) L 04/22/21 04:00 ABG pO2 168.1 mm Hg (80.0-90.0) H 04/23/21 18:20 POC ABG HCO3 22.2 04/22/21 04:00 ABG HCO3 25.8 mmol/L (20.0-26.0) 04/23/21 18:20 ABG O2 Saturation 99.1 % (95.0-99.0) H 04/23/21 18:20 ABG O2 Content 19.0 (0.0-44) 04/23/21 18:20 POC ABG Base Excess -0.3 04/22/21 04:00 ABG Base Excess 2.1 mmol/L (-2.0-3.0) 04/23/21 18:20 ABG Hemoglobin 13.7 gm/dl (12.0-16.0) 04/23/21 18:20 ABG Oxyhemoglobin 14.4 (94-98) L 04/22/21 04:00 ABG Carboxyhemoglobin 1.2 % (0.0-5.0) 04/23/21 18:20 ABG Methemoglobin 0.5 % (0.0-1.5) 04/23/21 18:20 ABG Sodium 138.2 mmol/L (136.0-145.0) 04/22/21 04:00 ABG Potassium 4.1 mmol/L (3.40-4.50) 04/22/21 04:00 ABG Chloride 108.0 mmol/L (98-107) H 04/22/21 04:00 ABG Glucose 212 mg/dL (65-95) H 04/22/21 04:00 Oxyhemoglobin 97.4 % (95.0-99.0) 04/23/21 18:20 Carboxyhemoglobin 1.1 (0.5-1.5) 04/22/21 04:00 FiO2 100 % 04/23/21 18:20 FiO2 % 35 04/22/21 04:00 Sodium 136 mmol/L (137-145) L 04/23/21 04:17 Potassium 4.4 mmol/L (3.6-5.0) 04/23/21 04:17 Chloride 100.5 mmol/L (98-107) 04/23/21 04:17 Carbon Dioxide 24 mmol/L (22-30) 04/23/21 04:17 Anion Gap 16 mmol/L 04/23/21 04:17 BUN 26 mg/dL (7-17) H 04/23/21 04:17 Creatinine 0.7 mg/dL (0.6-1.2) 04/23/21 04:17 Estimated GFR > 60 ml/min 04/23/21 04:17 BUN/Creatinine Ratio 37 % 04/23/21 04:17 Glucose 105 mg/dL (65-100) H 04/23/21 04:17 POC Glucose 291 mg/dL (70-105) H 04/23/21 15:26 Hemoglobin A1c 8.0 % (4-6) H 04/20/21 10: Lactic Acid 1.70 mmol/L (0.7-2.0) 04/22/21 10:58 Calcium 8.8 mg/dL (8.4-10.2) 04/23/21 04:17 Phosphorus 3.00 mg/dL (2.5-4.5) 04/22/21 04:19 Magnesium 2.30 mg/dL (1.7-2.3) 04/22/21 04:19 Ferritin 1402.0 ng/mL (10.0-200.0) H 04/22/21 10:58 Total Bilirubin 0.30 mg/dL (0.1-1.2) 04/21/21 04:24 AST 52 units/L (5-40) H 04/21/21 04:24 ALT 55 units/L (7-56) 04/21/21 04:24 Alkaline Phosphatase 67 units/L (35-129) 04/21/21 04:24 Ammonia 25.0 umol/L (25-60) 04/18/21 02:34 Lactate Dehydrogenase 524 units/L (91-180) H 04/22/21 10:58 Total Creatine Kinase 68 units/L (30-135) 04/18/21 02:34 C-Reactive Protein 1.20 mg/dL (0.00-1.30) 04/22/21 10:58 Total Protein 6.1 g/dL (6.3-8.2) L 04/21/21 04:24 Albumin 2.7 g/dL (3.9-5) L 04/21/21 04:24 Albumin/Globulin Ratio 0.8 % 04/21/21 04:24 Procalcitonin 0.12 ng/mL (<0.15) 04/22/21 10:58 Arterial Blood Glucose 212 mg/dL (65-95) H 04/22/21 04:00 Urine Color Yellow (Yellow) 04/18/21 04:25 Urine Turbidity Clear (Clear) 04/18/21 04:25 Urine pH 5.0 (5.0-7.0) 04/18/21 04:25 Ur Specific [place] 1.018 (1.003-1.030) 04/18/21 04:25 Urine Protein 100 mg/dl mg/dL (Negative) 04/18/21 04:25 Urine Glucose (UA) Neg mg/dL (Negative) 04/18/21 04:25 Urine Ketones Tr mg/dL (Negative) 04/18/21 04:25 Urine Blood Neg (Negative) 04/18/21 04:25 Urine Nitrite Neg (Negative) 04/18/21 04:25 Ur Reducing Substances Not Reportable 04/18/21 04:25 Urine Bilirubin Neg (Negative) 04/18/21 04:25 Urine Ictotest Not Reportable 04/18/21 04:25 Urine Urobilinogen 2.0 mg/dL (<2.0) 04/18/21 04:25 Ur Leukocyte Esterase Neg (Negative) 04/18/21 04:25 Urine WBC (Auto) 2.0 /HPF (0.0-6.0) 04/18/21 04:25 Urine RBC (Auto) 3.0 /HPF (0.0-6.0) 04/18/21 04:25 Hyaline Casts 3 /LPF 04/18/21 04:25 Urine Mucus Few /HPF 04/18/21 04:25 Plasma/Serum Alcohol < 0.01 % (0-0.07) 04/18/21 02:34 Coronavirus (PCR) Positive (Negative) A 04/19/21 09:00 Microbiology: Microbiology 04/18/21 02:38 Peripheral/Venous Blood Culture - Final NO GROWTH AFTER 5 DAYS 04/18/21 02:34 Peripheral/Venous Blood Culture - Final NO GROWTH AFTER 5 DAYS Franco/IV: Voiding Method Self-Catheterization Active Medications - Current Medications Current Medications: Generic Name Dose Route Start Last Admin Trade Name Freq PRN Reason Stop Dose Admin Acetaminophen 650 mg 04/18/21 04:13 Acetaminophen 650 Mg Rect Supp [place] Q6H PRN Pain MILD(1-3)/Fever >100.5/ASENCIO Amlodipine Besylate 10 mg 04/22/21 11:00 04/23/21 09:42 Amlodipine 10 Mg Tab FEEDTUBE 10 mg DAILY REJI Administration Lipase/Protease/Amylase 1 each 04/19/21 12:25 Lipase 10,500/Protease 25,000/Amylase 43,750 (Units) Dr Cox FEEDTUBE PRN PRN For Clogged Feeding Tube Dexamethasone 6 mg 04/18/21 10:00 04/23/21 09:42 Dexamethasone 4 Mg/Ml Vial IV 04/27/21 10:01 6 mg Q24HR REJI Administration Dextrose 50 ml 04/20/21 10:34 Dextrose 50% In Water (25gm) 50 Ml Syringe IV Q30MIN PRN Hypoglycemia Protocol Enoxaparin Sodium 30 mg 04/19/21 22:00 04/23/21 09:43 Enoxaparin 30 Mg/0.3 Ml Inj SUB-Q 30 mg BID REJI Administration Protocol Famotidine 20 mg 04/21/21 10:00 04/23/21 09:42 Famotidine 20 Mg Tab FEEDTUBE 20 mg BID REJI Administration Fentanyl 50 mcg 04/19/21 09:59 Fentanyl 100 Mcg/2 Ml Inj IV Q10MIN PRN ANALGESIA Hydralazine HCl 10 mg 04/22/21 10:08 04/22/21 10:26 Hydralazine 20 Mg/1 Ml Inj IV 10 mg Q4HR PRN Administration sbp> 160 Hydrochlorothiazide 12.5 mg 04/22/21 11:00 04/23/21 09:42 Hydrochlorothiazide 12.5 Mg Cap FEEDTUBE 12.5 mg QAM REJI Administration Hydrophilic Ointment 1 applic 04/18/21 03:03 Lip Therapy Vaseline TP Q2HR PRN Dry Lips Fentanyl Citrate 2,000 mcg in 100 mls @ 3.175 mls/hr 04/19/21 10:00 04/22/21 22:13 Fentanyl Drip Premix IV 2 mcg/kg/hr TITR REJI 6.35 mls/hr Administration Protocol 1 MCG/KG/HR Propofol 1,000 mg in 100 mls @ 1.905 mls/hr 04/19/21 13:00 Diprivan 10 Mg/Ml IV TITR REJI Protocol 5 MCG/KG/MIN Insulin Glargine 20 units 04/22/21 22:00 04/22/21 22:12 Insulin Glargine 100 Units/Ml SUB-Q 20 units QHS REJI Administration Insulin Human Lispro 0 unit 04/22/21 10:00 04/23/21 12:09 Insulin Lispro 100 Unit/Ml SUB-Q 4 unit Q4HR REJI Administration Protocol Losartan Potassium 50 mg 04/22/21 11:00 04/23/21 09:42 Losartan 50 Mg Tab FEEDTUBE 50 mg QDAY REJI Administration Morphine Sulfate 2 mg 04/18/21 04:13 Morphine 2 Mg/1 Ml Inj IV Q4H PRN Pain, Moderate (4-6) Morphine Sulfate 4 mg 04/18/21 04:13 Morphine 4 Mg/1 Ml Inj IV Q4H PRN Pain , Severe (7-10) Multi-Ingred Cream/Lotion/Oil/Oint 1 applic 04/18/21 03:03 Mineral Oil/Petrolatum, White Ophth Oint 3.5 Gm OU Q4HR PRN Dry Eye(s) Ondansetron HCl 4 mg 04/18/21 04:13 Ondansetron 4 Mg/2 Ml Inj IV Q8H PRN Nausea And Vomiting Senna 8.8 mg 04/19/21 22:00 04/22/21 22:11 Sennosides Oral Liqd 8.8 Mg/5 Ml Oral Liqd PO 8.8 mg QHS REJI Administration Simple Syrup 15 ml 04/19/21 12:25 Simple Syrup 15 Ml FEEDTUBE PRN PRN Hypoglycemia Simple Syrup 30 ml 04/19/21 12:25 Simple Syrup 15 Ml FEEDTUBE PRN PRN Hypoglycemia Sodium Bicarbonate 325 mg 04/19/21 12:25 Sodium Bicarbonate 325 Mg Tab FEEDTUBE PRN PRN For Clogged Feeding Tube Sodium Chloride 10 ml 04/18/21 10:00 04/23/21 09:43 Sodium Chloride 0.9% 10 Ml Flush Syringe IV 10 ml BID REJI Administration Sodium Chloride 10 ml 04/18/21 04:13 Sodium Chloride 0.9% 10 Ml Flush Syringe IV PRN PRN LINE FLUSH Nutrition/Malnutrition Assess - Dietary Evaluation Nutrition/Malnutrition Findings: Nutrition Notes Start: 04/18/21 08:28 Freq: Status: Active Protocol: Document 04/21/21 15:58 GB (Rec: 04/21/21 16:06 GB [id number]) Nutrition Notes Initial or Follow up Reassessment Current Diagnosis Sepsis,Respiratory Failure Other Pertinent Diagnosis COVID-19 (+), bilat pneu, AMS Current Diet NPO, TF Vital AF 1.2 @ 50 Labs/Tests 04/21: BUN 36, Glucose 342, Ca 8.1, AST 52 Pertinent Medications Azithromycin, fentanyl Citrate , remdemsivir/NaCl Height 5 ft 2 in Weight 68.6 kg [place] Body Weight (kg) 50.00 BMI 27.6 Weight change and time frame 04/18: 63.503kg 04/20: 68.6kg change of +5.097kg for +8% gain. Weight Status Overweight Subjective/Other Information MD notes 04/21: vented, off pressors, kidney function stable Percent of energy/protein needs met: TF at goal rate meets 75% or greater of EEN Burn Absent Trauma Absent GI Symptoms None Difficulty In Swallowing Food Allergy No Skin Integrity/Comment no complications reported Current % PO Other Minimum of two criteria No #1 Nutrition Diagnosis Swallowing difficulty Comments: 04/21: TF Vital AF 1.2 @50ml/ hr, vented, off pressors Etiology COVID+, respiratory Failure As Evidenced by Signs and Symptoms Intubated, NPO Diagnosis Progress(for reassessment Continues documentation) Is patient on ventilator? Yes Is Patient Ambulatory and/or Out of Bed No REE-([facility] Tung-confined to bed) 1503.264 Kcal/Kg value to use for calculation 25 Approximate Energy Requirements Using 1715 kcal/Kg Calculation Used for Recommendations [facility] Additional Notes Pro needs 1.2-2g/kg (63.5kg): 76-127g/day Fluid needs 1ml/kcal Nutrition Intervention Change Diet Order: NPO - continue Post extubation - advance clear to Regular Nutrition Support: Vital AF 1.2 at 50ml/hr with 100ml water flush q4h or per MD order. Kcal 1,440 Protein (gm) 90 Carbohydrates (gm) 133 Fat (gm) 65 Fluid (mL) 973 Fiber (gm) 6 Goal #1 TF tolerance 04/21: met, continues Goal #2 TF to meet at least 75% energy and pro needs 04/21: TF at goal, met, continues Anticipated Discharge Needs: Unable to identify at this time Follow-Up By: 04/24/21 Additional Comments F/U: TF, vent status <DINORAH EMERSON - Last Filed: 04/27/21 12:50> Assessment and Plan Assessment and plan: I saw and evaluated the patient. Discussed with the nurse practitioner and agree with their findings and plan as documented in this note. Hospitalist Physical - Constitutional Vitals: Temp Pulse Resp BP Pulse Ox 98.2 F 66 18 118/76 98 04/26/21 21:08 04/26/21 21:08 04/26/21 21:08 04/26/21 21:08 04/27/21 08:33 Results - Labs CBC & Chem 7: 04/26/21 07:20 04/26/21 07:20 Labs: Laboratory Last Values WBC 8.2 K/mm3 (4.5-11.0) 04/26/21 07:20 RBC 4.18 M/mm3 (3.65-5.03) 04/26/21 07:20 Hgb 13.5 gm/dl (10.1-14.3) 04/26/21 07:20 Hct 40.0 % (30.3-42.9) 04/26/21 07:20 MCV 96 fl (79-97) 04/26/21 07:20 MCH 32 pg (28-32) 04/26/21 07:20 MCHC 34 % (30-34) 04/26/21 07:20 RDW 12.9 % (13.2-15.2) L 04/26/21 07:20 Plt Count 280 K/mm3 (140-440) 04/26/21 07:20 Lymph % (Auto) 12.5 % (13.4-35.0) L 04/19/21 05:36 [place] % (Auto) 9.4 % (0.0-7.3) H 04/19/21 05:36 Eos % (Auto) 0.0 % (0.0-4.3) 04/19/21 05:36 Baso % (Auto) 0.2 % (0.0-1.8) 04/19/21 05:36 Lymph # (Auto) 1.0 K/mm3 (1.2-5.4) L 04/19/21 05:36 [place] # (Auto) 0.8 K/mm3 (0.0-0.8) 04/19/21 05:36 Eos # (Auto) 0.0 K/mm3 (0.0-0.4) 04/19/21 05:36 Baso # (Auto) 0.0 K/mm3 (0.0-0.1) 04/19/21 05:36 Add Manual Diff Complete 04/19/21 05:36 Seg Neutrophils % 77.9 % (40.0-70.0) H 04/19/21 05:36 Nucleated RBC % Not Reportable 04/19/21 05:36 Seg Neutrophils # 6.4 K/mm3 (1.8-7.7) 04/19/21 05:36 WBC Morphology Not Reportable 04/19/21 05:36 Hypersegmented Neuts Not Reportable 04/19/21 05:36 Hyposegmented Neuts Not Reportable 04/19/21 05:36 Hypogranular Neuts Not Reportable 04/19/21 05:36 Smudge Cells Not Reportable 04/19/21 05:36 Toxic Granulation Not Reportable 04/19/21 05:36 Toxic Vacuolation Not Reportable 04/19/21 05:36 Dohle Bodies Not Reportable 04/19/21 05:36 Pel[place]-Huet Anomaly Not Reportable 04/19/21 05:36 [place] Rods Not Reportable 04/19/21 05:36 Platelet Estimate Not Reportable 04/19/21 05:36 Clumped Platelets Not Reportable 04/19/21 05:36 Plt Clumps, EDTA Not Reportable 04/19/21 05:36 Large Platelets Not Reportable 04/19/21 05:36 Giant Platelets Not Reportable 04/19/21 05:36 Platelet Satelliting Not Reportable 04/19/21 05:36 Plt Morphology Comment Not Reportable 04/19/21 05:36 RBC Morphology Not Reportable 04/19/21 05:36 Dimorphic RBCs Not Reportable 04/19/21 05:36 Polychromasia Not Reportable 04/19/21 05:36 Hypochromasia Not Reportable 04/19/21 05:36 Poikilocytosis Not Reportable 04/19/21 05:36 Anisocytosis Not Reportable 04/19/21 05:36 Microcytosis Not Reportable 04/19/21 05:36 Macrocytosis Not Reportable 04/19/21 05:36 Spherocytes Not Reportable 04/19/21 05:36 Pappenheimer Bodies Not Reportable 04/19/21 05:36 Sickle Cells Not Reportable 04/19/21 05:36 Target Cells Not Reportable 04/19/21 05:36 Tear Drop Cells Not Reportable 04/19/21 05:36 Ovalocytes Not Reportable 04/19/21 05:36 Helmet Cells Not Reportable 04/19/21 05:36 [place] Bodies Not Reportable 04/19/21 05:36 [place] Rings Not Reportable 04/19/21 05:36 Nupur Cells Not Reportable 04/19/21 05:36 Bite Cells Not Reportable 04/19/21 05:36 Crenated Cell Not Reportable 04/19/21 05:36 Elliptocytes Not Reportable 04/19/21 05:36 Acanthocytes (Spur) Not Reportable 04/19/21 05:36 Rouleaux Not Reportable 04/19/21 05:36 Hemoglobin C Crystals Not Reportable 04/19/21 05:36 Schistocytes Not Reportable 04/19/21 05:36 Malaria parasites Not Reportable 04/19/21 05:36 [place] Bodies Not Reportable 04/19/21 05:36 Hem Pathologist Commnt Not Reportable 04/19/21 05:36 PT 14.5 Sec. (12.2-14.9) 04/19/21 05:36 INR 1.02 (0.87-1.13) 04/19/21 05:36 APTT 34.2 Sec. (24.2-36.6) 04/18/21 02:34 D-Dimer 1215.98 ng/mlDDU (0-234) H 04/26/21 07:20 ABG pH 7.458 pH Units (7.350-7.450) H 04/23/21 18:20 POC ABG pCO2 30.5 mmHg (32.0-48.0) L 04/22/21 04:00 ABG pCO2 37.2 mm Hg 04/23/21 18:20 POC ABG pO2 67.9 mmHg (83-108) L 04/22/21 04:00 ABG pO2 168.1 mm Hg (80.0-90.0) H 04/23/21 18:20 POC ABG HCO3 22.2 04/22/21 04:00 ABG HCO3 25.8 mmol/L (20.0-26.0) 04/23/21 18:20 ABG O2 Saturation 99.1 % (95.0-99.0) H 04/23/21 18:20 ABG O2 Content 19.0 (0.0-44) 04/23/21 18:20 POC ABG Base Excess -0.3 04/22/21 04:00 ABG Base Excess 2.1 mmol/L (-2.0-3.0) 04/23/21 18:20 ABG Hemoglobin 13.7 gm/dl (12.0-16.0) 04/23/21 18:20 ABG Oxyhemoglobin 14.4 (94-98) L 04/22/21 04:00 ABG Carboxyhemoglobin 1.2 % (0.0-5.0) 04/23/21 18:20 ABG Methemoglobin 0.5 % (0.0-1.5) 04/23/21 18:20 ABG Sodium 138.2 mmol/L (136.0-145.0) 04/22/21 04:00 ABG Potassium 4.1 mmol/L (3.40-4.50) 04/22/21 04:00 ABG Chloride 108.0 mmol/L (98-107) H 04/22/21 04:00 ABG Glucose 212 mg/dL (65-95) H 04/22/21 04:00 Oxyhemoglobin 97.4 % (95.0-99.0) 04/23/21 18:20 Carboxyhemoglobin 1.1 (0.5-1.5) 04/22/21 04:00 FiO2 100 % 04/23/21 18:20 FiO2 % 35 04/22/21 04:00 Sodium 139 mmol/L (137-145) 04/26/21 07:20 Potassium 4.2 mmol/L (3.6-5.0) 04/26/21 07:20 Chloride 100.6 mmol/L (98-107) 04/26/21 07:20 Carbon Dioxide 28 mmol/L (22-30) 04/26/21 07:20 Anion Gap 15 mmol/L 04/26/21 07:20 BUN 38 mg/dL (7-17) H 04/26/21 07:20 Creatinine 0.8 mg/dL (0.6-1.2) 04/26/21 07:20 Estimated GFR > 60 ml/min 04/26/21 07:20 BUN/Creatinine Ratio 48 % 04/26/21 07:20 Glucose 90 mg/dL (65-100) 04/26/21 07:20 POC Glucose 136 mg/dL (70-105) H 04/27/21 11:09 Hemoglobin A1c 8.0 % (4-6) H 04/20/21 10: Lactic Acid 1.70 mmol/L (0.7-2.0) 04/22/21 10:58 Calcium 9.3 mg/dL (8.4-10.2) 04/26/21 07:20 Phosphorus 3.00 mg/dL (2.5-4.5) 04/22/21 04:19 Magnesium 2.30 mg/dL (1.7-2.3) 04/22/21 04:19 Ferritin 1558.0 ng/mL (10.0-200.0) H 04/26/21 07:20 Total Bilirubin 0.30 mg/dL (0.1-1.2) 04/21/21 04:24 AST 52 units/L (5-40) H 04/21/21 04:24 ALT 55 units/L (7-56) 04/21/21 04:24 Alkaline Phosphatase 67 units/L (35-129) 04/21/21 04:24 Ammonia 25.0 umol/L (25-60) 04/18/21 02:34 Lactate Dehydrogenase 408 units/L (91-180) H 04/26/21 07:20 Total Creatine Kinase 68 units/L (30-135) 04/18/21 02:34 C-Reactive Protein 0.20 mg/dL (0.00-1.30) 04/26/21 07:20 Total Protein 6.1 g/dL (6.3-8.2) L 04/21/21 04:24 Albumin 2.7 g/dL (3.9-5) L 04/21/21 04:24 Albumin/Globulin Ratio 0.8 % 04/21/21 04:24 Procalcitonin 0.08 ng/mL (<0.15) 04/24/21 04:33 Arterial Blood Glucose 212 mg/dL (65-95) H 04/22/21 04:00 Urine Color Yellow (Yellow) 04/18/21 04:25 Urine Turbidity Clear (Clear) 04/18/21 04:25 Urine pH 5.0 (5.0-7.0) 04/18/21 04:25 Ur Specific [place] 1.018 (1.003-1.030) 04/18/21 04:25 Urine Protein 100 mg/dl mg/dL (Negative) 04/18/21 04:25 Urine Glucose (UA) Neg mg/dL (Negative) 04/18/21 04:25 Urine Ketones Tr mg/dL (Negative) 04/18/21 04:25 Urine Blood Neg (Negative) 04/18/21 04:25 Urine Nitrite Neg (Negative) 04/18/21 04:25 Ur Reducing Substances Not Reportable 04/18/21 04:25 Urine Bilirubin Neg (Negative) 04/18/21 04:25 Urine Ictotest Not Reportable 04/18/21 04:25 Urine Urobilinogen 2.0 mg/dL (<2.0) 04/18/21 04:25 Ur Leukocyte Esterase Neg (Negative) 04/18/21 04:25 Urine WBC (Auto) 2.0 /HPF (0.0-6.0) 04/18/21 04:25 Urine RBC (Auto) 3.0 /HPF (0.0-6.0) 04/18/21 04:25 Hyaline Casts 3 /LPF 04/18/21 04:25 Urine Mucus Few /HPF 04/18/21 04:25 Plasma/Serum Alcohol < 0.01 % (0-0.07) 04/18/21 02:34 Coronavirus (PCR) Positive (Negative) A 04/19/21 09:00 Franco/IV: Voiding Method Toilet Active Medications - Current Medications Current Medications: Generic Name Dose Route Start Last Admin Trade Name Freq PRN Reason Stop Dose Admin Acetaminophen 650 mg 04/18/21 04:13 Acetaminophen 650 Mg Rect Supp [place] Q6H PRN Pain MILD(1-3)/Fever >100.5/ASENCIO Amlodipine Besylate 10 mg 04/25/21 10:00 04/27/21 09:40 Amlodipine 10 Mg Tab PO 10 mg QDAY REJI Administration Lipase/Protease/Amylase 1 each 04/19/21 12:25 Lipase 10,500/Protease 25,000/Amylase 43,750 (Units) Dr Cox FEEDTUBE PRN PRN For Clogged Feeding Tube Dextrose 50 ml 04/20/21 10:34 04/24/21 10:30 Dextrose 50% In Water (25gm) 50 Ml Syringe IV 50 ml Q30MIN PRN Administration Hypoglycemia Protocol Enoxaparin Sodium 30 mg 04/19/21 22:00 04/27/21 09:41 Enoxaparin 30 Mg/0.3 Ml Inj SUB-Q 30 mg BID REJI Administration Protocol Famotidine 20 mg 04/24/21 22:00 04/27/21 09:40 Famotidine 20 Mg Tab PO 20 mg BID REJI Administration Hydralazine HCl 10 mg 04/22/21 10:08 04/22/21 10:26 Hydralazine 20 Mg/1 Ml Inj IV 10 mg Q4HR PRN Administration sbp> 160 Hydrochlorothiazide 12.5 mg 04/25/21 10:00 04/27/21 09:40 Hydrochlorothiazide 12.5 Mg Cap PO 12.5 mg QDAY REJI Administration Hydrophilic Ointment 1 applic 04/18/21 03:03 Lip Therapy Vaseline TP Q2HR PRN Dry Lips Insulin Glargine 20 units 04/22/21 22:00 04/26/21 21:57 Insulin Glargine 100 Units/Ml SUB-Q 20 units QHS REJI Administration Insulin Human Lispro 0 unit 04/25/21 11:30 04/27/21 11:28 Insulin Lispro 100 Unit/Ml SUB-Q Not Given ACHS [facility] Protocol Losartan Potassium 50 mg 04/25/21 10:00 04/27/21 09:41 Losartan 50 Mg Tab PO 50 mg QDAY REJI Administration Multi-Ingred Cream/Lotion/Oil/Oint 1 applic 04/18/21 03:03 Mineral Oil/Petrolatum, White Ophth Oint 3.5 Gm OU Q4HR PRN Dry Eye(s) Ondansetron HCl 4 mg 04/18/21 04:13 Ondansetron 4 Mg/2 Ml Inj IV Q8H PRN Nausea And Vomiting Oxycodone HCl 5 mg 04/24/21 12:00 Oxycodone 5 Mg Tab PO Q8H PRN Pain, Moderate (4-6) Senna 17.6 mg 04/24/21 22:00 04/26/21 21:59 Sennosides Oral Liqd 8.8 Mg/5 Ml Oral Liqd FEEDTUBE Not Given QHS REJI Sodium Chloride 10 ml 04/18/21 10:00 04/27/21 09:41 Sodium Chloride 0.9% 10 Ml Flush Syringe IV 10 ml BID REJI Administration Sodium Chloride 10 ml 04/18/21 04:13 Sodium Chloride 0.9% 10 Ml Flush Syringe IV PRN PRN LINE FLUSH Nutrition/Malnutrition Assess - Dietary Evaluation Nutrition/Malnutrition Findings: Nutrition Notes Start: 04/18/21 08:28 Freq: Status: Active Protocol: Document 04/24/21 15:16 GB (Rec: 04/24/21 15:26 GB [id number]) Nutrition Notes Initial or Follow up Reassessment Current Diagnosis Sepsis,Respiratory Failure Other Pertinent Diagnosis COVID-19 (+), bilat pneu, AMS Current Diet cardiac mechanical soft Labs/Tests 04/24: BUN 27, Glucose 130, ferritin 1392 Pertinent Medications D5 (PRN) Height 5 ft 2 in Weight 68.6 kg [place] Body Weight (kg) 50.00 BMI 27.6 Weight change and time frame 04/18: 63.503kg 04/24: 68.6kg change of +5.097kg for +8% gain. Weight Status Overweight Subjective/Other Information MD notes 04/24: Pt self extubated. Placed on BiPap, now on HFNC, passed bedside swallow Diet advanced at lunch today Percent of energy/protein needs met: Unable to assess at this time. Diet just advanced Burn Absent Trauma Absent GI Symptoms None Food Allergy No Skin Integrity/Comment no complications reported Current % PO Other Minimum of two criteria No #1 Nutrition Diagnosis Swallowing difficulty Comments: 04/21: TF Vital AF 1.2 @50ml/ hr, vented, off pressors 04/24: self extubated 04/23, now on HFNC, passed bedside swallow, diet started Etiology COVID+, respiratory Failure As Evidenced by Signs and Symptoms Intubated, NPO Diagnosis Progress(for reassessment Resolved documentation) Is patient on ventilator? No Is Patient Ambulatory and/or Out of Bed No REE-([facility]-confined to bed) 1503.264 Kcal/Kg value to use for calculation 23 Approximate Energy Requirements Using 1578 kcal/Kg Calculation Used for Recommendations [facility] Additional Notes Pro needs 1.2-2g/kg (63.5kg): 76-127g/day (initial weight, expect weight changes) Fluid needs 1ml/kcal Nutrition Intervention Change Diet Order: cardiac - continue Nutrition Support: n/a Add Supplement/Snack (indicate name/kcal ensure enlive daily /protein ) Provides kCal: 350 Provides Protein (gm) 20 Goal #1 TF tolerance 04/21: met, continues 04/24: resolved - extubated, diet advanced Goal #2 TF to meet at least 75% energy and pro needs 04/21: TF at goal, met, continues 04/24: resolved, extubated, diet advanced Goal #3 PO intake of meals to improve to 50% or greater daily for LOS Follow-Up By: 04/29/21 Additional Comments f/u: diet tolerance, %PO meal/ supplement
[2021-04-23] MEDS: SENNOSIDES ORAL LIQD 8.8 MG/5 ML ORAL LIQD PO SCH (21:04)
[2021-04-23] MEDS: INSULIN GLARGINE 100 UNITS/ML SUB-Q SCH (21:36)
[2021-04-24] MEDS: INSULIN LISPRO 100 UNIT/ML SUB-Q SCH ×6 (02:33→18:27)
[2021-04-24 05:27] LABS: Hematocrit 39.6 % (30.3-42.9); Hemoglobin 12.9 gm/dl (10.1-14.3); Mean Corpuscular HGB Conc 33 % (30-34); Mean Corpuscular Volume 96 fl (79-97); Platelet Count 234 K/mm3 (140-440); Red Blood Count 4.12 M/mm3 (3.65-5.03); Red Cell Distribution Width 12.9 % (13.2-15.2)
[2021-04-24 06:51] LABS: Blood Urea Nitrogen 27 mg/dL (7-17); Calcium 8.9 mg/dL (8.4-10.2); Hemolysis Index 4
[2021-04-24 06:56] LABS: BUN/Creatinine Ratio 39
[2021-04-24] MEDS: dexAMETHasone 4 MG/ML VIAL IV SCH (10:39)
[2021-04-24] MEDS: ENOXAPARIN 30 MG/0.3 ML INJ SUB-Q SCH (10:39)
[2021-04-24] MEDS: FAMOTIDINE 20 MG TAB FEEDTUBE SCH (10:40)
[2021-04-24] MEDS: hydroCHLOROthiazide 12.5 MG CAP FEEDTUBE SCH (10:40)
[2021-04-24] MEDS: amLODIPine 10 MG TAB FEEDTUBE SCH (10:40)
[2021-04-24] MEDS: LOSARTAN 50 MG TAB FEEDTUBE SCH (10:40)
--- NOTE | 2021-04-24 11:20 | Progress Note ---
Assessment and Plan Cultures: Blood culture no growth Sputum culture no growth COVID-19 PCR: Positive Urine culture: No growth A/P: 51-year-old female admitted with COVID-19 #Severe COVID-19 pneumonia: Patient presented with a week of symptoms, chest x- ray with diffuse bilateral infiltrates, admission O2 sats 40%on room air. Inflammatory markers elevated. #Acute hypoxemic respiratory failure: secondary to COVID-19 infection. Was on the vent, extubated to BiPAP 04/24/2021. Recommendations: -Complete 10 days of steroids -Completed Remdesivir -WBC downtrending, most recent CRP 0.6, procalcitonin 0.12 -Status post Actemra 04/21/2021 -Anticoagulation per hospital protocol Tung Germain MD, FACP [facility] O: [phone] F: [phone] Subjective Date of service: 04/24/21 Principal diagnosis: Pneumonia; Sepsis; Acute hypoxemic resp failure; ARDS; COVID; Sepsis Interval history: No fever. Extubated to BiPAP. Objective - Exam Narrative Exam: Physical Exam (reviewed in chart to minimize risk of transmission) Constitutional: deferred Head, Ears, Nose: deferred Eyes: deferred Neck: deferred Oral: deferred Cardiovascular: deferred Respiratory: deferred GI: deferred Musculoskeletal: deferred Skin: deferred Hem/Lymphatic: deferred Psych: deferred Neurological: deferred - Constitutional Vitals: Vital Signs Temp Pulse Resp BP Pulse Ox 99.2 F 69 21 139/81 95 04/24/21 07:15 04/24/21 10:40 04/24/21 10:00 04/24/21 10:40 04/24/21 10:27 Temperature -Last 24 Hours Temperature 99.2 F Temperature 99.7 F Temperature 99.2 F Temperature 99.8 F Temperature 98.8 F Temperature 99.1 F - Labs CBC & Chem 7: 04/24/21 04:33 04/24/21 04:33 Labs: Abnormal lab results 04/23/21 04/23/21 04/23/21 Range/Units 12:01 15:26 18:20 WBC (4.5-11.0) K/mm3 RDW (13.2-15.2) % D-Dimer (0-234) ng/mlDDU ABG pH 7.458 H (7.350-7.450) pH Units ABG pO2 168.1 H (80.0-90.0) mm Hg ABG O2 Saturation 99.1 H (95.0-99.0) % BUN (7-17) mg/dL Glucose (65-100) mg/dL POC Glucose 220 H 291 H (70-105) mg/dL Ferritin (10.0-200.0) ng/mL Lactate Dehydrogenase (91-180) units/L 04/23/21 04/24/21 04/24/21 Range/Units 22:04 02:17 04:33 WBC (4.5-11.0) K/mm3 RDW (13.2-15.2) % D-Dimer 1775.11 H (0-234) ng/mlDDU ABG pH (7.350-7.450) pH Units ABG pO2 (80.0-90.0) mm Hg ABG O2 Saturation (95.0-99.0) % BUN (7-17) mg/dL Glucose (65-100) mg/dL POC Glucose 246 H 153 H (70-105) mg/dL Ferritin (10.0-200.0) ng/mL Lactate Dehydrogenase (91-180) units/L 04/24/21 04/24/21 04/24/21 Range/Units 04:33 04:33 04:33 WBC 12.1 H (4.5-11.0) K/mm3 RDW 12.9 L (13.2-15.2) % D-Dimer (0-234) ng/mlDDU ABG pH (7.350-7.450) pH Units ABG pO2 (80.0-90.0) mm Hg ABG O2 Saturation (95.0-99.0) % BUN 27 H (7-17) mg/dL Glucose 130 H (65-100) mg/dL POC Glucose (70-105) mg/dL Ferritin 1392.0 H (10.0-200.0) ng/mL Lactate Dehydrogenase 506 H (91-180) units/L 04/24/21 04/24/21 Range/Units 10:47 10:49 WBC (4.5-11.0) K/mm3 RDW (13.2-15.2) % D-Dimer (0-234) ng/mlDDU ABG pH (7.350-7.450) pH Units ABG pO2 (80.0-90.0) mm Hg ABG O2 Saturation (95.0-99.0) % BUN (7-17) mg/dL Glucose (65-100) mg/dL POC Glucose 254 H 258 H (70-105) mg/dL Ferritin (10.0-200.0) ng/mL Lactate Dehydrogenase (91-180) units/L
[2021-04-24] MEDS ORDERED: oxyCODONE 5 MG TAB PO PRN (12:00)
--- NOTE | 2021-04-24 13:47 | Progress Note ---
Assessment and Plan Bilateral pneumonia Sepsis Hyperglycemia Acute hypoxemic respiratory failure, ARDS COVID pneumonia Bilateral pneumonia Sepsis - doing better will transfer to medical floor - remains on 50% FiO2; continue to wean supplemental oxygen for target O2 sat's > 90% acutely - continue care as below otherwise; - prn BIPAP - aspiration precautions - advance diet as tolerated - continue lung protective strategies - continue bronchodilators with pulmonary hygiene per RT - continue accuchecks with glycemic control per SSI (While critically ill target blood glucose of 140-180 mg/dL; avoid hypoglycemia) - continue to avoid nephrotoxins, renally dose all medications - mobility protocols to prevent pressure ulcers - PT/OT as tolerated - Wound care per RN/WCT - continue accuchecks with glycemic control per SSI for target blood glucose < 180 mg/dL - tobacco abstinence strongly counseled at the bedside - home oxygen evaluation at discharge - GI & VTE prophylaxis - Flu & pneumovax per protocol - Pulmonary out patient follow up for PFTs and optimization of respiratory status - continue other care per attending / other consultants - prn analgesia per pain score - AB's per ID rec's - Maintenance of sleep-wake cycle, avoid delirium - Monitor hemodynamics closely - continue other care per attending / other consultants - discharge planning ongoing concurrently COVID SPECIFIC INTERVENTIONS - S/P Actemra (04/21) - Remdesivir as per ID/Pulmonary developed protocols - continue systemic steroids for severe COVID-19 infection empirically (10 days then re-evaluate) - follow repeat COVID tests results - zinc and vitamin C supplementation - Monitor inflammatory markers per facility protocol - ferritin, Ddimer, CRP - therapeutic anticoagulation per system Protocol based on d-dimer and clinical considerations - Continue contact and airborne isolation .... Re-evaluate in am & prn I have spent ( >35 ) minutes with the patient w/ >50% of the time spent counseling and/or coordinating care for this patient. Counseling topics and/or how time was spent coordinating patient's care is outlined in the impression and plan above. Subjective Date of service: 04/24/21 Principal diagnosis: Pneumonia; Sepsis; Acute hypoxemic resp failure; ARDS; COV ID; Sepsis Interval history: Patient is seen today for: Bilateral pneumonia; Sepsis; Acute hypoxemic respiratory failure; ARDS; COVID infxn; Sepsis Seen and examined at bedside; 24hour events reviewed; nursing and respiratory care staff consulted; no adverse overnight events reported to me; resting in bed; self extubated yesterday but has done well so far; no major electrolyte derangements; denies N/V/F/C; looks depressed but denies such emotions Objective Vital Signs - 12hr 04/24/21 04/24/21 04/24/21 02:00 02:30 02:41 Temperature Pulse Rate 58 L 61 87 Pulse Rate [ From Monitor] Pulse Rate [ Left Dorsalis Pedis] Pulse Rate [ Left Radial] Pulse Rate [ Right Dorsalis Pedis] Pulse Rate [ Right Radial] Respiratory 20 18 Rate Blood Pressure 124/77 112/72 O2 Sat by Pulse 96 96 Oximetry 04/24/21 04/24/21 04/24/21 03:00 03:30 03:45 Temperature 99.7 F H Pulse Rate 58 L 58 L Pulse Rate [ From Monitor] Pulse Rate [ Left Dorsalis Pedis] Pulse Rate [ Left Radial] Pulse Rate [ Right Dorsalis Pedis] Pulse Rate [ Right Radial] Respiratory 20 20 Rate Blood Pressure 121/75 122/75 O2 Sat by Pulse 96 95 Oximetry 04/24/21 04/24/21 04/24/21 04:00 04:30 05:00 Temperature Pulse Rate 56 L 57 L 58 L Pulse Rate [ From Monitor] Pulse Rate [ Left Dorsalis Pedis] Pulse Rate [ Left Radial] Pulse Rate [ Right Dorsalis Pedis] Pulse Rate [ Right Radial] Respiratory 18 19 21 Rate Blood Pressure 113/77 118/75 122/79 O2 Sat by Pulse 95 96 96 Oximetry 04/24/21 04/24/21 04/24/21 05:30 06:00 06:30 Temperature Pulse Rate 60 67 60 Pulse Rate [ From Monitor] Pulse Rate [ Left Dorsalis Pedis] Pulse Rate [ Left Radial] Pulse Rate [ Right Dorsalis Pedis] Pulse Rate [ Right Radial] Respiratory 18 20 17 Rate Blood Pressure 120/75 113/77 115/70 O2 Sat by Pulse 94 95 94 Oximetry 04/24/21 04/24/21 04/24/21 07:00 07:15 07:30 Temperature 99.2 F Pulse Rate 61 57 L Pulse Rate [ From Monitor] Pulse Rate [ Left Dorsalis Pedis] Pulse Rate [ Left Radial] Pulse Rate [ Right Dorsalis Pedis] Pulse Rate [ Right Radial] Respiratory 18 19 Rate Blood Pressure 123/74 116/74 O2 Sat by Pulse 95 95 Oximetry 04/24/21 04/24/21 04/24/21 07:37 08:00 08:30 Temperature Pulse Rate 58 L 61 62 Pulse Rate [ 61 From Monitor] Pulse Rate [ 60 Left Dorsalis Pedis] Pulse Rate [ 60 Left Radial] Pulse Rate [ 60 Right Dorsalis Pedis] Pulse Rate [ 60 Right Radial] Respiratory 20 19 19 Rate Blood Pressure 116/74 119/74 118/74 O2 Sat by Pulse 94 92 94 Oximetry 04/24/21 04/24/21 04/24/21 09:00 09:30 10:00 Temperature Pulse Rate 58 L 69 62 Pulse Rate [ From Monitor] Pulse Rate [ Left Dorsalis Pedis] Pulse Rate [ Left Radial] Pulse Rate [ Right Dorsalis Pedis] Pulse Rate [ Right Radial] Respiratory 17 20 21 Rate Blood Pressure 128/77 132/84 128/78 O2 Sat by Pulse 94 93 92 Oximetry 04/24/21 04/24/21 04/24/21 10:27 10:30 10:40 Temperature Pulse Rate 70 69 Pulse Rate [ From Monitor] Pulse Rate [ Left Dorsalis Pedis] Pulse Rate [ Left Radial] Pulse Rate [ Right Dorsalis Pedis] Pulse Rate [ Right Radial] Respiratory 22 Rate Blood Pressure 139/81 139/81 O2 Sat by Pulse 95 96 Oximetry 04/24/21 04/24/21 04/24/21 11:00 11:30 12:00 Temperature 99.0 F Pulse Rate 64 66 74 Pulse Rate [ 74 From Monitor] Pulse Rate [ Left Dorsalis Pedis] Pulse Rate [ Left Radial] Pulse Rate [ Right Dorsalis Pedis] Pulse Rate [ Right Radial] Respiratory 20 21 17 Rate Blood Pressure 133/82 131/85 129/88 O2 Sat by Pulse 91 88 93 Oximetry 04/24/21 12:30 Temperature Pulse Rate 74 Pulse Rate [ From Monitor] Pulse Rate [ Left Dorsalis Pedis] Pulse Rate [ Left Radial] Pulse Rate [ Right Dorsalis Pedis] Pulse Rate [ Right Radial] Respiratory 24 Rate Blood Pressure 154/101 O2 Sat by Pulse 88 Oximetry Constitutional: no acute distress Eyes: non-icteric ENT: oropharynx moist Neck: supple, no lymphadenopathy Effort: mildly labored Ascultation: Bilateral: clear, diminished breath sounds Percussion: Bilateral: not dull Cardiovascular: regular rate and rhythm, other (S1,S2) Gastrointestinal: normoactive bowel sounds, soft, non-tender, non-distended (protuberant) Integumentary: normal Extremities: no cyanosis, no edema, pulses normal, no ischemia or petechiae Neurologic: non-focal exam (grossly), pupils equal and round, CN II-XII normal, motor strength normal and Psychiatric: mood appropriate CBC and BMP: 04/24/21 04:33 04/24/21 04:33 ABG, PT/INR, D-dimer: ABG ABG pH 7.458 pH Units (7.350-7.450) H 04/23/21 18:20 POC ABG pCO2 30.5 mmHg (32.0-48.0) L 04/22/21 04:00 ABG pCO2 37.2 mm Hg 04/23/21 18:20 POC ABG pO2 67.9 mmHg (83-108) L 04/22/21 04:00 ABG pO2 168.1 mm Hg (80.0-90.0) H 04/23/21 18:20 POC ABG HCO3 22.2 04/22/21 04:00 ABG O2 Saturation 99.1 % (95.0-99.0) H 04/23/21 18:20 PT/INR, D-dimer PT 14.5 Sec. (12.2-14.9) 04/19/21 05:36 INR 1.02 (0.87-1.13) 04/19/21 05:36 D-Dimer 1775.11 ng/mlDDU (0-234) H 04/24/21 04:33 Abnormal lab findings: Abnormal Labs 04/18/21 04/18/21 04/18/21 02:34 02:34 02:34 WBC RBC MCH 33 H MCHC 35 H RDW 12.4 L Lymph % (Auto) [place] % (Auto) 14.0 H Lymph # (Auto) 0.9 L [place] # (Auto) 0.9 H Seg Neutrophils % 72.0 H D-Dimer 978.83 H ABG pH POC ABG pCO2 POC ABG pO2 ABG pO2 ABG HCO3 ABG O2 Saturation ABG Oxyhemoglobin ABG Potassium ABG Chloride ABG Glucose Oxyhemoglobin Carboxyhemoglobin Sodium Potassium Chloride Carbon Dioxide 20 L BUN 32 H Glucose 227 H POC Glucose Hemoglobin A1c Lactic Acid Calcium 8.2 L Ferritin AST 64 H ALT Lactate Dehydrogenase C-Reactive Protein Total Protein Albumin 3.5 L Arterial Blood Glucose Coronavirus (PCR) 04/18/21 04/18/21 04/18/21 02:34 02:34 04:20 WBC RBC MCH MCHC RDW Lymph % (Auto) [place] % (Auto) Lymph # (Auto) [place] # (Auto) Seg Neutrophils % D-Dimer ABG pH 7.468 H POC ABG pCO2 POC ABG pO2 ABG pO2 154.9 H ABG HCO3 ABG O2 Saturation ABG Oxyhemoglobin ABG Potassium ABG Chloride ABG Glucose Oxyhemoglobin Carboxyhemoglobin Sodium Potassium Chloride Carbon Dioxide BUN Glucose 228 H POC Glucose Hemoglobin A1c Lactic Acid Calcium Ferritin > 2000.0 H AST ALT Lactate Dehydrogenase 711 H C-Reactive Protein 12.90 H Total Protein Albumin Arterial Blood Glucose Coronavirus (PCR) 04/18/21 04/18/21 04/19/21 04:54 15:39 05:36 WBC RBC MCH 33 H MCHC 35 H RDW 12.9 L Lymph % (Auto) 12.5 L [place] % (Auto) 9.4 H Lymph # (Auto) 1.0 L [place] # (Auto) Seg Neutrophils % 77.9 H D-Dimer ABG pH POC ABG pCO2 POC ABG pO2 ABG pO2 ABG HCO3 ABG O2 Saturation ABG Oxyhemoglobin ABG Potassium ABG Chloride ABG Glucose Oxyhemoglobin Carboxyhemoglobin Sodium Potassium 3.5 L Chloride 107.8 H Carbon Dioxide 20 L BUN 32 H Glucose 276 H POC Glucose Hemoglobin A1c Lactic Acid 2.30 H* Calcium 8.1 L Ferritin AST 64 H ALT Lactate Dehydrogenase C-Reactive Protein Total Protein Albumin 2.8 L Arterial Blood Glucose Coronavirus (PCR) 04/19/21 04/19/21 04/19/21 05:36 06:16 09:00 WBC RBC MCH MCHC RDW Lymph % (Auto) [place] % (Auto) Lymph # (Auto) [place] # (Auto) Seg Neutrophils % D-Dimer ABG pH 7.562 H POC ABG pCO2 22.0 L POC ABG pO2 168.2 H ABG pO2 ABG HCO3 ABG O2 Saturation ABG Oxyhemoglobin 98.4 H ABG Potassium 3.3 L ABG Chloride 110.0 H ABG Glucose 248 H Oxyhemoglobin Carboxyhemoglobin Sodium 147 H Potassium 3.3 L Chloride 110.1 H Carbon Dioxide 21 L BUN 35 H Glucose 251 H POC Glucose Hemoglobin A1c Lactic Acid Calcium 8.2 L Ferritin AST 66 H ALT Lactate Dehydrogenase C-Reactive Protein Total Protein Albumin 2.9 L Arterial Blood Glucose 248 H Coronavirus (PCR) Positive A 04/19/21 04/19/21 04/19/21 11:32 17:15 21:34 WBC RBC MCH MCHC RDW Lymph % (Auto) [place] % (Auto) Lymph # (Auto) [place] # (Auto) Seg Neutrophils % D-Dimer ABG pH POC ABG pCO2 POC ABG pO2 ABG pO2 ABG HCO3 ABG O2 Saturation ABG Oxyhemoglobin ABG Potassium ABG Chloride ABG Glucose Oxyhemoglobin Carboxyhemoglobin Sodium Potassium Chloride Carbon Dioxide BUN Glucose POC Glucose 216 H 256 H 258 H Hemoglobin A1c Lactic Acid Calcium Ferritin AST ALT Lactate Dehydrogenase C-Reactive Protein Total Protein Albumin Arterial Blood Glucose Coronavirus (PCR) 04/20/21 04/20/21 04/20/21 00:13 03:44 06:16 WBC RBC MCH MCHC RDW Lymph % (Auto) [place] % (Auto) Lymph # (Auto) [place] # (Auto) Seg Neutrophils % D-Dimer ABG pH 7.483 H POC ABG pCO2 26.2 L POC ABG pO2 ABG pO2 ABG HCO3 ABG O2 Saturation ABG Oxyhemoglobin ABG Potassium ABG Chloride 114.0 H ABG Glucose 296 H Oxyhemoglobin Carboxyhemoglobin 0.1 L Sodium Potassium Chloride Carbon Dioxide BUN Glucose POC Glucose 290 H 271 H Hemoglobin A1c Lactic Acid Calcium Ferritin AST ALT Lactate Dehydrogenase C-Reactive Protein Total Protein Albumin Arterial Blood Glucose 296 H Coronavirus (PCR) 04/20/21 04/20/21 04/20/21 10:21 10:21 10:21 WBC RBC MCH MCHC RDW Lymph % (Auto) [place] % (Auto) Lymph # (Auto) [place] # (Auto) Seg Neutrophils % D-Dimer ABG pH POC ABG pCO2 POC ABG pO2 ABG pO2 ABG HCO3 ABG O2 Saturation ABG Oxyhemoglobin ABG Potassium ABG Chloride ABG Glucose Oxyhemoglobin Carboxyhemoglobin Sodium Potassium Chloride 113.7 H Carbon Dioxide 19 L BUN 38 H Glucose 266 H POC Glucose Hemoglobin A1c 8.0 H Lactic Acid 3.10 H* Calcium Ferritin AST 79 H ALT 58 H Lactate Dehydrogenase C-Reactive Protein Total Protein Albumin 2.6 L Arterial Blood Glucose Coronavirus (PCR) 04/20/21 04/20/21 04/20/21 10:21 11:05 15:24 WBC RBC MCH 34 H MCHC 35 H RDW 12.9 L Lymph % (Auto) [place] % (Auto) Lymph # (Auto) [place] # (Auto) Seg Neutrophils % D-Dimer ABG pH POC ABG pCO2 POC ABG pO2 ABG pO2 ABG HCO3 ABG O2 Saturation ABG Oxyhemoglobin ABG Potassium ABG Chloride ABG Glucose Oxyhemoglobin Carboxyhemoglobin Sodium Potassium Chloride Carbon Dioxide BUN Glucose POC Glucose 233 H Hemoglobin A1c Lactic Acid 2.50 H* Calcium Ferritin AST ALT Lactate Dehydrogenase C-Reactive Protein Total Protein Albumin Arterial Blood Glucose Coronavirus (PCR) 04/20/21 04/20/21 04/20/21 17:25 20:56 23:11 WBC RBC MCH MCHC RDW Lymph % (Auto) [place] % (Auto) Lymph # (Auto) [place] # (Auto) Seg Neutrophils % D-Dimer ABG pH POC ABG pCO2 POC ABG pO2 ABG pO2 ABG HCO3 ABG O2 Saturation ABG Oxyhemoglobin ABG Potassium ABG Chloride ABG Glucose Oxyhemoglobin Carboxyhemoglobin Sodium Potassium Chloride Carbon Dioxide BUN Glucose POC Glucose 262 H 321 H Hemoglobin A1c Lactic Acid 2.80 H* Calcium Ferritin AST ALT Lactate Dehydrogenase C-Reactive Protein Total Protein Albumin Arterial Blood Glucose Coronavirus (PCR) 04/21/21 04/21/21 04/21/21 04:11 04:24 04:24 WBC RBC 3.55 L MCH 33 H MCHC RDW 12.8 L Lymph % (Auto) [place] % (Auto) Lymph # (Auto) [place] # (Auto) Seg Neutrophils % D-Dimer ABG pH 7.479 H POC ABG pCO2 28.9 L POC ABG pO2 75.6 L ABG pO2 ABG HCO3 ABG O2 Saturation ABG Oxyhemoglobin ABG Potassium ABG Chloride 113.0 H ABG Glucose 331 H Oxyhemoglobin Carboxyhemoglobin 0.1 L Sodium Potassium Chloride 113.1 H Carbon Dioxide 18 L BUN 36 H Glucose 342 H POC Glucose Hemoglobin A1c Lactic Acid Calcium 8.1 L Ferritin AST 52 H ALT Lactate Dehydrogenase C-Reactive Protein Total Protein 6.1 L Albumin 2.7 L Arterial Blood Glucose 331 H Coronavirus (PCR) 04/21/21 04/21/21 04/21/21 05:22 11:57 18:16 WBC RBC MCH MCHC RDW Lymph % (Auto) [place] % (Auto) Lymph # (Auto) [place] # (Auto) Seg Neutrophils % D-Dimer ABG pH POC ABG pCO2 POC ABG pO2 ABG pO2 ABG HCO3 ABG O2 Saturation ABG Oxyhemoglobin ABG Potassium ABG Chloride ABG Glucose Oxyhemoglobin Carboxyhemoglobin Sodium Potassium Chloride Carbon Dioxide BUN Glucose POC Glucose 269 H 258 H 313 H Hemoglobin A1c Lactic Acid Calcium Ferritin AST ALT Lactate Dehydrogenase C-Reactive Protein Total Protein Albumin Arterial Blood Glucose Coronavirus (PCR) 04/21/21 04/22/21 04/22/21 23:38 04:00 04:19 WBC RBC MCH 33 H MCHC RDW 12.9 L Lymph % (Auto) [place] % (Auto) Lymph # (Auto) [place] # (Auto) Seg Neutrophils % D-Dimer ABG pH 7.479 H POC ABG pCO2 30.5 L POC ABG pO2 67.9 L ABG pO2 ABG HCO3 ABG O2 Saturation ABG Oxyhemoglobin 14.4 L ABG Potassium ABG Chloride 108.0 H ABG Glucose 212 H Oxyhemoglobin Carboxyhemoglobin Sodium Potassium Chloride Carbon Dioxide BUN Glucose POC Glucose 298 H Hemoglobin A1c Lactic Acid Calcium Ferritin AST ALT Lactate Dehydrogenase C-Reactive Protein Total Protein Albumin Arterial Blood Glucose 212 H Coronavirus (PCR) 04/22/21 04/22/21 04/22/21 04:19 05:15 10:42 WBC RBC MCH MCHC RDW Lymph % (Auto) [place] % (Auto) Lymph # (Auto) [place] # (Auto) Seg Neutrophils % D-Dimer ABG pH POC ABG pCO2 POC ABG pO2 ABG pO2 ABG HCO3 ABG O2 Saturation ABG Oxyhemoglobin ABG Potassium ABG Chloride ABG Glucose Oxyhemoglobin Carboxyhemoglobin Sodium Potassium Chloride 108.0 H Carbon Dioxide 21 L BUN 31 H Glucose 261 H POC Glucose 214 H 171 H Hemoglobin A1c Lactic Acid Calcium Ferritin AST ALT Lactate Dehydrogenase C-Reactive Protein Total Protein Albumin Arterial Blood Glucose Coronavirus (PCR) 04/22/21 04/22/21 04/22/21 10:58 10:58 10:58 WBC RBC MCH MCHC RDW Lymph % (Auto) [place] % (Auto) Lymph # (Auto) [place] # (Auto) Seg Neutrophils % D-Dimer 1848.39 H ABG pH POC ABG pCO2 POC ABG pO2 ABG pO2 ABG HCO3 ABG O2 Saturation ABG Oxyhemoglobin ABG Potassium ABG Chloride ABG Glucose Oxyhemoglobin Carboxyhemoglobin Sodium Potassium Chloride Carbon Dioxide BUN Glucose 201 H POC Glucose Hemoglobin A1c Lactic Acid Calcium Ferritin 1402.0 H AST ALT Lactate Dehydrogenase 524 H C-Reactive Protein Total Protein Albumin Arterial Blood Glucose Coronavirus (PCR) 04/22/21 04/22/21 04/22/21 17:37 21:29 21:40 WBC RBC MCH MCHC RDW Lymph % (Auto) [place] % (Auto) Lymph # (Auto) [place] # (Auto) Seg Neutrophils % D-Dimer ABG pH POC ABG pCO2 POC ABG pO2 ABG pO2 74.6 L ABG HCO3 27.0 H ABG O2 Saturation ABG Oxyhemoglobin ABG Potassium ABG Chloride ABG Glucose Oxyhemoglobin 93.9 L Carboxyhemoglobin Sodium Potassium Chloride Carbon Dioxide BUN Glucose POC Glucose 273 H 180 H Hemoglobin A1c Lactic Acid Calcium Ferritin AST ALT Lactate Dehydrogenase C-Reactive Protein Total Protein Albumin Arterial Blood Glucose Coronavirus (PCR) 04/23/21 04/23/21 04/23/21 02:42 04:17 04:17 WBC 16.6 H RBC MCH MCHC RDW 13.0 L Lymph % (Auto) [place] % (Auto) Lymph # (Auto) [place] # (Auto) Seg Neutrophils % D-Dimer ABG pH POC ABG pCO2 POC ABG pO2 ABG pO2 ABG HCO3 ABG O2 Saturation ABG Oxyhemoglobin ABG Potassium ABG Chloride ABG Glucose Oxyhemoglobin Carboxyhemoglobin Sodium 136 L Potassium Chloride Carbon Dioxide BUN 26 H Glucose 105 H POC Glucose 111 H Hemoglobin A1c Lactic Acid Calcium Ferritin AST ALT Lactate Dehydrogenase C-Reactive Protein Total Protein Albumin Arterial Blood Glucose Coronavirus (PCR) 04/23/21 04/23/21 04/23/21 05:20 10:02 12:01 WBC RBC MCH MCHC RDW Lymph % (Auto) [place] % (Auto) Lymph # (Auto) [place] # (Auto) Seg Neutrophils % D-Dimer ABG pH POC ABG pCO2 POC ABG pO2 ABG pO2 ABG HCO3 ABG O2 Saturation ABG Oxyhemoglobin ABG Potassium ABG Chloride ABG Glucose Oxyhemoglobin Carboxyhemoglobin Sodium Potassium Chloride Carbon Dioxide BUN Glucose POC Glucose 121 H 144 H 220 H Hemoglobin A1c Lactic Acid Calcium Ferritin AST ALT Lactate Dehydrogenase C-Reactive Protein Total Protein Albumin Arterial Blood Glucose Coronavirus (PCR) 04/23/21 04/23/21 04/23/21 15:26 18:20 22:04 WBC RBC MCH MCHC RDW Lymph % (Auto) [place] % (Auto) Lymph # (Auto) [place] # (Auto) Seg Neutrophils % D-Dimer ABG pH 7.458 H POC ABG pCO2 POC ABG pO2 ABG pO2 168.1 H ABG HCO3 ABG O2 Saturation 99.1 H ABG Oxyhemoglobin ABG Potassium ABG Chloride ABG Glucose Oxyhemoglobin Carboxyhemoglobin Sodium Potassium Chloride Carbon Dioxide BUN Glucose POC Glucose 291 H 246 H Hemoglobin A1c Lactic Acid Calcium Ferritin AST ALT Lactate Dehydrogenase C-Reactive Protein Total Protein Albumin Arterial Blood Glucose Coronavirus (PCR) 04/24/21 04/24/21 04/24/21 02:17 04:33 04:33 WBC RBC MCH MCHC RDW Lymph % (Auto) [place] % (Auto) Lymph # (Auto) [place] # (Auto) Seg Neutrophils % D-Dimer 1775.11 H ABG pH POC ABG pCO2 POC ABG pO2 ABG pO2 ABG HCO3 ABG O2 Saturation ABG Oxyhemoglobin ABG Potassium ABG Chloride ABG Glucose Oxyhemoglobin Carboxyhemoglobin Sodium Potassium Chloride Carbon Dioxide BUN Glucose POC Glucose 153 H Hemoglobin A1c Lactic Acid Calcium Ferritin 1392.0 H AST ALT Lactate Dehydrogenase C-Reactive Protein Total Protein Albumin Arterial Blood Glucose Coronavirus (PCR) 04/24/21 04/24/21 04/24/21 04:33 04:33 10:47 WBC 12.1 H RBC MCH MCHC RDW 12.9 L Lymph % (Auto) [place] % (Auto) Lymph # (Auto) [place] # (Auto) Seg Neutrophils % D-Dimer ABG pH POC ABG pCO2 POC ABG pO2 ABG pO2 ABG HCO3 ABG O2 Saturation ABG Oxyhemoglobin ABG Potassium ABG Chloride ABG Glucose Oxyhemoglobin Carboxyhemoglobin Sodium Potassium Chloride Carbon Dioxide BUN 27 H Glucose 130 H POC Glucose 254 H Hemoglobin A1c Lactic Acid Calcium Ferritin AST ALT Lactate Dehydrogenase 506 H C-Reactive Protein Total Protein Albumin Arterial Blood Glucose Coronavirus (PCR) 04/24/21 04/24/21 04/24/21 10:49 11:30 12:00 WBC RBC MCH MCHC RDW Lymph % (Auto) [place] % (Auto) Lymph # (Auto) [place] # (Auto) Seg Neutrophils % D-Dimer ABG pH POC ABG pCO2 POC ABG pO2 ABG pO2 ABG HCO3 ABG O2 Saturation ABG Oxyhemoglobin ABG Potassium ABG Chloride ABG Glucose Oxyhemoglobin Carboxyhemoglobin Sodium Potassium Chloride Carbon Dioxide BUN Glucose POC Glucose 258 H 194 H 166 H Hemoglobin A1c Lactic Acid Calcium Ferritin AST ALT Lactate Dehydrogenase C-Reactive Protein Total Protein Albumin Arterial Blood Glucose Coronavirus (PCR) Allied health notes reviewed: nursing
--- NOTE | 2021-04-24 14:52 | Progress Note ---
<MANGO BLANTON - Last Filed: 04/24/21 16:56> Assessment and Plan Assessment and plan: This is a 51 years-old female with unknown past medical history admitted with acute hypoxic respiratory failure, COVID-19 PNA, ARDs, Lactic acidosis Neuro: Acute metabolic encephalopathy - 04/18 CT head w/o con showed no acute intracranial process - Prn analgesia - Maintenance of sleep-wake cycle, avoid delirium - Avoid benzodiazepine to reduce the possibility of delirium CV: HTN - SB to NSR on the monitor - Home amlodipine, hydrochlorothiazide resumed - As needed hydralazine - Blood pressure monitoring per protocol Resp: Acute hypoxemic respiratory failure, ARDS secondary to COVID pneumonia, Respiratory alkalosis - Cxr shows B infiltrates - Intubated on 04/18 with 7.5 OETT @ 20 (advanced to 24) but self extubated - Bipap HS - HFNC -wean as tolerated - Aspiration precautions HOB>30 - Lung protective strategies, continue to monitor airway pressures - CCM consulted, appreciate recommendations GI: NAP - Passed bedside swallow eval - Mechanical soft diet - BR- senokot - Pepcid - 24 hours -1370 : NAD - s/p D5 1/2 NS - Purewick in place - Strict intake and output - Monitor and replace electrolytes as needed ID: Sepsis, COVID Pneumonia, Bilateral Pneumonia, Lactic Acidosis - CXR showed bilateral pneumonia - COVID PCR positive - ID consulted, appreciate recommendations - follow culture data - Decadron 6 mg (04/18-04/27) - Remdesivir (04/19-04/23) - 04/21 Actemra - Trend COVId 19 inflammatory markers ferritin, Ddimer, CRP, LDH - s/p ABx- Ceftriaxone and azithromycin per ID (04/18-04/22) - Monitor fever curve Endo: Hyperglycemia - SSI - Lantus, titrate as needed - HbgA1c 8 - While critically ill target blood glucose of 140-180 - Avoid hypoglycemia Heme: Elevated D-dimer -D-dimer 1848 on 04/22 -Bilateral lower extremity Doppler ultrasound shows no acute or chronic DVT/SVT -Enoxaparin 30 mg twice daily -Bilateral lower extremities with SCDs The high probability of a clinically significant, sudden or life threatening deterioration of the [multiple] system(s) required my full and direct attention, intervention and personal management. The aggregate critical care time was [60] minutes. This time is in addition to time spent performing reported procedures but includes the following: [x] Data Review and interpretation [x] Patient assessment and monitoring of vital signs [x] Documentation [x] Medication orders and management Disposition Plan: transfer to floor Total Time Spent with Patient (Minutes): 60 History Interval history: This is a 51 years-old female with unknown past medical history presented to [facility] on 04/18 with altered mental status. Upon her arrival in the ED her SPO2 was in the 40%, she was first placed on a NRB then was subsequently intubated due to acute hypoxic respiratory failure. As of note, patient was diagnosed with COVID 4days prior this admission. Patient was admitted in the ICU for further management. 04/19/21- Patient is intubated and sedated RASS -3 to -4. SB to low SR on the monitor, hemodynamics stable and not on any pressors, will continue to monitor. Hypokalemia was repleted. TF was initiated, plan to D/C IVF once TF is at goal. Hyperglycemia noted, high scale SSI and qHS lantus added, A1c ordered. 04/20/21- Patient remains intubated amd off sedation, RASS 0 to -1. Remains SB on the monitor, hemodynamic stable. Increased in lactic acid this am, slight increased in LFTs, WBCs stable, kidney function is stable. Will repeat lactic in 4hours and continue to monitor. Patient is net +1537 cc in last 24hrs, will hold IVF for now to keep patient net negative fluid balance.Will continue to monitor renal function and electrolytes. 04/21: SB on monitor, remains on fentanyl gtt, OETT advanced. ID prescribed actemra 04/22: Repeat D-dimer elevated and bilateral lower extremity Doppler ultrasound ordered which showed no DVT. Antibiotics stopped by ID given normal CRP. Patient's rate was decreased and PEEP increased on ventilator per CCM 04/23: CRP and procalcitonin ordered by infectious disease given leukocytosis. Late afternoon patient self extubated and was placed on BiPAP. BiPAP ordered for nightly. We will obtain a bedside swallow evaluation and possible speech eval. This morning free water flush was adjusted for hyponatremia. 04/24: Patient tolerated bipap overnight and placed on HFNC today. Patient passed bedside swallow yesterday and started on mechanical soft diet today. Hospitalist Physical - Constitutional Vitals: Temp Pulse Resp BP Pulse Ox 99.0 F 74 24 154/101 88 04/24/21 12:00 04/24/21 12:30 04/24/21 12:30 04/24/21 12:30 04/24/21 12:30 General appearance: Present: no acute distress - EENT Eyes: Present: PERRL, EOM intact ENT: hearing intact, clear oral mucosa, dentition normal - Neck Neck: Present: normal ROM - Respiratory Respiratory effort: normal Respiratory: bilateral: diminished - Cardiovascular Rhythm: regular Heart Sounds: Present: S1 & S2. Absent: systolic murmur, diastolic murmur - Extremities Extremities: no ischemia, pulses intact, pulses symmetrical, No edema, normal temperature, normal color Peripheral Pulses: within normal limits - Abdominal General gastrointestinal: soft, non-tender, non-distended, normal bowel sounds - Integumentary Integumentary: Present: warm, dry - Psychiatric Psychiatric: cooperative - Neurologic Neurologic: CNII-XII intact, moves all extremities - Allied Health Allied health notes reviewed: nursing, RT, social work Results - Labs CBC & Chem 7: 04/24/21 04:33 04/24/21 04:33 Labs: Laboratory Last Values WBC 12.1 K/mm3 (4.5-11.0) H 04/24/21 04:33 RBC 4.12 M/mm3 (3.65-5.03) 04/24/21 04:33 Hgb 12.9 gm/dl (10.1-14.3) 04/24/21 04:33 Hct 39.6 % (30.3-42.9) 04/24/21 04:33 MCV 96 fl (79-97) 04/24/21 04:33 MCH 31 pg (28-32) 04/24/21 04:33 MCHC 33 % (30-34) 04/24/21 04:33 RDW 12.9 % (13.2-15.2) L 04/24/21 04:33 Plt Count 234 K/mm3 (140-440) 04/24/21 04:33 Lymph % (Auto) 12.5 % (13.4-35.0) L 04/19/21 05:36 [place] % (Auto) 9.4 % (0.0-7.3) H 04/19/21 05:36 Eos % (Auto) 0.0 % (0.0-4.3) 04/19/21 05:36 Baso % (Auto) 0.2 % (0.0-1.8) 04/19/21 05:36 Lymph # (Auto) 1.0 K/mm3 (1.2-5.4) L 04/19/21 05:36 [place] # (Auto) 0.8 K/mm3 (0.0-0.8) 04/19/21 05:36 Eos # (Auto) 0.0 K/mm3 (0.0-0.4) 04/19/21 05:36 Baso # (Auto) 0.0 K/mm3 (0.0-0.1) 04/19/21 05:36 Add Manual Diff Complete 04/19/21 05:36 Seg Neutrophils % 77.9 % (40.0-70.0) H 04/19/21 05:36 Nucleated RBC % Not Reportable 04/19/21 05:36 Seg Neutrophils # 6.4 K/mm3 (1.8-7.7) 04/19/21 05:36 WBC Morphology Not Reportable 04/19/21 05:36 Hypersegmented Neuts Not Reportable 04/19/21 05:36 Hyposegmented Neuts Not Reportable 04/19/21 05:36 Hypogranular Neuts Not Reportable 04/19/21 05:36 Smudge Cells Not Reportable 04/19/21 05:36 Toxic Granulation Not Reportable 04/19/21 05:36 Toxic Vacuolation Not Reportable 04/19/21 05:36 Dohle Bodies Not Reportable 04/19/21 05:36 Pelger-Huet Anomaly Not Reportable 04/19/21 05:36 Santana Rods Not Reportable 04/19/21 05:36 Platelet Estimate Not Reportable 04/19/21 05:36 Clumped Platelets Not Reportable 04/19/21 05:36 Plt Clumps, EDTA Not Reportable 04/19/21 05:36 Large Platelets Not Reportable 04/19/21 05:36 Giant Platelets Not Reportable 04/19/21 05:36 Platelet Satelliting Not Reportable 04/19/21 05:36 Plt Morphology Comment Not Reportable 04/19/21 05:36 RBC Morphology Not Reportable 04/19/21 05:36 Dimorphic RBCs Not Reportable 04/19/21 05:36 Polychromasia Not Reportable 04/19/21 05:36 Hypochromasia Not Reportable 04/19/21 05:36 Poikilocytosis Not Reportable 04/19/21 05:36 Anisocytosis Not Reportable 04/19/21 05:36 Microcytosis Not Reportable 04/19/21 05:36 Macrocytosis Not Reportable 04/19/21 05:36 Spherocytes Not Reportable 04/19/21 05:36 Pappenheimer Bodies Not Reportable 04/19/21 05:36 Sickle Cells Not Reportable 04/19/21 05:36 Target Cells Not Reportable 04/19/21 05:36 Tear Drop Cells Not Reportable 04/19/21 05:36 Ovalocytes Not Reportable 04/19/21 05:36 Helmet Cells Not Reportable 04/19/21 05:36 Calvo-Phillips Bodies Not Reportable 04/19/21 05:36 Arnot Rings Not Reportable 04/19/21 05:36 [place] Cells Not Reportable 04/19/21 05:36 Bite Cells Not Reportable 04/19/21 05:36 Crenated Cell Not Reportable 04/19/21 05:36 Elliptocytes Not Reportable 04/19/21 05:36 Acanthocytes (Spur) Not Reportable 04/19/21 05:36 Rouleaux Not Reportable 04/19/21 05:36 Hemoglobin C Crystals Not Reportable 04/19/21 05:36 Schistocytes Not Reportable 04/19/21 05:36 Malaria parasites Not Reportable 04/19/21 05:36 Hubert Bodies Not Reportable 04/19/21 05:36 Hem Pathologist Commnt Not Reportable 04/19/21 05:36 PT 14.5 Sec. (12.2-14.9) 04/19/21 05:36 INR 1.02 (0.87-1.13) 04/19/21 05:36 APTT 34.2 Sec. (24.2-36.6) 04/18/21 02:34 D-Dimer 1775.11 ng/mlDDU (0-234) H 04/24/21 04:33 ABG pH 7.458 pH Units (7.350-7.450) H 04/23/21 18:20 POC ABG pCO2 30.5 mmHg (32.0-48.0) L 04/22/21 04:00 ABG pCO2 37.2 mm Hg 04/23/21 18:20 POC ABG pO2 67.9 mmHg (83-108) L 04/22/21 04:00 ABG pO2 168.1 mm Hg (80.0-90.0) H 04/23/21 18:20 POC ABG HCO3 22.2 04/22/21 04:00 ABG HCO3 25.8 mmol/L (20.0-26.0) 04/23/21 18:20 ABG O2 Saturation 99.1 % (95.0-99.0) H 04/23/21 18:20 ABG O2 Content 19.0 (0.0-44) 04/23/21 18:20 POC ABG Base Excess -0.3 04/22/21 04:00 ABG Base Excess 2.1 mmol/L (-2.0-3.0) 04/23/21 18:20 ABG Hemoglobin 13.7 gm/dl (12.0-16.0) 04/23/21 18:20 ABG Oxyhemoglobin 14.4 (94-98) L 04/22/21 04:00 ABG Carboxyhemoglobin 1.2 % (0.0-5.0) 04/23/21 18:20 ABG Methemoglobin 0.5 % (0.0-1.5) 04/23/21 18:20 ABG Sodium 138.2 mmol/L (136.0-145.0) 04/22/21 04:00 ABG Potassium 4.1 mmol/L (3.40-4.50) 04/22/21 04:00 ABG Chloride 108.0 mmol/L (98-107) H 04/22/21 04:00 ABG Glucose 212 mg/dL (65-95) H 04/22/21 04:00 Oxyhemoglobin 97.4 % (95.0-99.0) 04/23/21 18:20 Carboxyhemoglobin 1.1 (0.5-1.5) 04/22/21 04:00 FiO2 100 % 04/23/21 18:20 FiO2 % 35 04/22/21 04:00 Sodium 140 mmol/L (137-145) 04/24/21 04:33 Potassium 4.7 mmol/L (3.6-5.0) 04/24/21 04:33 Chloride 101.0 mmol/L (98-107) 04/24/21 04:33 Carbon Dioxide 23 mmol/L (22-30) 04/24/21 04:33 Anion Gap 21 mmol/L 04/24/21 04:33 BUN 27 mg/dL (7-17) H 04/24/21 04:33 Creatinine 0.7 mg/dL (0.6-1.2) 04/24/21 04:33 Estimated GFR > 60 ml/min 04/24/21 04:33 BUN/Creatinine Ratio 39 % 04/24/21 04:33 Glucose 130 mg/dL (65-100) H 04/24/21 04:33 POC Glucose 166 mg/dL (70-105) H 04/24/21 12:00 Hemoglobin A1c 8.0 % (4-6) H 04/20/21 10:21 Lactic Acid 1.70 mmol/L (0.7-2.0) 04/22/21 10:58 Calcium 8.9 mg/dL (8.4-10.2) 04/24/21 04:33 Phosphorus 3.00 mg/dL (2.5-4.5) 04/22/21 04:19 Magnesium 2.30 mg/dL (1.7-2.3) 04/22/21 04:19 Ferritin 1392.0 ng/mL (10.0-200.0) H 04/24/21 04:33 Total Bilirubin 0.30 mg/dL (0.1-1.2) 04/21/21 04:24 AST 52 units/L (5-40) H 04/21/21 04:24 ALT 55 units/L (7-56) 04/21/21 04:24 Alkaline Phosphatase 67 units/L (35-129) 04/21/21 04:24 Ammonia 25.0 umol/L (25-60) 04/18/21 02:34 Lactate Dehydrogenase 506 units/L (91-180) H 04/24/21 04:33 Total Creatine Kinase 68 units/L (30-135) 04/18/21 02:34 C-Reactive Protein 0.60 mg/dL (0.00-1.30) 04/24/21 04:33 Total Protein 6.1 g/dL (6.3-8.2) L 04/21/21 04:24 Albumin 2.7 g/dL (3.9-5) L 04/21/21 04:24 Albumin/Globulin Ratio 0.8 % 04/21/21 04:24 Procalcitonin 0.12 ng/mL (<0.15) 04/22/21 10:58 Arterial Blood Glucose 212 mg/dL (65-95) H 04/22/21 04:00 Urine Color Yellow (Yellow) 04/18/21 04:25 Urine Turbidity Clear (Clear) 04/18/21 04:25 Urine pH 5.0 (5.0-7.0) 04/18/21 04:25 Ur Specific [place] 1.018 (1.003-1.030) 04/18/21 04:25 Urine Protein 100 mg/dl mg/dL (Negative) 04/18/21 04:25 Urine Glucose (UA) Neg mg/dL (Negative) 04/18/21 04:25 Urine Ketones Tr mg/dL (Negative) 04/18/21 04:25 Urine Blood Neg (Negative) 04/18/21 04:25 Urine Nitrite Neg (Negative) 04/18/21 04:25 Ur Reducing Substances Not Reportable 04/18/21 04:25 Urine Bilirubin Neg (Negative) 04/18/21 04:25 Urine Ictotest Not Reportable 04/18/21 04:25 Urine Urobilinogen 2.0 mg/dL (<2.0) 04/18/21 04:25 Ur Leukocyte Esterase Neg (Negative) 04/18/21 04:25 Urine WBC (Auto) 2.0 /HPF (0.0-6.0) 04/18/21 04:25 Urine RBC (Auto) 3.0 /HPF (0.0-6.0) 04/18/21 04:25 Hyaline Casts 3 /LPF 04/18/21 04:25 Urine Mucus Few /HPF 04/18/21 04:25 Plasma/Serum Alcohol < 0.01 % (0-0.07) 04/18/21 02:34 Coronavirus (PCR) Positive (Negative) A 04/19/21 09:00 Franco/IV: Voiding Method External Female Catheter Active Medications - Current Medications Current Medications: Generic Name Dose Route Start Last Admin Trade Name Freq PRN Reason Stop Dose Admin Acetaminophen 650 mg 04/18/21 04:13 Acetaminophen 650 Mg Rect Supp [place] Q6H PRN Pain MILD(1-3)/Fever >100.5/ASENCIO Amlodipine Besylate 10 mg 04/25/21 10:00 Amlodipine 10 Mg Tab PO QDAY [facility] Lipase/Protease/Amylase 1 each 04/19/21 12:25 Lipase 10,500/Protease 25,000/Amylase 43,750 (Units) Dr Cox FEEDTUBE PRN PRN For Clogged Feeding Tube Dexamethasone 6 mg 04/18/21 10:00 04/24/21 10:39 Dexamethasone 4 Mg/Ml Vial IV 04/27/21 10:01 6 mg Q24HR REJI Administration Dextrose 50 ml 04/20/21 10:34 04/24/21 10:30 Dextrose 50% In Water (25gm) 50 Ml Syringe IV 50 ml Q30MIN PRN Administration Hypoglycemia Protocol Enoxaparin Sodium 30 mg 04/19/21 22:00 04/24/21 10:39 Enoxaparin 30 Mg/0.3 Ml Inj SUB-Q 30 mg BID REJI Administration Protocol Famotidine 20 mg 04/24/21 22:00 Famotidine 20 Mg Tab PO BID [facility] Hydralazine HCl 10 mg 04/22/21 10:08 04/22/21 10:26 Hydralazine 20 Mg/1 Ml Inj IV 10 mg Q4HR PRN Administration sbp> 160 Hydrochlorothiazide 12.5 mg 04/25/21 10:00 Hydrochlorothiazide 12.5 Mg Cap PO QDAY [facility] Hydrophilic Ointment 1 applic 04/18/21 03:03 Lip Therapy Vaseline TP Q2HR PRN Dry Lips Insulin Glargine 20 units 04/22/21 22:00 04/23/21 21:36 Insulin Glargine 100 Units/Ml SUB-Q 20 units QHS [facility] Administration Insulin Human Lispro 0 unit 04/22/21 10:00 04/24/21 11:03 Insulin Lispro 100 Unit/Ml SUB-Q Not Given Q4HR [facility] Protocol Losartan Potassium 50 mg 04/25/21 10:00 Losartan 50 Mg Tab PO QDAY [facility] Multi-Ingred Cream/Lotion/Oil/Oint 1 applic 04/18/21 03:03 Mineral Oil/Petrolatum, White Ophth Oint 3.5 Gm OU Q4HR PRN Dry Eye(s) Ondansetron HCl 4 mg 04/18/21 04:13 Ondansetron 4 Mg/2 Ml Inj IV Q8H PRN Nausea And Vomiting Oxycodone HCl 5 mg 04/24/21 12:00 Oxycodone 5 Mg Tab PO Q8H PRN Pain, Moderate (4-6) Senna 17.6 mg 04/24/21 22:00 Sennosides Oral Liqd 8.8 Mg/5 Ml Oral Liqd FEEDTUBE QHS REJI Sodium Chloride 10 ml 04/18/21 10:00 04/24/21 10:39 Sodium Chloride 0.9% 10 Ml Flush Syringe IV 10 ml BID REJI Administration Sodium Chloride 10 ml 04/18/21 04:13 Sodium Chloride 0.9% 10 Ml Flush Syringe IV PRN PRN LINE FLUSH Nutrition/Malnutrition Assess - Dietary Evaluation Nutrition/Malnutrition Findings: Nutrition Notes Start: 04/18/21 08:2 8 Freq: Status: Active Protocol: Document 04/21/21 15:58 GB (Rec: 04/21/21 16:06 GB [id number]) Nutrition Notes Initial or Follow up Reassessment Current Diagnosis Sepsis,Respiratory Failure Other Pertinent Diagnosis COVID-19 (+), bilat pneu, AMS Current Diet NPO, TF Vital AF 1.2 @ 50 Labs/Tests 04/21: BUN 36, Glucose 342, Ca 8.1, AST 52 Pertinent Medications Azithromycin, fentanyl Citrate , remdemsivir/NaCl Height 5 ft 2 in Weight 68.6 kg Horatio Body Weight (kg) 50.00 BMI 27.6 Weight change and time frame 04/18: 63.503kg 04/20: 68.6kg change of +5.097kg for +8% gain. Weight Status Overweight Subjective/Other Information MD notes 04/21: vented, off pressors, kidney function stable Percent of energy/protein needs met: TF at goal rate meets 75% or greater of EEN Burn Absent Trauma Absent GI Symptoms None Difficulty In Swallowing Food Allergy No Skin Integrity/Comment no complications reported Current % PO Other Minimum of two criteria No #1 Nutrition Diagnosis Swallowing difficulty Comments: 04/21: TF Vital AF 1.2 @50ml/ hr, vented, off pressors Etiology COVID+, respiratory Failure As Evidenced by Signs and Symptoms Intubated, NPO Diagnosis Progress(for reassessment Continues documentation) Is patient on ventilator? Yes Is Patient Ambulatory and/or Out of Bed No REE-([facility]-confined to bed) 1503.264 Kcal/Kg value to use for calculation 25 Approximate Energy Requirements Using 1715 kcal/Kg Calculation Used for Recommendations [facility] Additional Notes Pro needs 1.2-2g/kg (63.5kg): 76-127g/day Fluid needs 1ml/kcal Nutrition Intervention Change Diet Order: NPO - continue Post extubation - advance clear to Regular Nutrition Support: Vital AF 1.2 at 50ml/hr with 100ml water flush q4h or per MD order. Kcal 1,440 Protein (gm) 90 Carbohydrates (gm) 133 Fat (gm) 65 Fluid (mL) 973 Fiber (gm) 6 Goal #1 TF tolerance 04/21: met, continues Goal #2 TF to meet at least 75% energy and pro needs 04/21: TF at goal, met, continues Anticipated Discharge Needs: Unable to identify at this time Follow-Up By: 04/24/21 Additional Comments F/U: TF, vent status <DINORAH EMERSON - Last Filed: 04/27/21 12:45> Assessment and Plan Assessment and plan: I saw and evaluated the patient. Discussed with the nurse practitioner and agree with their findings and plan as documented in this note. Hospitalist Physical - Constitutional Vitals: Temp Pulse Resp BP Pulse Ox 98.2 F 66 18 118/76 98 04/26/21 21:08 04/26/21 21:08 04/26/21 21:08 04/26/21 21:08 04/27/21 08:33 Results - Labs CBC & Chem 7: 04/26/21 07:20 04/26/21 07:20 Labs: Laboratory Last Values WBC 8.2 K/mm3 (4.5-11.0) 04/26/21 07:20 RBC 4.18 M/mm3 (3.65-5.03) 04/26/21 07:20 Hgb 13.5 gm/dl (10.1-14.3) 04/26/21 07:20 Hct 40.0 % (30.3-42.9) 04/26/21 07:20 MCV 96 fl (79-97) 04/26/21 07:20 MCH 32 pg (28-32) 04/26/21 07:20 MCHC 34 % (30-34) 04/26/21 07:20 RDW 12.9 % (13.2-15.2) L 04/26/21 07:20 Plt Count 280 K/mm3 (140-440) 04/26/21 07:20 Lymph % (Auto) 12.5 % (13.4-35.0) L 04/19/21 05:36 [place] % (Auto) 9.4 % (0.0-7.3) H 04/19/21 05:36 Eos % (Auto) 0.0 % (0.0-4.3) 04/19/21 05:36 Baso % (Auto) 0.2 % (0.0-1.8) 04/19/21 05:36 Lymph # (Auto) 1.0 K/mm3 (1.2-5.4) L 04/19/21 05:36 [place] # (Auto) 0.8 K/mm3 (0.0-0.8) 04/19/21 05:36 Eos # (Auto) 0.0 K/mm3 (0.0-0.4) 04/19/21 05:36 Baso # (Auto) 0.0 K/mm3 (0.0-0.1) 04/19/21 05:36 Add Manual Diff Complete 04/19/21 05:36 Seg Neutrophils % 77.9 % (40.0-70.0) H 04/19/21 05:36 Nucleated RBC % Not Reportable 04/19/21 05:36 Seg Neutrophils # 6.4 K/mm3 (1.8-7.7) 04/19/21 05:36 WBC Morphology Not Reportable 04/19/21 05:36 Hypersegmented Neuts Not Reportable 04/19/21 05:36 Hyposegmented Neuts Not Reportable 04/19/21 05:36 Hypogranular Neuts Not Reportable 04/19/21 05:36 Smudge Cells Not Reportable 04/19/21 05:36 Toxic Granulation Not Reportable 04/19/21 05:36 Toxic Vacuolation Not Reportable 04/19/21 05:36 Dohle Bodies Not Reportable 04/19/21 05:36 Pelger-Huet Anomaly Not Reportable 04/19/21 05:36 Santana Rods Not Reportable 04/19/21 05:36 Platelet Estimate Not Reportable 04/19/21 05:36 Clumped Platelets Not Reportable 04/19/21 05:36 Plt Clumps, EDTA Not Reportable 04/19/21 05:36 Large Platelets Not Reportable 04/19/21 05:36 Giant Platelets Not Reportable 04/19/21 05:36 Platelet Satelliting Not Reportable 04/19/21 05:36 Plt Morphology Comment Not Reportable 04/19/21 05:36 RBC Morphology Not Reportable 04/19/21 05:36 Dimorphic RBCs Not Reportable 04/19/21 05:36 Polychromasia Not Reportable 04/19/21 05:36 Hypochromasia Not Reportable 04/19/21 05:36 Poikilocytosis Not Reportable 04/19/21 05:36 Anisocytosis Not Reportable 04/19/21 05:36 Microcytosis Not Reportable 04/19/21 05:36 Macrocytosis Not Reportable 04/19/21 05:36 Spherocytes Not Reportable 04/19/21 05:36 Pappenheimer Bodies Not Reportable 04/19/21 05:36 Sickle Cells Not Reportable 04/19/21 05:36 Target Cells Not Reportable 04/19/21 05:36 Tear Drop Cells Not Reportable 04/19/21 05:36 Ovalocytes Not Reportable 04/19/21 05:36 Helmet Cells Not Reportable 04/19/21 05:36 Calvo-Phillips Bodies Not Reportable 04/19/21 05:36 [place] Rings Not Reportable 04/19/21 05:36 [place] Cells Not Reportable 04/19/21 05:36 Bite Cells Not Reportable 04/19/21 05:36 Crenated Cell Not Reportable 04/19/21 05:36 Elliptocytes Not Reportable 04/19/21 05:36 Acanthocytes (Spur) Not Reportable 04/19/21 05:36 Rouleaux Not Reportable 04/19/21 05:36 Hemoglobin C Crystals Not Reportable 04/19/21 05:36 Schistocytes Not Reportable 04/19/21 05:36 Malaria parasites Not Reportable 04/19/21 05:36 Hubert Bodies Not Reportable 04/19/21 05:36 Hem Pathologist Commnt Not Reportable 04/19/21 05:36 PT 14.5 Sec. (12.2-14.9) 04/19/21 05:36 INR 1.02 (0.87-1.13) 04/19/21 05:36 APTT 34.2 Sec. (24.2-36.6) 04/18/21 02:34 D-Dimer 1215.98 ng/mlDDU (0-234) H 04/26/21 07:20 ABG pH 7.458 pH Units (7.350-7.450) H 04/23/21 18:20 POC ABG pCO2 30.5 mmHg (32.0-48.0) L 04/22/21 04:00 ABG pCO2 37.2 mm Hg 04/23/21 18:20 POC ABG pO2 67.9 mmHg (83-108) L 04/22/21 04:00 ABG pO2 168.1 mm Hg (80.0-90.0) H 04/23/21 18:20 POC ABG HCO3 22.2 04/22/21 04:00 ABG HCO3 25.8 mmol/L (20.0-26.0) 04/23/21 18:20 ABG O2 Saturation 99.1 % (95.0-99.0) H 04/23/21 18:20 ABG O2 Content 19.0 (0.0-44) 04/23/21 18:20 POC ABG Base Excess -0.3 04/22/21 04:00 ABG Base Excess 2.1 mmol/L (-2.0-3.0) 04/23/21 18:20 ABG Hemoglobin 13.7 gm/dl (12.0-16.0) 04/23/21 18:20 ABG Oxyhemoglobin 14.4 (94-98) L 04/22/21 04:00 ABG Carboxyhemoglobin 1.2 % (0.0-5.0) 04/23/21 18:20 ABG Methemoglobin 0.5 % (0.0-1.5) 04/23/21 18:20 ABG Sodium 138.2 mmol/L (136.0-145.0) 04/22/21 04:00 ABG Potassium 4.1 mmol/L (3.40-4.50) 04/22/21 04:00 ABG Chloride 108.0 mmol/L (98-107) H 04/22/21 04:00 ABG Glucose 212 mg/dL (65-95) H 04/22/21 04:00 Oxyhemoglobin 97.4 % (95.0-99.0) 04/23/21 18:20 Carboxyhemoglobin 1.1 (0.5-1.5) 04/22/21 04:00 FiO2 100 % 04/23/21 18:20 FiO2 % 35 04/22/21 04:00 Sodium 139 mmol/L (137-145) 04/26/21 07:20 Potassium 4.2 mmol/L (3.6-5.0) 04/26/21 07:20 Chloride 100.6 mmol/L (98-107) 04/26/21 07:20 Carbon Dioxide 28 mmol/L (22-30) 04/26/21 07:20 Anion Gap 15 mmol/L 04/26/21 07:20 BUN 38 mg/dL (7-17) H 04/26/21 07:20 Creatinine 0.8 mg/dL (0.6-1.2) 04/26/21 07:20 Estimated GFR > 60 ml/min 04/26/21 07:20 BUN/Creatinine Ratio 48 % 04/26/21 07:20 Glucose 90 mg/dL (65-100) 04/26/21 07:20 POC Glucose 136 mg/dL (70-105) H 04/27/21 11:09 Hemoglobin A1c 8.0 % (4-6) H 04/20/21 10:21 Lactic Acid 1.70 mmol/L (0.7-2.0) 04/22/21 10:58 Calcium 9.3 mg/dL (8.4-10.2) 04/26/21 07:20 Phosphorus 3.00 mg/dL (2.5-4.5) 04/22/21 04:19 Magnesium 2.30 mg/dL (1.7-2.3) 04/22/21 04:19 Ferritin 1558.0 ng/mL (10.0-200.0) H 04/26/21 07:20 Total Bilirubin 0.30 mg/dL (0.1-1.2) 04/21/21 04:24 AST 52 units/L (5-40) H 04/21/21 04:24 ALT 55 units/L (7-56) 04/21/21 04:24 Alkaline Phosphatase 67 units/L (35-129) 04/21/21 04:24 Ammonia 25.0 umol/L (25-60) 04/18/21 02:34 Lactate Dehydrogenase 408 units/L (91-180) H 04/26/21 07:20 Total Creatine Kinase 68 units/L (30-135) 04/18/21 02:34 C-Reactive Protein 0.20 mg/dL (0.00-1.30) 04/26/21 07:20 Total Protein 6.1 g/dL (6.3-8.2) L 04/21/21 04:24 Albumin 2.7 g/dL (3.9-5) L 04/21/21 04:24 Albumin/Globulin Ratio 0.8 % 04/21/21 04:24 Procalcitonin 0.08 ng/mL (<0.15) 04/24/21 04:33 Arterial Blood Glucose 212 mg/dL (65-95) H 04/22/21 04:00 Urine Color Yellow (Yellow) 04/18/21 04:25 Urine Turbidity Clear (Clear) 04/18/21 04:25 Urine pH 5.0 (5.0-7.0) 04/18/21 04:25 Ur Specific [place] 1.018 (1.003-1.030) 04/18/21 04:25 Urine Protein 100 mg/dl mg/dL (Negative) 04/18/21 04:25 Urine Glucose (UA) Neg mg/dL (Negative) 04/18/21 04:25 Urine Ketones Tr mg/dL (Negative) 04/18/21 04:25 Urine Blood Neg (Negative) 04/18/21 04:25 Urine Nitrite Neg (Negative) 04/18/21 04:25 Ur Reducing Substances Not Reportable 04/18/21 04:25 Urine Bilirubin Neg (Negative) 04/18/21 04:25 Urine Ictotest Not Reportable 04/18/21 04:25 Urine Urobilinogen 2.0 mg/dL (<2.0) 04/18/21 04:25 Ur Leukocyte Esterase Neg (Negative) 04/18/21 04:25 Urine WBC (Auto) 2.0 /HPF (0.0-6.0) 04/18/21 04:25 Urine RBC (Auto) 3.0 /HPF (0.0-6.0) 04/18/21 04:25 Hyaline Casts 3 /LPF 04/18/21 04:25 Urine Mucus Few /HPF 04/18/21 04:25 Plasma/Serum Alcohol < 0.01 % (0-0.07) 04/18/21 02:34 Coronavirus (PCR) Positive (Negative) A 04/19/21 09:00 Franco/IV: Voiding Method Toilet Active Medications - Current Medications Current Medications: Generic Name Dose Route Start Last Admin Trade Name Freq PRN Reason Stop Dose Admin Acetaminophen 650 mg 04/18/21 04:13 Acetaminophen 650 Mg Rect Supp [place] Q6H PRN Pain MILD(1-3)/Fever >100.5/ASENCIO Amlodipine Besylate 10 mg 04/25/21 10:00 04/27/21 09:40 Amlodipine 10 Mg Tab PO 10 mg QDAY REJI Administration Lipase/Protease/Amylase 1 each 04/19/21 12:25 Lipase 10,500/Protease 25,000/Amylase 43,750 (Units) Dr Cox FEEDTUBE PRN PRN For Clogged Feeding Tube Dextrose 50 ml 04/20/21 10:34 04/24/21 10:30 Dextrose 50% In Water (25gm) 50 Ml Syringe IV 50 ml Q30MIN PRN Administration Hypoglycemia Protocol Enoxaparin Sodium 30 mg 04/19/21 22:00 04/27/21 09:41 Enoxaparin 30 Mg/0.3 Ml Inj SUB-Q 30 mg BID REJI Administration Protocol Famotidine 20 mg 04/24/21 22:00 04/27/21 09:40 Famotidine 20 Mg Tab PO 20 mg BID REJI Administration Hydralazine HCl 10 mg 04/22/21 10:08 04/22/21 10:26 Hydralazine 20 Mg/1 Ml Inj IV 10 mg Q4HR PRN Administration sbp> 160 Hydrochlorothiazide 12.5 mg 04/25/21 10:00 04/27/21 09:40 Hydrochlorothiazide 12.5 Mg Cap PO 12.5 mg QDAY REJI Administration Hydrophilic Ointment 1 applic 04/18/21 03:03 Lip Therapy Vaseline TP Q2HR PRN Dry Lips Insulin Glargine 20 units 04/22/21 22:00 04/26/21 21:57 Insulin Glargine 100 Units/Ml SUB-Q 20 units QHS REJI Administration Insulin Human Lispro 0 unit 04/25/21 11:30 04/27/21 11:28 Insulin Lispro 100 Unit/Ml SUB-Q Not Given ACHS [facility] Protocol Losartan Potassium 50 mg 04/25/21 10:00 04/27/21 09:41 Losartan 50 Mg Tab PO 50 mg QDAY REJI Administration Multi-Ingred Cream/Lotion/Oil/Oint 1 applic 04/18/21 03:03 Mineral Oil/Petrolatum, White Ophth Oint 3.5 Gm OU Q4HR PRN Dry Eye(s) Ondansetron HCl 4 mg 04/18/21 04:13 Ondansetron 4 Mg/2 Ml Inj IV Q8H PRN Nausea And Vomiting Oxycodone HCl 5 mg 04/24/21 12:00 Oxycodone 5 Mg Tab PO Q8H PRN Pain, Moderate (4-6) Senna 17.6 mg 04/24/21 22:00 04/26/21 21:59 Sennosides Oral Liqd 8.8 Mg/5 Ml Oral Liqd FEEDTUBE Not Given QHS REJI Sodium Chloride 10 ml 04/18/21 10:00 04/27/21 09:41 Sodium Chloride 0.9% 10 Ml Flush Syringe IV 10 ml BID REJI Administration Sodium Chloride 10 ml 04/18/21 04:13 Sodium Chloride 0.9% 10 Ml Flush Syringe IV PRN PRN LINE FLUSH Nutrition/Malnutrition Assess - Dietary Evaluation Nutrition/Malnutrition Findings: Nutrition Notes Start: 04/18/21 08:28 Freq: Status: Active Protocol: Document 04/24/21 15:16 GB (Rec: 04/24/21 15:26 GB [id number]) Nutrition Notes Initial or Follow up Reassessment Current Diagnosis Sepsis,Respiratory Failure Other Pertinent Diagnosis COVID-19 (+), bilat pneu, AMS Current Diet cardiac mechanical soft Labs/Tests 04/24: BUN 27, Glucose 130, ferritin 1392 Pertinent Medications D5 (PRN) Height 5 ft 2 in Weight 68.6 kg [place] Body Weight (kg) 50.00 BMI 27.6 Weight change and time frame 04/18: 63.503kg 04/24: 68.6kg change of +5.097kg for +8% gain. Weight Status Overweight Subjective/Other Information MD notes 04/24: Pt self extubated. Placed on BiPap, now on HFNC, passed bedside swallow Diet advanced at lunch today Percent of energy/protein needs met: Unable to assess at this time. Diet just advanced Burn Absent Trauma Absent GI Symptoms None Food Allergy No Skin Integrity/Comment no complications reported Current % PO Other Minimum of two criteria No #1 Nutrition Diagnosis Swallowing difficulty Comments: 04/21: TF Vital AF 1.2 @50ml/ hr, vented, off pressors 04/24: self extubated 04/23, now on HFNC, passed bedside swallow, diet started Etiology COVID+, respiratory Failure As Evidenced by Signs and Symptoms Intubated, NPO Diagnosis Progress(for reassessment Resolved documentation) Is patient on ventilator? No Is Patient Ambulatory and/or Out of Bed No REE-([facility]-confined to bed) 1503.264 Kcal/Kg value to use for calculation 23 Approximate Energy Requirements Using 1578 kcal/Kg Calculation Used for Recommendations [facility] Additional Notes Pro needs 1.2-2g/kg (63.5kg): 76-127g/day (initial weight, expect weight changes) Fluid needs 1ml/kcal Nutrition Intervention Change Diet Order: cardiac - continue Nutrition Support: n/a Add Supplement/Snack (indicate name/kcal ensure enlive daily /protein ) Provides kCal: 350 Provides Protein (gm) 20 Goal #1 TF tolerance 04/21: met, continues 04/24: resolved - extubated, diet advanced Goal #2 TF to meet at least 75% energy and pro needs 04/21: TF at goal, met, continues 04/24: resolved, extubated, diet advanced Goal #3 PO intake of meals to improve to 50% or greater daily for LOS Follow-Up By: 04/29/21 Additional Comments f/u: diet tolerance, %PO meal/ supplement
[2021-04-24] MEDS ORDERED: SENNOSIDES 8.6 MG TAB PO SCH (22:00)
[2021-04-25] MEDS: ENOXAPARIN 30 MG/0.3 ML INJ SUB-Q SCH ×3 (00:14→22:40)
[2021-04-25] MEDS: FAMOTIDINE 20 MG TAB PO SCH ×3 (00:15→22:40)
[2021-04-25] MEDS: INSULIN LISPRO 100 UNIT/ML SUB-Q SCH ×5 (00:16→22:39)
[2021-04-25] MEDS: INSULIN GLARGINE 100 UNITS/ML SUB-Q SCH ×2 (00:17→22:40)
[2021-04-25] MEDS: SENNOSIDES ORAL LIQD 8.8 MG/5 ML ORAL LIQD FEEDTUBE SCH ×2 (00:44→22:40)
[2021-04-25] MEDS: hydroCHLOROthiazide 12.5 MG CAP PO SCH (09:48)
[2021-04-25] MEDS: dexAMETHasone 4 MG/ML VIAL IV SCH (09:48)
[2021-04-25] MEDS: LOSARTAN 50 MG TAB PO SCH (09:49)
[2021-04-25] MEDS: amLODIPine 10 MG TAB PO SCH (09:49)
--- NOTE | 2021-04-25 11:11 | Progress Note ---
Assessment and Plan Cultures: Blood culture no growth Sputum culture no growth COVID-19 PCR: Positive Urine culture: No growth A/P: 51-year-old female admitted with COVID-19 #Severe COVID-19 pneumonia: Patient presented with a week of symptoms, chest x- ray with diffuse bilateral infiltrates, admission O2 sats 40%on room air. Inflammatory markers elevated. #Acute hypoxemic respiratory failure: secondary to COVID-19 infection. Was on the vent, extubated to BiPAP 04/24/2021. Weaned to Salter NC at 5 lit/min. Recommendations: -Complete 10 days of steroids -Completed Remdesivir -Status post Actemra 04/21/2021 -continue to wean as tolerated Tung Germain MD, FACP [facility] ([facility] O: [phone] F: [phone] Subjective Date of service: 04/25/21 Principal diagnosis: Pneumonia; Sepsis; Acute hypoxemic resp failure; ARDS; COVID; Sepsis Interval history: No fever. Out of ICU, weaned to Salter nasal cannula at 5 L/min. Objective - Exam Narrative Exam: Physical Exam (reviewed in chart to minimize risk of transmission) Constitutional: deferred Head, Ears, Nose: deferred Eyes: deferred Neck: deferred Oral: deferred Cardiovascular: deferred Respiratory: deferred GI: deferred Musculoskeletal: deferred Skin: deferred Hem/Lymphatic: deferred Psych: deferred Neurological: deferred - Constitutional Vitals: Vital Signs Temp Pulse Resp BP Pulse Ox 98.9 F 64 20 127/77 90 04/25/21 05:31 04/25/21 05:31 04/25/21 05:31 04/25/21 05:31 04/25/21 05:31 Temperature -Last 24 Hours Temperature 98.9 F Temperature 99.3 F Temperature 99 F Temperature 98.0 F Temperature 99.0 F - Labs CBC & Chem 7: 04/24/21 04:33 04/24/21 04:33 Labs: Abnormal lab results 04/24/21 04/24/21 04/24/21 Range/Units 11:30 12:00 16:20 POC Glucose 194 H 166 H 236 H (70-105) mg/dL 04/25/21 Range/Units 00:03 POC Glucose 165 H (70-105) mg/dL
--- NOTE | 2021-04-25 11:44 | Progress Note ---
Assessment and Plan Assessment and plan: This is a 51 years-old female with unknown past medical history presented to [facility] on 04/18 with altered mental status. Upon her arrival in the ED her SPO2 was in the 40%, she was first placed on a NRB then was subsequently intubated due to acute hypoxic respiratory failure. As of note, patient was diagnosed with COVID 4days prior this admission. Patient was admitted in the ICU for further management. Hospital course to date: 04/19/21- Patient is intubated and sedated RASS -3 to -4. SB to low SR on the monitor, hemodynamics stable and not on any pressors, will continue to monitor. Hypokalemia was repleted. TF was initiated, plan to D/C IVF once TF is at goal. Hyperglycemia noted, high scale SSI and qHS lantus added, A1c ordered. 04/20/21- Patient remains intubated amd off sedation, RASS 0 to -1. Remains SB on the monitor, hemodynamic stable. Increased in lactic acid this am, slight increased in LFTs, WBCs stable, kidney function is stable. Will repeat lactic in 4hours and continue to monitor. Patient is net +1537 cc in last 24hrs, will hold IVF for now to keep patient net negative fluid balance.Will continue to monitor renal function and electrolytes. 04/21: SB on monitor, remains on fentanyl gtt, OETT advanced. ID prescribed actemra 04/22: Repeat D-dimer elevated and bilateral lower extremity Doppler ultrasound ordered which showed no DVT. Antibiotics stopped by ID given normal CRP. Patient's rate was decreased and PEEP increased on ventilator per CCM 04/23: CRP and procalcitonin ordered by infectious disease given leukocytosis. Late afternoon patient self extubated and was placed on BiPAP. BiPAP ordered for nightly. We will obtain a bedside swallow evaluation and possible speech eval. This morning free water flush was adjusted for hyponatremia. 04/24: Patient tolerated bipap overnight and placed on HFNC today. Patient passed bedside swallow yesterday and started on mechanical soft diet today. 04/25: Patient currently on salter nasal cannula 6 L/min, in no distress. Continue Decadron IV. Hopefully can de-esaclate to in the coming days given patient significant improvement. Assessment and plan: Neuro: Acute metabolic encephalopathy - 04/18 CT head w/o con showed no acute intracranial process - Prn analgesia - Maintenance of sleep-wake cycle, avoid delirium - Avoid benzodiazepine to reduce the possibility of delirium CV: HTN - SB to NSR on the monitor - Home amlodipine, hydrochlorothiazide resumed - As needed hydralazine - Blood pressure monitoring per protocol Resp: Acute hypoxemic respiratory failure, ARDS secondary to COVID pneumonia, Respiratory alkalosis - Cxr shows B infiltrates - Intubated on 04/18 with 7.5 OETT @ 20 (advanced to 24) but self extubated 1 -Currently on salter nasal cannula 6 L/min -wean as tolerated GI: NAD - Passed bedside swallow eval - Mechanical soft diet - BR- senokot - Pepcid - 24 hours -1370 : NAD - s/p D5 07/06 NS - Purewick in place - Strict intake and output - Monitor and replace electrolytes as needed ID: Sepsis, COVID Pneumonia, Bilateral Pneumonia, Lactic Acidosis - CXR showed bilateral pneumonia - COVID PCR positive - ID consulted, appreciate recommendations - follow culture data - Decadron 6 mg (04/18-04/27) - Remdesivir (04/19-04/23) - 04/21 Actemra - Trend COVId 19 inflammatory markers ferritin, Ddimer, CRP, LDH - s/p ABx- Ceftriaxone and azithromycin per ID (04/18-04/22) - Monitor fever curve Endo: Hyperglycemia - SSI - Lantus, titrate as needed - HbgA1c 8 - While critically ill target blood glucose of 140-180 - Avoid hypoglycemia Heme: Elevated D-dimer -D-dimer 1848 on 04/22 -Bilateral lower extremity Doppler ultrasound shows no acute or chronic DVT/SVT -Enoxaparin 30 mg twice daily -Bilateral lower extremities with SCDs History Interval history: No acute complaints on encounter. Patient denies any worsening of her r espiratory status. She states that her shortness of breath is significantly improved and she just denies any chest pain, nausea, vomiting, abdominal pain. Hospitalist Physical - Physical exam Narrative exam: Physical Exam: VITAL SIGNS: Reviewed. GENERAL: The patient appears normally developed, Vital signs as documented. HEAD: No signs of head trauma. EYES: Pupils are equal. Extraocular motions intact. EARS: Hearing grossly intact. MOUTH: Oropharynx is normal. NECK: No adenopathy, no JVD. CHEST: Chest with clear breath sounds bilaterally. Expiratory rhonchi bilaterally. Salter nasal cannula in place at 6 L/min CARDIAC: Regular rate and rhythm. S1 and S2, without murmurs, gallops, or rubs. VASCULAR: No Edema. Peripheral pulses normal and equal in all extremities. ABDOMEN: Soft, non tender and non distended. No rebound or guarding, and no masses palpated. Bowel Sounds normal. MUSCULOSKELETAL: Good range of motion of all major joints. Extremities without clubbing, cyanosis or edema. NEUROLOGIC EXAM: Alert and oriented x4. No focal sensory or strength deficits. PSYCHIATRIC: Mood normal. SKIN: detail exam as documented in skin assessment - Constitutional Vitals: Temp Pulse Resp BP Pulse Ox 98.9 F 64 20 127/77 90 04/25/21 05:31 04/25/21 05:31 04/25/21 05:31 04/25/21 05:31 04/25/21 05:31 General appearance: Present: no acute distress Results - Labs CBC & Chem 7: 04/24/21 04:33 04/24/21 04:33 Labs: Laboratory Last Values WBC 12.1 K/mm3 (4.5-11.0) H 04/24/21 04:33 RBC 4.12 M/mm3 (3.65-5.03) 04/24/21 04:33 Hgb 12.9 gm/dl (10.1-14.3) 04/24/21 04:33 Hct 39.6 % (30.3-42.9) 04/24/21 04:33 MCV 96 fl (79-97) 04/24/21 04:33 MCH 31 pg (28-32) 04/24/21 04:33 MCHC 33 % (30-34) 04/24/21 04:33 RDW 12.9 % (13.2-15.2) L 04/24/21 04:33 Plt Count 234 K/mm3 (140-440) 04/24/21 04:33 Lymph % (Auto) 12.5 % (13.4-35.0) L 04/19/21 05:36 [place] % (Auto) 9.4 % (0.0-7.3) H 04/19/21 05:36 Eos % (Auto) 0.0 % (0.0-4.3) 04/19/21 05:36 Baso % (Auto) 0.2 % (0.0-1.8) 04/19/21 05:36 Lymph # (Auto) 1.0 K/mm3 (1.2-5.4) L 04/19/21 05:36 Foster # (Auto) 0.8 K/mm3 (0.0-0.8) 04/19/21 05:36 Eos # (Auto) 0.0 K/mm3 (0.0-0.4) 04/19/21 05:36 Baso # (Auto) 0.0 K/mm3 (0.0-0.1) 04/19/21 05:36 Add Manual Diff Complete 04/19/21 05:36 Seg Neutrophils % 77.9 % (40.0-70.0) H 04/19/21 05:36 Nucleated RBC % Not Reportable 04/19/21 05:36 Seg Neutrophils # 6.4 K/mm3 (1.8-7.7) 04/19/21 05:36 WBC Morphology Not Reportable 04/19/21 05:36 Hypersegmented Neuts Not Reportable 04/19/21 05:36 Hyposegmented Neuts Not Reportable 04/19/21 05:36 Hypogranular Neuts Not Reportable 04/19/21 05:36 Smudge Cells Not Reportable 04/19/21 05:36 Toxic Granulation Not Reportable 04/19/21 05:36 Toxic Vacuolation Not Reportable 04/19/21 05:36 Dohle Bodies Not Reportable 04/19/21 05:36 Pelger-Huet Anomaly Not Reportable 04/19/21 05:36 Santana Rods Not Reportable 04/19/21 05:36 Platelet Estimate Not Reportable 04/19/21 05:36 Clumped Platelets Not Reportable 04/19/21 05:36 Plt Clumps, EDTA Not Reportable 04/19/21 05:36 Large Platelets Not Reportable 04/19/21 05:36 Giant Platelets Not Reportable 04/19/21 05:36 Platelet Satelliting Not Reportable 04/19/21 05:36 Plt Morphology Comment Not Reportable 04/19/21 05:36 RBC Morphology Not Reportable 04/19/21 05:36 Dimorphic RBCs Not Reportable 04/19/21 05:36 Polychromasia Not Reportable 04/19/21 05:36 Hypochromasia Not Reportable 04/19/21 05:36 Poikilocytosis Not Reportable 04/19/21 05:36 Anisocytosis Not Reportable 04/19/21 05:36 Microcytosis Not Reportable 04/19/21 05:36 Macrocytosis Not Reportable 04/19/21 05:36 Spherocytes Not Reportable 04/19/21 05:36 Pappenheimer Bodies Not Reportable 04/19/21 05:36 Sickle Cells Not Reportable 04/19/21 05:36 Target Cells Not Reportable 04/19/21 05:36 Tear Drop Cells Not Reportable 04/19/21 05:36 Ovalocytes Not Reportable 04/19/21 05:36 Helmet Cells Not Reportable 04/19/21 05:36 [place] Bodies Not Reportable 04/19/21 05:36 [place] Rings Not Reportable 04/19/21 05:36 [place] Cells Not Reportable 04/19/21 05:36 Bite Cells Not Reportable 04/19/21 05:36 Crenated Cell Not Reportable 04/19/21 05:36 Elliptocytes Not Reportable 04/19/21 05:36 Acanthocytes (Spur) Not Reportable 04/19/21 05:36 Rouleaux Not Reportable 04/19/21 05:36 Hemoglobin C Crystals Not Reportable 04/19/21 05:36 Schistocytes Not Reportable 04/19/21 05:36 Malaria parasites Not Reportable 04/19/21 05:36 Hubert Bodies Not Reportable 04/19/21 05:36 Hem Pathologist Commnt Not Reportable 04/19/21 05:36 PT 14.5 Sec. (12.2-14.9) 04/19/21 05:36 INR 1.02 (0.87-1.13) 04/19/21 05:36 APTT 34.2 Sec. (24.2-36.6) 04/18/21 02:34 D-Dimer 1775.11 ng/mlDDU (0-234) H 04/24/21 04:33 ABG pH 7.458 pH Units (7.350-7.450) H 04/23/21 18:20 POC ABG pCO2 30.5 mmHg (32.0-48.0) L 04/22/21 04:00 ABG pCO2 37.2 mm Hg 04/23/21 18:20 POC ABG pO2 67.9 mmHg (83-108) L 04/22/21 04:00 ABG pO2 168.1 mm Hg (80.0-90.0) H 04/23/21 18:20 POC ABG HCO3 22.2 04/22/21 04:00 ABG HCO3 25.8 mmol/L (20.0-26.0) 04/23/21 18:20 ABG O2 Saturation 99.1 % (95.0-99.0) H 04/23/21 18:20 ABG O2 Content 19.0 (0.0-44) 04/23/21 18:20 POC ABG Base Excess -0.3 04/22/21 04:00 ABG Base Excess 2.1 mmol/L (-2.0-3.0) 04/23/21 18:20 ABG Hemoglobin 13.7 gm/dl (12.0-16.0) 04/23/21 18:20 ABG Oxyhemoglobin 14.4 (94-98) L 04/22/21 04:00 ABG Carboxyhemoglobin 1.2 % (0.0-5.0) 04/23/21 18:20 ABG Methemoglobin 0.5 % (0.0-1.5) 04/23/21 18:20 ABG Sodium 138.2 mmol/L (136.0-145.0) 04/22/21 04:00 ABG Potassium 4.1 mmol/L (3.40-4.50) 04/22/21 04:00 ABG Chloride 108.0 mmol/L (98-107) H 04/22/21 04:00 ABG Glucose 212 mg/dL (65-95) H 04/22/21 04:00 Oxyhemoglobin 97.4 % (95.0-99.0) 04/23/21 18:20 Carboxyhemoglobin 1.1 (0.5-1.5) 04/22/21 04:00 FiO2 100 % 04/23/21 18:20 FiO2 % 35 04/22/21 04:00 Sodium 140 mmol/L (137-145) 04/24/21 04:33 Potassium 4.7 mmol/L (3.6-5.0) 04/24/21 04:33 Chloride 101.0 mmol/L (98-107) 04/24/21 04:33 Carbon Dioxide 23 mmol/L (22-30) 04/24/21 04:33 Anion Gap 21 mmol/L 04/24/21 04:33 BUN 27 mg/dL (7-17) H 04/24/21 04:33 Creatinine 0.7 mg/dL (0.6-1.2) 04/24/21 04:33 Estimated GFR > 60 ml/min 04/24/21 04:33 BUN/Creatinine Ratio 39 % 04/24/21 04:33 Glucose 130 mg/dL (65-100) H 04/24/21 04:33 POC Glucose 102 mg/dL (70-105) 04/25/21 07:54 Hemoglobin A1c 8.0 % (4-6) H 04/20/21 10: Lactic Acid 1.70 mmol/L (0.7-2.0) 04/22/21 10:58 Calcium 8.9 mg/dL (8.4-10.2) 04/24/21 04:33 Phosphorus 3.00 mg/dL (2.5-4.5) 04/22/21 04:19 Magnesium 2.30 mg/dL (1.7-2.3) 04/22/21 04:19 Ferritin 1392.0 ng/mL (10.0-200.0) H 04/24/21 04:33 Total Bilirubin 0.30 mg/dL (0.1-1.2) 04/21/21 04:24 AST 52 units/L (5-40) H 04/21/21 04:24 ALT 55 units/L (7-56) 04/21/21 04:24 Alkaline Phosphatase 67 units/L (35-129) 04/21/21 04:24 Ammonia 25.0 umol/L (25-60) 04/18/21 02:34 Lactate Dehydrogenase 506 units/L (91-180) H 04/24/21 04:33 Total Creatine Kinase 68 units/L (30-135) 04/18/21 02:34 C-Reactive Protein 0.60 mg/dL (0.00-1.30) 04/24/21 04:33 Total Protein 6.1 g/dL (6.3-8.2) L 04/21/21 04:24 Albumin 2.7 g/dL (3.9-5) L 04/21/21 04:24 Albumin/Globulin Ratio 0.8 % 04/21/21 04:24 Procalcitonin 0.12 ng/mL (<0.15) 04/22/21 10:58 Arterial Blood Glucose 212 mg/dL (65-95) H 04/22/21 04:00 Urine Color Yellow (Yellow) 04/18/21 04:25 Urine Turbidity Clear (Clear) 04/18/21 04:25 Urine pH 5.0 (5.0-7.0) 04/18/21 04:25 Ur Specific [place] 1.018 (1.003-1.030) 04/18/21 04:25 Urine Protein 100 mg/dl mg/dL (Negative) 04/18/21 04:25 Urine Glucose (UA) Neg mg/dL (Negative) 04/18/21 04:25 Urine Ketones Tr mg/dL (Negative) 04/18/21 04:25 Urine Blood Neg (Negative) 04/18/21 04:25 Urine Nitrite Neg (Negative) 04/18/21 04:25 Ur Reducing Substances Not Reportable 04/18/21 04:25 Urine Bilirubin Neg (Negative) 04/18/21 04:25 Urine Ictotest Not Reportable 04/18/21 04:25 Urine Urobilinogen 2.0 mg/dL (<2.0) 04/18/21 04:25 Ur Leukocyte Esterase Neg (Negative) 04/18/21 04:25 Urine WBC (Auto) 2.0 /HPF (0.0-6.0) 04/18/21 04:25 Urine RBC (Auto) 3.0 /HPF (0.0-6.0) 04/18/21 04:25 Hyaline Casts 3 /LPF 04/18/21 04:25 Urine Mucus Few /HPF 04/18/21 04:25 Plasma/Serum Alcohol < 0.01 % (0-0.07) 04/18/21 02:34 Coronavirus (PCR) Positive (Negative) A 04/19/21 09:00 Franco/IV: Voiding Method External Female Catheter Active Medications - Current Medications Current Medications: Generic Name Dose Route Start Last Admin Trade Name Freq PRN Reason Stop Dose Admin Acetaminophen 650 mg 04/18/21 04:13 Acetaminophen 650 Mg Rect Supp [place] Q6H PRN Pain MILD(1-3)/Fever >100.5/ASENCIO Amlodipine Besylate 10 mg 04/25/21 10:00 04/25/21 09:49 Amlodipine 10 Mg Tab PO 10 mg QDAY REJI Administration Lipase/Protease/Amylase 1 each 04/19/21 12:25 Lipase 10,500/Protease 25,000/Amylase 43,750 (Units) Dr Cox FEEDTUBE PRN PRN For Clogged Feeding Tube Dexamethasone 6 mg 04/18/21 10:00 04/25/21 09:48 Dexamethasone 4 Mg/Ml Vial IV 04/27/21 10:01 6 mg Q24HR REJI Administration Dextrose 50 ml 04/20/21 10:34 04/24/21 10:30 Dextrose 50% In Water (25gm) 50 Ml Syringe IV 50 ml Q30MIN PRN Administration Hypoglycemia Protocol Enoxaparin Sodium 30 mg 04/19/21 22:00 04/25/21 09:49 Enoxaparin 30 Mg/0.3 Ml Inj SUB-Q 30 mg BID REJI Administration Protocol Famotidine 20 mg 04/24/21 22:00 04/25/21 09:49 Famotidine 20 Mg Tab PO 20 mg BID REJI Administration Hydralazine HCl 10 mg 04/22/21 10:08 04/22/21 10:26 Hydralazine 20 Mg/1 Ml Inj IV 10 mg Q4HR PRN Administration sbp> 160 Hydrochlorothiazide 12.5 mg 04/25/21 10:00 04/25/21 09:48 Hydrochlorothiazide 12.5 Mg Cap PO 12.5 mg QDAY REJI Administration Hydrophilic Ointment 1 applic 04/18/21 03:03 Lip Therapy Vaseline TP Q2HR PRN Dry Lips Insulin Glargine 20 units 04/22/21 22:00 04/25/21 00:17 Insulin Glargine 100 Units/Ml SUB-Q 20 units QHS REJI Administration Insulin Human Lispro 0 unit 04/25/21 11:30 Insulin Lispro 100 Unit/Ml SUB-Q ACHS REJI Protocol Losartan Potassium 50 mg 04/25/21 10:00 04/25/21 09:49 Losartan 50 Mg Tab PO 50 mg QDAY REJI Administration Multi-Ingred Cream/Lotion/Oil/Oint 1 applic 04/18/21 03:03 Mineral Oil/Petrolatum, White Ophth Oint 3.5 Gm OU Q4HR PRN Dry Eye(s) Ondansetron HCl 4 mg 04/18/21 04:13 Ondansetron 4 Mg/2 Ml Inj IV Q8H PRN Nausea And Vomiting Oxycodone HCl 5 mg 04/24/21 12:00 Oxycodone 5 Mg Tab PO Q8H PRN Pain, Moderate (4-6) Senna 17.6 mg 04/24/21 22:00 04/25/21 00:44 Sennosides Oral Liqd 8.8 Mg/5 Ml Oral Liqd FEEDTUBE Not Given QHS REJI Sodium Chloride 10 ml 04/18/21 10:00 04/25/21 00:17 Sodium Chloride 0.9% 10 Ml Flush Syringe IV 10 ml BID REJI Administration Sodium Chloride 10 ml 04/18/21 04:13 Sodium Chloride 0.9% 10 Ml Flush Syringe IV PRN PRN LINE FLUSH Nutrition/Malnutrition Assess - Dietary Evaluation Nutrition/Malnutrition Findings: Nutrition Notes Start: 04/18/21 08:28 Freq: Status: Active Protocol: Document 04/24/21 15:16 GB (Rec: 04/24/21 15:26 GB [id number]) Nutrition Notes Initial or Follow up Reassessment Current Diagnosis Sepsis,Respiratory Failure Other Pertinent Diagnosis COVID-19 (+), bilat pneu, AMS Current Diet cardiac mechanical soft Labs/Tests 04/24: BUN 27, Glucose 130, ferritin 1392 Pertinent Medications D5 (PRN) Height 5 ft 2 in Weight 68.6 kg [place] Body Weight (kg) 50.00 BMI 27.6 Weight change and time frame 04/18: 63.503kg 04/24: 68.6kg change of +5.097kg for +8% gain. Weight Status Overweight Subjective/Other Information MD notes 04/24: Pt self extubated. Placed on BiPap, now on HFNC, passed bedside swallow Diet advanced at lunch today Percent of energy/protein needs met: Unable to assess at this time. Diet just advanced Burn Absent Trauma Absent GI Symptoms None Food Allergy No Skin Integrity/Comment no complications reported Current % PO Other Minimum of two criteria No #1 Nutrition Diagnosis Swallowing difficulty Comments: 04/21: TF Vital AF 1.2 @50ml/ hr, vented, off pressors 04/24: self extubated 04/23, now on HFNC, passed bedside swallow, diet started Etiology COVID+, respiratory Failure As Evidenced by Signs and Symptoms Intubated, NPO Diagnosis Progress(for reassessment Resolved documentation) Is patient on ventilator? No Is Patient Ambulatory and/or Out of Bed No REE-([facility]-confined to bed) 1503.264 Kcal/Kg value to use for calculation 23 Approximate Energy Requirements Using 1578 kcal/Kg Calculation Used for Recommendations [facility] Additional Notes Pro needs 1.2-2g/kg (63.5kg): 76-127g/day (initial weight, expect weight changes) Fluid needs 1ml/kcal Nutrition Intervention Change Diet Order: cardiac - continue Nutrition Support: n/a Add Supplement/Snack (indicate name/kcal ensure enlive daily /protein ) Provides kCal: 350 Provides Protein (gm) 20 Goal #1 TF tolerance 04/21: met, continues 04/24: resolved - extubated, diet advanced Goal #2 TF to meet at least 75% energy and pro needs 04/21: TF at goal, met, continues 04/24: resolved, extubated, diet advanced Goal #3 PO intake of meals to improve to 50% or greater daily for LOS Follow-Up By: 04/29/21 Additional Comments f/u: diet tolerance, %PO meal/ supplement
--- NOTE | 2021-04-25 11:49 | Progress Note ---
Assessment and Plan Bilateral pneumonia Sepsis Hyperglycemia Acute hypoxemic respiratory failure, ARDS COVID pneumonia Bilateral pneumonia Sepsis - continue qhs BIPAP with prn daytime use - continue care as below otherwise; - aspiration precautions - advance diet as tolerated - continue bronchodilators with pulmonary hygiene per RT - continue to avoid nephrotoxins, renally dose all medications - mobility protocols to prevent pressure ulcers - PT/OT as tolerated - Wound care per RN/WCT - continue accuchecks with glycemic control per SSI for target blood glucose < 180 mg/dL - tobacco abstinence strongly counseled at the bedside - home oxygen evaluation at discharge - GI & VTE prophylaxis - Flu & pneumovax per protocol - Pulmonary out patient follow up for PFTs and optimization of respiratory status - continue other care per attending / other consultants - prn analgesia per pain score - AB's per ID rec's - Maintenance of sleep-wake cycle, avoid delirium - Monitor hemodynamics closely - continue other care per attending / other consultants - discharge planning ongoing concurrently COVID SPECIFIC INTERVENTIONS - S/P Actemra (04/21) - Remdesivir as per ID/Pulmonary developed protocols - continue systemic steroids for severe COVID-19 infection empirically (10 days then re-evaluate) - follow repeat COVID tests results - zinc and vitamin C supplementation - Monitor inflammatory markers per facility protocol - ferritin, Ddimer, CRP - therapeutic anticoagulation per system Protocol based on d-dimer and clinical considerations - Continue contact and airborne isolation .... Re-evaluate in am & prn Subjective Date of service: 04/25/21 Principal diagnosis: Pneumonia; Sepsis; Acute hypoxemic resp failure; ARDS; COVID; Sepsis Interval history: Patient is seen today for: Bilateral pneumonia; Sepsis; Acute hypoxemic respiratory failure; ARDS; COVID infxn; Sepsis Seen and examined at bedside; 24hour events reviewed; nursing and respiratory care staff consulted; no adverse overnight events reported to me; resting in bed; remains on salter HFNC at 7L flow; denies chest pain or increased SOB; no hemoptysis; afebrile Objective Vital Signs - 12hr 04/25/21 04/25/21 04:34 05:31 Temperature 98.9 F Pulse Rate 64 Respiratory 20 20 Rate Blood Pressure 127/77 O2 Sat by Pulse 96 90 Oximetry Constitutional: no acute distress Eyes: non-icteric ENT: oropharynx moist Neck: supple, no lymphadenopathy, no JVD Effort: mildly labored Ascultation: Bilateral: diminished breath sounds, rhonchi (scant) Percussion: Bilateral: not dull Cardiovascular: regular rate and rhythm, other (S1,S2) Gastrointestinal: normoactive bowel sounds, soft, non-tender, non-distended (protuberant) Integumentary: normal Extremities: no cyanosis, no edema, pulses normal, no ischemia or petechiae Neurologic: non-focal exam (grossly), pupils equal and round, CN II-XII normal, motor strength normal and Psychiatric: mood appropriate, affect normal CBC and BMP: 04/26/21 07:20 04/26/21 07:20 ABG, PT/INR, D-dimer: ABG ABG pH 7.458 pH Units (7.350-7.450) H 04/23/21 18:20 POC ABG pCO2 30.5 mmHg (32.0-48.0) L 04/22/21 04:00 ABG pCO2 37.2 mm Hg 04/23/21 18:20 POC ABG pO2 67.9 mmHg (83-108) L 04/22/21 04:00 ABG pO2 168.1 mm Hg (80.0-90.0) H 04/23/21 18:20 POC ABG HCO3 22.2 04/22/21 04:00 ABG O2 Saturation 99.1 % (95.0-99.0) H 04/23/21 18:20 PT/INR, D-dimer PT 14.5 Sec. (12.2-14.9) 04/19/21 05:36 INR 1.02 (0.87-1.13) 04/19/21 05:36 D-Dimer 1775.11 ng/mlDDU (0-234) H 04/24/21 04:33 Abnormal lab findings: Abnormal Labs 04/18/21 04/18/21 04/18/21 02:34 02:34 02:34 WBC RBC MCH 33 H MCHC 35 H RDW 12.4 L Lymph % (Auto) [place] % (Auto) 14.0 H Lymph # (Auto) 0.9 L [place] # (Auto) 0.9 H Seg Neutrophils % 72.0 H D-Dimer 978.83 H ABG pH POC ABG pCO2 POC ABG pO2 ABG pO2 ABG HCO3 ABG O2 Saturation ABG Oxyhemoglobin ABG Potassium ABG Chloride ABG Glucose Oxyhemoglobin Carboxyhemoglobin Sodium Potassium Chloride Carbon Dioxide 20 L BUN 32 H Glucose 227 H POC Glucose Hemoglobin A1c Lactic Acid Calcium 8.2 L Ferritin AST 64 H ALT Lactate Dehydrogenase C-Reactive Protein Total Protein Albumin 3.5 L Arterial Blood Glucose Coronavirus (PCR) 04/18/21 04/18/21 04/18/21 02:34 02:34 04:20 WBC RBC MCH MCHC RDW Lymph % (Auto) [place] % (Auto) Lymph # (Auto) [place] # (Auto) Seg Neutrophils % D-Dimer ABG pH 7.468 H POC ABG pCO2 POC ABG pO2 ABG pO2 154.9 H ABG HCO3 ABG O2 Saturation ABG Oxyhemoglobin ABG Potassium ABG Chloride ABG Glucose Oxyhemoglobin Carboxyhemoglobin Sodium Potassium Chloride Carbon Dioxide BUN Glucose 228 H POC Glucose Hemoglobin A1c Lactic Acid Calcium Ferritin > 2000.0 H AST ALT Lactate Dehydrogenase 711 H C-Reactive Protein 12.90 H Total Protein Albumin Arterial Blood Glucose Coronavirus (PCR) 04/18/21 04/18/21 04/19/21 04:54 15:39 05:36 WBC RBC MCH 33 H MCHC 35 H RDW 12.9 L Lymph % (Auto) 12.5 L [place] % (Auto) 9.4 H Lymph # (Auto) 1.0 L [place] # (Auto) Seg Neutrophils % 77.9 H D-Dimer ABG pH POC ABG pCO2 POC ABG pO2 ABG pO2 ABG HCO3 ABG O2 Saturation ABG Oxyhemoglobin ABG Potassium ABG Chloride ABG Glucose Oxyhemoglobin Carboxyhemoglobin Sodium Potassium 3.5 L Chloride 107.8 H Carbon Dioxide 20 L BUN 32 H Glucose 276 H POC Glucose Hemoglobin A1c Lactic Acid 2.30 H* Calcium 8.1 L Ferritin AST 64 H ALT Lactate Dehydrogenase C-Reactive Protein Total Protein Albumin 2.8 L Arterial Blood Glucose Coronavirus (PCR) 04/19/21 04/19/21 04/19/21 05:36 06:16 09:00 WBC RBC MCH MCHC RDW Lymph % (Auto) [place] % (Auto) Lymph # (Auto) [place] # (Auto) Seg Neutrophils % D-Dimer ABG pH 7.562 H POC ABG pCO2 22.0 L POC ABG pO2 168.2 H ABG pO2 ABG HCO3 ABG O2 Saturation ABG Oxyhemoglobin 98.4 H ABG Potassium 3.3 L ABG Chloride 110.0 H ABG Glucose 248 H Oxyhemoglobin Carboxyhemoglobin Sodium 147 H Potassium 3.3 L Chloride 110.1 H Carbon Dioxide 21 L BUN 35 H Glucose 251 H POC Glucose Hemoglobin A1c Lactic Acid Calcium 8.2 L Ferritin AST 66 H ALT Lactate Dehydrogenase C-Reactive Protein Total Protein Albumin 2.9 L Arterial Blood Glucose 248 H Coronavirus (PCR) Positive A 04/19/21 04/19/21 04/19/21 11:32 17:15 21:34 WBC RBC MCH MCHC RDW Lymph % (Auto) [place] % (Auto) Lymph # (Auto) [place] # (Auto) Seg Neutrophils % D-Dimer ABG pH POC ABG pCO2 POC ABG pO2 ABG pO2 ABG HCO3 ABG O2 Saturation ABG Oxyhemoglobin ABG Potassium ABG Chloride ABG Glucose Oxyhemoglobin Carboxyhemoglobin Sodium Potassium Chloride Carbon Dioxide BUN Glucose POC Glucose 216 H 256 H 258 H Hemoglobin A1c Lactic Acid Calcium Ferritin AST ALT Lactate Dehydrogenase C-Reactive Protein Total Protein Albumin Arterial Blood Glucose Coronavirus (PCR) 04/20/21 04/20/21 04/20/21 00:13 03:44 06:16 WBC RBC MCH MCHC RDW Lymph % (Auto) [place] % (Auto) Lymph # (Auto) [place] # (Auto) Seg Neutrophils % D-Dimer ABG pH 7.483 H POC ABG pCO2 26.2 L POC ABG pO2 ABG pO2 ABG HCO3 ABG O2 Saturation ABG Oxyhemoglobin ABG Potassium ABG Chloride 114.0 H ABG Glucose 296 H Oxyhemoglobin Carboxyhemoglobin 0.1 L Sodium Potassium Chloride Carbon Dioxide BUN Glucose POC Glucose 290 H 271 H Hemoglobin A1c Lactic Acid Calcium Ferritin AST ALT Lactate Dehydrogenase C-Reactive Protein Total Protein Albumin Arterial Blood Glucose 296 H Coronavirus (PCR) 04/20/21 04/20/21 04/20/21 10:21 10:21 10:21 WBC RBC MCH MCHC RDW Lymph % (Auto) [place] % (Auto) Lymph # (Auto) [place] # (Auto) Seg Neutrophils % D-Dimer ABG pH POC ABG pCO2 POC ABG pO2 ABG pO2 ABG HCO3 ABG O2 Saturation ABG Oxyhemoglobin ABG Potassium ABG Chloride ABG Glucose Oxyhemoglobin Carboxyhemoglobin Sodium Potassium Chloride 113.7 H Carbon Dioxide 19 L BUN 38 H Glucose 266 H POC Glucose Hemoglobin A1c 8.0 H Lactic Acid 3.10 H* Calcium Ferritin AST 79 H ALT 58 H Lactate Dehydrogenase C-Reactive Protein Total Protein Albumin 2.6 L Arterial Blood Glucose Coronavirus (PCR) 04/20/21 04/20/21 04/20/21 10:21 11:05 15:24 WBC RBC MCH 34 H MCHC 35 H RDW 12.9 L Lymph % (Auto) [place] % (Auto) Lymph # (Auto) [place] # (Auto) Seg Neutrophils % D-Dimer ABG pH POC ABG pCO2 POC ABG pO2 ABG pO2 ABG HCO3 ABG O2 Saturation ABG Oxyhemoglobin ABG Potassium ABG Chloride ABG Glucose Oxyhemoglobin Carboxyhemoglobin Sodium Potassium Chloride Carbon Dioxide BUN Glucose POC Glucose 233 H Hemoglobin A1c Lactic Acid 2.50 H* Calcium Ferritin AST ALT Lactate Dehydrogenase C-Reactive Protein Total Protein Albumin Arterial Blood Glucose Coronavirus (PCR) 04/20/21 04/20/21 04/20/21 17:25 20:56 23:11 WBC RBC MCH MCHC RDW Lymph % (Auto) [place] % (Auto) Lymph # (Auto) [place] # (Auto) Seg Neutrophils % D-Dimer ABG pH POC ABG pCO2 POC ABG pO2 ABG pO2 ABG HCO3 ABG O2 Saturation ABG Oxyhemoglobin ABG Potassium ABG Chloride ABG Glucose Oxyhemoglobin Carboxyhemoglobin Sodium Potassium Chloride Carbon Dioxide BUN Glucose POC Glucose 262 H 321 H Hemoglobin A1c Lactic Acid 2.80 H* Calcium Ferritin AST ALT Lactate Dehydrogenase C-Reactive Protein Total Protein Albumin Arterial Blood Glucose Coronavirus (PCR) 04/21/21 04/21/21 04/21/21 04:11 04:24 04:24 WBC RBC 3.55 L MCH 33 H MCHC RDW 12.8 L Lymph % (Auto) [place] % (Auto) Lymph # (Auto) [place] # (Auto) Seg Neutrophils % D-Dimer ABG pH 7.479 H POC ABG pCO2 28.9 L POC ABG pO2 75.6 L ABG pO2 ABG HCO3 ABG O2 Saturation ABG Oxyhemoglobin ABG Potassium ABG Chloride 113.0 H ABG Glucose 331 H Oxyhemoglobin Carboxyhemoglobin 0.1 L Sodium Potassium Chloride 113.1 H Carbon Dioxide 18 L BUN 36 H Glucose 342 H POC Glucose Hemoglobin A1c Lactic Acid Calcium 8.1 L Ferritin AST 52 H ALT Lactate Dehydrogenase C-Reactive Protein Total Protein 6.1 L Albumin 2.7 L Arterial Blood Glucose 331 H Coronavirus (PCR) 04/21/21 04/21/21 04/21/21 05:22 11:57 18:16 WBC RBC MCH MCHC RDW Lymph % (Auto) [place] % (Auto) Lymph # (Auto) [place] # (Auto) Seg Neutrophils % D-Dimer ABG pH POC ABG pCO2 POC ABG pO2 ABG pO2 ABG HCO3 ABG O2 Saturation ABG Oxyhemoglobin ABG Potassium ABG Chloride ABG Glucose Oxyhemoglobin Carboxyhemoglobin Sodium Potassium Chloride Carbon Dioxide BUN Glucose POC Glucose 269 H 258 H 313 H Hemoglobin A1c Lactic Acid Calcium Ferritin AST ALT Lactate Dehydrogenase C-Reactive Protein Total Protein Albumin Arterial Blood Glucose Coronavirus (PCR) 04/21/21 04/22/21 04/22/21 23:38 04:00 04:19 WBC RBC MCH 33 H MCHC RDW 12.9 L Lymph % (Auto) [place] % (Auto) Lymph # (Auto) [place] # (Auto) Seg Neutrophils % D-Dimer ABG pH 7.479 H POC ABG pCO2 30.5 L POC ABG pO2 67.9 L ABG pO2 ABG HCO3 ABG O2 Saturation ABG Oxyhemoglobin 14.4 L ABG Potassium ABG Chloride 108.0 H ABG Glucose 212 H Oxyhemoglobin Carboxyhemoglobin Sodium Potassium Chloride Carbon Dioxide BUN Glucose POC Glucose 298 H Hemoglobin A1c Lactic Acid Calcium Ferritin AST ALT Lactate Dehydrogenase C-Reactive Protein Total Protein Albumin Arterial Blood Glucose 212 H Coronavirus (PCR) 04/22/21 04/22/21 04/22/21 04:19 05:15 10:42 WBC RBC MCH MCHC RDW Lymph % (Auto) [place] % (Auto) Lymph # (Auto) [place] # (Auto) Seg Neutrophils % D-Dimer ABG pH POC ABG pCO2 POC ABG pO2 ABG pO2 ABG HCO3 ABG O2 Saturation ABG Oxyhemoglobin ABG Potassium ABG Chloride ABG Glucose Oxyhemoglobin Carboxyhemoglobin Sodium Potassium Chloride 108.0 H Carbon Dioxide 21 L BUN 31 H Glucose 261 H POC Glucose 214 H 171 H Hemoglobin A1c Lactic Acid Calcium Ferritin AST ALT Lactate Dehydrogenase C-Reactive Protein Total Protein Albumin Arterial Blood Glucose Coronavirus (PCR) 04/22/21 04/22/21 04/22/21 10:58 10:58 10:58 WBC RBC MCH MCHC RDW Lymph % (Auto) [place] % (Auto) Lymph # (Auto) [place] # (Auto) Seg Neutrophils % D-Dimer 1848.39 H ABG pH POC ABG pCO2 POC ABG pO2 ABG pO2 ABG HCO3 ABG O2 Saturation ABG Oxyhemoglobin ABG Potassium ABG Chloride ABG Glucose Oxyhemoglobin Carboxyhemoglobin Sodium Potassium Chloride Carbon Dioxide BUN Glucose 201 H POC Glucose Hemoglobin A1c Lactic Acid Calcium Ferritin 1402.0 H AST ALT Lactate Dehydrogenase 524 H C-Reactive Protein Total Protein Albumin Arterial Blood Glucose Coronavirus (PCR) 04/22/21 04/22/21 04/22/21 17:37 21:29 21:40 WBC RBC MCH MCHC RDW Lymph % (Auto) [place] % (Auto) Lymph # (Auto) [place] # (Auto) Seg Neutrophils % D-Dimer ABG pH POC ABG pCO2 POC ABG pO2 ABG pO2 74.6 L ABG HCO3 27.0 H ABG O2 Saturation ABG Oxyhemoglobin ABG Potassium ABG Chloride ABG Glucose Oxyhemoglobin 93.9 L Carboxyhemoglobin Sodium Potassium Chloride Carbon Dioxide BUN Glucose POC Glucose 273 H 180 H Hemoglobin A1c Lactic Acid Calcium Ferritin AST ALT Lactate Dehydrogenase C-Reactive Protein Total Protein Albumin Arterial Blood Glucose Coronavirus (PCR) 04/23/21 04/23/21 04/23/21 02:42 04:17 04:17 WBC 16.6 H RBC MCH MCHC RDW 13.0 L Lymph % (Auto) [place] % (Auto) Lymph # (Auto) [place] # (Auto) Seg Neutrophils % D-Dimer ABG pH POC ABG pCO2 POC ABG pO2 ABG pO2 ABG HCO3 ABG O2 Saturation ABG Oxyhemoglobin ABG Potassium ABG Chloride ABG Glucose Oxyhemoglobin Carboxyhemoglobin Sodium 136 L Potassium Chloride Carbon Dioxide BUN 26 H Glucose 105 H POC Glucose 111 H Hemoglobin A1c Lactic Acid Calcium Ferritin AST ALT Lactate Dehydrogenase C-Reactive Protein Total Protein Albumin Arterial Blood Glucose Coronavirus (PCR) 04/23/21 04/23/21 04/23/21 05:20 10:02 12:01 WBC RBC MCH MCHC RDW Lymph % (Auto) [place] % (Auto) Lymph # (Auto) [place] # (Auto) Seg Neutrophils % D-Dimer ABG pH POC ABG pCO2 POC ABG pO2 ABG pO2 ABG HCO3 ABG O2 Saturation ABG Oxyhemoglobin ABG Potassium ABG Chloride ABG Glucose Oxyhemoglobin Carboxyhemoglobin Sodium Potassium Chloride Carbon Dioxide BUN Glucose POC Glucose 121 H 144 H 220 H Hemoglobin A1c Lactic Acid Calcium Ferritin AST ALT Lactate Dehydrogenase C-Reactive Protein Total Protein Albumin Arterial Blood Glucose Coronavirus (PCR) 04/23/21 04/23/21 04/23/21 15:26 18:20 22:04 WBC RBC MCH MCHC RDW Lymph % (Auto) [place] % (Auto) Lymph # (Auto) [place] # (Auto) Seg Neutrophils % D-Dimer ABG pH 7.458 H POC ABG pCO2 POC ABG pO2 ABG pO2 168.1 H ABG HCO3 ABG O2 Saturation 99.1 H ABG Oxyhemoglobin ABG Potassium ABG Chloride ABG Glucose Oxyhemoglobin Carboxyhemoglobin Sodium Potassium Chloride Carbon Dioxide BUN Glucose POC Glucose 291 H 246 H Hemoglobin A1c Lactic Acid Calcium Ferritin AST ALT Lactate Dehydrogenase C-Reactive Protein Total Protein Albumin Arterial Blood Glucose Coronavirus (PCR) 04/24/21 04/24/21 04/24/21 02:17 04:33 04:33 WBC RBC MCH MCHC RDW Lymph % (Auto) [place] % (Auto) Lymph # (Auto) [place] # (Auto) Seg Neutrophils % D-Dimer 1775.11 H ABG pH POC ABG pCO2 POC ABG pO2 ABG pO2 ABG HCO3 ABG O2 Saturation ABG Oxyhemoglobin ABG Potassium ABG Chloride ABG Glucose Oxyhemoglobin Carboxyhemoglobin Sodium Potassium Chloride Carbon Dioxide BUN Glucose POC Glucose 153 H Hemoglobin A1c Lactic Acid Calcium Ferritin 1392.0 H AST ALT Lactate Dehydrogenase C-Reactive Protein Total Protein Albumin Arterial Blood Glucose Coronavirus (PCR) 04/24/21 04/24/21 04/24/21 04:33 04:33 10:47 WBC 12.1 H RBC MCH MCHC RDW 12.9 L Lymph % (Auto) [place] % (Auto) Lymph # (Auto) [place] # (Auto) Seg Neutrophils % D-Dimer ABG pH POC ABG pCO2 POC ABG pO2 ABG pO2 ABG HCO3 ABG O2 Saturation ABG Oxyhemoglobin ABG Potassium ABG Chloride ABG Glucose Oxyhemoglobin Carboxyhemoglobin Sodium Potassium Chloride Carbon Dioxide BUN 27 H Glucose 130 H POC Glucose 254 H Hemoglobin A1c Lactic Acid Calcium Ferritin AST ALT Lactate Dehydrogenase 506 H C-Reactive Protein Total Protein Albumin Arterial Blood Glucose Coronavirus (PCR) 04/24/21 04/24/21 04/24/21 10:49 11:30 12:00 WBC RBC MCH MCHC RDW Lymph % (Auto) [place] % (Auto) Lymph # (Auto) [place] # (Auto) Seg Neutrophils % D-Dimer ABG pH POC ABG pCO2 POC ABG pO2 ABG pO2 ABG HCO3 ABG O2 Saturation ABG Oxyhemoglobin ABG Potassium ABG Chloride ABG Glucose Oxyhemoglobin Carboxyhemoglobin Sodium Potassium Chloride Carbon Dioxide BUN Glucose POC Glucose 258 H 194 H 166 H Hemoglobin A1c Lactic Acid Calcium Ferritin AST ALT Lactate Dehydrogenase C-Reactive Protein Total Protein Albumin Arterial Blood Glucose Coronavirus (PCR) 04/24/21 04/25/21 16:20 00:03 WBC RBC MCH MCHC RDW Lymph % (Auto) [place] % (Auto) Lymph # (Auto) [place] # (Auto) Seg Neutrophils % D-Dimer ABG pH POC ABG pCO2 POC ABG pO2 ABG pO2 ABG HCO3 ABG O2 Saturation ABG Oxyhemoglobin ABG Potassium ABG Chloride ABG Glucose Oxyhemoglobin Carboxyhemoglobin Sodium Potassium Chloride Carbon Dioxide BUN Glucose POC Glucose 236 H 165 H Hemoglobin A1c Lactic Acid Calcium Ferritin AST ALT Lactate Dehydrogenase C-Reactive Protein Total Protein Albumin Arterial Blood Glucose Coronavirus (PCR) Allied health notes reviewed: nursing
[2021-04-26 07:41] LABS: Hemoglobin 13.5 gm/dl (10.1-14.3); Mean Corpuscular HGB Conc 34 % (30-34); Mean Corpuscular Volume 96 fl (79-97); Platelet Count 280 K/mm3 (140-440); Red Blood Count 4.18 M/mm3 (3.65-5.03); Red Cell Distribution Width 12.9 % (13.2-15.2)
[2021-04-26 08:02] LABS: BUN/Creatinine Ratio 48; Blood Urea Nitrogen 38 mg/dL (7-17); Calcium 9.3 mg/dL (8.4-10.2); Hemolysis Index 22
--- NOTE | 2021-04-26 08:20 | Progress Note ---
Assessment and Plan Assessment and plan: This is a 51 years-old female with unknown past medical history presented to [facility] on 04/18 with altered mental status. Upon her arrival in the ED her SPO2 was in the 40%, she was first placed on a NRB then was subsequently intubated due to acute hypoxic respiratory failure. As of note, patient was diagnosed with COVID 4days prior this admission. Patient was admitted in the ICU for further management. Hospital course to date: 04/19/21- Patient is intubated and sedated RASS -3 to -4. SB to low SR on the monitor, hemodynamics stable and not on any pressors, will continue to monitor. Hypokalemia was repleted. TF was initiated, plan to D/C IVF once TF is at goal. Hyperglycemia noted, high scale SSI and qHS lantus added, A1c ordered. 04/20/21- Patient remains intubated amd off sedation, RASS 0 to -1. Remains SB on the monitor, hemodynamic stable. Increased in lactic acid this am, slight increased in LFTs, WBCs stable, kidney function is stable. Will repeat lactic in 4hours and continue to monitor. Patient is net +1537 cc in last 24hrs, will hold IVF for now to keep patient net negative fluid balance.Will continue to monitor renal function and electrolytes. 04/21: SB on monitor, remains on fentanyl gtt, OETT advanced. ID prescribed actemra 04/22: Repeat D-dimer elevated and bilateral lower extremity Doppler ultrasound ordered which showed no DVT. Antibiotics stopped by ID given normal CRP. Patient's rate was decreased and PEEP increased on ventilator per CCM 04/23: CRP and procalcitonin ordered by infectious disease given leukocytosis. Late afternoon patient self extubated and was placed on BiPAP. BiPAP ordered for nightly. We will obtain a bedside swallow evaluation and possible speech eval. This morning free water flush was adjusted for hyponatremia. 04/24: Patient tolerated bipap overnight and placed on HFNC today. Patient passed bedside swallow yesterday and started on mechanical soft diet today. 04/25: Patient currently on salter nasal cannula 6 L/min, in no distress. Continue Decadron IV. Hopefully can de-esaclate to in the coming days given patient significant improvement. 04/26: Patient currently on salter nasal cannula 10 L/min, in no distress. Continue steroids. Encourage patient to self prone incoordination with care staff. Assessment and plan: Neuro: Acute metabolic encephalopathy - 04/18 CT head w/o con showed no acute intracranial process - Prn analgesia - Maintenance of sleep-wake cycle, avoid delirium - Avoid benzodiazepine to reduce the possibility of delirium CV: HTN - SB to NSR on the monitor - Home amlodipine, hydrochlorothiazide resumed - As needed hydralazine - Blood pressure monitoring per protocol Resp: Acute hypoxemic respiratory failure, ARDS secondary to COVID pneumonia, Respiratory alkalosis - Cxr shows B infiltrates - Intubated on 04/18 with 7.5 OETT @ 20 (advanced to 24) but self extubated 04/23 -Currently on salter nasal cannula 6 L/min -wean as tolerated GI: NAD - Passed bedside swallow eval - Mechanical soft diet - BR- senokot - Pepcid - 24 hours -1370 : NAD - s/p D5 1/ NS - Purewick in place - Strict intake and output - Monitor and replace electrolytes as needed ID: Sepsis, COVID Pneumonia, Bilateral Pneumonia, Lactic Acidosis - CXR showed bilateral pneumonia - COVID PCR positive - ID consulted, appreciate recommendations - follow culture data - Decadron 6 mg (04/18-04/27) - Remdesivir (04/19-04/23) - 04/21 Actemra - Trend COVId 19 inflammatory markers ferritin, Ddimer, CRP, LDH - s/p ABx- Ceftriaxone and azithromycin per ID (04/18-04/22) - Monitor fever curve Endo: Hyperglycemia - SSI - Lantus, titrate as needed - HbgA1c 8 - While critically ill target blood glucose of 140-180 - Avoid hypoglycemia Heme: Elevated D-dimer -D-dimer 1848 on 04/22 -Bilateral lower extremity Doppler ultrasound shows no acute or chronic DVT/SVT -Enoxaparin 30 mg twice daily -Bilateral lower extremities with SCDs History Interval history: No acute symptomology this morning reported by patient. Discussed with patient the importance of self proning. Will encourage her to coordinate with care staff to help her lying prone position safely to ensure that nasal cannula is not dislodged. Hospitalist Physical - Physical exam Narrative exam: Physical Exam: VITAL SIGNS: Reviewed. GENERAL: The patient appears normally developed, Vital signs as documented. Salter nasal cannula in place currently at 10 L/min HEAD: No signs of head trauma. EYES: Pupils are equal. Extraocular motions intact. EARS: Hearing grossly intact. MOUTH: Oropharynx is normal. NECK: No adenopathy, no JVD. CHEST: Chest with clear breath sounds bilaterally. Expiratory rhonchi bilaterally. CARDIAC: Regular rate and rhythm. S1 and S2, without murmurs, gallops, or rubs. VASCULAR: No Edema. Peripheral pulses normal and equal in all extremities. ABDOMEN: Soft, non tender and non distended. No rebound or guarding, and no masses palpated. Bowel Sounds normal. MUSCULOSKELETAL: Good range of motion of all major joints. Extremities without clubbing, cyanosis or edema. NEUROLOGIC EXAM: Alert and oriented x4. No focal sensory or strength deficits. PSYCHIATRIC: Mood normal. SKIN: detail exam as documented in skin assessment - Constitutional Vitals: Temp Pulse Resp BP Pulse Ox 97.9 F 66 18 120/82 95 04/26/21 04:24 04/26/21 04:24 04/26/21 04:24 04/26/21 04:24 04/26/21 04:24 General appearance: Present: no acute distress Results - Labs CBC & Chem 7: 04/26/21 07:20 04/26/21 07:20 Labs: Laboratory Last Values WBC 8.2 K/mm3 (4.5-11.0) 04/26/21 07:20 RBC 4.18 M/mm3 (3.65-5.03) 04/26/21 07:20 Hgb 13.5 gm/dl (10.1-14.3) 04/26/21 07:20 Hct 40.0 % (30.3-42.9) 04/26/21 07:20 MCV 96 fl (79-97) 04/26/21 07:20 MCH 32 pg (28-32) 04/26/21 07:20 MCHC 34 % (30-34) 04/26/21 07:20 RDW 12.9 % (13.2-15.2) L 04/26/21 07:20 Plt Count 280 K/mm3 (140-440) 04/26/21 07:20 Lymph % (Auto) 12.5 % (13.4-35.0) L 04/19/21 05:36 [place] % (Auto) 9.4 % (0.0-7.3) H 04/19/21 05:36 Eos % (Auto) 0.0 % (0.0-4.3) 04/19/21 05:36 Baso % (Auto) 0.2 % (0.0-1.8) 04/19/21 05:36 Lymph # (Auto) 1.0 K/mm3 (1.2-5.4) L 04/19/21 05:36 [place] # (Auto) 0.8 K/mm3 (0.0-0.8) 04/19/21 05:36 Eos # (Auto) 0.0 K/mm3 (0.0-0.4) 04/19/21 05:36 Baso # (Auto) 0.0 K/mm3 (0.0-0.1) 04/19/21 05:36 Add Manual Diff Complete 04/19/21 05:36 Seg Neutrophils % 77.9 % (40.0-70.0) H 04/19/21 05:36 Nucleated RBC % Not Reportable 04/19/21 05:36 Seg Neutrophils # 6.4 K/mm3 (1.8-7.7) 04/19/21 05:36 WBC Morphology Not Reportable 04/19/21 05:36 Hypersegmented Neuts Not Reportable 04/19/21 05:36 Hyposegmented Neuts Not Reportable 04/19/21 05:36 Hypogranular Neuts Not Reportable 04/19/21 05:36 Smudge Cells Not Reportable 04/19/21 05:36 Toxic Granulation Not Reportable 04/19/21 05:36 Toxic Vacuolation Not Reportable 04/19/21 05:36 Dohle Bodies Not Reportable 04/19/21 05:36 Pelger-Huet Anomaly Not Reportable 04/19/21 05:36 Santana Rods Not Reportable 04/19/21 05:36 Platelet Estimate Not Reportable 04/19/21 05:36 Clumped Platelets Not Reportable 04/19/21 05:36 Plt Clumps, EDTA Not Reportable 04/19/21 05:36 Large Platelets Not Reportable 04/19/21 05:36 Giant Platelets Not Reportable 04/19/21 05:36 Platelet Satelliting Not Reportable 04/19/21 05:36 Plt Morphology Comment Not Reportable 04/19/21 05:36 RBC Morphology Not Reportable 04/19/21 05:36 Dimorphic RBCs Not Reportable 04/19/21 05:36 Polychromasia Not Reportable 04/19/21 05:36 Hypochromasia Not Reportable 04/19/21 05:36 Poikilocytosis Not Reportable 04/19/21 05:36 Anisocytosis Not Reportable 04/19/21 05:36 Microcytosis Not Reportable 04/19/21 05:36 Macrocytosis Not Reportable 04/19/21 05:36 Spherocytes Not Reportable 04/19/21 05:36 Pappenheimer Bodies Not Reportable 04/19/21 05:36 Sickle Cells Not Reportable 04/19/21 05:36 Target Cells Not Reportable 04/19/21 05:36 Tear Drop Cells Not Reportable 04/19/21 05:36 Ovalocytes Not Reportable 04/19/21 05:36 Helmet Cells Not Reportable 04/19/21 05:36 Calvo-Rudd Bodies Not Reportable 04/19/21 05:36 Hartwick Rings Not Reportable 04/19/21 05:36 Nupur Cells Not Reportable 04/19/21 05:36 Bite Cells Not Reportable 04/19/21 05:36 Crenated Cell Not Reportable 04/19/21 05:36 Elliptocytes Not Reportable 04/19/21 05:36 Acanthocytes (Spur) Not Reportable 04/19/21 05:36 Rouleaux Not Reportable 04/19/21 05:36 Hemoglobin C Crystals Not Reportable 04/19/21 05:36 Schistocytes Not Reportable 04/19/21 05:36 Malaria parasites Not Reportable 04/19/21 05:36 Hubert Bodies Not Reportable 04/19/21 05:36 Hem Pathologist Commnt Not Reportable 04/19/21 05:36 PT 14.5 Sec. (12.2-14.9) 04/19/21 05:36 INR 1.02 (0.87-1.13) 04/19/21 05:36 APTT 34.2 Sec. (24.2-36.6) 04/18/21 02:34 D-Dimer 1215.98 ng/mlDDU (0-234) H 04/26/21 07:20 ABG pH 7.458 pH Units (7.350-7.450) H 04/23/21 18:20 POC ABG pCO2 30.5 mmHg (32.0-48.0) L 04/22/21 04:00 ABG pCO2 37.2 mm Hg 04/23/21 18:20 POC ABG pO2 67.9 mmHg (83-108) L 04/22/21 04:00 ABG pO2 168.1 mm Hg (80.0-90.0) H 04/23/21 18:20 POC ABG HCO3 22.2 04/22/21 04:00 ABG HCO3 25.8 mmol/L (20.0-26.0) 04/23/21 18:20 ABG O2 Saturation 99.1 % (95.0-99.0) H 04/23/21 18:20 ABG O2 Content 19.0 (0.0-44) 04/23/21 18:20 POC ABG Base Excess -0.3 04/22/21 04:00 ABG Base Excess 2.1 mmol/L (-2.0-3.0) 04/23/21 18:20 ABG Hemoglobin 13.7 gm/dl (12.0-16.0) 04/23/21 18:20 ABG Oxyhemoglobin 14.4 (94-98) L 04/22/21 04:00 ABG Carboxyhemoglobin 1.2 % (0.0-5.0) 04/23/21 18:20 ABG Methemoglobin 0.5 % (0.0-1.5) 04/23/21 18:20 ABG Sodium 138.2 mmol/L (136.0-145.0) 04/22/21 04:00 ABG Potassium 4.1 mmol/L (3.40-4.50) 04/22/21 04:00 ABG Chloride 108.0 mmol/L (98-107) H 04/22/21 04:00 ABG Glucose 212 mg/dL (65-95) H 04/22/21 04:00 Oxyhemoglobin 97.4 % (95.0-99.0) 04/23/21 18:20 Carboxyhemoglobin 1.1 (0.5-1.5) 04/22/21 04:00 FiO2 100 % 04/23/21 18:20 FiO2 % 35 04/22/21 04:00 Sodium 139 mmol/L (137-145) 04/26/21 07:20 Potassium 4.2 mmol/L (3.6-5.0) 04/26/21 07:20 Chloride 100.6 mmol/L (98-107) 04/26/21 07:20 Carbon Dioxide 28 mmol/L (22-30) 04/26/21 07:20 Anion Gap 15 mmol/L 04/26/21 07:20 BUN 38 mg/dL (7-17) H 04/26/21 07:20 Creatinine 0.8 mg/dL (0.6-1.2) 04/26/21 07:20 Estimated GFR > 60 ml/min 04/26/21 07:20 BUN/Creatinine Ratio 48 % 04/26/21 07:20 Glucose 90 mg/dL (65-100) 04/26/21 07:20 POC Glucose 88 mg/dL (70-105) 04/26/21 07:42 Hemoglobin A1c 8.0 % (4-6) H 04/20/21 10:21 Lactic Acid 1.70 mmol/L (0.7-2.0) 04/22/21 10:58 Calcium 9.3 mg/dL (8.4-10.2) 04/26/21 07:20 Phosphorus 3.00 mg/dL (2.5-4.5) 04/22/21 04:19 Magnesium 2.30 mg/dL (1.7-2.3) 04/22/21 04:19 Ferritin 1558.0 ng/mL (10.0-200.0) H 04/26/21 07:20 Total Bilirubin 0.30 mg/dL (0.1-1.2) 04/21/21 04:24 AST 52 units/L (5-40) H 04/21/21 04:24 ALT 55 units/L (7-56) 04/21/21 04:24 Alkaline Phosphatase 67 units/L (35-129) 04/21/21 04:24 Ammonia 25.0 umol/L (25-60) 04/18/21 02:34 Lactate Dehydrogenase 408 units/L (91-180) H 04/26/21 07:20 Total Creatine Kinase 68 units/L (30-135) 04/18/21 02:34 C-Reactive Protein 0.20 mg/dL (0.00-1.30) 04/26/21 07:20 Total Protein 6.1 g/dL (6.3-8.2) L 04/21/21 04:24 Albumin 2.7 g/dL (3.9-5) L 04/21/21 04:24 Albumin/Globulin Ratio 0.8 % 04/21/21 04:24 Procalcitonin 0.12 ng/mL (<0.15) 04/22/21 10:58 Arterial Blood Glucose 212 mg/dL (65-95) H 04/22/21 04:00 Urine Color Yellow (Yellow) 04/18/21 04:25 Urine Turbidity Clear (Clear) 04/18/21 04:25 Urine pH 5.0 (5.0-7.0) 04/18/21 04:25 Ur Specific [place] 1.018 (1.003-1.030) 04/18/21 04:25 Urine Protein 100 mg/dl mg/dL (Negative) 04/18/21 04:25 Urine Glucose (UA) Neg mg/dL (Negative) 04/18/21 04:25 Urine Ketones Tr mg/dL (Negative) 04/18/21 04:25 Urine Blood Neg (Negative) 04/18/21 04:25 Urine Nitrite Neg (Negative) 04/18/21 04:25 Ur Reducing Substances Not Reportable 04/18/21 04:25 Urine Bilirubin Neg (Negative) 04/18/21 04:25 Urine Ictotest Not Reportable 04/18/21 04:25 Urine Urobilinogen 2.0 mg/dL (<2.0) 04/18/21 04:25 Ur Leukocyte Esterase Neg (Negative) 04/18/21 04:25 Urine WBC (Auto) 2.0 /HPF (0.0-6.0) 04/18/21 04:25 Urine RBC (Auto) 3.0 /HPF (0.0-6.0) 04/18/21 04:25 Hyaline Casts 3 /LPF 04/18/21 04:25 Urine Mucus Few /HPF 04/18/21 04:25 Plasma/Serum Alcohol < 0.01 % (0-0.07) 04/18/21 02:34 Coronavirus (PCR) Positive (Negative) A 04/19/21 09:00 Franco/IV: Voiding Method External Female Catheter Active Medications - Current Medications Current Medications: Generic Name Dose Route Start Last Admin Trade Name Freq PRN Reason Stop Dose Admin Acetaminophen 650 mg 04/18/21 04:13 Acetaminophen 650 Mg Rect Supp NM Q6H PRN Pain MILD(1-3)/Fever >100.5/ASENCIO Amlodipine Besylate 10 mg 04/25/21 10:00 04/25/21 09:49 Amlodipine 10 Mg Tab PO 10 mg QDAY REJI Administration Lipase/Protease/Amylase 1 each 04/19/21 12:25 Lipase 10,500/Protease 25,000/Amylase 43,750 (Units) Dr Cox FEEDTUBE PRN PRN For Clogged Feeding Tube Dexamethasone 6 mg 04/18/21 10:00 04/25/21 09:48 Dexamethasone 4 Mg/Ml Vial IV 04/27/21 10:01 6 mg Q24HR REJI Administration Dextrose 50 ml 04/20/21 10:34 04/24/21 10:30 Dextrose 50% In Water (25gm) 50 Ml Syringe IV 50 ml Q30MIN PRN Administration Hypoglycemia Protocol Enoxaparin Sodium 30 mg 04/19/21 22:00 04/25/21 22:40 Enoxaparin 30 Mg/0.3 Ml Inj SUB-Q 30 mg BID REJI Administration Protocol Famotidine 20 mg 04/24/21 22:00 04/25/21 22:40 Famotidine 20 Mg Tab PO 20 mg BID REJI Administration Hydralazine HCl 10 mg 04/22/21 10:08 04/22/21 10:26 Hydralazine 20 Mg/1 Ml Inj IV 10 mg Q4HR PRN Administration sbp> 160 Hydrochlorothiazide 12.5 mg 04/25/21 10:00 04/25/21 09:48 Hydrochlorothiazide 12.5 Mg Cap PO 12.5 mg QDAY REJI Administration Hydrophilic Ointment 1 applic 04/18/21 03:03 Lip Therapy Vaseline TP Q2HR PRN Dry Lips Insulin Glargine 20 units 04/22/21 22:00 04/25/21 22:40 Insulin Glargine 100 Units/Ml SUB-Q 20 units QHS REJI Administration Insulin Human Lispro 0 unit 04/25/21 11:30 04/25/21 22:39 Insulin Lispro 100 Unit/Ml SUB-Q 3 unit ACHS REJI Administration Protocol Losartan Potassium 50 mg 04/25/21 10:00 04/25/21 09:49 Losartan 50 Mg Tab PO 50 mg QDAY REJI Administration Multi-Ingred Cream/Lotion/Oil/Oint 1 applic 04/18/21 03:03 Mineral Oil/Petrolatum, White Ophth Oint 3.5 Gm OU Q4HR PRN Dry Eye(s) Ondansetron HCl 4 mg 04/18/21 04:13 Ondansetron 4 Mg/2 Ml Inj IV Q8H PRN Nausea And Vomiting Oxycodone HCl 5 mg 04/24/21 12:00 Oxycodone 5 Mg Tab PO Q8H PRN Pain, Moderate (4-6) Senna 17.6 mg 04/24/21 22:00 04/25/21 22:40 Sennosides Oral Liqd 8.8 Mg/5 Ml Oral Liqd FEEDTUBE Not Given QHS REJI Sodium Chloride 10 ml 04/18/21 10:00 04/25/21 23:02 Sodium Chloride 0.9% 10 Ml Flush Syringe IV 10 ml BID REJI Administration Sodium Chloride 10 ml 04/18/21 04:13 Sodium Chloride 0.9% 10 Ml Flush Syringe IV PRN PRN LINE FLUSH Nutrition/Malnutrition Assess - Dietary Evaluation Nutrition/Malnutrition Findings: Nutrition Notes Start: 04/18/21 08:28 Freq: Status: Active Protocol: Document 04/24/21 15:16 GB (Rec: 04/24/21 15:26 GB [email or web address]) Nutrition Notes Initial or Follow up Reassessment Current Diagnosis Sepsis,Respiratory Failure Other Pertinent Diagnosis COVID-19 (+), bilat pneu, AMS Current Diet cardiac mechanical soft Labs/Tests 04/24: BUN 27, Glucose 130, ferritin 1392 Pertinent Medications D5 (PRN) Height 5 ft 2 in Weight 68.6 kg [place] Body Weight (kg) 50.00 BMI 27.6 Weight change and time frame 04/18: 63.503kg 04/24: 68.6kg change of +5.097kg for +8% gain. Weight Status Overweight Subjective/Other Information MD notes 04/24: Pt self extubated. Placed on BiPap, now on HFNC, passed bedside swallow Diet advanced at lunch today Percent of energy/protein needs met: Unable to assess at this time. Diet just advanced Burn Absent Trauma Absent GI Symptoms None Food Allergy No Skin Integrity/Comment no complications reported Current % PO Other Minimum of two criteria No #1 Nutrition Diagnosis Swallowing difficulty Comments: 04/21: TF Vital AF 1.2 @50ml/ hr, vented, off pressors 04/24: self extubated 04/23, now on HFNC, passed bedside swallow, diet started Etiology COVID+, respiratory Failure As Evidenced by Signs and Symptoms Intubated, NPO Diagnosis Progress(for reassessment Resolved documentation) Is patient on ventilator? No Is Patient Ambulatory and/or Out of Bed No REE-([facility]-confined to bed) 1503.264 Kcal/Kg value to use for calculation 23 Approximate Energy Requirements Using 1578 kcal/Kg Calculation Used for Recommendations [facility] Additional Notes Pro needs 1.2-2g/kg (63.5kg): 76-127g/day (initial weight, expect weight changes) Fluid needs 1ml/kcal Nutrition Intervention Change Diet Order: cardiac - continue Nutrition Support: n/a Add Supplement/Snack (indicate name/kcal ensure enlive daily /protein ) Provides kCal: 350 Provides Protein (gm) 20 Goal #1 TF tolerance 04/21: met, continues 04/24: resolved - extubated, diet advanced Goal #2 TF to meet at least 75% energy and pro needs 04/21: TF at goal, met, continues 04/24: resolved, extubated, diet advanced Goal #3 PO intake of meals to improve to 50% or greater daily for LOS Follow-Up By: 04/29/21 Additional Comments f/u: diet tolerance, %PO meal/ supplement
[2021-04-26] MEDS: LOSARTAN 50 MG TAB PO SCH (10:53)
[2021-04-26] MEDS: dexAMETHasone 4 MG/ML VIAL IV SCH (10:53)
[2021-04-26] MEDS: ENOXAPARIN 30 MG/0.3 ML INJ SUB-Q SCH ×2 (10:53→21:58)
[2021-04-26] MEDS: FAMOTIDINE 20 MG TAB PO SCH ×2 (10:54→21:58)
[2021-04-26] MEDS: INSULIN LISPRO 100 UNIT/ML SUB-Q SCH ×4 (10:54→21:58)
[2021-04-26] MEDS: amLODIPine 10 MG TAB PO SCH (10:54)
[2021-04-26] MEDS: hydroCHLOROthiazide 12.5 MG CAP PO SCH (10:54)
--- NOTE | 2021-04-26 13:28 | Progress Note ---
Assessment and Plan Bilateral pneumonia Sepsis Hyperglycemia Acute hypoxemic respiratory failure, ARDS COVID pneumonia Bilateral pneumonia Sepsis - no new issues today - continue qhs BIPAP with prn daytime use - continue care as below otherwise; - aspiration precautions - advance diet per EXECUTIVE VP as tolerated - continue bronchodilators with pulmonary hygiene per RT - continue to avoid nephrotoxins, renally dose all medications - mobility protocols to prevent pressure ulcers - PT/OT as tolerated - Wound care per RN/WCT - continue accuchecks with glycemic control per SSI for target blood glucose < 180 mg/dL - tobacco abstinence strongly counseled at the bedside - home oxygen evaluation at discharge - GI & VTE prophylaxis - Flu & pneumovax per protocol - Pulmonary out patient follow up for PFTs and optimization of respiratory status - continue other care per attending / other consultants - prn analgesia per pain score - AB's per ID rec's - Maintenance of sleep-wake cycle, avoid delirium - Monitor hemodynamics closely - continue other care per attending / other consultants - discharge planning ongoing concurrently COVID SPECIFIC INTERVENTIONS - S/P Actemra (04/21) - Remdesivir as per ID/Pulmonary developed protocols - continue systemic steroids for severe COVID-19 infection empirically (10 days then re-evaluate) - follow repeat COVID tests results - zinc and vitamin C supplementation - Monitor inflammatory markers per facility protocol - ferritin, Ddimer, CRP - therapeutic anticoagulation per system Protocol based on d-dimer and clinical considerations - Continue contact and airborne isolation .... Re-evaluate in am & prn Subjective Date of service: 04/26/21 Principal diagnosis: Pneumonia; Sepsis; Acute hypoxemic resp failure; ARDS; COVID; Sepsis Interval history: Patient is seen today for: Bilateral pneumonia; Sepsis; Acute hypoxemic respiratory failure; ARDS; COVID infxn; Sepsis Seen and examined at bedside; 24hour events reviewed; nursing and respiratory care staff consulted; no adverse overnight events reported to me; resting in bed; remains on HFNC at 6L flow (salter); denies acute chest pain or SOB; appetite better Objective Vital Signs - 12hr 04/26/21 04/26/21 04:24 11:20 Temperature 97.9 F 97.7 F Pulse Rate 66 65 Respiratory 18 18 Rate Blood Pressure 120/82 121/70 O2 Sat by Pulse 95 95 Oximetry Constitutional: no acute distress Eyes: non-icteric ENT: oropharynx moist Neck: supple, no lymphadenopathy Effort: mildly labored Ascultation: Bilateral: diminished breath sounds, rhonchi (scant) Percussion: Bilateral: not dull Cardiovascular: regular rate and rhythm, other (S1,S2) Gastrointestinal: normoactive bowel sounds, soft, non-tender, non-distended (protuberant) Integumentary: normal Extremities: no cyanosis, no edema, pulses normal, no ischemia or petechiae Neurologic: non-focal exam (grossly), pupils equal and round, CN II-XII normal, motor strength normal and Psychiatric: mood appropriate, affect normal CBC and BMP: 04/26/21 07:20 04/26/21 07:20 ABG, PT/INR, D-dimer: ABG ABG pH 7.458 pH Units (7.350-7.450) H 04/23/21 18:20 POC ABG pCO2 30.5 mmHg (32.0-48.0) L 04/22/21 04:00 ABG pCO2 37.2 mm Hg 04/23/21 18:20 POC ABG pO2 67.9 mmHg (83-108) L 04/22/21 04:00 ABG pO2 168.1 mm Hg (80.0-90.0) H 04/23/21 18:20 POC ABG HCO3 22.2 04/22/21 04:00 ABG O2 Saturation 99.1 % (95.0-99.0) H 04/23/21 18:20 PT/INR, D-dimer PT 14.5 Sec. (12.2-14.9) 04/19/21 05:36 INR 1.02 (0.87-1.13) 04/19/21 05:36 D-Dimer 1215.98 ng/mlDDU (0-234) H 04/26/21 07:20 Abnormal lab findings: Abnormal Labs 04/18/21 04/18/21 04/18/21 02:34 02:34 02:34 WBC RBC MCH 33 H MCHC 35 H RDW 12.4 L Lymph % (Auto) Campbell % (Auto) 14.0 H Lymph # (Auto) 0.9 L Campbell # (Auto) 0.9 H Seg Neutrophils % 72.0 H D-Dimer 978.83 H ABG pH POC ABG pCO2 POC ABG pO2 ABG pO2 ABG HCO3 ABG O2 Saturation ABG Oxyhemoglobin ABG Potassium ABG Chloride ABG Glucose Oxyhemoglobin Carboxyhemoglobin Sodium Potassium Chloride Carbon Dioxide 20 L BUN 32 H Glucose 227 H POC Glucose Hemoglobin A1c Lactic Acid Calcium 8.2 L Ferritin AST 64 H ALT Lactate Dehydrogenase C-Reactive Protein Total Protein Albumin 3.5 L Arterial Blood Glucose Coronavirus (PCR) 04/18/21 04/18/21 04/18/21 02:34 02:34 04:20 WBC RBC MCH MCHC RDW Lymph % (Auto) Campbell % (Auto) Lymph # (Auto) Campbell # (Auto) Seg Neutrophils % D-Dimer ABG pH 7.468 H POC ABG pCO2 POC ABG pO2 ABG pO2 154.9 H ABG HCO3 ABG O2 Saturation ABG Oxyhemoglobin ABG Potassium ABG Chloride ABG Glucose Oxyhemoglobin Carboxyhemoglobin Sodium Potassium Chloride Carbon Dioxide BUN Glucose 228 H POC Glucose Hemoglobin A1c Lactic Acid Calcium Ferritin > 2000.0 H AST ALT Lactate Dehydrogenase 711 H C-Reactive Protein 12.90 H Total Protein Albumin Arterial Blood Glucose Coronavirus (PCR) 04/18/21 04/18/21 04/19/21 04:54 15:39 05:36 WBC RBC MCH 33 H MCHC 35 H RDW 12.9 L Lymph % (Auto) 12.5 L Campbell % (Auto) 9.4 H Lymph # (Auto) 1.0 L Campbell # (Auto) Seg Neutrophils % 77.9 H D-Dimer ABG pH POC ABG pCO2 POC ABG pO2 ABG pO2 ABG HCO3 ABG O2 Saturation ABG Oxyhemoglobin ABG Potassium ABG Chloride ABG Glucose Oxyhemoglobin Carboxyhemoglobin Sodium Potassium 3.5 L Chloride 107.8 H Carbon Dioxide 20 L BUN 32 H Glucose 276 H POC Glucose Hemoglobin A1c Lactic Acid 2.30 H* Calcium 8.1 L Ferritin AST 64 H ALT Lactate Dehydrogenase C-Reactive Protein Total Protein Albumin 2.8 L Arterial Blood Glucose Coronavirus (PCR) 04/19/21 04/19/21 04/19/21 05:36 06:16 09:00 WBC RBC MCH MCHC RDW Lymph % (Auto) Campbell % (Auto) Lymph # (Auto) Campbell # (Auto) Seg Neutrophils % D-Dimer ABG pH 7.562 H POC ABG pCO2 22.0 L POC ABG pO2 168.2 H ABG pO2 ABG HCO3 ABG O2 Saturation ABG Oxyhemoglobin 98.4 H ABG Potassium 3.3 L ABG Chloride 110.0 H ABG Glucose 248 H Oxyhemoglobin Carboxyhemoglobin Sodium 147 H Potassium 3.3 L Chloride 110.1 H Carbon Dioxide 21 L BUN 35 H Glucose 251 H POC Glucose Hemoglobin A1c Lactic Acid Calcium 8.2 L Ferritin AST 66 H ALT Lactate Dehydrogenase C-Reactive Protein Total Protein Albumin 2.9 L Arterial Blood Glucose 248 H Coronavirus (PCR) Positive A 04/19/21 04/19/21 04/19/21 11:32 17:15 21:34 WBC RBC MCH MCHC RDW Lymph % (Auto) Campbell % (Auto) Lymph # (Auto) Campbell # (Auto) Seg Neutrophils % D-Dimer ABG pH POC ABG pCO2 POC ABG pO2 ABG pO2 ABG HCO3 ABG O2 Saturation ABG Oxyhemoglobin ABG Potassium ABG Chloride ABG Glucose Oxyhemoglobin Carboxyhemoglobin Sodium Potassium Chloride Carbon Dioxide BUN Glucose POC Glucose 216 H 256 H 258 H Hemoglobin A1c Lactic Acid Calcium Ferritin AST ALT Lactate Dehydrogenase C-Reactive Protein Total Protein Albumin Arterial Blood Glucose Coronavirus (PCR) 04/20/21 04/20/21 04/20/21 00:13 03:44 06:16 WBC RBC MCH MCHC RDW Lymph % (Auto) Campbell % (Auto) Lymph # (Auto) Campbell # (Auto) Seg Neutrophils % D-Dimer ABG pH 7.483 H POC ABG pCO2 26.2 L POC ABG pO2 ABG pO2 ABG HCO3 ABG O2 Saturation ABG Oxyhemoglobin ABG Potassium ABG Chloride 114.0 H ABG Glucose 296 H Oxyhemoglobin Carboxyhemoglobin 0.1 L Sodium Potassium Chloride Carbon Dioxide BUN Glucose POC Glucose 290 H 271 H Hemoglobin A1c Lactic Acid Calcium Ferritin AST ALT Lactate Dehydrogenase C-Reactive Protein Total Protein Albumin Arterial Blood Glucose 296 H Coronavirus (PCR) 04/20/21 04/20/21 04/20/21 10:21 10:21 10:21 WBC RBC MCH MCHC RDW Lymph % (Auto) Campbell % (Auto) Lymph # (Auto) Campbell # (Auto) Seg Neutrophils % D-Dimer ABG pH POC ABG pCO2 POC ABG pO2 ABG pO2 ABG HCO3 ABG O2 Saturation ABG Oxyhemoglobin ABG Potassium ABG Chloride ABG Glucose Oxyhemoglobin Carboxyhemoglobin Sodium Potassium Chloride 113.7 H Carbon Dioxide 19 L BUN 38 H Glucose 266 H POC Glucose Hemoglobin A1c 8.0 H Lactic Acid 3.10 H* Calcium Ferritin AST 79 H ALT 58 H Lactate Dehydrogenase C-Reactive Protein Total Protein Albumin 2.6 L Arterial Blood Glucose Coronavirus (PCR) 04/20/21 04/20/21 04/20/21 10:21 11:05 15:24 WBC RBC MCH 34 H MCHC 35 H RDW 12.9 L Lymph % (Auto) Campbell % (Auto) Lymph # (Auto) Campbell # (Auto) Seg Neutrophils % D-Dimer ABG pH POC ABG pCO2 POC ABG pO2 ABG pO2 ABG HCO3 ABG O2 Saturation ABG Oxyhemoglobin ABG Potassium ABG Chloride ABG Glucose Oxyhemoglobin Carboxyhemoglobin Sodium Potassium Chloride Carbon Dioxide BUN Glucose POC Glucose 233 H Hemoglobin A1c Lactic Acid 2.50 H* Calcium Ferritin AST ALT Lactate Dehydrogenase C-Reactive Protein Total Protein Albumin Arterial Blood Glucose Coronavirus (PCR) 04/20/21 04/20/21 04/20/21 17:25 20:56 23:11 WBC RBC MCH MCHC RDW Lymph % (Auto) Campbell % (Auto) Lymph # (Auto) Campbell # (Auto) Seg Neutrophils % D-Dimer ABG pH POC ABG pCO2 POC ABG pO2 ABG pO2 ABG HCO3 ABG O2 Saturation ABG Oxyhemoglobin ABG Potassium ABG Chloride ABG Glucose Oxyhemoglobin Carboxyhemoglobin Sodium Potassium Chloride Carbon Dioxide BUN Glucose POC Glucose 262 H 321 H Hemoglobin A1c Lactic Acid 2.80 H* Calcium Ferritin AST ALT Lactate Dehydrogenase C-Reactive Protein Total Protein Albumin Arterial Blood Glucose Coronavirus (PCR) 04/21/21 04/21/21 04/21/21 04:11 04:24 04:24 WBC RBC 3.55 L MCH 33 H MCHC RDW 12.8 L Lymph % (Auto) Campbell % (Auto) Lymph # (Auto) Campbell # (Auto) Seg Neutrophils % D-Dimer ABG pH 7.479 H POC ABG pCO2 28.9 L POC ABG pO2 75.6 L ABG pO2 ABG HCO3 ABG O2 Saturation ABG Oxyhemoglobin ABG Potassium ABG Chloride 113.0 H ABG Glucose 331 H Oxyhemoglobin Carboxyhemoglobin 0.1 L Sodium Potassium Chloride 113.1 H Carbon Dioxide 18 L BUN 36 H Glucose 342 H POC Glucose Hemoglobin A1c Lactic Acid Calcium 8.1 L Ferritin AST 52 H ALT Lactate Dehydrogenase C-Reactive Protein Total Protein 6.1 L Albumin 2.7 L Arterial Blood Glucose 331 H Coronavirus (PCR) 04/21/21 04/21/21 04/21/21 05:22 11:57 18:16 WBC RBC MCH MCHC RDW Lymph % (Auto) Campbell % (Auto) Lymph # (Auto) Campbell # (Auto) Seg Neutrophils % D-Dimer ABG pH POC ABG pCO2 POC ABG pO2 ABG pO2 ABG HCO3 ABG O2 Saturation ABG Oxyhemoglobin ABG Potassium ABG Chloride ABG Glucose Oxyhemoglobin Carboxyhemoglobin Sodium Potassium Chloride Carbon Dioxide BUN Glucose POC Glucose 269 H 258 H 313 H Hemoglobin A1c Lactic Acid Calcium Ferritin AST ALT Lactate Dehydrogenase C-Reactive Protein Total Protein Albumin Arterial Blood Glucose Coronavirus (PCR) 04/21/21 04/22/21 04/22/21 23:38 04:00 04:19 WBC RBC MCH 33 H MCHC RDW 12.9 L Lymph % (Auto) Campbell % (Auto) Lymph # (Auto) Campbell # (Auto) Seg Neutrophils % D-Dimer ABG pH 7.479 H POC ABG pCO2 30.5 L POC ABG pO2 67.9 L ABG pO2 ABG HCO3 ABG O2 Saturation ABG Oxyhemoglobin 14.4 L ABG Potassium ABG Chloride 108.0 H ABG Glucose 212 H Oxyhemoglobin Carboxyhemoglobin Sodium Potassium Chloride Carbon Dioxide BUN Glucose POC Glucose 298 H Hemoglobin A1c Lactic Acid Calcium Ferritin AST ALT Lactate Dehydrogenase C-Reactive Protein Total Protein Albumin Arterial Blood Glucose 212 H Coronavirus (PCR) 04/22/21 04/22/21 04/22/21 04:19 05:15 10:42 WBC RBC MCH MCHC RDW Lymph % (Auto) Campbell % (Auto) Lymph # (Auto) Campbell # (Auto) Seg Neutrophils % D-Dimer ABG pH POC ABG pCO2 POC ABG pO2 ABG pO2 ABG HCO3 ABG O2 Saturation ABG Oxyhemoglobin ABG Potassium ABG Chloride ABG Glucose Oxyhemoglobin Carboxyhemoglobin Sodium Potassium Chloride 108.0 H Carbon Dioxide 21 L BUN 31 H Glucose 261 H POC Glucose 214 H 171 H Hemoglobin A1c Lactic Acid Calcium Ferritin AST ALT Lactate Dehydrogenase C-Reactive Protein Total Protein Albumin Arterial Blood Glucose Coronavirus (PCR) 04/22/21 04/22/21 04/22/21 10:58 10:58 10:58 WBC RBC MCH MCHC RDW Lymph % (Auto) Campbell % (Auto) Lymph # (Auto) Campbell # (Auto) Seg Neutrophils % D-Dimer 1848.39 H ABG pH POC ABG pCO2 POC ABG pO2 ABG pO2 ABG HCO3 ABG O2 Saturation ABG Oxyhemoglobin ABG Potassium ABG Chloride ABG Glucose Oxyhemoglobin Carboxyhemoglobin Sodium Potassium Chloride Carbon Dioxide BUN Glucose 201 H POC Glucose Hemoglobin A1c Lactic Acid Calcium Ferritin 1402.0 H AST ALT Lactate Dehydrogenase 524 H C-Reactive Protein Total Protein Albumin Arterial Blood Glucose Coronavirus (PCR) 04/22/21 04/22/21 04/22/21 17:37 21:29 21:40 WBC RBC MCH MCHC RDW Lymph % (Auto) Campbell % (Auto) Lymph # (Auto) Campbell # (Auto) Seg Neutrophils % D-Dimer ABG pH POC ABG pCO2 POC ABG pO2 ABG pO2 74.6 L ABG HCO3 27.0 H ABG O2 Saturation ABG Oxyhemoglobin ABG Potassium ABG Chloride ABG Glucose Oxyhemoglobin 93.9 L Carboxyhemoglobin Sodium Potassium Chloride Carbon Dioxide BUN Glucose POC Glucose 273 H 180 H Hemoglobin A1c Lactic Acid Calcium Ferritin AST ALT Lactate Dehydrogenase C-Reactive Protein Total Protein Albumin Arterial Blood Glucose Coronavirus (PCR) 04/23/21 04/23/21 04/23/21 02:42 04:17 04:17 WBC 16.6 H RBC MCH MCHC RDW 13.0 L Lymph % (Auto) Campbell % (Auto) Lymph # (Auto) Campbell # (Auto) Seg Neutrophils % D-Dimer ABG pH POC ABG pCO2 POC ABG pO2 ABG pO2 ABG HCO3 ABG O2 Saturation ABG Oxyhemoglobin ABG Potassium ABG Chloride ABG Glucose Oxyhemoglobin Carboxyhemoglobin Sodium 136 L Potassium Chloride Carbon Dioxide BUN 26 H Glucose 105 H POC Glucose 111 H Hemoglobin A1c Lactic Acid Calcium Ferritin AST ALT Lactate Dehydrogenase C-Reactive Protein Total Protein Albumin Arterial Blood Glucose Coronavirus (PCR) 04/23/21 04/23/21 04/23/21 05:20 10:02 12:01 WBC RBC MCH MCHC RDW Lymph % (Auto) Campbell % (Auto) Lymph # (Auto) [place] # (Auto) Seg Neutrophils % D-Dimer ABG pH POC ABG pCO2 POC ABG pO2 ABG pO2 ABG HCO3 ABG O2 Saturation ABG Oxyhemoglobin ABG Potassium ABG Chloride ABG Glucose Oxyhemoglobin Carboxyhemoglobin Sodium Potassium Chloride Carbon Dioxide BUN Glucose POC Glucose 121 H 144 H 220 H Hemoglobin A1c Lactic Acid Calcium Ferritin AST ALT Lactate Dehydrogenase C-Reactive Protein Total Protein Albumin Arterial Blood Glucose Coronavirus (PCR) 04/23/21 04/23/21 04/23/21 15:26 18:20 22:04 WBC RBC MCH MCHC RDW Lymph % (Auto) Campbell % (Auto) Lymph # (Auto) [place] # (Auto) Seg Neutrophils % D-Dimer ABG pH 7.458 H POC ABG pCO2 POC ABG pO2 ABG pO2 168.1 H ABG HCO3 ABG O2 Saturation 99.1 H ABG Oxyhemoglobin ABG Potassium ABG Chloride ABG Glucose Oxyhemoglobin Carboxyhemoglobin Sodium Potassium Chloride Carbon Dioxide BUN Glucose POC Glucose 291 H 246 H Hemoglobin A1c Lactic Acid Calcium Ferritin AST ALT Lactate Dehydrogenase C-Reactive Protein Total Protein Albumin Arterial Blood Glucose Coronavirus (PCR) 04/24/21 04/24/21 04/24/21 02:17 04:33 04:33 WBC RBC MCH MCHC RDW Lymph % (Auto) Campbell % (Auto) Lymph # (Auto) [place] # (Auto) Seg Neutrophils % D-Dimer 1775.11 H ABG pH POC ABG pCO2 POC ABG pO2 ABG pO2 ABG HCO3 ABG O2 Saturation ABG Oxyhemoglobin ABG Potassium ABG Chloride ABG Glucose Oxyhemoglobin Carboxyhemoglobin Sodium Potassium Chloride Carbon Dioxide BUN Glucose POC Glucose 153 H Hemoglobin A1c Lactic Acid Calcium Ferritin 1392.0 H AST ALT Lactate Dehydrogenase C-Reactive Protein Total Protein Albumin Arterial Blood Glucose Coronavirus (PCR) 04/24/21 04/24/21 04/24/21 04:33 04:33 10:47 WBC 12.1 H RBC MCH MCHC RDW 12.9 L Lymph % (Auto) Campbell % (Auto) Lymph # (Auto) [place] # (Auto) Seg Neutrophils % D-Dimer ABG pH POC ABG pCO2 POC ABG pO2 ABG pO2 ABG HCO3 ABG O2 Saturation ABG Oxyhemoglobin ABG Potassium ABG Chloride ABG Glucose Oxyhemoglobin Carboxyhemoglobin Sodium Potassium Chloride Carbon Dioxide BUN 27 H Glucose 130 H POC Glucose 254 H Hemoglobin A1c Lactic Acid Calcium Ferritin AST ALT Lactate Dehydrogenase 506 H C-Reactive Protein Total Protein Albumin Arterial Blood Glucose Coronavirus (PCR) 04/24/21 04/24/21 04/24/21 10:49 11:30 12:00 WBC RBC MCH MCHC RDW Lymph % (Auto) Campbell % (Auto) Lymph # (Auto) [place] # (Auto) Seg Neutrophils % D-Dimer ABG pH POC ABG pCO2 POC ABG pO2 ABG pO2 ABG HCO3 ABG O2 Saturation ABG Oxyhemoglobin ABG Potassium ABG Chloride ABG Glucose Oxyhemoglobin Carboxyhemoglobin Sodium Potassium Chloride Carbon Dioxide BUN Glucose POC Glucose 258 H 194 H 166 H Hemoglobin A1c Lactic Acid Calcium Ferritin AST ALT Lactate Dehydrogenase C-Reactive Protein Total Protein Albumin Arterial Blood Glucose Coronavirus (PCR) 04/24/21 04/25/21 04/25/21 16:20 00:03 11:54 WBC RBC MCH MCHC RDW Lymph % (Auto) Campbell % (Auto) Lymph # (Auto) [place] # (Auto) Seg Neutrophils % D-Dimer ABG pH POC ABG pCO2 POC ABG pO2 ABG pO2 ABG HCO3 ABG O2 Saturation ABG Oxyhemoglobin ABG Potassium ABG Chloride ABG Glucose Oxyhemoglobin Carboxyhemoglobin Sodium Potassium Chloride Carbon Dioxide BUN Glucose POC Glucose 236 H 165 H 140 H Hemoglobin A1c Lactic Acid Calcium Ferritin AST ALT Lactate Dehydrogenase C-Reactive Protein Total Protein Albumin Arterial Blood Glucose Coronavirus (PCR) 04/25/21 04/25/21 04/26/21 17:40 22:35 07:20 WBC RBC MCH MCHC RDW Lymph % (Auto) Campbell % (Auto) Lymph # (Auto) [place] # (Auto) Seg Neutrophils % D-Dimer 1215.98 H ABG pH POC ABG pCO2 POC ABG pO2 ABG pO2 ABG HCO3 ABG O2 Saturation ABG Oxyhemoglobin ABG Potassium ABG Chloride ABG Glucose Oxyhemoglobin Carboxyhemoglobin Sodium Potassium Chloride Carbon Dioxide BUN Glucose POC Glucose 212 H 154 H Hemoglobin A1c Lactic Acid Calcium Ferritin AST ALT Lactate Dehydrogenase C-Reactive Protein Total Protein Albumin Arterial Blood Glucose Coronavirus (PCR) 04/26/21 04/26/21 04/26/21 07:20 07:20 07:20 WBC RBC MCH MCHC RDW 12.9 L Lymph % (Auto) Campbell % (Auto) Lymph # (Auto) [place] # (Auto) Seg Neutrophils % D-Dimer ABG pH POC ABG pCO2 POC ABG pO2 ABG pO2 ABG HCO3 ABG O2 Saturation ABG Oxyhemoglobin ABG Potassium ABG Chloride ABG Glucose Oxyhemoglobin Carboxyhemoglobin Sodium Potassium Chloride Carbon Dioxide BUN 38 H Glucose POC Glucose Hemoglobin A1c Lactic Acid Calcium Ferritin 1558.0 H AST ALT Lactate Dehydrogenase 408 H C-Reactive Protein Total Protein Albumin Arterial Blood Glucose Coronavirus (PCR) 04/26/21 11:17 WBC RBC MCH MCHC RDW Lymph % (Auto) Campbell % (Auto) Lymph # (Auto) [place] # (Auto) Seg Neutrophils % D-Dimer ABG pH POC ABG pCO2 POC ABG pO2 ABG pO2 ABG HCO3 ABG O2 Saturation ABG Oxyhemoglobin ABG Potassium ABG Chloride ABG Glucose Oxyhemoglobin Carboxyhemoglobin Sodium Potassium Chloride Carbon Dioxide BUN Glucose POC Glucose 130 H Hemoglobin A1c Lactic Acid Calcium Ferritin AST ALT Lactate Dehydrogenase C-Reactive Protein Total Protein Albumin Arterial Blood Glucose Coronavirus (PCR) Allied health notes reviewed: nursing
[2021-04-26] MEDS: INSULIN GLARGINE 100 UNITS/ML SUB-Q SCH (21:57)
[2021-04-26] MEDS: SENNOSIDES ORAL LIQD 8.8 MG/5 ML ORAL LIQD FEEDTUBE SCH (21:59)
--- NOTE | 2021-04-27 07:43 | Progress Note ---
Assessment and Plan Assessment and plan: This is a 51 years-old female with unknown past medical history presented to [facility] on 04/18 with altered mental status. Upon her arrival in the ED her SPO2 was in the 40%, she was first placed on a NRB then was subsequently intubated due to acute hypoxic respiratory failure. As of note, patient was diagnosed with COVID 4days prior this admission. Patient was admitted in the ICU for further management. Hospital course to date: 04/19/21- Patient is intubated and sedated RASS -3 to -4. SB to low SR on the monitor, hemodynamics stable and not on any pressors, will continue to monitor. Hypokalemia was repleted. TF was initiated, plan to D/C IVF once TF is at goal. Hyperglycemia noted, high scale SSI and qHS lantus added, A1c ordered. 04/20/21- Patient remains intubated amd off sedation, RASS 0 to -1. Remains SB on the monitor, hemodynamic stable. Increased in lactic acid this am, slight increased in LFTs, WBCs stable, kidney function is stable. Will repeat lactic in 4hours and continue to monitor. Patient is net +1537 cc in last 24hrs, will hold IVF for now to keep patient net negative fluid balance.Will continue to monitor renal function and electrolytes. 04/21: SB on monitor, remains on fentanyl gtt, OETT advanced. ID prescribed actemra 04/22: Repeat D-dimer elevated and bilateral lower extremity Doppler ultrasound ordered which showed no DVT. Antibiotics stopped by ID given normal CRP. Patient's rate was decreased and PEEP increased on ventilator per CCM 04/23: CRP and procalcitonin ordered by infectious disease given leukocytosis. Late afternoon patient self extubated and was placed on BiPAP. BiPAP ordered for nightly. We will obtain a bedside swallow evaluation and possible speech eval. This morning free water flush was adjusted for hyponatremia. 04/24: Patient tolerated bipap overnight and placed on HFNC today. Patient passed bedside swallow yesterday and started on mechanical soft diet today. 04/25: Patient currently on salter nasal cannula 6 L/min, in no distress. Continue Decadron IV. Hopefully can de-esaclate to in the coming days given patient significant improvement. 04/26: Patient currently on salter nasal cannula 10 L/min, in no distress. Continue steroids. Encourage patient to self prone incoordination with care staff. 04/27: Patient currently on salter nasal cannula 5 L/min, in no distress. Will discuss with care team and attempt to challenge patient and place her on nasal cannula to see how she tolerates. Last dose of Decadron to be administered today. If patient does not demonstrate improvement may consider extending. Continue supportive management. Assessment and plan: Neuro: Acute metabolic encephalopathy - 04/18 CT head w/o con showed no acute intracranial process - Prn analgesia - Maintenance of sleep-wake cycle, avoid delirium - Avoid benzodiazepine to reduce the possibility of delirium CV: HTN - SB to NSR on the monitor - Home amlodipine, hydrochlorothiazide resumed - As needed hydralazine - Blood pressure monitoring per protocol Resp: Acute hypoxemic respiratory failure, ARDS secondary to COVID pneumonia, Respiratory alkalosis - Cxr shows B infiltrates - Intubated on 04/18 with 7.5 OETT @ 20 (advanced to 24) but self extubated 04/23 -Currently on salter nasal cannula 6 L/min -wean as tolerated GI: NAD - Passed bedside swallow eval - Mechanical soft diet - BR- senokot - Pepcid - 24 hours -1370 : NAD - s/p D5 1/2 NS - Purewick in place - Strict intake and output - Monitor and replace electrolytes as needed ID: Sepsis, COVID Pneumonia, Bilateral Pneumonia, Lactic Acidosis - CXR showed bilateral pneumonia - COVID PCR positive - ID consulted, appreciate recommendations - follow culture data - Decadron 6 mg (04/18-04/27) - Remdesivir (04/19-04/23) - 04/21 Actemra - Trend COVId 19 inflammatory markers ferritin, Ddimer, CRP, LDH - s/p ABx- Ceftriaxone and azithromycin per ID (04/18-04/22) - Monitor fever curve Endo: Hyperglycemia - SSI - Lantus, titrate as needed - HbgA1c 8 - While critically ill target blood glucose of 140-180 - Avoid hypoglycemia Heme: Elevated D-dimer -D-dimer 1848 on 04/22 -Bilateral lower extremity Doppler ultrasound shows no acute or chronic DVT/SVT -Enoxaparin 30 mg twice daily -Bilateral lower extremities with SCDs History Interval history: No acute symptomology this morning reported by patient. Hospitalist Physical - Physical exam Narrative exam: Physical Exam: VITAL SIGNS: Reviewed. GENERAL: The patient appears normally developed, Vital signs as documented. Salter nasal cannula in place currently at 5 L/min HEAD: No signs of head trauma. EYES: Pupils are equal. Extraocular motions intact. EARS: Hearing grossly intact. MOUTH: Oropharynx is normal. NECK: No adenopathy, no JVD. CHEST: Chest with clear breath sounds bilaterally. Expiratory rhonchi bilaterally. CARDIAC: Regular rate and rhythm. S1 and S2, without murmurs, gallops, or rubs. VASCULAR: No Edema. Peripheral pulses normal and equal in all extremities. ABDOMEN: Soft, non tender and non distended. No rebound or guarding, and no masses palpated. Bowel Sounds normal. MUSCULOSKELETAL: Good range of motion of all major joints. Extremities without clubbing, cyanosis or edema. NEUROLOGIC EXAM: Alert and oriented x4. No focal sensory or strength deficits. PSYCHIATRIC: Mood normal. SKIN: detail exam as documented in skin assessment - Constitutional Vitals: Temp Pulse Resp BP Pulse Ox 98.2 F 66 18 118/76 97 04/26/21 21:08 04/26/21 21:08 04/26/21 21:08 04/26/21 21:08 04/27/21 04:11 General appearance: Present: no acute distress Results - Labs CBC & Chem 7: 04/26/21 07:20 04/26/21 07:20 Labs: Laboratory Last Values WBC 8.2 K/mm3 (4.5-11.0) 04/26/21 07:20 RBC 4.18 M/mm3 (3.65-5.03) 04/26/21 07:20 Hgb 13.5 gm/dl (10.1-14.3) 04/26/21 07:20 Hct 40.0 % (30.3-42.9) 04/26/21 07:20 MCV 96 fl (79-97) 04/26/21 07:20 MCH 32 pg (28-32) 04/26/21 07:20 MCHC 34 % (30-34) 04/26/21 07:20 RDW 12.9 % (13.2-15.2) L 04/26/21 07:20 Plt Count 280 K/mm3 (140-440) 04/26/21 07:20 Lymph % (Auto) 12.5 % (13.4-35.0) L 04/19/21 05:36 [place] % (Auto) 9.4 % (0.0-7.3) H 04/19/21 05:36 Eos % (Auto) 0.0 % (0.0-4.3) 04/19/21 05:36 Baso % (Auto) 0.2 % (0.0-1.8) 04/19/21 05:36 Lymph # (Auto) 1.0 K/mm3 (1.2-5.4) L 04/19/21 05:36 [place] # (Auto) 0.8 K/mm3 (0.0-0.8) 04/19/21 05:36 Eos # (Auto) 0.0 K/mm3 (0.0-0.4) 04/19/21 05:36 Baso # (Auto) 0.0 K/mm3 (0.0-0.1) 04/19/21 05:36 Add Manual Diff Complete 04/19/21 05:36 Seg Neutrophils % 77.9 % (40.0-70.0) H 04/19/21 05:36 Nucleated RBC % Not Reportable 04/19/21 05:36 Seg Neutrophils # 6.4 K/mm3 (1.8-7.7) 04/19/21 05:36 WBC Morphology Not Reportable 04/19/21 05:36 Hypersegmented Neuts Not Reportable 04/19/21 05:36 Hyposegmented Neuts Not Reportable 04/19/21 05:36 Hypogranular Neuts Not Reportable 04/19/21 05:36 Smudge Cells Not Reportable 04/19/21 05:36 Toxic Granulation Not Reportable 04/19/21 05:36 Toxic Vacuolation Not Reportable 04/19/21 05:36 Dohle Bodies Not Reportable 04/19/21 05:36 Pelger-Huet Anomaly Not Reportable 04/19/21 05:36 Santana Rods Not Reportable 04/19/21 05:36 Platelet Estimate Not Reportable 04/19/21 05:36 Clumped Platelets Not Reportable 04/19/21 05:36 Plt Clumps, EDTA Not Reportable 04/19/21 05:36 Large Platelets Not Reportable 04/19/21 05:36 Giant Platelets Not Reportable 04/19/21 05:36 Platelet Satelliting Not Reportable 04/19/21 05:36 Plt Morphology Comment Not Reportable 04/19/21 05:36 RBC Morphology Not Reportable 04/19/21 05:36 Dimorphic RBCs Not Reportable 04/19/21 05:36 Polychromasia Not Reportable 04/19/21 05:36 Hypochromasia Not Reportable 04/19/21 05:36 Poikilocytosis Not Reportable 04/19/21 05:36 Anisocytosis Not Reportable 04/19/21 05:36 Microcytosis Not Reportable 04/19/21 05:36 Macrocytosis Not Reportable 04/19/21 05:36 Spherocytes Not Reportable 04/19/21 05:36 Pappenheimer Bodies Not Reportable 04/19/21 05:36 Sickle Cells Not Reportable 04/19/21 05:36 Target Cells Not Reportable 04/19/21 05:36 Tear Drop Cells Not Reportable 04/19/21 05:36 Ovalocytes Not Reportable 04/19/21 05:36 Helmet Cells Not Reportable 04/19/21 05:36 Calvo-Turner Bodies Not Reportable 04/19/21 05:36 Raccoon Rings Not Reportable 04/19/21 05:36 Nupur Cells Not Reportable 04/19/21 05:36 Bite Cells Not Reportable 04/19/21 05:36 Crenated Cell Not Reportable 04/19/21 05:36 Elliptocytes Not Reportable 04/19/21 05:36 Acanthocytes (Spur) Not Reportable 04/19/21 05:36 Rouleaux Not Reportable 04/19/21 05:36 Hemoglobin C Crystals Not Reportable 04/19/21 05:36 Schistocytes Not Reportable 04/19/21 05:36 Malaria parasites Not Reportable 04/19/21 05:36 Hubert Bodies Not Reportable 04/19/21 05:36 Hem Pathologist Commnt Not Reportable 04/19/21 05:36 PT 14.5 Sec. (12.2-14.9) 04/19/21 05:36 INR 1.02 (0.87-1.13) 04/19/21 05:36 APTT 34.2 Sec. (24.2-36.6) 04/18/21 02:34 D-Dimer 1215.98 ng/mlDDU (0-234) H 04/26/21 07:20 ABG pH 7.458 pH Units (7.350-7.450) H 04/23/21 18:20 POC ABG pCO2 30.5 mmHg (32.0-48.0) L 04/22/21 04:00 ABG pCO2 37.2 mm Hg 04/23/21 18:20 POC ABG pO2 67.9 mmHg (83-108) L 04/22/21 04:00 ABG pO2 168.1 mm Hg (80.0-90.0) H 04/23/21 18:20 POC ABG HCO3 22.2 04/22/21 04:00 ABG HCO3 25.8 mmol/L (20.0-26.0) 04/23/21 18:20 ABG O2 Saturation 99.1 % (95.0-99.0) H 04/23/21 18:20 ABG O2 Content 19.0 (0.0-44) 04/23/21 18:20 POC ABG Base Excess -0.3 04/22/21 04:00 ABG Base Excess 2.1 mmol/L (-2.0-3.0) 04/23/21 18:20 ABG Hemoglobin 13.7 gm/dl (12.0-16.0) 04/23/21 18:20 ABG Oxyhemoglobin 14.4 (94-98) L 04/22/21 04:00 ABG Carboxyhemoglobin 1.2 % (0.0-5.0) 04/23/21 18:20 ABG Methemoglobin 0.5 % (0.0-1.5) 04/23/21 18:20 ABG Sodium 138.2 mmol/L (136.0-145.0) 04/22/21 04:00 ABG Potassium 4.1 mmol/L (3.40-4.50) 04/22/21 04:00 ABG Chloride 108.0 mmol/L (98-107) H 04/22/21 04:00 ABG Glucose 212 mg/dL (65-95) H 04/22/21 04:00 Oxyhemoglobin 97.4 % (95.0-99.0) 04/23/21 18:20 Carboxyhemoglobin 1.1 (0.5-1.5) 04/22/21 04:00 FiO2 100 % 04/23/21 18:20 FiO2 % 35 04/22/21 04:00 Sodium 139 mmol/L (137-145) 04/26/21 07:20 Potassium 4.2 mmol/L (3.6-5.0) 04/26/21 07:20 Chloride 100.6 mmol/L (98-107) 04/26/21 07:20 Carbon Dioxide 28 mmol/L (22-30) 04/26/21 07:20 Anion Gap 15 mmol/L 04/26/21 07:20 BUN 38 mg/dL (7-17) H 04/26/21 07:20 Creatinine 0.8 mg/dL (0.6-1.2) 04/26/21 07:20 Estimated GFR > 60 ml/min 04/26/21 07:20 BUN/Creatinine Ratio 48 % 04/26/21 07:20 Glucose 90 mg/dL (65-100) 04/26/21 07:20 POC Glucose 106 mg/dL (70-105) H 04/27/21 07:35 Hemoglobin A1c 8.0 % (4-6) H 04/20/21 10:21 Lactic Acid 1.70 mmol/L (0.7-2.0) 04/22/21 10:58 Calcium 9.3 mg/dL (8.4-10.2) 04/26/21 07:20 Phosphorus 3.00 mg/dL (2.5-4.5) 04/22/21 04:19 Magnesium 2.30 mg/dL (1.7-2.3) 04/22/21 04:19 Ferritin 1558.0 ng/mL (10.0-200.0) H 04/26/21 07:20 Total Bilirubin 0.30 mg/dL (0.1-1.2) 04/21/21 04:24 AST 52 units/L (5-40) H 04/21/21 04:24 ALT 55 units/L (7-56) 04/21/21 04:24 Alkaline Phosphatase 67 units/L (35-129) 04/21/21 04:24 Ammonia 25.0 umol/L (25-60) 04/18/21 02:34 Lactate Dehydrogenase 408 units/L (91-180) H 04/26/21 07:20 Total Creatine Kinase 68 units/L (30-135) 04/18/21 02:34 C-Reactive Protein 0.20 mg/dL (0.00-1.30) 04/26/21 07:20 Total Protein 6.1 g/dL (6.3-8.2) L 04/21/21 04:24 Albumin 2.7 g/dL (3.9-5) L 04/21/21 04:24 Albumin/Globulin Ratio 0.8 % 04/21/21 04:24 Procalcitonin 0.08 ng/mL (<0.15) 04/24/21 04:33 Arterial Blood Glucose 212 mg/dL (65-95) H 04/22/21 04:00 Urine Color Yellow (Yellow) 04/18/21 04:25 Urine Turbidity Clear (Clear) 04/18/21 04:25 Urine pH 5.0 (5.0-7.0) 04/18/21 04:25 Ur Specific [place] 1.018 (1.003-1.030) 04/18/21 04:25 Urine Protein 100 mg/dl mg/dL (Negative) 04/18/21 04:25 Urine Glucose (UA) Neg mg/dL (Negative) 04/18/21 04:25 Urine Ketones Tr mg/dL (Negative) 04/18/21 04:25 Urine Blood Neg (Negative) 04/18/21 04:25 Urine Nitrite Neg (Negative) 04/18/21 04:25 Ur Reducing Substances Not Reportable 04/18/21 04:25 Urine Bilirubin Neg (Negative) 04/18/21 04:25 Urine Ictotest Not Reportable 04/18/21 04:25 Urine Urobilinogen 2.0 mg/dL (<2.0) 04/18/21 04:25 Ur Leukocyte Esterase Neg (Negative) 04/18/21 04:25 Urine WBC (Auto) 2.0 /HPF (0.0-6.0) 04/18/21 04:25 Urine RBC (Auto) 3.0 /HPF (0.0-6.0) 04/18/21 04:25 Hyaline Casts 3 /LPF 04/18/21 04:25 Urine Mucus Few /HPF 04/18/21 04:25 Plasma/Serum Alcohol < 0.01 % (0-0.07) 04/18/21 02:34 Coronavirus (PCR) Positive (Negative) A 04/19/21 09:00 Franco/IV: Voiding Method Toilet Active Medications - Current Medications Current Medications: Generic Name Dose Route Start Last Admin Trade Name Freq PRN Reason Stop Dose Admin Acetaminophen 650 mg 04/18/21 04:13 Acetaminophen 650 Mg Rect Supp VA Q6H PRN Pain MILD(1-3)/Fever >100.5/ASENCIO Amlodipine Besylate 10 mg 04/25/21 10:00 04/26/21 10:54 Amlodipine 10 Mg Tab PO 10 mg QDAY REJI Administration Lipase/Protease/Amylase 1 each 04/19/21 12:25 Lipase 10,500/Protease 25,000/Amylase 43,750 (Units) Dr Cox FEEDTUBE PRN PRN For Clogged Feeding Tube Dexamethasone 6 mg 04/18/21 10:00 04/26/21 10:53 Dexamethasone 4 Mg/Ml Vial IV 04/27/21 10:01 6 mg Q24HR REJI Administration Dextrose 50 ml 04/20/21 10:34 04/24/21 10:30 Dextrose 50% In Water (25gm) 50 Ml Syringe IV 50 ml Q30MIN PRN Administration Hypoglycemia Protocol Enoxaparin Sodium 30 mg 04/19/21 22:00 04/26/21 21:58 Enoxaparin 30 Mg/0.3 Ml Inj SUB-Q 30 mg BID REJI Administration Protocol Famotidine 20 mg 04/24/21 22:00 04/26/21 21:58 Famotidine 20 Mg Tab PO 20 mg BID REJI Administration Hydralazine HCl 10 mg 04/22/21 10:08 04/22/21 10:26 Hydralazine 20 Mg/1 Ml Inj IV 10 mg Q4HR PRN Administration sbp> 160 Hydrochlorothiazide 12.5 mg 04/25/21 10:00 04/26/21 10:54 Hydrochlorothiazide 12.5 Mg Cap PO 12.5 mg QDAY REJI Administration Hydrophilic Ointment 1 applic 04/18/21 03:03 Lip Therapy Vaseline TP Q2HR PRN Dry Lips Insulin Glargine 20 units 04/22/21 22:00 04/26/21 21:57 Insulin Glargine 100 Units/Ml SUB-Q 20 units QHS REJI Administration Insulin Human Lispro 0 unit 04/25/21 11:30 04/26/21 21:58 Insulin Lispro 100 Unit/Ml SUB-Q 8 unit ACHS REJI Administration Protocol Losartan Potassium 50 mg 04/25/21 10:00 04/26/21 10:53 Losartan 50 Mg Tab PO 50 mg QDAY REJI Administration Multi-Ingred Cream/Lotion/Oil/Oint 1 applic 04/18/21 03:03 Mineral Oil/Petrolatum, White Ophth Oint 3.5 Gm OU Q4HR PRN Dry Eye(s) Ondansetron HCl 4 mg 04/18/21 04:13 Ondansetron 4 Mg/2 Ml Inj IV Q8H PRN Nausea And Vomiting Oxycodone HCl 5 mg 04/24/21 12:00 Oxycodone 5 Mg Tab PO Q8H PRN Pain, Moderate (4-6) Senna 17.6 mg 04/24/21 22:00 04/26/21 21:59 Sennosides Oral Liqd 8.8 Mg/5 Ml Oral Liqd FEEDTUBE Not Given QHS REJI Sodium Chloride 10 ml 04/18/21 10:00 04/26/21 22:00 Sodium Chloride 0.9% 10 Ml Flush Syringe IV 10 ml BID REJI Administration Sodium Chloride 10 ml 04/18/21 04:13 Sodium Chloride 0.9% 10 Ml Flush Syringe IV PRN PRN LINE FLUSH Nutrition/Malnutrition Assess - Dietary Evaluation Nutrition/Malnutrition Findings: Nutrition Notes Start: 04/18/21 08:28 Freq: Status: Active Protocol: Document 04/24/21 15:16 GB (Rec: 04/24/21 15:26 GB [id number]) Nutrition Notes Initial or Follow up Reassessment Current Diagnosis Sepsis,Respiratory Failure Other Pertinent Diagnosis COVID-19 (+), bilat pneu, AMS Current Diet cardiac mechanical soft Labs/Tests 04/24: BUN 27, Glucose 130, ferritin 1392 Pertinent Medications D5 (PRN) Height 5 ft 2 in Weight 68.6 kg [place] Body Weight (kg) 50.00 BMI 27.6 Weight change and time frame 04/18: 63.503kg 04/24: 68.6kg change of +5.097kg for +8% gain. Weight Status Overweight Subjective/Other Information MD notes 04/24: Pt self extubated. Placed on BiPap, now on HFNC, passed bedside swallow Diet advanced at lunch today Percent of energy/protein needs met: Unable to assess at this time. Diet just advanced Burn Absent Trauma Absent GI Symptoms None Food Allergy No Skin Integrity/Comment no complications reported Current % PO Other Minimum of two criteria No #1 Nutrition Diagnosis Swallowing difficulty Comments: 04/21: TF Vital AF 1.2 @50ml/ hr, vented, off pressors 04/24: self extubated 04/23, now on HFNC, passed bedside swallow, diet started Etiology COVID+, respiratory Failure As Evidenced by Signs and Symptoms Intubated, NPO Diagnosis Progress(for reassessment Resolved documentation) Is patient on ventilator? No Is Patient Ambulatory and/or Out of Bed No REE-([facility]-confined to bed) 1503.264 Kcal/Kg value to use for calculation 23 Approximate Energy Requirements Using 1578 kcal/Kg Calculation Used for Recommendations [facility] Additional Notes Pro needs 1.2-2g/kg (63.5kg): 76-127g/day (initial weight, expect weight changes) Fluid needs 1ml/kcal Nutrition Intervention Change Diet Order: cardiac - continue Nutrition Support: n/a Add Supplement/Snack (indicate name/kcal ensure enlive daily /protein ) Provides kCal: 350 Provides Protein (gm) 20 Goal #1 TF tolerance 04/21: met, continues 04/24: resolved - extubated, diet advanced Goal #2 TF to meet at least 75% energy and pro needs 04/21: TF at goal, met, continues 04/24: resolved, extubated, diet advanced Goal #3 PO intake of meals to improve to 50% or greater daily for LOS Follow-Up By: 04/29/21 Additional Comments f/u: diet tolerance, %PO meal/ supplement
[2021-04-27] MEDS: INSULIN LISPRO 100 UNIT/ML SUB-Q SCH ×4 (07:46→22:56)
[2021-04-27] MEDS: amLODIPine 10 MG TAB PO SCH (09:40)
[2021-04-27] MEDS: FAMOTIDINE 20 MG TAB PO SCH ×2 (09:40→22:56)
[2021-04-27] MEDS: hydroCHLOROthiazide 12.5 MG CAP PO SCH (09:40)
[2021-04-27] MEDS: dexAMETHasone 4 MG/ML VIAL IV SCH (09:40)
[2021-04-27] MEDS: LOSARTAN 50 MG TAB PO SCH (09:41)
[2021-04-27] MEDS: ENOXAPARIN 30 MG/0.3 ML INJ SUB-Q SCH ×2 (09:41→22:56)
--- NOTE | 2021-04-27 10:35 | Progress Note ---
Assessment and Plan Bilateral pneumonia Sepsis Hyperglycemia Acute hypoxemic respiratory failure, ARDS COVID pneumonia Bilateral pneumonia Sepsis - increase ambulation - advance diet per SECRETARY ADMINISTRATIVE ASSISTANT - continue qhs BIPAP with prn daytime use - continue care as below otherwise; - aspiration precautions - advance diet as tolerated - continue bronchodilators with pulmonary hygiene per RT - continue to avoid nephrotoxins, renally dose all medications - mobility protocols to prevent pressure ulcers - PT/OT as tolerated - Wound care per RN/WCT - continue accuchecks with glycemic control per SSI for target blood glucose < 180 mg/dL - tobacco abstinence strongly counseled at the bedside - home oxygen evaluation at discharge - GI & VTE prophylaxis - Flu & pneumovax per protocol - Pulmonary out patient follow up for PFTs and optimization of respiratory status - continue other care per attending / other consultants - prn analgesia per pain score - AB's per ID rec's - Maintenance of sleep-wake cycle, avoid delirium - Monitor hemodynamics closely - continue other care per attending / other consultants - discharge planning ongoing concurrently COVID SPECIFIC INTERVENTIONS - S/P Actemra (04/21) - Remdesivir as per ID/Pulmonary developed protocols - continue systemic steroids for severe COVID-19 infection empirically (10 days then re-evaluate) - follow repeat COVID tests results - zinc and vitamin C supplementation - Monitor inflammatory markers per facility protocol - ferritin, Ddimer, CRP - therapeutic anticoagulation per system Protocol based on d-dimer and clinical considerations - Continue contact and airborne isolation .... Re-evaluate in am & prn Subjective Date of service: 04/27/21 Principal diagnosis: Pneumonia; Sepsis; Acute hypoxemic resp failure; ARDS; COVID; Sepsis Interval history: Patient is seen today for: Bilateral pneumonia; Sepsis; Acute hypoxemic respiratory failure; ARDS; COVID infxn; Sepsis Seen and examined at bedside; 24hour events reviewed; nursing and respiratory care staff consulted; no adverse overnight events reported to me; resting in bed; continues to improve; no N/V/F/C Objective Vital Signs - 12hr 04/27/21 04/27/21 04/27/21 00:24 04:11 08:16 O2 Sat by Pulse 96 97 95 Oximetry 04/27/21 08:33 O2 Sat by Pulse 98 Oximetry Constitutional: no acute distress Eyes: non-icteric ENT: oropharynx moist Neck: supple, no lymphadenopathy Effort: normal Ascultation: Bilateral: diminished breath sounds, rhonchi (scant) Percussion: Bilateral: not dull Cardiovascular: regular rate and rhythm, other (S1,S2) Gastrointestinal: normoactive bowel sounds, soft, non-tender, non-distended (protuberant) Integumentary: normal Extremities: no cyanosis, no edema, pulses normal, no ischemia or petechiae Neurologic: non-focal exam (grossly), pupils equal and round, CN II-XII normal, motor strength normal and Psychiatric: mood appropriate, affect normal CBC and BMP: 04/26/21 07:20 04/26/21 07:20 ABG, PT/INR, D-dimer: ABG ABG pH 7.458 pH Units (7.350-7.450) H 04/23/21 18:20 POC ABG pCO2 30.5 mmHg (32.0-48.0) L 04/22/21 04:00 ABG pCO2 37.2 mm Hg 04/23/21 18:20 POC ABG pO2 67.9 mmHg (83-108) L 04/22/21 04:00 ABG pO2 168.1 mm Hg (80.0-90.0) H 04/23/21 18:20 POC ABG HCO3 22.2 04/22/21 04:00 ABG O2 Saturation 99.1 % (95.0-99.0) H 04/23/21 18:20 PT/INR, D-dimer PT 14.5 Sec. (12.2-14.9) 04/19/21 05:36 INR 1.02 (0.87-1.13) 04/19/21 05:36 D-Dimer 1215.98 ng/mlDDU (0-234) H 04/26/21 07:20 Abnormal lab findings: Abnormal Labs 04/18/21 04/18/21 04/18/21 02:34 02:34 02:34 WBC RBC MCH 33 H MCHC 35 H RDW 12.4 L Lymph % (Auto) [place] % (Auto) 14.0 H Lymph # (Auto) 0.9 L [place] # (Auto) 0.9 H Seg Neutrophils % 72.0 H D-Dimer 978.83 H ABG pH POC ABG pCO2 POC ABG pO2 ABG pO2 ABG HCO3 ABG O2 Saturation ABG Oxyhemoglobin ABG Potassium ABG Chloride ABG Glucose Oxyhemoglobin Carboxyhemoglobin Sodium Potassium Chloride Carbon Dioxide 20 L BUN 32 H Glucose 227 H POC Glucose Hemoglobin A1c Lactic Acid Calcium 8.2 L Ferritin AST 64 H ALT Lactate Dehydrogenase C-Reactive Protein Total Protein Albumin 3.5 L Arterial Blood Glucose Coronavirus (PCR) 04/18/21 04/18/21 04/18/21 02:34 02:34 04:20 WBC RBC MCH MCHC RDW Lymph % (Auto) [place] % (Auto) Lymph # (Auto) [place] # (Auto) Seg Neutrophils % D-Dimer ABG pH 7.468 H POC ABG pCO2 POC ABG pO2 ABG pO2 154.9 H ABG HCO3 ABG O2 Saturation ABG Oxyhemoglobin ABG Potassium ABG Chloride ABG Glucose Oxyhemoglobin Carboxyhemoglobin Sodium Potassium Chloride Carbon Dioxide BUN Glucose 228 H POC Glucose Hemoglobin A1c Lactic Acid Calcium Ferritin > 2000.0 H AST ALT Lactate Dehydrogenase 711 H C-Reactive Protein 12.90 H Total Protein Albumin Arterial Blood Glucose Coronavirus (PCR) 04/18/21 04/18/21 04/19/21 04:54 15:39 05:36 WBC RBC MCH 33 H MCHC 35 H RDW 12.9 L Lymph % (Auto) 12.5 L [place] % (Auto) 9.4 H Lymph # (Auto) 1.0 L [place] # (Auto) Seg Neutrophils % 77.9 H D-Dimer ABG pH POC ABG pCO2 POC ABG pO2 ABG pO2 ABG HCO3 ABG O2 Saturation ABG Oxyhemoglobin ABG Potassium ABG Chloride ABG Glucose Oxyhemoglobin Carboxyhemoglobin Sodium Potassium 3.5 L Chloride 107.8 H Carbon Dioxide 20 L BUN 32 H Glucose 276 H POC Glucose Hemoglobin A1c Lactic Acid 2.30 H* Calcium 8.1 L Ferritin AST 64 H ALT Lactate Dehydrogenase C-Reactive Protein Total Protein Albumin 2.8 L Arterial Blood Glucose Coronavirus (PCR) 04/19/21 04/19/21 04/19/21 05:36 06:16 09:00 WBC RBC MCH MCHC RDW Lymph % (Auto) [place] % (Auto) Lymph # (Auto) [place] # (Auto) Seg Neutrophils % D-Dimer ABG pH 7.562 H POC ABG pCO2 22.0 L POC ABG pO2 168.2 H ABG pO2 ABG HCO3 ABG O2 Saturation ABG Oxyhemoglobin 98.4 H ABG Potassium 3.3 L ABG Chloride 110.0 H ABG Glucose 248 H Oxyhemoglobin Carboxyhemoglobin Sodium 147 H Potassium 3.3 L Chloride 110.1 H Carbon Dioxide 21 L BUN 35 H Glucose 251 H POC Glucose Hemoglobin A1c Lactic Acid Calcium 8.2 L Ferritin AST 66 H ALT Lactate Dehydrogenase C-Reactive Protein Total Protein Albumin 2.9 L Arterial Blood Glucose 248 H Coronavirus (PCR) Positive A 04/19/21 04/19/21 04/19/21 11:32 17:15 21:34 WBC RBC MCH MCHC RDW Lymph % (Auto) [place] % (Auto) Lymph # (Auto) [place] # (Auto) Seg Neutrophils % D-Dimer ABG pH POC ABG pCO2 POC ABG pO2 ABG pO2 ABG HCO3 ABG O2 Saturation ABG Oxyhemoglobin ABG Potassium ABG Chloride ABG Glucose Oxyhemoglobin Carboxyhemoglobin Sodium Potassium Chloride Carbon Dioxide BUN Glucose POC Glucose 216 H 256 H 258 H Hemoglobin A1c Lactic Acid Calcium Ferritin AST ALT Lactate Dehydrogenase C-Reactive Protein Total Protein Albumin Arterial Blood Glucose Coronavirus (PCR) 04/20/21 04/20/21 04/20/21 00:13 03:44 06:16 WBC RBC MCH MCHC RDW Lymph % (Auto) [place] % (Auto) Lymph # (Auto) [place] # (Auto) Seg Neutrophils % D-Dimer ABG pH 7.483 H POC ABG pCO2 26.2 L POC ABG pO2 ABG pO2 ABG HCO3 ABG O2 Saturation ABG Oxyhemoglobin ABG Potassium ABG Chloride 114.0 H ABG Glucose 296 H Oxyhemoglobin Carboxyhemoglobin 0.1 L Sodium Potassium Chloride Carbon Dioxide BUN Glucose POC Glucose 290 H 271 H Hemoglobin A1c Lactic Acid Calcium Ferritin AST ALT Lactate Dehydrogenase C-Reactive Protein Total Protein Albumin Arterial Blood Glucose 296 H Coronavirus (PCR) 04/20/21 04/20/21 04/20/21 10:21 10:21 10:21 WBC RBC MCH MCHC RDW Lymph % (Auto) [place] % (Auto) Lymph # (Auto) [place] # (Auto) Seg Neutrophils % D-Dimer ABG pH POC ABG pCO2 POC ABG pO2 ABG pO2 ABG HCO3 ABG O2 Saturation ABG Oxyhemoglobin ABG Potassium ABG Chloride ABG Glucose Oxyhemoglobin Carboxyhemoglobin Sodium Potassium Chloride 113.7 H Carbon Dioxide 19 L BUN 38 H Glucose 266 H POC Glucose Hemoglobin A1c 8.0 H Lactic Acid 3.10 H* Calcium Ferritin AST 79 H ALT 58 H Lactate Dehydrogenase C-Reactive Protein Total Protein Albumin 2.6 L Arterial Blood Glucose Coronavirus (PCR) 04/20/21 04/20/21 04/20/21 10:21 11:05 15:24 WBC RBC MCH 34 H MCHC 35 H RDW 12.9 L Lymph % (Auto) [place] % (Auto) Lymph # (Auto) [place] # (Auto) Seg Neutrophils % D-Dimer ABG pH POC ABG pCO2 POC ABG pO2 ABG pO2 ABG HCO3 ABG O2 Saturation ABG Oxyhemoglobin ABG Potassium ABG Chloride ABG Glucose Oxyhemoglobin Carboxyhemoglobin Sodium Potassium Chloride Carbon Dioxide BUN Glucose POC Glucose 233 H Hemoglobin A1c Lactic Acid 2.50 H* Calcium Ferritin AST ALT Lactate Dehydrogenase C-Reactive Protein Total Protein Albumin Arterial Blood Glucose Coronavirus (PCR) 04/20/21 04/20/21 04/20/21 17:25 20:56 23:11 WBC RBC MCH MCHC RDW Lymph % (Auto) [place] % (Auto) Lymph # (Auto) [place] # (Auto) Seg Neutrophils % D-Dimer ABG pH POC ABG pCO2 POC ABG pO2 ABG pO2 ABG HCO3 ABG O2 Saturation ABG Oxyhemoglobin ABG Potassium ABG Chloride ABG Glucose Oxyhemoglobin Carboxyhemoglobin Sodium Potassium Chloride Carbon Dioxide BUN Glucose POC Glucose 262 H 321 H Hemoglobin A1c Lactic Acid 2.80 H* Calcium Ferritin AST ALT Lactate Dehydrogenase C-Reactive Protein Total Protein Albumin Arterial Blood Glucose Coronavirus (PCR) 04/21/21 04/21/21 04/21/21 04:11 04:24 04:24 WBC RBC 3.55 L MCH 33 H MCHC RDW 12.8 L Lymph % (Auto) [place] % (Auto) Lymph # (Auto) [place] # (Auto) Seg Neutrophils % D-Dimer ABG pH 7.479 H POC ABG pCO2 28.9 L POC ABG pO2 75.6 L ABG pO2 ABG HCO3 ABG O2 Saturation ABG Oxyhemoglobin ABG Potassium ABG Chloride 113.0 H ABG Glucose 331 H Oxyhemoglobin Carboxyhemoglobin 0.1 L Sodium Potassium Chloride 113.1 H Carbon Dioxide 18 L BUN 36 H Glucose 342 H POC Glucose Hemoglobin A1c Lactic Acid Calcium 8.1 L Ferritin AST 52 H ALT Lactate Dehydrogenase C-Reactive Protein Total Protein 6.1 L Albumin 2.7 L Arterial Blood Glucose 331 H Coronavirus (PCR) 04/21/21 04/21/21 04/21/21 05:22 11:57 18:16 WBC RBC MCH MCHC RDW Lymph % (Auto) [place] % (Auto) Lymph # (Auto) [place] # (Auto) Seg Neutrophils % D-Dimer ABG pH POC ABG pCO2 POC ABG pO2 ABG pO2 ABG HCO3 ABG O2 Saturation ABG Oxyhemoglobin ABG Potassium ABG Chloride ABG Glucose Oxyhemoglobin Carboxyhemoglobin Sodium Potassium Chloride Carbon Dioxide BUN Glucose POC Glucose 269 H 258 H 313 H Hemoglobin A1c Lactic Acid Calcium Ferritin AST ALT Lactate Dehydrogenase C-Reactive Protein Total Protein Albumin Arterial Blood Glucose Coronavirus (PCR) 04/21/21 04/22/21 04/22/21 23:38 04:00 04:19 WBC RBC MCH 33 H MCHC RDW 12.9 L Lymph % (Auto) [place] % (Auto) Lymph # (Auto) [place] # (Auto) Seg Neutrophils % D-Dimer ABG pH 7.479 H POC ABG pCO2 30.5 L POC ABG pO2 67.9 L ABG pO2 ABG HCO3 ABG O2 Saturation ABG Oxyhemoglobin 14.4 L ABG Potassium ABG Chloride 108.0 H ABG Glucose 212 H Oxyhemoglobin Carboxyhemoglobin Sodium Potassium Chloride Carbon Dioxide BUN Glucose POC Glucose 298 H Hemoglobin A1c Lactic Acid Calcium Ferritin AST ALT Lactate Dehydrogenase C-Reactive Protein Total Protein Albumin Arterial Blood Glucose 212 H Coronavirus (PCR) 04/22/21 04/22/21 04/22/21 04:19 05:15 10:42 WBC RBC MCH MCHC RDW Lymph % (Auto) [place] % (Auto) Lymph # (Auto) [place] # (Auto) Seg Neutrophils % D-Dimer ABG pH POC ABG pCO2 POC ABG pO2 ABG pO2 ABG HCO3 ABG O2 Saturation ABG Oxyhemoglobin ABG Potassium ABG Chloride ABG Glucose Oxyhemoglobin Carboxyhemoglobin Sodium Potassium Chloride 108.0 H Carbon Dioxide 21 L BUN 31 H Glucose 261 H POC Glucose 214 H 171 H Hemoglobin A1c Lactic Acid Calcium Ferritin AST ALT Lactate Dehydrogenase C-Reactive Protein Total Protein Albumin Arterial Blood Glucose Coronavirus (PCR) 04/22/21 04/22/21 04/22/21 10:58 10:58 10:58 WBC RBC MCH MCHC RDW Lymph % (Auto) [place] % (Auto) Lymph # (Auto) [place] # (Auto) Seg Neutrophils % D-Dimer 1848.39 H ABG pH POC ABG pCO2 POC ABG pO2 ABG pO2 ABG HCO3 ABG O2 Saturation ABG Oxyhemoglobin ABG Potassium ABG Chloride ABG Glucose Oxyhemoglobin Carboxyhemoglobin Sodium Potassium Chloride Carbon Dioxide BUN Glucose 201 H POC Glucose Hemoglobin A1c Lactic Acid Calcium Ferritin 1402.0 H AST ALT Lactate Dehydrogenase 524 H C-Reactive Protein Total Protein Albumin Arterial Blood Glucose Coronavirus (PCR) 04/22/21 04/22/21 04/22/21 17:37 21:29 21:40 WBC RBC MCH MCHC RDW Lymph % (Auto) [place] % (Auto) Lymph # (Auto) [place] # (Auto) Seg Neutrophils % D-Dimer ABG pH POC ABG pCO2 POC ABG pO2 ABG pO2 74.6 L ABG HCO3 27.0 H ABG O2 Saturation ABG Oxyhemoglobin ABG Potassium ABG Chloride ABG Glucose Oxyhemoglobin 93.9 L Carboxyhemoglobin Sodium Potassium Chloride Carbon Dioxide BUN Glucose POC Glucose 273 H 180 H Hemoglobin A1c Lactic Acid Calcium Ferritin AST ALT Lactate Dehydrogenase C-Reactive Protein Total Protein Albumin Arterial Blood Glucose Coronavirus (PCR) 04/23/21 04/23/21 04/23/21 02:42 04:17 04:17 WBC 16.6 H RBC MCH MCHC RDW 13.0 L Lymph % (Auto) [place] % (Auto) Lymph # (Auto) [place] # (Auto) Seg Neutrophils % D-Dimer ABG pH POC ABG pCO2 POC ABG pO2 ABG pO2 ABG HCO3 ABG O2 Saturation ABG Oxyhemoglobin ABG Potassium ABG Chloride ABG Glucose Oxyhemoglobin Carboxyhemoglobin Sodium 136 L Potassium Chloride Carbon Dioxide BUN 26 H Glucose 105 H POC Glucose 111 H Hemoglobin A1c Lactic Acid Calcium Ferritin AST ALT Lactate Dehydrogenase C-Reactive Protein Total Protein Albumin Arterial Blood Glucose Coronavirus (PCR) 04/23/21 04/23/21 04/23/21 05:20 10:02 12:01 WBC RBC MCH MCHC RDW Lymph % (Auto) [place] % (Auto) Lymph # (Auto) [place] # (Auto) Seg Neutrophils % D-Dimer ABG pH POC ABG pCO2 POC ABG pO2 ABG pO2 ABG HCO3 ABG O2 Saturation ABG Oxyhemoglobin ABG Potassium ABG Chloride ABG Glucose Oxyhemoglobin Carboxyhemoglobin Sodium Potassium Chloride Carbon Dioxide BUN Glucose POC Glucose 121 H 144 H 220 H Hemoglobin A1c Lactic Acid Calcium Ferritin AST ALT Lactate Dehydrogenase C-Reactive Protein Total Protein Albumin Arterial Blood Glucose Coronavirus (PCR) 04/23/21 04/23/21 04/23/21 15:26 18:20 22:04 WBC RBC MCH MCHC RDW Lymph % (Auto) [place] % (Auto) Lymph # (Auto) [place] # (Auto) Seg Neutrophils % D-Dimer ABG pH 7.458 H POC ABG pCO2 POC ABG pO2 ABG pO2 168.1 H ABG HCO3 ABG O2 Saturation 99.1 H ABG Oxyhemoglobin ABG Potassium ABG Chloride ABG Glucose Oxyhemoglobin Carboxyhemoglobin Sodium Potassium Chloride Carbon Dioxide BUN Glucose POC Glucose 291 H 246 H Hemoglobin A1c Lactic Acid Calcium Ferritin AST ALT Lactate Dehydrogenase C-Reactive Protein Total Protein Albumin Arterial Blood Glucose Coronavirus (PCR) 04/24/21 04/24/21 04/24/21 02:17 04:33 04:33 WBC RBC MCH MCHC RDW Lymph % (Auto) [place] % (Auto) Lymph # (Auto) [place] # (Auto) Seg Neutrophils % D-Dimer 1775.11 H ABG pH POC ABG pCO2 POC ABG pO2 ABG pO2 ABG HCO3 ABG O2 Saturation ABG Oxyhemoglobin ABG Potassium ABG Chloride ABG Glucose Oxyhemoglobin Carboxyhemoglobin Sodium Potassium Chloride Carbon Dioxide BUN Glucose POC Glucose 153 H Hemoglobin A1c Lactic Acid Calcium Ferritin 1392.0 H AST ALT Lactate Dehydrogenase C-Reactive Protein Total Protein Albumin Arterial Blood Glucose Coronavirus (PCR) 04/24/21 04/24/21 04/24/21 04:33 04:33 10:47 WBC 12.1 H RBC MCH MCHC RDW 12.9 L Lymph % (Auto) [place] % (Auto) Lymph # (Auto) [place] # (Auto) Seg Neutrophils % D-Dimer ABG pH POC ABG pCO2 POC ABG pO2 ABG pO2 ABG HCO3 ABG O2 Saturation ABG Oxyhemoglobin ABG Potassium ABG Chloride ABG Glucose Oxyhemoglobin Carboxyhemoglobin Sodium Potassium Chloride Carbon Dioxide BUN 27 H Glucose 130 H POC Glucose 254 H Hemoglobin A1c Lactic Acid Calcium Ferritin AST ALT Lactate Dehydrogenase 506 H C-Reactive Protein Total Protein Albumin Arterial Blood Glucose Coronavirus (PCR) 10/04/24/21 04/24/21 10:49 11:30 12:00 WBC RBC MCH MCHC RDW Lymph % (Auto) [place] % (Auto) Lymph # (Auto) [place] # (Auto) Seg Neutrophils % D-Dimer ABG pH POC ABG pCO2 POC ABG pO2 ABG pO2 ABG HCO3 ABG O2 Saturation ABG Oxyhemoglobin ABG Potassium ABG Chloride ABG Glucose Oxyhemoglobin Carboxyhemoglobin Sodium Potassium Chloride Carbon Dioxide BUN Glucose POC Glucose 258 H 194 H 166 H Hemoglobin A1c Lactic Acid Calcium Ferritin AST ALT Lactate Dehydrogenase C-Reactive Protein Total Protein Albumin Arterial Blood Glucose Coronavirus (PCR) 04/24/21 04/25/21 04/25/21 16:20 00:03 11:54 WBC RBC MCH MCHC RDW Lymph % (Auto) [place] % (Auto) Lymph # (Auto) [place] # (Auto) Seg Neutrophils % D-Dimer ABG pH POC ABG pCO2 POC ABG pO2 ABG pO2 ABG HCO3 ABG O2 Saturation ABG Oxyhemoglobin ABG Potassium ABG Chloride ABG Glucose Oxyhemoglobin Carboxyhemoglobin Sodium Potassium Chloride Carbon Dioxide BUN Glucose POC Glucose 236 H 165 H 140 H Hemoglobin A1c Lactic Acid Calcium Ferritin AST ALT Lactate Dehydrogenase C-Reactive Protein Total Protein Albumin Arterial Blood Glucose Coronavirus (PCR) 04/25/21 04/25/21 04/26/21 17:40 22:35 07:20 WBC RBC MCH MCHC RDW Lymph % (Auto) [place] % (Auto) Lymph # (Auto) [place] # (Auto) Seg Neutrophils % D-Dimer 1215.98 H ABG pH POC ABG pCO2 POC ABG pO2 ABG pO2 ABG HCO3 ABG O2 Saturation ABG Oxyhemoglobin ABG Potassium ABG Chloride ABG Glucose Oxyhemoglobin Carboxyhemoglobin Sodium Potassium Chloride Carbon Dioxide BUN Glucose POC Glucose 212 H 154 H Hemoglobin A1c Lactic Acid Calcium Ferritin AST ALT Lactate Dehydrogenase C-Reactive Protein Total Protein Albumin Arterial Blood Glucose Coronavirus (PCR) 04/26/21 04/26/21 04/26/21 07:20 07:20 07:20 WBC RBC MCH MCHC RDW 12.9 L Lymph % (Auto) [place] % (Auto) Lymph # (Auto) [place] # (Auto) Seg Neutrophils % D-Dimer ABG pH POC ABG pCO2 POC ABG pO2 ABG pO2 ABG HCO3 ABG O2 Saturation ABG Oxyhemoglobin ABG Potassium ABG Chloride ABG Glucose Oxyhemoglobin Carboxyhemoglobin Sodium Potassium Chloride Carbon Dioxide BUN 38 H Glucose POC Glucose Hemoglobin A1c Lactic Acid Calcium Ferritin 1558.0 H AST ALT Lactate Dehydrogenase 408 H C-Reactive Protein Total Protein Albumin Arterial Blood Glucose Coronavirus (PCR) 04/26/21 04/26/21 04/26/21 11:17 15:52 21:08 WBC RBC MCH MCHC RDW Lymph % (Auto) [place] % (Auto) Lymph # (Auto) [place] # (Auto) Seg Neutrophils % D-Dimer ABG pH POC ABG pCO2 POC ABG pO2 ABG pO2 ABG HCO3 ABG O2 Saturation ABG Oxyhemoglobin ABG Potassium ABG Chloride ABG Glucose Oxyhemoglobin Carboxyhemoglobin Sodium Potassium Chloride Carbon Dioxide BUN Glucose POC Glucose 130 H 250 H 307 H Hemoglobin A1c Lactic Acid Calcium Ferritin AST ALT Lactate Dehydrogenase C-Reactive Protein Total Protein Albumin Arterial Blood Glucose Coronavirus (PCR) 04/27/21 07:35 WBC RBC MCH MCHC RDW Lymph % (Auto) [place] % (Auto) Lymph # (Auto) [place] # (Auto) Seg Neutrophils % D-Dimer ABG pH POC ABG pCO2 POC ABG pO2 ABG pO2 ABG HCO3 ABG O2 Saturation ABG Oxyhemoglobin ABG Potassium ABG Chloride ABG Glucose Oxyhemoglobin Carboxyhemoglobin Sodium Potassium Chloride Carbon Dioxide BUN Glucose POC Glucose 106 H Hemoglobin A1c Lactic Acid Calcium Ferritin AST ALT Lactate Dehydrogenase C-Reactive Protein Total Protein Albumin Arterial Blood Glucose Coronavirus (PCR) Allied health notes reviewed: nursing
[2021-04-27] MEDS ORDERED: INSULIN GLARGINE 100 UNITS/ML SUB-Q SCH (22:00)
[2021-04-27] MEDS: SENNOSIDES ORAL LIQD 8.8 MG/5 ML ORAL LIQD FEEDTUBE SCH (22:56)
--- NOTE | 2021-04-28 08:09 | Discharge Summary ---
Providers - Providers Date of Admission: 04/18/21 04:13 Date of discharge: 04/28/21 Attending physician: DINORAH EMERSON MD 04/18/21 04:13 Consult to Physician [CONS] Routine Comment: Consulting Provider: EDDIE MO Physician Instructions: Reason For Exam: RESP.FAILURE,[place]ST[place].PNEUMONIA,COVID 19 +VE 04/18/21 05:57 Consult to Physician [CONS] Routine Comment: Consulting Provider: SHAUNNA SALMON Physician Instructions: Reason For Exam: RESPIRATORY FAILURE, PNEUMNIA,COVID-19 +VE 04/19/21 11:38 Consult to Dietitian/Nutrition [CONS] Routine Physician Instructions: Reason For Exam: TF management Reason for Consult: Write/Manage Tube Feeding 04/23/21 18:35 Speech Therapy Evaluation and Treat [CONS] Stat Reason For Exam: Post self-extubation swallow screen 04/25/21 18:56 Physical Therapy Evaluation and Treat [CONS] Routine Comment: Reason For Exam: generalized weakness 04/28/21 07:32 Consult to Case Management [CONS] Routine Services Needed at Discharge: Home Health Services Notified:: YES Phone number called:: [phone] Was contact made?: Yes If yes, spoke with:: DICKSON Time called:: 07:58 Comment:: [facility] physical therapy Consult to Case Management [CONS] Routine Services Needed at Discharge: Home O2 Notified:: YES Phone number called:: [phone] Was contact made?: Yes If yes, spoke with:: DICKSON Time called:: 07:59 Primary care physician: STAFF SOFTWARE ENGINEER Hospitalization Reason for admission: shortness of breath Condition: Critical Hospital course: Assessment and plan: This is a 51 years-old female with unknown past medical history [facility] with altered mental status. Upon her arrival in the ED her SPO2 was in the 40%, she was first placed on a NRB then was subsequently intubated due to acute hypoxic respiratory failure. As of note, patient was diagnosed with COVID 4days prior this admission. Patient was admitted in the ICU for further management. Hospital course to date: 04/19/21- Patient is intubated and sedated RASS -3 to -4. SB to low SR on the monitor, hemodynamics stable and not on any pressors, will continue to monitor. Hypokalemia was repleted. TF was initiated, plan to D/C IVF once TF is at goal. Hyperglycemia noted, high scale SSI and qHS lantus added, A1c ordered. 04/20/21- Patient remains intubated amd off sedation, RASS 0 to -1. Remains SB on the monitor, hemodynamic stable. Increased in lactic acid this am, slight increased in LFTs, WBCs stable, kidney function is stable. Will repeat lactic in 4hours and continue to monitor. Patient is net +1537 cc in last 24hrs, will hold IVF for now to keep patient net negative fluid balance.Will continue to mo nitor renal function and electrolytes. 04/21: SB on monitor, remains on fentanyl gtt, OETT advanced. ID prescribed actemra 04/22: Repeat D-dimer elevated and bilateral lower extremity Doppler ultrasound ordered which showed no DVT. Antibiotics stopped by ID given normal CRP. Patient's rate was decreased and PEEP increased on ventilator per CCM 04/23: CRP and procalcitonin ordered by infectious disease given leukocytosis. Late afternoon patient self extubated and was placed on BiPAP. BiPAP ordered for nightly. We will obtain a bedside swallow evaluation and possible speech eval. This morning free water flush was adjusted for hyponatremia. 04/24: Patient tolerated bipap overnight and placed on HFNC today. Patient passed bedside swallow yesterday and started on mechanical soft diet today. 04/25: Patient currently on salter nasal cannula 6 L/min, in no distress. Continue Decadron IV. Hopefully can de-esaclate to in the coming days given patient significant improvement. 04/26: Patient currently on salter nasal cannula 10 L/min, in no distress. Continue steroids. Encourage patient to self prone incoordination with care staff. 04/27: Patient currently on salter nasal cannula 5 L/min, in no distress. Will discuss with care team and attempt to challenge patient and place her on nasal cannula to see how she tolerates. Last dose of Decadron to be administered today. If patient does not demonstrate improvement may consider extending. Continue supportive management. 04/28: Patient is recovering well and was deescalated yesterday to nasal cannula 3 L/min. Completed steroid course. Plan for discharge today with home oxygen and home health care physical therapy service. Assessment and plan: Neuro: Acute metabolic encephalopathy - 04/18 CT head w/o con showed no acute intracranial process - Prn analgesia - Maintenance of sleep-wake cycle, avoid delirium - Avoid benzodiazepine to reduce the possibility of delirium CV: HTN - SB to NSR on the monitor - Home amlodipine, hydrochlorothiazide resumed - As needed hydralazine - Blood pressure monitoring per protocol Resp: Acute hypoxemic respiratory failure, ARDS secondary to COVID pneumonia, Respiratory alkalosis - Cxr shows B infiltrates - Intubated on 04/18 with 7.5 OETT @ 20 (advanced to 24) but self extubated 04/23 -Currently on salter nasal cannula 6 L/min -wean as tolerated GI: NAD - Passed bedside swallow eval - Mechanical soft diet - BR- senokot - Pepcid - 24 hours -1370 : NAD - s/p D5 / NS - Purewick in place - Strict intake and output - Monitor and replace electrolytes as needed ID: Sepsis, COVID Pneumonia, Bilateral Pneumonia, Lactic Acidosis - CXR showed bilateral pneumonia - COVID PCR positive - ID consulted, appreciate recommendations - follow culture data - Decadron 6 mg (04/18-04/27) - Remdesivir (04/19-04/23) - 04/21 Actemra - Trend COVId 19 inflammatory markers ferritin, Ddimer, CRP, LDH - s/p ABx- Ceftriaxone and azithromycin per ID (04/18-04/22) - Monitor fever curve Endo: Hyperglycemia - SSI - Lantus, titrate as needed - HbgA1c 8 - While critically ill target blood glucose of 140-180 - Avoid hypoglycemia Heme: Elevated D-dimer -D-dimer 1848 on 04/22 -Bilateral lower extremity Doppler ultrasound shows no acute or chronic DVT/SVT -Enoxaparin 30 mg twice daily -Bilateral lower extremities with SCDs Disposition: HOME HEALTH CARE SERVICE Final Discharge Diagnosis (Prints w/discharge instructions): COVID 19 Pneumonia Time spent for discharge: 35 - Discharge Diagnoses (1) Acute respiratory failure with hypoxia Status: Acute (2) Bilateral pneumonia Status: Acute Qualifiers: Lung location: unspecified part of lung (3) COVID-19 Status: Acute (4) Encephalopathy acute Status: Acute (5) Sepsis Status: Acute Qualifiers: Sepsis type: sepsis due to unspecified organism Sepsis acute organ dysfunction status: with acute organ dysfunction Severe sepsis acute organ dysfunction type: acute respiratory failure Acute respiratory failure type: with hypoxia Severe sepsis shock status: without septic shock Qualified Code(s): A41.9 - Sepsis, unspecified organism; R65.20 - Severe sepsis without septic shock; J96.01 - Acute respiratory failure with hypoxia Core Measure Documentation - Palliative Care Palliative Care/ Comfort Measures: Not Applicable - Core Measures Any of the following diagnoses?: none Exam - Physical Exam Narrative exam: Physical Exam: VITAL SIGNS: Reviewed. GENERAL: The patient appears normally developed, Vital signs as documented. nasal cannula in place currently at 3 L/min HEAD: No signs of head trauma. EYES: Pupils are equal. Extraocular motions intact. EARS: Hearing grossly intact. MOUTH: Oropharynx is normal. NECK: No adenopathy, no JVD. CHEST: Chest with clear breath sounds bilaterally. Expiratory rhonchi bilaterally. CARDIAC: Regular rate and rhythm. S1 and S2, without murmurs, gallops, or rubs. VASCULAR: No Edema. Peripheral pulses normal and equal in all extremities. ABDOMEN: Soft, non tender and non distended. No rebound or guarding, and no masses palpated. Bowel Sounds normal. MUSCULOSKELETAL: Good range of motion of all major joints. Extremities without clubbing, cyanosis or edema. NEUROLOGIC EXAM: Alert and oriented x4. No focal sensory or strength deficits. PSYCHIATRIC: Mood normal. SKIN: detail exam as documented in skin assessment - Constitutional Vitals: Temp Pulse Resp BP Pulse Ox 98.2 F 60 18 106/70 94 04/28/21 05:05 04/28/21 05:05 04/28/21 05:05 04/28/21 05:05 04/28/21 05:05 Plan Activity: advance as tolerated Weight Bearing Status: Weight Bear as Tolerated Diet: diabetic Follow up with: EDDIE MO MD [Staff Physician] - 7 Days PRIMARY CARE, [Primary Care Provider] - 7 Days Prescriptions: Insulin Glargine [Lantus VIAL] 35 unit SUB-Q QHS 30 Days #2 vial amLODIPine 10 mg PO QDAY 30 Days #30 tablet Losartan [Cozaar] 50 mg PO QDAY 30 Days #30 tablet hydroCHLOROthiazide [HCTZ] 12.5 mg PO QDAY 30 Days #30 capsule Metformin HCl [metFORMIN] 1,000 mg PO BID 30 Days #60 tablet
[2021-04-28] MEDS: INSULIN LISPRO 100 UNIT/ML SUB-Q SCH ×2 (08:34→12:46)
[2021-04-28 08:50] LABS: Basophils % (Auto) 0.2 % (0.0-1.8); Eosinophils % (Auto) 0.1 % (0.0-4.3); Lymphocytes # (Auto) 1.4 K/mm3 (1.2-5.4); Lymphocytes % (Auto) 16.2 % (13.4-35.0); Mean Corpuscular HGB Conc 34 % (30-34); Mean Corpuscular Volume 96 fl (79-97); Monocytes % (Auto) 11.5 % (0.0-7.3); Platelet Count 222 K/mm3 (140-440); Red Blood Count 4.08 M/mm3 (3.65-5.03); Red Cell Distribution Width 13.2 % (13.2-15.2)
--- NOTE | 2021-04-28 08:55 | XRay Report ---
CHEST 1 VIEW 04/28/2021 7:43 AM INDICATION / CLINICAL INFORMATION: covid 19 pna. COMPARISON: 04/23/2021 FINDINGS: SUPPORT DEVICES: None. HEART / MEDIASTINUM: No significant abnormality. LUNGS / PLEURA: There are bilateral pulmonary opacities most prominent in the right upper lung zone a nd in the left mid and lower lung zone characteristic of pneumonia. No pneumothorax. ADDITIONAL FINDINGS: No significant additional findings. IMPRESSION: 1. Bilateral pulmonary opacities are noted characteristic of pneumonia. Signer Name: Félix Chandler MD Signed: 04/28/2021 8:51 AM Workstation Name: [id number]
--- NOTE | 2021-04-28 09:04 | Progress Note ---
Assessment and Plan 51-year-old female admitted to hospital with altered mental status. She was found to be significantly hypoxic on admission with O2 saturations of about 40%, and she was subsequently intubated in the emergency room. She was diagnosed with COVID-19 4 days prior to admission. Patient alert, awake. Sitting by the side of the bed. Denies chest pain, shortness of breath or cough. On 3 litres O2. O2 saturation running 94%. Patient afebrile. No leukocytosis. Blood pressure 106/70, Pulse 60. Patients Garcia virus PCR Positive. Patients inflammatory markers: D dimer 805.50 Ferritin 1538 LDH 307. CRP .1. Chest xray 04/28/21 reported Bilateral pulmonary opacities are noted characteristic of pneumonia. Patient presently on S/C lovenox and famotidine. Patient just finished course of dexamethasone. Patient also finished course of REMDESIVIR. Patients inflammatory markers still high. Recommend to continue dexamethasone. - Patient Problems (1) Acute respiratory failure with hypoxia Status: Acute Plan to address problem: O2 3 litres via nasal canula. Continue S/C Lovenox. Continue famotidine. (2) Bilateral pneumonia Status: Acute Qualifiers: Lung location: unspecified part of lung Plan to address problem: Patient was on zithromax and ceftrioxone. (3) COVID-19 Status: Acute Plan to address problem: Management as per infectious diseases. (4) Encephalopathy acute Status: Acute Plan to address problem: Improved. Management as per primary care and neurology. (5) Sepsis Status: Acute Qualifiers: Sepsis type: sepsis due to unspecified organism Sepsis acute organ dysfunction status: with acute organ dysfunction Severe sepsis acute organ dysfunction type: acute respiratory failure Acute respiratory failure type: with hypoxia Severe sepsis shock status: without septic shock Qualified Code(s): A41.9 - Sepsis, unspecified organism; R65.20 - Severe sepsis without septic shock; J96.01 - Acute respiratory failure with hypoxia Plan to address problem: Patient was on zithromax and ceftriaxone. Subjective Date of service: 04/28/21 Principal diagnosis: Pneumonia; Sepsis; Acute hypoxemic resp failure; ARDS; COV ID; Sepsis Interval history: 51-year-old female admitted to hospital with altered mental status. She was found to be significantly hypoxic on admission with O2 saturations of about 40%, and she was subsequently intubated in the emergency room. She was diagnosed with COVID-19 4 days prior to admission. Patient alert, awake. Sitting by the side of the bed. Denies chest pain, shortness of breath or cough. On 3 litres O2. O2 saturation running 94%. Patient afebrile. No leukocytosis. Blood pressure 106/70, Pulse 60. Patients Garcia virus PCR Positive. Patients inflammatory markers: D dimer 805.50 Ferritin 1538 LDH 307. CRP .1. Chest xray 04/28/21 reported Bilateral pulmonary opacities are noted characteristic of pneumonia. Patient presently on S/C lovenox and famotidine. Patient just finished course of dexamethasone. Patient also finished course of REMDESIVIR Patients inflammatory markers still high. Recommend to continue dexamethasone. Objective Vital Signs - 12hr 04/27/21 04/27/21 04/27/21 22:00 22:17 22:48 Temperature 98.5 F Pulse Rate 64 Respiratory 20 Rate Blood Pressure 102/59 O2 Sat by Pulse 93 96 96 Oximetry 04/28/21 05:05 Temperature 98.2 F Pulse Rate 60 Respiratory 18 Rate Blood Pressure 106/70 O2 Sat by Pulse 94 Oximetry Constitutional: no acute distress, alert Eyes: non-icteric ENT: oropharynx moist Neck: supple, no lymphadenopathy Effort: normal Ascultation: Bilateral: diminished breath sounds, rhonchi (scant) Percussion: Bilateral: not dull Cardiovascular: regular rate and rhythm, other (S1,S2) Gastrointestinal: normoactive bowel sounds, soft, non-tender, non-distended (protuberant) Integumentary: normal Extremities: no cyanosis, no edema, pulses normal, no ischemia or petechiae Neurologic: non-focal exam (grossly), pupils equal and round, CN II-XII normal, motor strength normal and Psychiatric: mood appropriate, affect normal CBC and BMP: 04/28/21 07:19 04/28/21 07:19 ABG, PT/INR, D-dimer: ABG ABG pH 7.458 pH Units (7.350-7.450) H 04/23/21 18:20 POC ABG pCO2 30.5 mmHg (32.0-48.0) L 04/22/21 04:00 ABG pCO2 37.2 mm Hg 04/23/21 18:20 POC ABG pO2 67.9 mmHg (83-108) L 04/22/21 04:00 ABG pO2 168.1 mm Hg (80.0-90.0) H 04/23/21 18:20 POC ABG HCO3 22.2 04/22/21 04:00 ABG O2 Saturation 99.1 % (95.0-99.0) H 04/23/21 18:20 PT/INR, D-dimer PT 14.5 Sec. (12.2-14.9) 04/19/21 05:36 INR 1.02 (0.87-1.13) 04/19/21 05:36 D-Dimer 1215.98 ng/mlDDU (0-234) H 04/26/21 07:20 Abnormal lab findings: Abnormal Labs 04/18/21 04/18/21 04/18/21 02:34 02:34 02:34 WBC RBC MCH 33 H MCHC 35 H RDW 12.4 L Lymph % (Auto) [place] % (Auto) 14.0 H Lymph # (Auto) 0.9 L [place] # (Auto) 0.9 H Seg Neutrophils % 72.0 H D-Dimer 978.83 H ABG pH POC ABG pCO2 POC ABG pO2 ABG pO2 ABG HCO3 ABG O2 Saturation ABG Oxyhemoglobin ABG Potassium ABG Chloride ABG Glucose Oxyhemoglobin Carboxyhemoglobin Sodium Potassium Chloride Carbon Dioxide 20 L BUN 32 H Glucose 227 H POC Glucose Hemoglobin A1c Lactic Acid Calcium 8.2 L Ferritin AST 64 H ALT Lactate Dehydrogenase C-Reactive Protein Total Protein Albumin 3.5 L Arterial Blood Glucose Coronavirus (PCR) 04/18/21 04/18/21 04/18/21 02:34 02:34 04:20 WBC RBC MCH MCHC RDW Lymph % (Auto) [place] % (Auto) Lymph # (Auto) [place] # (Auto) Seg Neutrophils % D-Dimer ABG pH 7.468 H POC ABG pCO2 POC ABG pO2 ABG pO2 154.9 H ABG HCO3 ABG O2 Saturation ABG Oxyhemoglobin ABG Potassium ABG Chloride ABG Glucose Oxyhemoglobin Carboxyhemoglobin Sodium Potassium Chloride Carbon Dioxide BUN Glucose 228 H POC Glucose Hemoglobin A1c Lactic Acid Calcium Ferritin > 2000.0 H AST ALT Lactate Dehydrogenase 711 H C-Reactive Protein 12.90 H Total Protein Albumin Arterial Blood Glucose Coronavirus (PCR) 04/18/21 04/18/21 04/19/21 04:54 15:39 05:36 WBC RBC MCH 33 H MCHC 35 H RDW 12.9 L Lymph % (Auto) 12.5 L [place] % (Auto) 9.4 H Lymph # (Auto) 1.0 L [place] # (Auto) Seg Neutrophils % 77.9 H D-Dimer ABG pH POC ABG pCO2 POC ABG pO2 ABG pO2 ABG HCO3 ABG O2 Saturation ABG Oxyhemoglobin ABG Potassium ABG Chloride ABG Glucose Oxyhemoglobin Carboxyhemoglobin Sodium Potassium 3.5 L Chloride 107.8 H Carbon Dioxide 20 L BUN 32 H Glucose 276 H POC Glucose Hemoglobin A1c Lactic Acid 2.30 H* Calcium 8.1 L Ferritin AST 64 H ALT Lactate Dehydrogenase C-Reactive Protein Total Protein Albumin 2.8 L Arterial Blood Glucose Coronavirus (PCR) 04/19/21 04/19/21 04/19/21 05:36 06:16 09:00 WBC RBC MCH MCHC RDW Lymph % (Auto) [place] % (Auto) Lymph # (Auto) [place] # (Auto) Seg Neutrophils % D-Dimer ABG pH 7.562 H POC ABG pCO2 22.0 L POC ABG pO2 168.2 H ABG pO2 ABG HCO3 ABG O2 Saturation ABG Oxyhemoglobin 98.4 H ABG Potassium 3.3 L ABG Chloride 110.0 H ABG Glucose 248 H Oxyhemoglobin Carboxyhemoglobin Sodium 147 H Potassium 3.3 L Chloride 110.1 H Carbon Dioxide 21 L BUN 35 H Glucose 251 H POC Glucose Hemoglobin A1c Lactic Acid Calcium 8.2 L Ferritin AST 66 H ALT Lactate Dehydrogenase C-Reactive Protein Total Protein Albumin 2.9 L Arterial Blood Glucose 248 H Coronavirus (PCR) Positive A 04/19/21 04/19/21 04/19/21 11:32 17:15 21:34 WBC RBC MCH MCHC RDW Lymph % (Auto) [place] % (Auto) Lymph # (Auto) [place] # (Auto) Seg Neutrophils % D-Dimer ABG pH POC ABG pCO2 POC ABG pO2 ABG pO2 ABG HCO3 ABG O2 Saturation ABG Oxyhemoglobin ABG Potassium ABG Chloride ABG Glucose Oxyhemoglobin Carboxyhemoglobin Sodium Potassium Chloride Carbon Dioxide BUN Glucose POC Glucose 216 H 256 H 258 H Hemoglobin A1c Lactic Acid Calcium Ferritin AST ALT Lactate Dehydrogenase C-Reactive Protein Total Protein Albumin Arterial Blood Glucose Coronavirus (PCR) 04/20/21 04/20/21 04/20/21 00:13 03:44 06:16 WBC RBC MCH MCHC RDW Lymph % (Auto) [place] % (Auto) Lymph # (Auto) [place] # (Auto) Seg Neutrophils % D-Dimer ABG pH 7.483 H POC ABG pCO2 26.2 L POC ABG pO2 ABG pO2 ABG HCO3 ABG O2 Saturation ABG Oxyhemoglobin ABG Potassium ABG Chloride 114.0 H ABG Glucose 296 H Oxyhemoglobin Carboxyhemoglobin 0.1 L Sodium Potassium Chloride Carbon Dioxide BUN Glucose POC Glucose 290 H 271 H Hemoglobin A1c Lactic Acid Calcium Ferritin AST ALT Lactate Dehydrogenase C-Reactive Protein Total Protein Albumin Arterial Blood Glucose 296 H Coronavirus (PCR) 04/20/21 04/20/21 04/20/21 10:21 10:21 10:21 WBC RBC MCH MCHC RDW Lymph % (Auto) [place] % (Auto) Lymph # (Auto) [place] # (Auto) Seg Neutrophils % D-Dimer ABG pH POC ABG pCO2 POC ABG pO2 ABG pO2 ABG HCO3 ABG O2 Saturation ABG Oxyhemoglobin ABG Potassium ABG Chloride ABG Glucose Oxyhemoglobin Carboxyhemoglobin Sodium Potassium Chloride 113.7 H Carbon Dioxide 19 L BUN 38 H Glucose 266 H POC Glucose Hemoglobin A1c 8.0 H Lactic Acid 3.10 H* Calcium Ferritin AST 79 H ALT 58 H Lactate Dehydrogenase C-Reactive Protein Total Protein Albumin 2.6 L Arterial Blood Glucose Coronavirus (PCR) 04/20/21 04/20/21 04/20/21 10:21 11:05 15:24 WBC RBC MCH 34 H MCHC 35 H RDW 12.9 L Lymph % (Auto) [place] % (Auto) Lymph # (Auto) [place] # (Auto) Seg Neutrophils % D-Dimer ABG pH POC ABG pCO2 POC ABG pO2 ABG pO2 ABG HCO3 ABG O2 Saturation ABG Oxyhemoglobin ABG Potassium ABG Chloride ABG Glucose Oxyhemoglobin Carboxyhemoglobin Sodium Potassium Chloride Carbon Dioxide BUN Glucose POC Glucose 233 H Hemoglobin A1c Lactic Acid 2.50 H* Calcium Ferritin AST ALT Lactate Dehydrogenase C-Reactive Protein Total Protein Albumin Arterial Blood Glucose Coronavirus (PCR) 04/20/21 04/20/21 04/20/21 17:25 20:56 23:11 WBC RBC MCH MCHC RDW Lymph % (Auto) [place] % (Auto) Lymph # (Auto) [place] # (Auto) Seg Neutrophils % D-Dimer ABG pH POC ABG pCO2 POC ABG pO2 ABG pO2 ABG HCO3 ABG O2 Saturation ABG Oxyhemoglobin ABG Potassium ABG Chloride ABG Glucose Oxyhemoglobin Carboxyhemoglobin Sodium Potassium Chloride Carbon Dioxide BUN Glucose POC Glucose 262 H 321 H Hemoglobin A1c Lactic Acid 2.80 H* Calcium Ferritin AST ALT Lactate Dehydrogenase C-Reactive Protein Total Protein Albumin Arterial Blood Glucose Coronavirus (PCR) 04/21/21 04/21/21 04/21/21 04:11 04:24 04:24 WBC RBC 3.55 L MCH 33 H MCHC RDW 12.8 L Lymph % (Auto) [place] % (Auto) Lymph # (Auto) [place] # (Auto) Seg Neutrophils % D-Dimer ABG pH 7.479 H POC ABG pCO2 28.9 L POC ABG pO2 75.6 L ABG pO2 ABG HCO3 ABG O2 Saturation ABG Oxyhemoglobin ABG Potassium ABG Chloride 113.0 H ABG Glucose 331 H Oxyhemoglobin Carboxyhemoglobin 0.1 L Sodium Potassium Chloride 113.1 H Carbon Dioxide 18 L BUN 36 H Glucose 342 H POC Glucose Hemoglobin A1c Lactic Acid Calcium 8.1 L Ferritin AST 52 H ALT Lactate Dehydrogenase C-Reactive Protein Total Protein 6.1 L Albumin 2.7 L Arterial Blood Glucose 331 H Coronavirus (PCR) 04/21/21 04/21/21 04/21/21 05:22 11:57 18:16 WBC RBC MCH MCHC RDW Lymph % (Auto) [place] % (Auto) Lymph # (Auto) [place] # (Auto) Seg Neutrophils % D-Dimer ABG pH POC ABG pCO2 POC ABG pO2 ABG pO2 ABG HCO3 ABG O2 Saturation ABG Oxyhemoglobin ABG Potassium ABG Chloride ABG Glucose Oxyhemoglobin Carboxyhemoglobin Sodium Potassium Chloride Carbon Dioxide BUN Glucose POC Glucose 269 H 258 H 313 H Hemoglobin A1c Lactic Acid Calcium Ferritin AST ALT Lactate Dehydrogenase C-Reactive Protein Total Protein Albumin Arterial Blood Glucose Coronavirus (PCR) 04/21/21 04/22/21 04/22/21 23:38 04:00 04:19 WBC RBC MCH 33 H MCHC RDW 12.9 L Lymph % (Auto) [place] % (Auto) Lymph # (Auto) [place] # (Auto) Seg Neutrophils % D-Dimer ABG pH 7.479 H POC ABG pCO2 30.5 L POC ABG pO2 67.9 L ABG pO2 ABG HCO3 ABG O2 Saturation ABG Oxyhemoglobin 14.4 L ABG Potassium ABG Chloride 108.0 H ABG Glucose 212 H Oxyhemoglobin Carboxyhemoglobin Sodium Potassium Chloride Carbon Dioxide BUN Glucose POC Glucose 298 H Hemoglobin A1c Lactic Acid Calcium Ferritin AST ALT Lactate Dehydrogenase C-Reactive Protein Total Protein Albumin Arterial Blood Glucose 212 H Coronavirus (PCR) 04/22/21 04/22/21 04/22/21 04:19 05:15 10:42 WBC RBC MCH MCHC RDW Lymph % (Auto) [place] % (Auto) Lymph # (Auto) [place] # (Auto) Seg Neutrophils % D-Dimer ABG pH POC ABG pCO2 POC ABG pO2 ABG pO2 ABG HCO3 ABG O2 Saturation ABG Oxyhemoglobin ABG Potassium ABG Chloride ABG Glucose Oxyhemoglobin Carboxyhemoglobin Sodium Potassium Chloride 108.0 H Carbon Dioxide 21 L BUN 31 H Glucose 261 H POC Glucose 214 H 171 H Hemoglobin A1c Lactic Acid Calcium Ferritin AST ALT Lactate Dehydrogenase C-Reactive Protein Total Protein Albumin Arterial Blood Glucose Coronavirus (PCR) 04/22/21 04/22/21 04/22/21 10:58 10:58 10:58 WBC RBC MCH MCHC RDW Lymph % (Auto) [place] % (Auto) Lymph # (Auto) [place] # (Auto) Seg Neutrophils % D-Dimer 1848.39 H ABG pH POC ABG pCO2 POC ABG pO2 ABG pO2 ABG HCO3 ABG O2 Saturation ABG Oxyhemoglobin ABG Potassium ABG Chloride ABG Glucose Oxyhemoglobin Carboxyhemoglobin Sodium Potassium Chloride Carbon Dioxide BUN Glucose 201 H POC Glucose Hemoglobin A1c Lactic Acid Calcium Ferritin 1402.0 H AST ALT Lactate Dehydrogenase 524 H C-Reactive Protein Total Protein Albumin Arterial Blood Glucose Coronavirus (PCR) 04/22/21 04/22/21 04/22/21 17:37 21:29 21:40 WBC RBC MCH MCHC RDW Lymph % (Auto) [place] % (Auto) Lymph # (Auto) [place] # (Auto) Seg Neutrophils % D-Dimer ABG pH POC ABG pCO2 POC ABG pO2 ABG pO2 74.6 L ABG HCO3 27.0 H ABG O2 Saturation ABG Oxyhemoglobin ABG Potassium ABG Chloride ABG Glucose Oxyhemoglobin 93.9 L Carboxyhemoglobin Sodium Potassium Chloride Carbon Dioxide BUN Glucose POC Glucose 273 H 180 H Hemoglobin A1c Lactic Acid Calcium Ferritin AST ALT Lactate Dehydrogenase C-Reactive Protein Total Protein Albumin Arterial Blood Glucose Coronavirus (PCR) 04/23/21 04/23/21 04/23/21 02:42 04:17 04:17 WBC 16.6 H RBC MCH MCHC RDW 13.0 L Lymph % (Auto) [place] % (Auto) Lymph # (Auto) [place] # (Auto) Seg Neutrophils % D-Dimer ABG pH POC ABG pCO2 POC ABG pO2 ABG pO2 ABG HCO3 ABG O2 Saturation ABG Oxyhemoglobin ABG Potassium ABG Chloride ABG Glucose Oxyhemoglobin Carboxyhemoglobin Sodium 136 L Potassium Chloride Carbon Dioxide BUN 26 H Glucose 105 H POC Glucose 111 H Hemoglobin A1c Lactic Acid Calcium Ferritin AST ALT Lactate Dehydrogenase C-Reactive Protein Total Protein Albumin Arterial Blood Glucose Coronavirus (PCR) 04/23/21 04/23/21 04/23/21 05:20 10:02 12:01 WBC RBC MCH MCHC RDW Lymph % (Auto) [place] % (Auto) Lymph # (Auto) [place] # (Auto) Seg Neutrophils % D-Dimer ABG pH POC ABG pCO2 POC ABG pO2 ABG pO2 ABG HCO3 ABG O2 Saturation ABG Oxyhemoglobin ABG Potassium ABG Chloride ABG Glucose Oxyhemoglobin Carboxyhemoglobin Sodium Potassium Chloride Carbon Dioxide BUN Glucose POC Glucose 121 H 144 H 220 H Hemoglobin A1c Lactic Acid Calcium Ferritin AST ALT Lactate Dehydrogenase C-Reactive Protein Total Protein Albumin Arterial Blood Glucose Coronavirus (PCR) 04/23/21 04/23/21 04/23/21 15:26 18:20 22:04 WBC RBC MCH MCHC RDW Lymph % (Auto) [place] % (Auto) Lymph # (Auto) [place] # (Auto) Seg Neutrophils % D-Dimer ABG pH 7.458 H POC ABG pCO2 POC ABG pO2 ABG pO2 168.1 H ABG HCO3 ABG O2 Saturation 99.1 H ABG Oxyhemoglobin ABG Potassium ABG Chloride ABG Glucose Oxyhemoglobin Carboxyhemoglobin Sodium Potassium Chloride Carbon Dioxide BUN Glucose POC Glucose 291 H 246 H Hemoglobin A1c Lactic Acid Calcium Ferritin AST ALT Lactate Dehydrogenase C-Reactive Protein Total Protein Albumin Arterial Blood Glucose Coronavirus (PCR) 04/24/21 04/24/21 04/24/21 02:17 04:33 04:33 WBC RBC MCH MCHC RDW Lymph % (Auto) [place] % (Auto) Lymph # (Auto) [place] # (Auto) Seg Neutrophils % D-Dimer 1775.11 H ABG pH POC ABG pCO2 POC ABG pO2 ABG pO2 ABG HCO3 ABG O2 Saturation ABG Oxyhemoglobin ABG Potassium ABG Chloride ABG Glucose Oxyhemoglobin Carboxyhemoglobin Sodium Potassium Chloride Carbon Dioxide BUN Glucose POC Glucose 153 H Hemoglobin A1c Lactic Acid Calcium Ferritin 1392.0 H AST ALT Lactate Dehydrogenase C-Reactive Protein Total Protein Albumin Arterial Blood Glucose Coronavirus (PCR) 04/24/21 04/24/21 04/24/21 04:33 04:33 10:47 WBC 12.1 H RBC MCH MCHC RDW 12.9 L Lymph % (Auto) [place] % (Auto) Lymph # (Auto) [place] # (Auto) Seg Neutrophils % D-Dimer ABG pH POC ABG pCO2 POC ABG pO2 ABG pO2 ABG HCO3 ABG O2 Saturation ABG Oxyhemoglobin ABG Potassium ABG Chloride ABG Glucose Oxyhemoglobin Carboxyhemoglobin Sodium Potassium Chloride Carbon Dioxide BUN 27 H Glucose 130 H POC Glucose 254 H Hemoglobin A1c Lactic Acid Calcium Ferritin AST ALT Lactate Dehydrogenase 506 H C-Reactive Protein Total Protein Albumin Arterial Blood Glucose Coronavirus (PCR) 04/24/21 04/24/21 04/24/21 10:49 11:30 12:00 WBC RBC MCH MCHC RDW Lymph % (Auto) [place] % (Auto) Lymph # (Auto) [place] # (Auto) Seg Neutrophils % D-Dimer ABG pH POC ABG pCO2 POC ABG pO2 ABG pO2 ABG HCO3 ABG O2 Saturation ABG Oxyhemoglobin ABG Potassium ABG Chloride ABG Glucose Oxyhemoglobin Carboxyhemoglobin Sodium Potassium Chloride Carbon Dioxide BUN Glucose POC Glucose 258 H 194 H 166 H Hemoglobin A1c Lactic Acid Calcium Ferritin AST ALT Lactate Dehydrogenase C-Reactive Protein Total Protein Albumin Arterial Blood Glucose Coronavirus (PCR) 04/24/21 04/25/21 04/25/21 16:20 00:03 11:54 WBC RBC MCH MCHC RDW Lymph % (Auto) [place] % (Auto) Lymph # (Auto) [place] # (Auto) Seg Neutrophils % D-Dimer ABG pH POC ABG pCO2 POC ABG pO2 ABG pO2 ABG HCO3 ABG O2 Saturation ABG Oxyhemoglobin ABG Potassium ABG Chloride ABG Glucose Oxyhemoglobin Carboxyhemoglobin Sodium Potassium Chloride Carbon Dioxide BUN Glucose POC Glucose 236 H 165 H 140 H Hemoglobin A1c Lactic Acid Calcium Ferritin AST ALT Lactate Dehydrogenase C-Reactive Protein Total Protein Albumin Arterial Blood Glucose Coronavirus (PCR) 04/25/21 04/25/21 04/26/21 17:40 22:35 07:20 WBC RBC MCH MCHC RDW Lymph % (Auto) [place] % (Auto) Lymph # (Auto) [place] # (Auto) Seg Neutrophils % D-Dimer 1215.98 H ABG pH POC ABG pCO2 POC ABG pO2 ABG pO2 ABG HCO3 ABG O2 Saturation ABG Oxyhemoglobin ABG Potassium ABG Chloride ABG Glucose Oxyhemoglobin Carboxyhemoglobin Sodium Potassium Chloride Carbon Dioxide BUN Glucose POC Glucose 212 H 154 H Hemoglobin A1c Lactic Acid Calcium Ferritin AST ALT Lactate Dehydrogenase C-Reactive Protein Total Protein Albumin Arterial Blood Glucose Coronavirus (PCR) 04/26/21 04/26/21 04/26/21 07:20 07:20 07:20 WBC RBC MCH MCHC RDW 12.9 L Lymph % (Auto) [place] % (Auto) Lymph # (Auto) [place] # (Auto) Seg Neutrophils % D-Dimer ABG pH POC ABG pCO2 POC ABG pO2 ABG pO2 ABG HCO3 ABG O2 Saturation ABG Oxyhemoglobin ABG Potassium ABG Chloride ABG Glucose Oxyhemoglobin Carboxyhemoglobin Sodium Potassium Chloride Carbon Dioxide BUN 38 H Glucose POC Glucose Hemoglobin A1c Lactic Acid Calcium Ferritin 1558.0 H AST ALT Lactate Dehydrogenase 408 H C-Reactive Protein Total Protein Albumin Arterial Blood Glucose Coronavirus (PCR) 04/26/21 04/26/21 04/26/21 11:17 15:52 21:08 WBC RBC MCH MCHC RDW Lymph % (Auto) [place] % (Auto) Lymph # (Auto) [place] # (Auto) Seg Neutrophils % D-Dimer ABG pH POC ABG pCO2 POC ABG pO2 ABG pO2 ABG HCO3 ABG O2 Saturation ABG Oxyhemoglobin ABG Potassium ABG Chloride ABG Glucose Oxyhemoglobin Carboxyhemoglobin Sodium Potassium Chloride Carbon Dioxide BUN Glucose POC Glucose 130 H 250 H 307 H Hemoglobin A1c Lactic Acid Calcium Ferritin AST ALT Lactate Dehydrogenase C-Reactive Protein Total Protein Albumin Arterial Blood Glucose Coronavirus (PCR) 04/27/21 04/27/21 04/27/21 07:35 11:09 16:24 WBC RBC MCH MCHC RDW Lymph % (Auto) [place] % (Auto) Lymph # (Auto) [place] # (Auto) Seg Neutrophils % D-Dimer ABG pH POC ABG pCO2 POC ABG pO2 ABG pO2 ABG HCO3 ABG O2 Saturation ABG Oxyhemoglobin ABG Potassium ABG Chloride ABG Glucose Oxyhemoglobin Carboxyhemoglobin Sodium Potassium Chloride Carbon Dioxide BUN Glucose POC Glucose 106 H 136 H 288 H Hemoglobin A1c Lactic Acid Calcium Ferritin AST ALT Lactate Dehydrogenase C-Reactive Protein Total Protein Albumin Arterial Blood Glucose Coronavirus (PCR) 04/27/21 04/28/21 22:46 07:19 WBC RBC MCH MCHC RDW Lymph % (Auto) [place] % (Auto) 11.5 H Lymph # (Auto) [place] # (Auto) 1.0 H Seg Neutrophils % 72.0 H D-Dimer ABG pH POC ABG pCO2 POC ABG pO2 ABG pO2 ABG HCO3 ABG O2 Saturation ABG Oxyhemoglobin ABG Potassium ABG Chloride ABG Glucose Oxyhemoglobin Carboxyhemoglobin Sodium Potassium Chloride Carbon Dioxide BUN Glucose POC Glucose 229 H Hemoglobin A1c Lactic Acid Calcium Ferritin AST ALT Lactate Dehydrogenase C-Reactive Protein Total Protein Albumin Arterial Blood Glucose Coronavirus (PCR) Chest x-ray: report reviewed, image reviewed Additional Studies: CHEST 1 VIEW 04/28/2021 7:43 AM INDICATION / CLINICAL INFORMATION: covid 19 pna. COMPARISON: 04/23/2021 FINDINGS: SUPPORT DEVICES: None. HEART / MEDIASTINUM: No significant abnormality. LUNGS / PLEURA: There are bilateral pulmonary opacities most prominent in the right upper lung zone and in the left mid and lower lung zone characteristic of pneumonia. No pneumothorax. ADDITIONAL FINDINGS: No significant additional findings. IMPRESSION: 1. Bilateral pulmonary opacities are noted characteristic of pneumonia. Allied health notes reviewed: nursing
[2021-04-28 09:08] LABS: Blood Urea Nitrogen 32 mg/dL (7-17); Calcium 9.3 mg/dL (8.4-10.2); Hemolysis Index 9
[2021-04-28 09:13] LABS: BUN/Creatinine Ratio 46
[2021-04-28] MEDS: ENOXAPARIN 30 MG/0.3 ML INJ SUB-Q SCH (10:32)
[2021-04-28] MEDS: FAMOTIDINE 20 MG TAB PO SCH (10:33)
[2021-04-28] MEDS: hydroCHLOROthiazide 12.5 MG CAP PO SCH (10:46)
[2021-04-28] MEDS: LOSARTAN 50 MG TAB PO SCH (10:47)
[2021-04-28] MEDS: amLODIPine 10 MG TAB PO SCH (10:47)
[2021-04-28 10:49] VITALS: BP 110/71
--- NOTE | 2021-04-28 15:18 | Progress Note ---
Assessment and Plan Cultures: Blood culture no growth Sputum culture no growth COVID-19 PCR: Positive Urine culture: No growth A/P: 51-year-old female admitted with COVID-19 #Severe COVID-19 pneumonia: Patient presented with a week of symptoms, chest x- ray with diffuse bilateral infiltrates, admission O2 sats 40%on room air. Inflammatory markers elevated. #Acute hypoxemic respiratory failure: secondary to COVID-19 infection. Was on the vent, extubated to BiPAP 04/24/2021. Weaned to NC at 3 lit/min. Recommendations: -Completed 10 days of steroids -Completed Remdesivir -Status post Actemra 04/21/2021 -agree with discharge planning, home oxygen ID will sign off. Please call with questions. Tung Germain MD, FACP [facility] ([facility] O: [phone] F: [phone] Subjective Date of service: 04/28/21 Principal diagnosis: Pneumonia; Sepsis; Acute hypoxemic resp failure; ARDS; COVID; Sepsis Interval history: No fever. Completed steroids. Weaned down to 3 lit by [place]. Objective - Exam Narrative Exam: Physical Exam (reviewed in chart to minimize risk of transmission) Constitutional: deferred Head, Ears, Nose: deferred Eyes: deferred Neck: deferred Oral: deferred Cardiovascular: deferred Respiratory: deferred GI: deferred Musculoskeletal: deferred Skin: deferred Hem/Lymphatic: deferred Psych: deferred Neurological: deferred - Constitutional Vitals: Vital Signs Temp Pulse Resp BP Pulse Ox 98.2 F 74 16 110/71 85 04/28/21 05:05 04/28/21 10:47 04/28/21 10:00 04/28/21 10:47 04/28/21 10:30 Temperature -Last 24 Hours Temperature 98.2 F Temperature 98.5 F Temperature 98.1 F - Labs CBC & Chem 7: 04/28/21 07:19 04/28/21 07:19 Labs: Abnormal lab results 04/27/21 04/27/21 04/28/21 Range/Units 16:24 22:46 07:19 [place] % (Auto) 11.5 H (0.0-7.3) % [place] # (Auto) 1.0 H (0.0-0.8) K/mm3 Seg Neutrophils % 72.0 H (40.0-70.0) % D-Dimer (0-234) ng/mlDDU BUN (7-17) mg/dL POC Glucose 288 H 229 H (70-105) mg/dL Ferritin (10.0-200.0) ng/mL Lactate Dehydrogenase (91-180) units/L 04/28/21 04/28/21 04/28/21 Range/Units 07:19 07:19 07:19 [place] % (Auto) (0.0-7.3) % Branch # (Auto) (0.0-0.8) K/mm3 Seg Neutrophils % (40.0-70.0) % D-Dimer 805.50 H (0-234) ng/mlDDU BUN 32 H (7-17) mg/dL POC Glucose (70-105) mg/dL Ferritin 1538.0 H (10.0-200.0) ng/mL Lactate Dehydrogenase 307 H (91-180) units/L 04/28/21 Range/Units 11:27 Branch % (Auto) (0.0-7.3) % Branch # (Auto) (0.0-0.8) K/mm3 Seg Neutrophils % (40.0-70.0) % D-Dimer (0-234) ng/mlDDU BUN (7-17) mg/dL POC Glucose 127 H (70-105) mg/dL Ferritin (10.0-200.0) ng/mL Lactate Dehydrogenase (91-180) units/L
== END 2021-04-28 16:10 | disposition home health service (06) | DRG 870 ==
LOC: ED 02:05 → CC1 04:13 → 3A 04-24 21:19
PROVIDERS: ADMIT Internal Medicine Geriatric Medicine; ATTEND Internal Medicine
PROC: 5A1955Z Respiratory Ventilation, Greater than 96 Consecutive Hours (ICD-10-PCS; principal; 2021-04-18)
PROC: 0BH17EZ Insertion of Endotracheal Airway into Trachea, Via Natural or Artificial Opening (ICD-10-PCS; 2021-04-18)
PROC: XW033E5 Introduction of Remdesivir Anti-infective into Peripheral Vein, Percutaneous Approach, New Technology Group 5 (ICD-10-PCS; 2021-04-18)
PROC: XW033H5 Introduction of Tocilizumab into Peripheral Vein, Percutaneous Approach, New Technology Group 5 (ICD-10-PCS; 2021-04-21)
PROC: 4A033R1 Measurement of Arterial Saturation, Peripheral, Percutaneous Approach (ICD-10-PCS; 2021-04-23)
PROC: 5A09357 Assistance with Respiratory Ventilation, Less than 24 Consecutive Hours, Continuous Positive Airway Pressure (ICD-10-PCS; 2021-04-24)
PROC: 5A09357 Assistance with Respiratory Ventilation, Less than 24 Consecutive Hours, Continuous Positive Airway Pressure (ICD-10-PCS; 2021-04-26)
DX: A41.9 Sepsis, unspecified organism (principal); U07.1 COVID-19; R65.20 Severe sepsis without septic shock; I10 Essential (primary) hypertension; J12.82 Pneumonia due to coronavirus disease 2019; J80 Acute respiratory distress syndrome; E87.3 Alkalosis; E87.0 Hyperosmolality and hypernatremia; R73.9 Hyperglycemia, unspecified; E87.6 Hypokalemia; G93.41 Metabolic encephalopathy
CPT/HCPCS: 36415; 36600; 70450; 71045; 80048; 80053; 80320; 81001; 82140; 82550; 82728; 82803; 82805; 82947; 82962; 83036; 83615; 83735; 84100; 84145; 85007; 85025; 85027; 85379; 85610; 85730; 86140; 87040; 87070; 87086; 87205; 93970; 94002; 94003; 94660; 94760; G0378; J7070; G0480; J0360; J0456; J0696; J1100; J1644; J1650; J1815; J2060; J2405; J3010; J3262; J7030; J7050; U0003